=== PATIENT | male | born 1945 | race Two or more races ===

== ENCOUNTER 2023-02-27 08:29 | Inpatient (IN) | payer OTHER ==
[~2023-02-27] VITALS: Ht 167.6 cm; Wt 77.1 kg
[2023-02-27 10:08] LABS: COVID19 ANTIGEN SOFIA FIA NEGATIVE (NEGATIVE); Rapid Influenza A Negative (Negative); Rapid Influenza B Negative (Negative)
[2023-02-27 10:12] LABS: Basophils # (auto) 0.1 10 ^3/uL (0-0.2); Basophils % (auto) 0.5 % (0.0-2.0); Eosinophils # (auto) 0.1 10 ^3/uL (0-0.8); Eosinophils % (auto) 0.7 % (0.0-7.0); Hematocrit 46.4 % (41.0-53.0); Hemoglobin 15.1 g/dL (13.5-17.5); Lymphocytes # (auto) 0.7 10 ^3/uL (0.4-5.4); Lymphocytes % (auto) 4.8 % (10.0-50.0); Mean Corpuscular Hemoglobin 27.8 pg (28.0-32.0); Mean Corpuscular Hgb Conc. 32.4 g/dL (32.0-36.0); Mean Corpuscular Volume 85.9 fL (80.0-100.0); Monocytes # (auto) 1.1 10 ^3/uL (0-1.3); Monocytes % (auto) 7.7 % (0.0-12.0); Neutrophils # (auto) 12.1 10 ^3/uL (1.6-8.6); Neutrophils % (auto) 86.3 % (37.0-80.0); Nucleated Red Blood Cells % 0.2 %; Red Blood Cells 5.41 10^6/uL (4.5-5.90); Red Cell Distribution Width 15.3 % (11.8-14.3)
[2023-02-27 10:20] LABS: Alanine Aminotransferase 68 U/L (7-40); Albumin 3.9 g/dL (3.2-4.8); Alkaline Phosphatase 189 U/L (46-116); Anion Gap 5 (5-15); Aspartate Aminotransferase 52 U/L (13-40); BUN/Creatinine Ratio 17.6 (10.0-20.0); Bilirubin, Total 0.4 mg/dL (0.2-1.0); Blood Urea Nitrogen 21 mg/dL (9-23); Calcium 9.2 mg/dL (8.5-10.1); Carbon Dioxide 32 mmol/L (20-30); Chloride 103 mmol/L (98-107); Glucose 126 mg/dL (74-106); Potassium 5.3 mmol/L (3.5-5.1); Sodium 140 mmol/L (136-145)
[2023-02-27 10:21] LABS: Total Protein 6.3 g/dL (5.7-8.2)
[2023-02-27 10:32] VITALS: PULSE 104; RESP 15; O2SAT 92
[2023-02-27] MEDS ORDERED: IPRATROPIUM BROM 0.5 MG/2.5ML INH SOL NEB ONE (12:45)
[2023-02-27] MEDS ORDERED: methylPREDNISolone SOD SUCC 125 MG/2 ML VL IV ONE (12:45)
[2023-02-27] MEDS ORDERED: cefTRIAXone 1GM/50ML D5W 50 ML IV ONE (12:45)
[2023-02-27] MEDS ORDERED: FUROSEMIDE 40 MG/4 ML VIAL IV ONE (12:45)
[2023-02-27] MEDS ORDERED: AZITHROMYCIN 500MG/ 250ML 250 ML IV ONE (12:45)
[2023-02-27] MEDS ORDERED: ALBUTEROL MEDNEB 2.5 mg/3ml NEB NEB ONE (12:45)
[2023-02-27] MEDS ORDERED: ACETAMINOPHEN 325 MG TAB PO PRN (13:00)
[2023-02-27] MEDS ORDERED: ROSU1TAB14 PO (13:06)
[2023-02-27] MEDS: SODIUM CHLORIDE 0.9% 1,000 ML IV SCH (13:27)
[2023-02-27 14:40] LABS: Urine Bacteria NONE SEEN /hpf (None Seen); Urine Blood 3+ /uL (Negative); Urine Clarity HAZY (Clear); Urine Color Yellow (Yellow); Urine Mucus FEW (None Seen); Urine Protein, UAD 1+ (Negative); Urine Specific Gravity 1.027 (1.001-1.035); Urine WBC 78 /hpf (0 - 3); Urine pH 5.5 (5.0-8.0)
[2023-02-27] MEDS: methylPREDNISolone SOD SUCC 40 MG/ML VL IV SCH (23:30)
[2023-02-27 23:50] VITALS: BP 96/48; PULSE 76; RESP 16; TEMP 97.6; O2SAT 98
[2023-02-28 05:01] VITALS: BP 81/33; PULSE 72; RESP 16; TEMP 97.6; O2SAT 91
[2023-02-28 06:36] LABS: Basophils # (auto) 0 10 ^3/uL (0-0.2); Basophils % (auto) 0.3 % (0.0-2.0); Eosinophils # (auto) 0 10 ^3/uL (0-0.8); Hematocrit 42.2 % (41.0-53.0); Hemoglobin 13.7 g/dL (13.5-17.5); Lymphocytes # (auto) 0.6 10 ^3/uL (0.4-5.4); Lymphocytes % (auto) 4.3 % (10.0-50.0); Mean Corpuscular Hemoglobin 28.1 pg (28.0-32.0); Mean Corpuscular Hgb Conc. 32.5 g/dL (32.0-36.0); Mean Corpuscular Volume 86.2 fL (80.0-100.0); Monocytes # (auto) 0.4 10 ^3/uL (0-1.3); Monocytes % (auto) 2.7 % (0.0-12.0); Neutrophils # (auto) 12.2 10 ^3/uL (1.6-8.6); Neutrophils % (auto) 92.7 % (37.0-80.0); Nucleated Red Blood Cells % 0.1 %; Red Blood Cells 4.89 10^6/uL (4.5-5.90); Red Cell Distribution Width 15.1 % (11.8-14.3); White Blood Cell 13.2 10^3/uL (4.4-10.8)
[2023-02-28 06:44] LABS: Alanine Aminotransferase 40 U/L (7-40); Albumin 3.7 g/dL (3.2-4.8); Alkaline Phosphatase 96 U/L (46-116); Anion Gap 6 (5-15); Aspartate Aminotransferase 18 U/L (13-40); BUN/Creatinine Ratio 16.5 (10.0-20.0); Blood Urea Nitrogen 15 mg/dL (9-23); Calcium 8.9 mg/dL (8.7-10.4); Carbon Dioxide 29 mmol/L (20-30); Chloride 104 mmol/L (98-107); Glucose 156 mg/dL (74-106); Potassium 4.7 mmol/L (3.5-5.1); Sodium 139 mmol/L (136-145)
[2023-02-28 06:45] LABS: Bilirubin, Total 0.3 mg/dL (0.2-1.0); Total Protein 6.3 g/dL (5.7-8.2)
[2023-02-28 08:10] VITALS: BP 104/68; PULSE 80; RESP 15; TEMP 98.2; O2SAT 96
[2023-02-28] MEDS: cefTRIAXone 1GM/50ML D5W 50 ML IV SCH (08:43)
[2023-02-28] MEDS: SODIUM CHLORIDE 0.9% 1,000 ML IV SCH (08:43)
[2023-02-28 09:00] VITALS: BP 104/68; PULSE 80; RESP 15; TEMP 98.2; O2SAT 96
[2023-02-28] MEDS: ATORVASTATIN 20 MG TAB PO SCH (10:20)
[2023-02-28] MEDS: methylPREDNISolone SOD SUCC 40 MG/ML VL IV SCH ×2 (10:20→22:04)
[2023-02-28] MEDS: ENOXAPARIN SOD 40 MG/0.4 ML SYRINGE SC SCH (10:20)
[2023-02-28] MEDS: AZITHROMYCIN 500MG/ 250ML 250 ML IV SCH (10:21)
[2023-02-28 13:00] VITALS: BP 100/68; PULSE 74; RESP 16; TEMP 97.5; O2SAT 94
[2023-02-28 17:00] VITALS: BP 101/67; PULSE 67; RESP 16; TEMP 97.4; O2SAT 94
[2023-02-28 21:37] VITALS: BP 90/50; PULSE 72; RESP 16; TEMP 97.8; O2SAT 100
[2023-03-01 04:50] VITALS: BP 89/55; PULSE 62; RESP 18; TEMP 98.1; O2SAT 98
[2023-03-01 07:07] LABS: Basophils # (auto) 0.1 10 ^3/uL (0-0.2); Basophils % (auto) 0.5 % (0.0-2.0); Eosinophils # (auto) 0 10 ^3/uL (0-0.8); Hematocrit 42.5 % (41.0-53.0); Hemoglobin 13.4 g/dL (13.5-17.5); Lymphocytes # (auto) 0.6 10 ^3/uL (0.4-5.4); Lymphocytes % (auto) 3.7 % (10.0-50.0); Mean Corpuscular Hgb Conc. 31.6 g/dL (32.0-36.0); Mean Corpuscular Volume 85.6 fL (80.0-100.0); Monocytes # (auto) 0.5 10 ^3/uL (0-1.3); Neutrophils # (auto) 15.3 10 ^3/uL (1.6-8.6); Neutrophils % (auto) 92.8 % (37.0-80.0); Nucleated Red Blood Cells % 0.1 %; Red Blood Cells 4.97 10^6/uL (4.5-5.90); Red Cell Distribution Width 15.1 % (11.8-14.3); White Blood Cell 16.5 10^3/uL (4.4-10.8)
[2023-03-01 07:15] LABS: Anion Gap 1 (5-15); Carbon Dioxide 33 mmol/L (20-30); Chloride 106 mmol/L (98-107); Potassium 5.4 mmol/L (3.5-5.1); Sodium 140 mmol/L (136-145)
[2023-03-01 07:16] LABS: Calcium 9.2 mg/dL (8.5-10.1)
[2023-03-01 07:21] LABS: BUN/Creatinine Ratio 24.8 (10.0-20.0); Glucose 157 mg/dL (74-106); Triglycerides 118 mg/dL (< 150)
[2023-03-01 07:22] LABS: LDL Cholesterol 52 mg/dL (< 100)
[2023-03-01 07:23] LABS: Cholesterol 98 mg/dL (< 200); HDL Cholesterol 21 mg/dL (40-59)
[2023-03-01 07:27] LABS: Blood Urea Nitrogen 27 mg/dL (9-23)
[2023-03-01 07:29] LABS: Magnesium 2.4 mg/dL (1.6-2.6)
[2023-03-01 09:00] VITALS: BP 101/72; PULSE 54; RESP 14; TEMP 97.5; O2SAT 98
[2023-03-01 09:15] LABS: Platelet Estimate Adequate
[2023-03-01 09:16] LABS: Giant Platelets Few
[2023-03-01] MEDS: ATORVASTATIN 20 MG TAB PO SCH (09:29)
[2023-03-01] MEDS: cefTRIAXone 1GM/50ML D5W 50 ML IV SCH (09:29)
[2023-03-01] MEDS: AZITHROMYCIN 500MG/ 250ML 250 ML IV SCH (09:29)
[2023-03-01] MEDS: ENOXAPARIN SOD 40 MG/0.4 ML SYRINGE SC SCH (09:30)
[2023-03-01] MEDS: methylPREDNISolone SOD SUCC 40 MG/ML VL IV SCH ×2 (09:30→22:48)
[2023-03-01] MEDS ORDERED: IOHEXOL 350 MG/ML 100ML IJ ONE (12:08)
[2023-03-01 13:00] VITALS: BP 98/60; PULSE 55; RESP 15; TEMP 97.9; O2SAT 96
[2023-03-01] MEDS ORDERED: SODIUM CHLORIDE 0.9% 1,000 ML IV ONE (14:15)
[2023-03-01 17:00] VITALS: BP 108/68; PULSE 61; RESP 17; TEMP 98; O2SAT 98
[2023-03-01 22:00] VITALS: BP 91/55; PULSE 69; RESP 18; TEMP 98; O2SAT 98
[2023-03-02 05:00] VITALS: BP 89/54; PULSE 65; RESP 16; TEMP 98; O2SAT 91
[2023-03-02 07:49] LABS: Chloride 107 mmol/L (98-107); Potassium 5.1 mmol/L (3.5-5.1); Sodium 139 mmol/L (136-145)
[2023-03-02 07:50] LABS: Anion Gap 4 (5-15); Calcium 9.2 mg/dL (8.5-10.1); Carbon Dioxide 28 mmol/L (20-30)
[2023-03-02 07:55] LABS: BUN/Creatinine Ratio 26.9 (10.0-20.0); Blood Urea Nitrogen 25 mg/dL (9-23); Glucose 144 mg/dL (74-106)
[2023-03-02 08:08] LABS: Basophils # (auto) 0 10 ^3/uL (0-0.2); Basophils % (auto) 0.2 % (0.0-2.0); Eosinophils # (auto) 0 10 ^3/uL (0-0.8); Hematocrit 43.1 % (41.0-53.0); Hemoglobin 13.4 g/dL (13.5-17.5); Lymphocytes # (auto) 0.6 10 ^3/uL (0.4-5.4); Lymphocytes % (auto) 3.8 % (10.0-50.0); Mean Corpuscular Hemoglobin 27.1 pg (28.0-32.0); Mean Corpuscular Hgb Conc. 31.2 g/dL (32.0-36.0); Mean Corpuscular Volume 86.8 fL (80.0-100.0); Monocytes # (auto) 0.4 10 ^3/uL (0-1.3); Monocytes % (auto) 2.9 % (0.0-12.0); Neutrophils # (auto) 14.2 10 ^3/uL (1.6-8.6); Neutrophils % (auto) 93.1 % (37.0-80.0); Red Blood Cells 4.97 10^6/uL (4.5-5.90); Red Cell Distribution Width 15.8 % (11.8-14.3); White Blood Cell 15.2 10^3/uL (4.4-10.8)
[2023-03-02] MEDS: cefTRIAXone 1GM/50ML D5W 50 ML IV SCH (08:34)
[2023-03-02] MEDS: ATORVASTATIN 20 MG TAB PO SCH (08:35)
[2023-03-02] MEDS: AZITHROMYCIN 500MG/ 250ML 250 ML IV SCH (08:35)
[2023-03-02] MEDS: methylPREDNISolone SOD SUCC 40 MG/ML VL IV SCH ×2 (08:35→21:49)
[2023-03-02] MEDS: ENOXAPARIN SOD 40 MG/0.4 ML SYRINGE SC SCH (08:35)
[2023-03-02 08:55] VITALS: BP 91/55; PULSE 54; RESP 18; TEMP 97.6; O2SAT 94
[2023-03-02 13:00] VITALS: BP 106/37; PULSE 51; RESP 17; TEMP 97.5; O2SAT 98
[2023-03-02 17:00] VITALS: BP 106/56; PULSE 63; RESP 16; TEMP 97.7; O2SAT 96
[2023-03-02 22:00] VITALS: BP 114/64; PULSE 52; RESP 18; TEMP 97.8; O2SAT 99
[2023-03-03 05:00] VITALS: BP 107/59; PULSE 72; RESP 16; TEMP 97.9; O2SAT 93
[2023-03-03 09:00] VITALS: BP 119/68; PULSE 52; RESP 18; TEMP 98; O2SAT 99
[2023-03-03] MEDS: cefTRIAXone 1GM/50ML D5W 50 ML IV SCH (09:22)
[2023-03-03] MEDS: ENOXAPARIN SOD 40 MG/0.4 ML SYRINGE SC SCH (09:25)
[2023-03-03] MEDS: AZITHROMYCIN 500MG/ 250ML 250 ML IV SCH (09:25)
[2023-03-03] MEDS: ATORVASTATIN 20 MG TAB PO SCH (09:25)
[2023-03-03] MEDS: methylPREDNISolone SOD SUCC 40 MG/ML VL IV SCH ×2 (09:25→21:38)
[2023-03-03 13:00] VITALS: BP 107/65; PULSE 54; RESP 17; TEMP 98.1; O2SAT 99
[2023-03-03 17:00] VITALS: BP 123/71; PULSE 50; RESP 17; TEMP 98.2; O2SAT 98
[2023-03-03 21:46] VITALS: BP 159/97; PULSE 80; RESP 16; TEMP 98.4; O2SAT 95
[2023-03-04] VITALS (7 sets, daily range): BP systolic 100–118; BP diastolic 50–70; PULSE 53–71; RESP 16–20; TEMP 97.4–98.1; O2SAT 92–99
[2023-03-04] MEDS: cefTRIAXone 1GM/50ML D5W 50 ML IV SCH (09:15)
[2023-03-04] MEDS: ATORVASTATIN 20 MG TAB PO SCH (10:14)
[2023-03-04] MEDS: AZITHROMYCIN 500MG/ 250ML 250 ML IV SCH (10:14)
[2023-03-04] MEDS: methylPREDNISolone SOD SUCC 40 MG/ML VL IV SCH ×2 (10:14→21:47)
[2023-03-04] MEDS: ENOXAPARIN SOD 40 MG/0.4 ML SYRINGE SC SCH (10:14)
[2023-03-05] VITALS (7 sets, daily range): BP systolic 105–123; BP diastolic 54–71; PULSE 49–61; RESP 16–20; TEMP 97.9–98.4; O2SAT 92–99
[2023-03-05] MEDS: cefTRIAXone 1GM/50ML D5W 50 ML IV SCH (08:45)
[2023-03-05] MEDS: ATORVASTATIN 20 MG TAB PO SCH (10:12)
[2023-03-05] MEDS: methylPREDNISolone SOD SUCC 40 MG/ML VL IV SCH ×2 (10:13→21:04)
[2023-03-05] MEDS: AZITHROMYCIN 500MG/ 250ML 250 ML IV SCH (10:14)
[2023-03-05] MEDS: ENOXAPARIN SOD 40 MG/0.4 ML SYRINGE SC SCH (10:19)
[2023-03-06 05:00] VITALS: BP 111/57; PULSE 63; RESP 20; TEMP 98; O2SAT 91
[2023-03-06 08:47] VITALS: BP 114/65; PULSE 75; RESP 16; TEMP 98.2; O2SAT 94
[2023-03-06 09:00] VITALS: PULSE 44
[2023-03-06] MEDS: cefTRIAXone 1GM/50ML D5W 50 ML IV SCH (10:24)
[2023-03-06] MEDS: AZITHROMYCIN 500MG/ 250ML 250 ML IV SCH (10:24)
[2023-03-06] MEDS: ATORVASTATIN 20 MG TAB PO SCH (11:37)
[2023-03-06] MEDS: ENOXAPARIN SOD 40 MG/0.4 ML SYRINGE SC SCH (11:37)
[2023-03-06] MEDS: methylPREDNISolone SOD SUCC 40 MG/ML VL IV SCH (11:37)
[2023-03-06 12:38] VITALS: BP 158/82; PULSE 50; RESP 16; TEMP 97.6; O2SAT 94
[2023-03-06 13:28] LABS: Basophils # (auto) 0.1 10 ^3/uL (0-0.2); Basophils % (auto) 0.4 % (0.0-2.0); Eosinophils # (auto) 0 10 ^3/uL (0-0.8); Eosinophils % (auto) 0.1 % (0.0-7.0); Hematocrit 50.5 % (41.0-53.0); Hemoglobin 16.2 g/dL (13.5-17.5); Lymphocytes # (auto) 0.7 10 ^3/uL (0.4-5.4); Lymphocytes % (auto) 4.1 % (10.0-50.0); Mean Corpuscular Hemoglobin 27.3 pg (28.0-32.0); Mean Corpuscular Hgb Conc. 32.1 g/dL (32.0-36.0); Mean Corpuscular Volume 85.1 fL (80.0-100.0); Monocytes # (auto) 0.5 10 ^3/uL (0-1.3); Monocytes % (auto) 3.3 % (0.0-12.0); Neutrophils # (auto) 15.3 10 ^3/uL (1.6-8.6); Neutrophils % (auto) 92.1 % (37.0-80.0); Nucleated Red Blood Cells % 0.2 %; Red Blood Cells 5.93 10^6/uL (4.5-5.90); Red Cell Distribution Width 15.2 % (11.8-14.3); White Blood Cell 16.7 10^3/uL (4.4-10.8)
[2023-03-06 14:01] LABS: Anion Gap 4 (5-15); Calcium 9.4 mg/dL (8.5-10.1); Carbon Dioxide 33 mmol/L (20-30); Chloride 100 mmol/L (98-107); Potassium 4.6 mmol/L (3.5-5.1); Sodium 137 mmol/L (136-145)
[2023-03-06 14:07] LABS: BUN/Creatinine Ratio 18.5 (10.0-20.0); Blood Urea Nitrogen 20 mg/dL (9-23); Glucose 170 mg/dL (74-106)
[2023-03-06 16:25] VITALS: BP 112/82; PULSE 57; RESP 18; TEMP 98.9; O2SAT 92
[2023-03-06 16:55] VITALS: BP 112/82; PULSE 57; RESP 18; TEMP 98.9; O2SAT 92
== END 2023-03-06 17:52 | disposition home or self-care (01) | DRG 193 ==
LOC: ER 08:29 → OVERFLOW 13:05 → WEST WING 23:34
PROVIDERS: ADMIT Nurse Practitioner Family; ATTEND Internal Medicine
DX: J18.9 Pneumonia, unspecified organism (principal); I50.43 Acute on chronic combined systolic (congestive) and diastolic (congestive) heart failure; J96.01 Acute respiratory failure with hypoxia; N17.9 Acute kidney failure, unspecified; Q61.3 Polycystic kidney, unspecified; Z20.822 Contact with and (suspected) exposure to COVID-19; F17.210 Nicotine dependence, cigarettes, uncomplicated; R74.01 Elevation of levels of liver transaminase levels; E78.5 Hyperlipidemia, unspecified; J43.9 Emphysema, unspecified; I71.40 Abdominal aortic aneurysm, without rupture, unspecified; I73.9 Peripheral vascular disease, unspecified; Z86.79 Personal history of other diseases of the circulatory system
CPT/HCPCS: 36415; 71046; 71250; 75635; 80048; 80053; 80061; 81001; 82306; 83036; 83605; 83735; 83880; 84443; 84484; 85025; 87040; 87426; 87804; 93005; 93306; 94640; 96361; 96374; 96375; 97110; 97116; 97163; 97530; 99291; G0378; J0696

== ENCOUNTER → 2023-03-08 | Outpatient (CLI) | payer OTHER ==
[~2023-03-08] MED LIST: ROSU1TAB14 PO
[2023-03-08 11:54] LABS: Basophils # (auto) 0 10 ^3/uL (0-0.2); Monocytes # (auto) 1.4 10 ^3/uL (0-1.3)
[2023-03-08 11:55] LABS: Basophils % (auto) 0.3 % (0.0-2.0); Eosinophils # (auto) 0.2 10 ^3/uL (0-0.8); Eosinophils % (auto) 1.4 % (0.0-7.0); Hematocrit 54.5 % (41.0-53.0); Hemoglobin 17.7 g/dL (13.5-17.5); Lymphocytes # (auto) 1.5 10 ^3/uL (0.4-5.4); Lymphocytes % (auto) 10.7 % (10.0-50.0); Mean Corpuscular Hemoglobin 27.3 pg (28.0-32.0); Mean Corpuscular Hgb Conc. 32.5 g/dL (32.0-36.0); Mean Corpuscular Volume 84.2 fL (80.0-100.0); Monocytes % (auto) 9.8 % (0.0-12.0); Neutrophils # (auto) 11.2 10 ^3/uL (1.6-8.6); Neutrophils % (auto) 77.8 % (37.0-80.0); Nucleated Red Blood Cells % 0.8 %; Red Blood Cells 6.48 10^6/uL (4.5-5.90); Red Cell Distribution Width 15.6 % (11.8-14.3); White Blood Cell 14.4 10^3/uL (4.4-10.8)
[2023-03-08 12:14] LABS: Urine Bacteria NONE SEEN /hpf (None Seen); Urine Blood Negative /uL (Negative); Urine Clarity Clear (Clear); Urine Color Yellow (Yellow); Urine Protein, UAD Negative (Negative); Urine Urobilinogen Normal (Negative); Urine WBC 1 /hpf (0 - 3)
[2023-03-08 13:07] LABS: Alanine Aminotransferase 74 U/L (7-40); Albumin 3.8 g/dL (3.2-4.8); Alkaline Phosphatase 67 U/L (46-116); Aspartate Aminotransferase 19 U/L (13-40); Blood Urea Nitrogen 25 mg/dL (9-23); Calcium 9.3 mg/dL (8.5-10.1); Chloride 103 mmol/L (98-107); Cholesterol 142 mg/dL (< 200); Glucose 90 mg/dL (74-106); LDL Cholesterol 80 mg/dL (< 100); Potassium 4.7 mmol/L (3.5-5.1); Sodium 140 mmol/L (136-145); Triglycerides 172 mg/dL (< 150)
[2023-03-08 13:08] LABS: Bilirubin, Total 0.6 mg/dL (0.2-1.0); HDL Cholesterol 36 mg/dL (40-59); Total Protein 6.1 g/dL (5.7-8.2)
[2023-03-08 13:11] LABS: Anion Gap 5 (5-15); Carbon Dioxide 32 mmol/L (20-30)
[2023-03-08 13:13] LABS: Folate (Folic Acid) 9.95 ng/mL (>5.38)
[2023-03-08 13:35] LABS: Uric Acid 5.4 mg/dL (3.7-9.2)
[2023-03-08 13:36] LABS: Magnesium 2.3 mg/dL (1.6-2.6)
== END | disposition home or self-care (01) ==
LOC: LAB 11:26
PROVIDERS: ATTEND Internal Medicine
DX: E61.2 Magnesium deficiency (principal); R78.89 Finding of other specified substances, not normally found in blood; E78.9 Disorder of lipoprotein metabolism, unspecified; R68.89 Other general symptoms and signs; R94.6 Abnormal results of thyroid function studies; E79.0 Hyperuricemia without signs of inflammatory arthritis and tophaceous disease; R82.991 Hypocitraturia; E85.9 Amyloidosis, unspecified; R82.90 Unspecified abnormal findings in urine; R82.79 Other abnormal findings on microbiological examination of urine; D51.9 Vitamin B12 deficiency anemia, unspecified
CPT/HCPCS: 36415; 80053; 80061; 81001; 82306; 82607; 82746; 83036; 83735; 84443; 84550; 85025; 87086

== ENCOUNTER → 2023-04-14 | Outpatient (CLI) | payer OTHER ==
[2023-04-14 09:21] LABS: Basophils # (auto) 0 10 ^3/uL (0-0.2); Basophils % (auto) 0.3 % (0.0-2.0); Lymphocytes # (auto) 0.8 10 ^3/uL (0.4-5.4); Monocytes # (auto) 0.4 10 ^3/uL (0-1.3)
[2023-04-14 09:23] LABS: Eosinophils # (auto) 0.1 10 ^3/uL (0-0.8); Eosinophils % (auto) 0.7 % (0.0-7.0); Hemoglobin 17.2 g/dL (13.5-17.5); Lymphocytes % (auto) 8.9 % (10.0-50.0); Mean Corpuscular Hemoglobin 27.8 pg (28.0-32.0); Mean Corpuscular Volume 84.2 fL (80.0-100.0); Monocytes % (auto) 4.3 % (0.0-12.0); Neutrophils # (auto) 7.6 10 ^3/uL (1.6-8.6); Neutrophils % (auto) 85.8 % (37.0-80.0); Nucleated Red Blood Cells % 1.4 %; Red Blood Cells 6.17 10^6/uL (4.5-5.90); Red Cell Distribution Width 16.1 % (11.8-14.3); White Blood Cell 8.8 10^3/uL (4.4-10.8)
[2023-04-14 10:23] LABS: Bilirubin, Direct 0.2 mg/dL (<0.3)
[2023-04-14 10:38] LABS: Prostate Specific Antigen 2.15 ng/mL (0.0-4.0)
[2023-04-14 10:41] LABS: Free T4 (Free Thyroxine) 0.98 ng/dL (0.89-1.76)
[2023-04-14 10:50] LABS: Alanine Aminotransferase 15 U/L (7-40); Albumin 4.8 g/dL (3.2-4.8); Alkaline Phosphatase 79 U/L (46-116); Anion Gap 7 (5-15); Aspartate Aminotransferase 14 U/L (13-40); BUN/Creatinine Ratio 5.5 (10.0-20.0); Blood Urea Nitrogen 6 mg/dL (9-23); Calcium 9.6 mg/dL (8.7-10.4); Carbon Dioxide 29 mmol/L (20-30); Chloride 104 mmol/L (98-107); Glucose 101 mg/dL (74-106); Potassium 4.5 mmol/L (3.5-5.1); Sodium 140 mmol/L (136-145)
[2023-04-14 10:51] LABS: Bilirubin, Total 0.9 mg/dL (0.2-1.0); Total Protein 7.3 g/dL (5.7-8.2)
== END | disposition home or self-care (01) ==
LOC: LAB 09:00
PROVIDERS: ATTEND Nurse Practitioner Family
DX: R79.89 Other specified abnormal findings of blood chemistry (principal); R68.89 Other general symptoms and signs; R73.09 Other abnormal glucose; E03.9 Hypothyroidism, unspecified; R94.6 Abnormal results of thyroid function studies; E61.2 Magnesium deficiency; R82.90 Unspecified abnormal findings in urine; D51.9 Vitamin B12 deficiency anemia, unspecified; E85.9 Amyloidosis, unspecified
CPT/HCPCS: 36415; 80053; 80076; 84153; 84439; 84443; 85025; 86376

== ENCOUNTER → 2023-04-26 | Outpatient (CLI) | payer OTHER | END | disposition home or self-care (01) | LOC: LAB 15:44 | PROVIDERS: ATTEND Nurse Practitioner Family | DX: R79.89 Other specified abnormal findings of blood chemistry (principal); E78.9 Disorder of lipoprotein metabolism, unspecified; R68.89 Other general symptoms and signs; E03.9 Hypothyroidism, unspecified; R82.90 Unspecified abnormal findings in urine; R82.991 Hypocitraturia; D51.9 Vitamin B12 deficiency anemia, unspecified; E85.9 Amyloidosis, unspecified; E61.2 Magnesium deficiency | CPT/HCPCS: 82270 ==

== ENCOUNTER 2024-01-30 08:55 | Inpatient (IN) | payer OTHER ==
[~2024-01-30] VITALS: Ht 157.5 cm; Wt 73.2 kg
[~2024-01-30 08:55] MED LIST changes: -ROSU1TAB14 PO; +ROSU20TA56 PO
--- NOTE | 2024-01-30 09:52 | ED.PDOC ---
History of Present Illness(SKN HPI Comments 78 year old male with hx of COPD,presents for atraumatic back pain x 7 days. Previous smoker, stopped smoking 10 months ago. Pain rated as severe and is radiated to the right paralumbar region Pain is persistent and unable to get adequate relief with OTC medication LBM: today and normal Denies history of chronic steroid use or history of osteoporosis Denies any history of cancer Denies fevers chills night sweats nausea vomiting unintentional weight loss Denies IV drug use history of HIV/TB Denies abdominal "tearing" pain Denies syncope Denies urinary incontinence or urinary changes Denies numbness tingling of the groin or inner thigh Denies previous back procedure or surgery Chief Complaint: Back Pain Time Seen by MD: 09:16 Primary Care Provider: UNKNOWN History of Present Illness: Nurses Notes, Medications, Allergies Allergies: Coded Allergies: NO KNOWN ALLERGIES (Unverified , 02/27/23) Home Meds Reported Medications Rosuvastatin Calcium (Rosuvastatin Calcium) 20 Mg Tab, 1 TAB PO DAILY 02/27/23 Information Source: Patient Mode of Arrival: Ambulatory Past Medical History PAST MEDICAL HISTORY: High Lipids Surgical History: Denies all surgeries Family History Family History: Unknown Social History Smoker: Non-Smoker Alcohol: Denies ETOH Use Drugs: Denies Drug Use All Other Systems: Reviewed and Negative (per hpi) Physical Exam General Appearance: No Apparent Distress, Normal HEENT: Normal ENT Inspection, Pharynx Normal, TMs Normal Neck: Full Range of Motion, Non-Tender, Normal, Normal Inspection Respiratory: Chest Non-Tender, Lungs Clear, No Accessory Muscle Use, No Respiratory Distress, Normal Breath Sounds Cardiovascular: No Edema, No JVD, No Murmur, No Gallop, Normal Peripheral Pulses, Regular Rate/Rhythm Breast Exam: Deferred Gastrointestinal: No Organomegaly, Non Tender, No Pulsatile Mass, Normal Bowel Sounds, Soft Genitalia: Deferred Pelvic: Deferred Rectal: Deferred Extremities: No calf tenderness, Normal capillary refill, Normal inspection, Normal range of motion, Non-tender, No pedal edema Musculoskeletal : Extremity Location: Back (No gross abnormality on inspection. Localized TTP. ) Apperance: Normal Neurologic: Alert, No Motor Deficits, Normal Affect, Normal Mood, No Sensory Deficits Cerebellar Function: Normal Reflexes: Normal Skin: Dry, Normal Color, Warm Lymphatic: No Adenopathy Was a procedure done? Was a procedure done?: No Images 1 - Localized TTP Differential Diagnosis (INTG) Differential Diagnosis: Other X-Ray, Labs, Meds, VS Vital Signs Date Time Temp Pulse Resp B/P (MAP) Pulse Ox O2 Delivery O2 Flow Rate FiO2 01/30/24 10:27 88 17 95 Room Air 01/30/24 10:27 98.0 88 17 122/64 (83) 95 98.0 01/30/24 09:12 80 01/30/24 09:05 97.8 89 16 119/70 (86) 93 Lab Test 01/30/24 10:31 01/30/24 10:11 Range/Units White Blood Count 6.2 4.4-10.8 10^3/uL Red Blood Count 5.70 4.5-5.90 10^6/uL Hemoglobin 16.2 13.5-17.5 g/dL Hematocrit 49.4 41.0-53.0 % Mean Corpuscular Volume 86.6 80.0-100.0 fL Mean Corpuscular Hemoglobin 28.5 28.0-32.0 pg Mean Corpuscular Hemoglobin Concent 32.9 32.0-36.0 g/dL Red Cell Distribution Width 14.9 H 11.8-14.3 % Platelet Count 199 140-450 10^3/uL Mean Platelet Volume 9.2 6.9-10.8 fL Neutrophils (%) (Auto) 69.7 37.0-80.0 % Lymphocytes (%) (Auto) 17.7 10.0-50.0 % Monocytes (%) (Auto) 9.7 0.0-12.0 % Eosinophils (%) (Auto) 2.3 0.0-7.0 % Basophils (%) (Auto) 0.6 0.0-2.0 % Neutrophils # (Auto) 4.3 1.6-8.6 10 ^3/uL Lymphocytes # (Auto) 1.1 0.4-5.4 10 ^3/uL Monocytes # (Auto) 0.6 0-1.3 10 ^3/uL Eosinophils # (Auto) 0.1 0-0.8 10 ^3/uL Basophils # (Auto) 0 0-0.2 10 ^3/uL Nucleated Red Blood Cells 0.1 % Sodium Level 141 136-145 mmol/L Potassium Level 4.8 3.5-5.1 mmol/L Chloride Level 107 98-107 mmol/L Carbon Dioxide Level 29 20-31 mmol/L Anion Gap 5 5-15 Blood Urea Nitrogen 9 9-23 mg/dL Creatinine 1.21 0.700-1.30 mg/dL Glomerular Filtration Rate Calc 61 >90 mL/min BUN/Creatinine Ratio 7.4 L 10.0-20.0 Serum Glucose 95 74-106 mg/dL Calcium Level 10.4 8.7-10.4 mg/dL Total Bilirubin 0.4 0.2-1.0 mg/dL Aspartate Amino Transferase (AST) 8 L 13-40 U/L Alanine Aminotransferase (ALT) 10 7-40 U/L Alkaline Phosphatase 96 46-116 U/L B-Type Natriuretic Peptide 30.94 0-100 pg/mL Total Protein 7.0 5.7-8.2 g/dL Albumin 4.5 3.2-4.8 g/dL Urine Color Yellow Yellow Urine Clarity Clear Clear Urine pH 5.5 5.0-9.0 Urine Specific [place] 1.014 1.001-1.035 Urine Protein Negative Negative Urine Ketones Negative Negative Urine Blood Negative Negative /uL Urine Nitrite Negative Negative Urine Bilirubin Negative Negative Urine Urobilinogen Normal Negative mg/dL Urine Leukocyte Esterase Negative Negative /uL Urine RBC 1 0 - 3 /hpf Urine WBC <1 0 - 3 /hpf Urine Squamous Epithelial Cells Few <5 /hpf Urine Bacteria None seen None Seen /hpf Urine Mucus Few None Seen Urine Glucose Normal Normal mg/dL Current Medications Medications (Trade) Dose Ordered Sig/Juan David Route Start Time Stop Time Status Last Admin Acetaminophen/ Hydrocodone Bitart ([place] 5/325MG Tab) 1 tab ONCE ONCE PO 01/30/24 10:15 01/30/24 10:17 DC 01/30/24 10:22 PATIENT: NIGEL RANGELT: [id number]: [id number] : 1945 LOC: ER ROOM / BED: / AGE / SEX: 78 / M ADM STATUS: REG ER SERVICE [id number] ORDERING PHYSICIAN: ALEKSANDER WATTS NP PROCEDURE(s): ANGAC - ANGIO AORTIC ABDOMINAL REASON: 5.8CM INFRA RENAL ABD ANEURYSM W/ SUSPECTED INTRAMURAL HEMAT ORDER NUMBER(s): [id number], ACCESSION NUMBER(s): [id number] Procedure: CT ANGIO AORTIC ABDOMINAL HISTORY: 5.8CM INFRA RENAL ABD ANEURYSM W/ SUSPECTED INTRAMURAL HEMAT Comparison Study: None Exam Date:01/30/2024 11:53 AM TECHNIQUE: CTA scanner volumetric data acquisition of abdomen and pelvis was obtained following intravenous administration of intravenous contrast without any reported adverse effects. Axial images were reconstructed and additional sagittal and coronal images were reformatted. Arterial phase imaging were performed. Postprocessing was also performed on a separate workstation. 3D images were performed on a dedicated workstation and reviewed for reporting. Radiation dose : CT Dose: CTDI volume is 20.6 mGy. Dose-length product is 1281.08 mGy*cm FINDINGS: Vascular: Aortic measurements: aortic hiatus 26 mm, suprarenal abdominal aorta 25 mm and infrarenal aorta 67 X 64 mm. There is a moderate to large amount of mural thrombus in the infrarenal abdominal aortic aneurysm. Right common and external iliac artery are occluded. The mesenteric, bilateral renal, left iliac and femoral arteries are widely patent without any focal stenosis or aneurysm. Lung Bases: Atelectasis and scarring in the lung bases. Liver: The liver is normal in size. No focal lesions. Normal hepatic vascular enhancement. Gallbladder and biliary Tree: Unremarkable Spleen: Unremarkable Pancreas: The pancreas is normal in appearance without focal lesions or abnormal enhancement. Adrenal Glands: Unremarkable Kidneys: Bilateral renal cysts. Largest on the left measures up to 220mm. No hydroneprhosis. Bladder: Unremarkable Bowel: The stomach is grossly normal in appearance. Small bowel and colon are normal in caliber and distribution. Normal appendix is visualized in the right lower quadrant without findings of appendicitis. Ascites: Absent Lymphadenopathy: No mesenteric, retroperitoneal or periportal lymphadenopathy. Abdominal Wall and Mesentery: Fat and small bowel containing left inguinal hernia. Small bowel containing right femoral hernia. Vasculature: See above Pelvic Organs: Prostate is enlarged. Musculoskeletal: Compression of formality of L4. Multilevel degenerative disease. IMPRESSION: 1. Infrarenal abdominal aortic aneurysm measuring up to 67mm with a large amount of mural thrombus. 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 Vascular surgery evaluation is recommended. 2. Numerous bilateral renal cysts including a very large left renal cyst measuring up to 220mm. 3. Left inguinal hernia containing fat and small bowel. Right femoral hernia containing small bowel. No definite acute obstruction. Some level of chronic obstruction may be present. HS:Y ATED BY: VOLODYMYR BOWLES MD DICTATED DATE/TIME: 01/30/241226 SIGNED BY: VOLODYMYR BOWLES MD SIGNED DATE/TIME: 01/30/241226 CC: X-Ray, Labs, Meds, VS Comment The ROS physical examination imaging was ordered to rule out serious pathology. CT angiogram shows 1. Infrarenal abdominal aortic aneurysm measuring up to 67mm with a large amount of mural thrombus. 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 Vascular surgery evaluation is recommended. 2. Numerous bilateral renal cysts including a very large left renal cyst measuring up to 220mm. 3. Left inguinal hernia containing fat and small bowel. Right femoral hernia containing small bowel. No definite acute obstruction. Some level of chronic obstruction may be present. Findings relayed to Dr. Bella and MD endorsed patient for higher level of care. Time of 1ST Reevaluation: 10:09 Reevaluation 1ST: Improved Patient Education/Counseling: Diagnosis, Treatment Family Education/Counseling: Diagnosis, Treatment Departure 1 Departure Time of Disposition: 13:42 Impression: Primary Impression: AAA (abdominal aortic aneurysm) Qualified Codes: I71.43 - Infrarenal abdominal aortic aneurysm, without rupture Additional Impressions: Inguinal hernia Qualified Codes: K40.90 - Unilateral inguinal hernia, without obstruction or gangrene, not specified as recurrent Diverticulosis Renal cyst Disposition: 01 HOME / SELF CARE / HOMELESS Condition: Stable Discharged With: Self Critical Care Note Critical Care Time?: No Stability Stability form required: No Heart Score Heart Score: Heart Score Response (Comments) Value History N/A 0 EKG N/A 0 Age N/A 0 Risk Factors N/A 0 Troponin N/A 0 Total 0 ALEKSANDER WATTS NP Jan 30, 2024 09:52
[2024-01-30] MEDS: HYDROcodone-ACET 5/325MG TAB PO ONE ×2 (10:22→10:32)
[2024-01-30 10:30] LABS: Urine Bacteria None Seen /hpf (None Seen)
[2024-01-30 11:02] LABS: Urine Blood Negative /uL (Negative); Urine Clarity Clear (Clear); Urine Color Yellow (Yellow); Urine Mucus FEW (None Seen); Urine Protein, UAD Negative (Negative); Urine Specific Gravity 1.014 (1.001-1.035); Urine Urobilinogen Normal (Negative); Urine WBC <1 /hpf (0 - 3); Urine pH 5.5 (5.0-9.0)
[2024-01-30 11:12] LABS: Basophils # (auto) 0 10 ^3/uL (0-0.2); Basophils % (auto) 0.6 % (0.0-2.0); Eosinophils # (auto) 0.1 10 ^3/uL (0-0.8); Eosinophils % (auto) 2.3 % (0.0-7.0); Hematocrit 49.4 % (41.0-53.0); Hemoglobin 16.2 g/dL (13.5-17.5); Lymphocytes # (auto) 1.1 10 ^3/uL (0.4-5.4); Lymphocytes % (auto) 17.7 % (10.0-50.0); Mean Corpuscular Hemoglobin 28.5 pg (28.0-32.0); Mean Corpuscular Hgb Conc. 32.9 g/dL (32.0-36.0); Mean Corpuscular Volume 86.6 fL (80.0-100.0); Monocytes # (auto) 0.6 10 ^3/uL (0-1.3); Monocytes % (auto) 9.7 % (0.0-12.0); Neutrophils # (auto) 4.3 10 ^3/uL (1.6-8.6); Neutrophils % (auto) 69.7 % (37.0-80.0); Nucleated Red Blood Cells % 0.1 %; Platelet Count (auto) 199 10^3/uL (140-450); Red Cell Distribution Width 14.9 % (11.8-14.3); White Blood Cell 6.2 10^3/uL (4.4-10.8)
[2024-01-30 11:19] LABS: Alanine Aminotransferase 10 U/L (7-40); Albumin 4.5 g/dL (3.2-4.8); Alkaline Phosphatase 96 U/L (46-116); Anion Gap 5 (5-15); Aspartate Aminotransferase 8 U/L (13-40); BUN/Creatinine Ratio 7.4 (10.0-20.0); Bilirubin, Total 0.4 mg/dL (0.2-1.0); Blood Urea Nitrogen 9 mg/dL (9-23); Calcium 10.4 mg/dL (8.7-10.4); Carbon Dioxide 29 mmol/L (20-31); Chloride 107 mmol/L (98-107); Glucose 95 mg/dL (74-106); Potassium 4.8 mmol/L (3.5-5.1); Sodium 141 mmol/L (136-145)
--- NOTE | 2024-01-30 11:20 | ECG ---
[facility] Test Date: 2024-01-30 Test Time: 09:12:12 Pat Name: RHONDA DE LOS SANTOS [facility] Department: er Room: 0266D Gender: M [employer]ural Project [employer]: donald : 1945 Requested By: KATERIN CHAMBERLAIN Order Number: [id number] Reading MD: Nic Cuenca Measurements Intervals [place] Rate: 80 P: 57 WV: 102 QRS: 110 QRSD: 111 T: 44 QT: 403 QTc: 465 Interpretive Statements Sinus rhythm Short W[place] interval Right axis deviation Borderline T abnormalities, anterior leads Electronically Signed On 02-01-2024 13:09:47 PDT by Nic Cuenca Please click the below link to view image of tracing.
--- NOTE | 2024-01-30 12:30 | DVH ---
Procedure: CT ANGIO AORTIC ABDOMINAL HISTORY: 5.8CM INFRA RENAL ABD ANEURYSM W/ SUSPECTED INTRAMURAL HEMAT Comparison Study: None Exam Date:01/30/2024 11:53 AM TECHNIQUE: CTA scanner volumetric data acquisition of abdomen and pelvis was obtained following intravenous admi nistration of intravenous contrast without any reported adverse effects. Axial images were reconstruc natacha and additional sagittal and coronal images were reformatted. Arterial phase imaging were performe d. Postprocessing was also performed on a separate workstation. 3D images were performed on a dedicated workstation and reviewed for reporting. Radiation dose : CT Dose: CTDI volume is 20.6 mGy. Dose-length product is 1281.08 mGy*cm FINDINGS: Vascular: Aortic measurements: aortic hiatus 26 mm, suprarenal abdominal aorta 25 mm and infrarenal aorta 67 X 64 mm. There is a moderate to large amount of mural thrombus in the infrarenal abdominal aortic aneurysm. Ri ght common and external iliac artery are occluded. The mesenteric, bilateral renal, left iliac and femoral arteries are widely patent without any focal stenosis or aneurysm. Lung Bases: Atelectasis and scarring in the lung bases. Liver: The liver is normal in size. No focal lesions. Normal hepatic vascular enhancement. Gallbladder and biliary Tree: Unremarkable Spleen: Unremarkable Pancreas: The pancreas is normal in appearance without focal lesions or abnormal enhancement. Adrenal Glands: Unremarkable Kidneys: Bilateral renal cysts. Largest on the left measures up to 220mm. No hydroneprhosis. Bladder: Unremarkable Bowel: The stomach is grossly normal in appearance. Small bowel and colon are normal in caliber and d istribution. Normal appendix is visualized in the right lower quadrant without findings of appendici tis. Ascites: Absent Lymphadenopathy: No mesenteric, retroperitoneal or periportal lymphadenopathy. Abdominal Wall and Mesentery: Fat and small bowel containing left inguinal hernia. Small bowel contai payton right femoral hernia. Vasculature: See above Pelvic Organs: Prostate is enlarged. Musculoskeletal: Compression of formality of L4. Multilevel degenerative disease. IMPRESSION: 1. Infrarenal abdominal aortic aneurysm measuring up to 67mm with a large amount of mural thrombus. O ccluded right common and external iliac arteries. Vascular surgery evaluation is recommended. 2. Numerous bilateral renal cysts including a very large left renal cyst measuring up to 220mm. 3. Left inguinal hernia containing fat and small bowel. Right femoral hernia containing small bowel. No definite acute obstruction. Some level of chronic obstruction may be present. HS:Y
[2024-01-30] MEDS: HEPARIN SODIUM (PORCINE) 5000 UNITS/ML 1ML VIAL IV ONE (14:14)
[2024-01-30 14:15] LABS: Basophils # (auto) 0 10 ^3/uL (0-0.2); Basophils % (auto) 0.6 % (0.0-2.0); Eosinophils # (auto) 0.2 10 ^3/uL (0-0.8); Eosinophils % (auto) 2.2 % (0.0-7.0); Hematocrit 51.3 % (41.0-53.0); Lymphocytes # (auto) 1.6 10 ^3/uL (0.4-5.4); Mean Corpuscular Hemoglobin 28.8 pg (28.0-32.0); Mean Corpuscular Volume 87.1 fL (80.0-100.0); Monocytes # (auto) 0.6 10 ^3/uL (0-1.3); Monocytes % (auto) 7.8 % (0.0-12.0); Neutrophils % (auto) 67.4 % (37.0-80.0); Nucleated Red Blood Cells % 0.3 %; Platelet Count (auto) 214 10^3/uL (140-450); Red Blood Cells 5.89 10^6/uL (4.5-5.90); White Blood Cell 7.4 10^3/uL (4.4-10.8)
[2024-01-30 14:33] LABS: INR 1.04 (0.9-1.15); Partial Thromboplastin Time 30.8 SEC (24.5-34.5)
[2024-01-30] MEDS: HEPARIN DRIP/D5W 100UNITS/ML 250 ML IV SCH (14:35)
[2024-01-30] MEDS: MORPHINE SULFATE 4 MG/ML SYR/VIAL IV ONE (15:00)
[2024-01-30] MEDS: ONDANSETRON HCL 4 MG/2 ML VIAL IV ONE (15:00)
[2024-01-30] MEDS: SODIUM CHLORIDE 0.9% 1,000 ML IV ONE (15:26)
[2024-01-30] MEDS ORDERED: DOCUSATE SOD 100 MG CAP PO PRN (16:30)
[2024-01-30] MEDS ORDERED: NITROGLYCERIN 0.4 MG SL TAB SL PRN (16:30)
--- NOTE | 2024-01-30 17:23 | DVH ---
EXAM: US BILAT LOW EXT ART DUPLEX HISTORY: PVD COMPARISON: CT angiogram dated 01/30/2024 TECHNIQUE: Realtime grayscale and Doppler ultrasound images of the lower extremity arteries with spe ctral waveform analysis were obtained. FINDINGS: RIGHT: Mild atherosclerotic plaque identified. No hemodynamically significant stenosis noted. Monoph asic waveforms are seen throughout the lower extremity arteries . Peak systolic velocities measure u p to 33 centimeter/second in the common femoral artery, 28 cm 2nd in the superficial femoral artery, 17 centimeter/second in the popliteal artery, 17 centimeter/second in the posterior tibial artery, 15 centimeter/second in the anterior tibial artery and 14 cm/s in the dorsalis pedis artery. LEFT: Mild atherosclerotic plaque identified. Multiphasic waveforms are seen throughout the lower ex tremity arteries. Peak systolic velocities measure up to 82 centimeter/second in the common femoral a rtery, 65 centimeter/second in the superficial femoral artery, 45 centimeter/second in the popliteal artery, 60 centimeter/second posterior tibial artery and 31 centimeter/second in the anterior tibial artery 30 cm 2nd in dorsalis pedis artery. IMPRESSION: 1. Severe peripheral arterial disease in the right lower extremity. All of the arteries show monopha sic waveform and there is significant reduction in peak systolic velocities measuring up to 33 centim eter/second. This corresponds to occlusion of the right common and external iliac arteries reported i n CT angiogram performed earlier today. 2. No hemodynamically significant stenosis noted in the left lower extremity. REFERENCE VALUES, [facility] ([facility]) vascular Imaging Lab Criteria: Peak systolic velocity ranges (in cm/sec) are as follows: <150 cm/s - <20 % stenosis 150-200 cm/s - 20-49% stenosis 200-300 cm/s - 50-75% stenosis >300 cm/s -> 75% stenosis
[2024-01-30] MEDS: HYDROmorphone HCL 2 MG/ML VL/or syr IV PRN (17:29)
[2024-01-30] MEDS: ONDANSETRON HCL 4 MG/2 ML VIAL IV PRN (17:29)
[2024-01-30 17:44] VITALS: PULSE 86; RESP 24; O2SAT 92
--- NOTE | 2024-01-30 19:38 | DVHHPRES ---
History of Present Illness Resident Creating Document: MAYI BINGHAM RESIDENT History of Present Illness This is a 78-year-old male patient with PMHx of chronic nicotine dependence, abdominal aortic aneurysm diagnosed February 2023, history of pneumonia and pleural effusion who presented to the ER with the chief complaint of lower back pain starting 01/23/2024. Patient reports worsening lower back pain which is pressure-like in nature, constant and 10/10 in intensity located in the lumbar region, no radiation. The pain worsened yesterday therefore patient decided to come into the ER. He has a history of abdominal aortic aneurysm diagnosed in February [address] scan. A recent CT abdomen pelvis without contrast for abdominal hernia was completed by patient's primary care physician on 01/11/2024 which showed 5.8 cm infrarenal abdominal aortic aneurysm with suspected intramural hematoma or thrombus. Patient also has a history of left-sided inguinal hernia for the past 2 months which is not affecting his daily life activities. Past Medical History chronic nicotine dependence, abdominal aortic aneurysm diagnosed February 2023, history of pneumonia and pleural effusion, inguinal hernia Past Surgical History: None Family History: None Smoke: 1 pack per day (For the past 50 years, quit 9 months back) ALCOHOL: occassional Drugs: None Lives: with Family (Lives with and son) Review of Systems Gastrointestinal: Constipation, Other (Low appetite) Musculoskeletal: back pain Allergies: Coded Allergies: NO KNOWN ALLERGIES (Unverified , 02/27/23) Medications Current Medications Medications Dose Ordered Sig/Juan David Route Start Time Stop Time Status Last Admin Dose Admin Heparin Sodium/ Dextrose 250 ml @ 13 mls/hr [id number] IV 01/30/24 13:45 01/30/24 14:35 13 MLS/HR Sodium Chloride 10 ml Q8HR IV 01/30/24 22:00 Lorazepam 0.5 mg Q6HP PRN PO 01/30/24 16:30 Docusate Sodium 100 mg BIDPRN PRN PO 01/30/24 16:30 Acetaminophen 650 mg Q6HP PRN PO 01/30/24 16:30 Acetaminophen/ Hydrocodone Bitart 1 tab Q4HP PRN PO 01/30/24 16:30 Hydromorphone HCl 0.5 mg Q4HP PRN IV 01/30/24 16:30 01/30/24 17:29 0.5 MG Ondansetron HCl 4 mg Q4HP PRN IV 01/30/24 16:30 01/30/24 17:29 4 MG Nitroglycerin 0.4 mg Q5MINP PRN SL 01/30/24 16:30 Morphine Sulfate 2 mg Q30M PRN IV 01/30/24 16:30 Exam Vital Signs Vital Signs Date Time Temp Pulse Resp B/P (MAP) Pulse Ox O2 Delivery O2 Flow Rate FiO2 01/30/24 18:15 80 15 146/90 01/30/24 17:44 92 Nasal Cannula* 3 32 01/30/24 10:27 98.0 98.0 General Appearance: Alert, Oriented X3, Cooperative, No acute distress, Other (Canadian speaking elderly pleasant male patient lying comfortably in the bed in ER) Respiratory: Clear to auscultation, Normal air movement, Other (On simple mask currently saturating 99%) Cardiovascular: Regular rate, Normal S1, Normal S2, No murmurs Abdominal: Normal bowel sounds, Soft, No tenderness, Other (Left-sided inguinal hernia seen bulging with cough reflex, manually reducible but comes back, soft nontender, not extending into the scrotum) Extremities: No edema, Normal pulses, No tenderness/swelling Neuro: Normal speech, Strength at 5/5 X4 ext, Normal tone, Sensation intact Psych/Mental Status: Mental status NL Labs/Xrays Labs Test 01/30/24 13:55 01/30/24 10:31 01/30/24 10:11 Range/Units White Blood Count 7.4 4.4-10.8 10^3/uL Red Blood Count 5.89 4.5-5.90 10^6/uL Hemoglobin 17.0 13.5-17.5 g/dL Hematocrit 51.3 41.0-53.0 % Mean Corpuscular Volume 87.1 80.0-100.0 fL Mean Corpuscular Hemoglobin 28.8 28.0-32.0 pg Mean Corpuscular Hemoglobin Concent 33.0 32.0-36.0 g/dL Red Cell Distribution Width 15.0 H 11.8-14.3 % Platelet Count 214 140-450 10^3/uL Mean Platelet Volume 8.8 6.9-10.8 fL Neutrophils (%) (Auto) 67.4 37.0-80.0 % Lymphocytes (%) (Auto) 22.0 10.0-50.0 % Monocytes (%) (Auto) 7.8 0.0-12.0 % Eosinophils (%) (Auto) 2.2 0.0-7.0 % Basophils (%) (Auto) 0.6 0.0-2.0 % Neutrophils # (Auto) 5.0 1.6-8.6 10 ^3/uL Lymphocytes # (Auto) 1.6 0.4-5.4 10 ^3/uL Monocytes # (Auto) 0.6 0-1.3 10 ^3/uL Eosinophils # (Auto) 0.2 0-0.8 10 ^3/uL Basophils # (Auto) 0 0-0.2 10 ^3/uL Nucleated Red Blood Cells 0.3 % Prothrombin Time 11.0 9.3-11.8 sec Prothrombin Time INR 1.04 0.9-1.15 Activated Partial Thromboplast Time 30.8 24.5-34.5 SEC Sodium Level 141 136-145 mmol/L Potassium Level 4.8 3.5-5.1 mmol/L Chloride Level 107 98-107 mmol/L Carbon Dioxide Level 29 20-31 mmol/L Anion Gap 5 5-15 Blood Urea Nitrogen 9 9-23 mg/dL Creatinine 1.21 0.700-1.30 mg/dL Glomerular Filtration Rate Calc 61 >90 mL/min BUN/Creatinine Ratio 7.4 L 10.0-20.0 Serum Glucose 95 74-106 mg/dL Calcium Level 10.4 8.7-10.4 mg/dL Total Bilirubin 0.4 0.2-1.0 mg/dL Aspartate Amino Transferase (AST) 8 L 13-40 U/L Alanine Aminotransferase (ALT) 10 7-40 U/L Alkaline Phosphatase 96 46-116 U/L B-Type Natriuretic Peptide 30.94 0-100 pg/mL Total Protein 7.0 5.7-8.2 g/dL Albumin 4.5 3.2-4.8 g/dL Urine Color Yellow Yellow Urine Clarity Clear Clear Urine pH 5.5 5.0-9.0 Urine Specific [place] 1.014 1.001-1.035 Urine Protein Negative Negative Urine Ketones Negative Negative Urine Blood Negative Negative /uL Urine Nitrite Negative Negative Urine Bilirubin Negative Negative Urine Urobilinogen Normal Negative mg/dL Urine Leukocyte Esterase Negative Negative /uL Urine RBC 1 0 - 3 /hpf Urine WBC <1 0 - 3 /hpf Urine Squamous Epithelial Cells Few <5 /hpf Urine Bacteria None seen None Seen /hpf Urine Mucus Few None Seen Urine Glucose Normal Normal mg/dL Assessment/Plan Assessment/Plan Lumbar pressure-like back pain secondary to Infrarenal abdominal aortic aneurysm with intramural thrombus CT angio aortic abdominal completed 01/30/2024 shows 67 mm infrarenal abdominal aortic aneurysm with a large amount of mural thrombus. 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 5.8 cm on 01/11/[address] Dr[address] Malloy consulted NPO starting midnight Echocardiogram pending Continue heparin drip Blood pressure control, SBP <120s mmHg Severe peripheral artery disease in right lower extremity Duplex ultrasound completed, shows severe PID in the right lower extremity Left lower extremities unremarkable Starting atorvastatin 40 mg p.o. daily Consider aspirin 81 mg after definitive treatment for aneurysm Left inguinal hernia-manually reducible, soft, nontender CT abdomen shows left inguinal hernia containing fat and small bowel. Outpatient workup advised History of severe emphysema - controlled Continue nebulized treatment with levalbuterol and ipratropium q.6 p.r.n. Right femoral hernia CT abdomen shows right femoral hernia containing small bowel. No definite acute obstruction Sigmoid diverticulosis without acute diverticulitis Monitor Bilateral renal cysts including 22 cm left cortical renal cyst Monitor History of COVID-19 infection COVID testing pending Chronic nicotine dependence Counseled regarding cessation for more than 20 minutes Diet NPO starting midnight Plan discussed with patient and daughter at bedside in the ER, all questions have been answered Goals of care discussed with the patient for more than 22 minutes, full code status. Plan discussed with Dr. Dyson. Patient admitted to the [facility]. Pending surgical eval. NPO starting midnight. Chest x-ray pending. Plan discussed with: Patient, Daughter My Orders Orders - MAYI BINGHAM RESIDENT Procedure Category Date Status Time *Consult Dr. Brito CONS 01/30/24 Transmitted [place] 16:20 *Consult Dr. Malloy CONS 01/30/24 Transmitted 16:20 Echo 2d Mode Cardiac US 01/30/24 Logged DOP 16:20 Bilat Low Ext Art US 01/30/24 Resulted Duplex 16:20 Admit ADMIT 01/30/24 Transmitted 16:25 Code Status CODE 01/30/24 Transmitted 16:25 Vital Signs ANNA 01/30/24 In Process 16:25 Review Orders With [facility] 01/30/24 In Process Adm. 16:25 Bedrest With Bathroom [facility] 01/30/24 In Process Privileg 16:25 Sodium Chloride Lock PHA 01/30/24 In Process (Saline Lock Ns) 22:00 Lorazepam Tablet PHA 01/30/24 In Process (Ativan Tablet) 16:30 Docusate Sodium PHA 01/30/24 In Process Capsule (Colace 16:30 Acetaminophen Tablet PHA 01/30/24 In Process (Tylenol Tablet) 16:30 Notify Md Of Changes [facility] 01/30/24 In Process From Base 16:25 Advance Directive [facility] 01/30/24 In Process 16:25 Patient Condition ORDERS 01/30/24 Transmitted 16:25 Allergies [facility] 01/30/24 In Process 16:25 Hydrocodone-Acet PHA 01/30/24 In Process 5/325mg Tab ([place] 16:30 Hydromorphone PHA 01/30/24 In Process Injection (Dilaudid 16:30 Ondansetron Hcl PHA 01/30/24 In Process (Zofran) 16:30 Nitroglycerin PHA 01/30/24 In Process Sublingual (Ntrostat 16:30 Morphine Sulfate PHA 01/30/24 In Process Injection 16:30 Oxygen By Nasal RT 01/30/24 Transmitted Cannula 16:25 Stat Ekg For Chest [facility] 01/30/24 In Process Pain 16:25 Notify Md Of Changes [facility] 01/30/24 In Process From Base 16:25 Leacher For [facility] 01/30/24 In Process 24 Hours 16:25 Emergency Dysrhythmia [facility] 01/30/24 In Process Protocol 16:25 Rhythm Strips Once [facility] 01/30/24 In Process Every Shift 16:25 Date of Service: Jan 30, 2024 Billing Provider: GENNA DYSON MD Common Visit Codes: [id number] INP/OBS CARE (HIGH) Secondary Visit Codes: [id number] CARE PLAN 30 MINUTES MAYI BINGHAM RESIDENT Jan 30, 2024 19:38 GENNA DYSON MD Jan 31, 2024 09:11
[2024-01-30 20:05] VITALS: RESP 26; O2SAT 98
[2024-01-30 20:56] LABS: INR 1.08 (0.9-1.15); Prothrombin Time 11.4 sec (9.3-11.8)
[2024-01-30] MEDS: SODIUM CHLOR 0.9% PF (SALINE LOCK) 10ML VIAL/SYR IV SCH (21:36)
[2024-01-30 22:33] LABS: INR 1.11 (0.9-1.15); Prothrombin Time 11.7 sec (9.3-11.8)
[2024-01-30 22:57] LABS: Partial Thromboplastin Time 122.5 SEC (24.5-34.5)
[2024-01-30] MEDS: ATORVASTATIN 20 MG TAB PO ONE (22:59)
[2024-01-30 23:30] LABS: Amphetamine Screen, Urine Neg (NEGATIVE); Barbiturate Scree,Urine Neg (NEGATIVE); Benzodiazephine Screen, Urine Neg (NEGATIVE); Cocaine Screen, Urine Neg (NEGATIVE)
[2024-01-30 23:31] LABS: Cannabinoid Screen, Urine Neg (NEGATIVE); Opiate Scree,Urine Neg (NEGATIVE); Phencyclidine Screen, Urine Neg (NEGATIVE)
[2024-01-31] VITALS (21 sets, daily range): BP systolic 11–137; BP diastolic 57–86; PULSE 72–87; RESP 10–20; TEMP 97.6–98.4; O2SAT 86–97
[2024-01-31] MEDS: HEPARIN DRIP/D5W 100UNITS/ML 250 ML IV SCH
[2024-01-31 00:04] LABS: COVID19 ANTIGEN SOFIA FIA NEGATIVE (NEGATIVE); Rapid Influenza A Negative (Negative); Rapid Influenza B Negative (Negative)
[2024-01-31] MEDS: IPRATROPIUM BROM 0.5 MG/2.5ML INH SOL NEB PRN (00:11)
[2024-01-31] MEDS: LEVALBUTEROL HCL 1.25 MG/3 ML NEB NEB SCH (00:11)
--- NOTE | 2024-01-31 01:20 | DVH ---
EXAM: XY CHEST XRAY 1 VIEW CLINICAL HISTORY: pna TECHNIQUE: Single AP view of the chest WID: COMPARISON: 02/27/2023 FINDINGS: Lines and tubes: None Chest: The heart size and pulmonary vasculature is within normal limits. Calcified plaque projects over the aortic arch. Hyperexpansion of the lungs with relative lucency in the upper lungs and scattered areas of linear sc arring in the mid to lower lungs. No superimposed airspace consolidation. No pneumothorax or pleural effusion. The osseous structures are grossly intact. IMPRESSION: 1. COPD/emphysema. 2. No definite superimposed pneumonia.
[2024-01-31 04:28] LABS: Basophils # (auto) 0 10 ^3/uL (0-0.2); Basophils % (auto) 0.5 % (0.0-2.0); Eosinophils # (auto) 0 10 ^3/uL (0-0.8); Eosinophils % (auto) 0.2 % (0.0-7.0); Hematocrit 45.2 % (41.0-53.0); Hemoglobin 15.1 g/dL (13.5-17.5); Lymphocytes # (auto) 0.7 10 ^3/uL (0.4-5.4); Lymphocytes % (auto) 9.1 % (10.0-50.0); Mean Corpuscular Hemoglobin 28.8 pg (28.0-32.0); Mean Corpuscular Hgb Conc. 33.4 g/dL (32.0-36.0); Mean Corpuscular Volume 86.1 fL (80.0-100.0); Monocytes # (auto) 0.6 10 ^3/uL (0-1.3); Monocytes % (auto) 8.1 % (0.0-12.0); Neutrophils # (auto) 5.9 10 ^3/uL (1.6-8.6); Neutrophils % (auto) 82.1 % (37.0-80.0); Nucleated Red Blood Cells % 0.1 %; Platelet Count (auto) 181 10^3/uL (140-450); Red Blood Cells 5.25 10^6/uL (4.5-5.90); White Blood Cell 7.2 10^3/uL (4.4-10.8)
[2024-01-31 04:30] LABS: Alanine Aminotransferase 10 U/L (7-40); Alkaline Phosphatase 93 U/L (46-116); Anion Gap 5 (5-15); Aspartate Aminotransferase < 8 U/L (13-40); BUN/Creatinine Ratio 6.9 (10.0-20.0); Blood Urea Nitrogen 8 mg/dL (9-23); Calcium 9.9 mg/dL (8.7-10.4); Carbon Dioxide 28 mmol/L (20-31); Chloride 108 mmol/L (98-107); Glucose 122 mg/dL (74-106); INR 1.08 (0.9-1.15); Partial Thromboplastin Time 57.5 SEC (24.5-34.5); Potassium 4.7 mmol/L (3.5-5.1); Prothrombin Time 11.4 sec (9.3-11.8); Sodium 141 mmol/L (136-145)
[2024-01-31 04:31] LABS: Albumin 4.4 g/dL (3.2-4.8); Bilirubin, Total 0.5 mg/dL (0.2-1.0); Total Protein 6.6 g/dL (5.7-8.2)
[2024-01-31] MEDS: HYDROcodone-ACET 5/325MG TAB PO PRN (09:49)
[2024-01-31 10:34] LABS: INR 1.08 (0.9-1.15); Prothrombin Time 11.4 sec (9.3-11.8)
--- NOTE | 2024-01-31 13:20 | DVHPNRES ---
Progress Note Date Seen: Jan 31, 2024 Resident Creating Document: MAYI BINGHAM RESIDENT Medical Necessity Reason Pt with a Central, PICC or Fol: No Subjective Review of Systems This is a 78-year-old male patient with PMHx of chronic nicotine dependence, abdominal aortic aneurysm diagnosed February 2023, history of pneumonia and pleural effusion who presented to the ER with the chief complaint of lower back pain starting 01/23/2024. Patient reports worsening lower back pain which is pressure-like in nature, constant and 10/10 in intensity located in the lumbar region, no radiation. The pain worsened yesterday therefore patient decided to come into the ER. He has a history of abdominal aortic aneurysm diagnosed in February [address] scan. A recent CT abdomen pelvis without contrast for abdominal hernia was completed by patient's primary care physician on 01/11/2024 which showed 5.8 cm infrarenal abdominal aortic aneurysm with suspected intramural hematoma or thrombus. Patient also has a history of left-sided inguinal hernia for the past 2 months which is not affecting his daily life activities. Past Medical History: chronic nicotine dependence, abdominal aortic aneurysm diagnosed February 2023, history of pneumonia and pleural effusion, inguinal hernia Past Surgical History: None Family History: None Social history: Smokes 1 pack per day (For the past 50 years, quit 9 months back), drinks alcohol occasionally, denies illicit drug use. Patient lives with and son. Patient seen and examined in the ER bed 17. Reports mild back pain as compared to admission. Saturating 96% on 4 L NC. Family at bedside. Objective vital signs Vital Sign Date Time Temp Pulse Resp B/P (MAP) Pulse Ox O2 Delivery O2 Flow Rate FiO2 01/31/24 12:11 75 16 96 01/31/24 12:05 Nasal Cannula* 4 36 01/31/24 12:00 97.6 110/63 (79) 97.6 Total Intake and Output 01/30/24 01/30/24 01/31/24 14:59 22:59 06:59 Intake Total 1104 ml 70 ml Balance 1104 ml 70 ml medications Current Medications Medications Dose Ordered Sig/Juan David Route Start Time Stop Time Status Last Admin Dose Admin Sodium Chloride 10 ml Q8HR IV 01/30/24 22:00 01/31/24 09:50 10 ML Lorazepam 0.5 mg Q6HP PRN PO 01/30/24 16:30 Docusate Sodium 100 mg BIDPRN PRN PO 01/30/24 16:30 Acetaminophen 650 mg Q6HP PRN PO 01/30/24 16:30 Acetaminophen/ Hydrocodone Bitart 1 tab Q4HP PRN PO 01/30/24 16:30 01/31/24 09:49 1 TAB Hydromorphone HCl 0.5 mg Q4HP PRN IV 01/30/24 16:30 01/30/24 21:36 0.5 MG Ondansetron HCl 4 mg Q4HP PRN IV 01/30/24 16:30 01/30/24 17:29 4 MG Nitroglycerin 0.4 mg Q5MINP PRN SL 01/30/24 16:30 Morphine Sulfate 2 mg Q30M PRN IV 01/30/24 16:30 Atorvastatin Calcium 40 mg HS PO 01/31/24 22:00 Ipratropium [place] 0.5 mg Q6HPRN PRN NEB 01/30/24 22:45 01/31/24 12:05 0.5 MG Levalbuterol HCl 0.625 mg Q6HR NEB 01/31/24 00:00 01/31/24 12:05 0.625 MG Heparin Sodium/ Dextrose 250 ml @ 10 mls/hr Q24H IV 01/31/24 00:00 01/31/24 00:00 10 MLS/HR Examination General Appearance: Alert, Oriented X3, Cooperative, No acute distress, Other (Latvian speaking elderly pleasant male patient lying comfortably in the bed in ER) Respiratory: Clear to auscultation, Normal air movement, Other (On simple mask currently saturating 99%) Cardiovascular: Regular rate, Normal S1, Normal S2, No murmurs Abdominal: Normal bowel sounds, Soft, No tenderness, Other (Left-sided inguinal hernia seen bulging with cough reflex, manually reducible but comes back, soft nontender, not extending into the scrotum) Extremities: No edema, Normal pulses, No tenderness/swelling. Midline tenderness in the lumbar spine. Neuro: Normal speech, Strength at 5/5 X4 ext, Normal tone, Sensation intact Psych/Mental Status: Mental status NL I think I think she would ask it was I believe that any a secondary disease AFib subcostal yes cough no hospital right a on this hospital laboratory and microbiology Laboratory Tests 01/31/24 03:51 Test 01/31/24 03:51 Range/Units Serum Glucose 122 H 74-106 mg/dL Labs and/or images reviewed: Labs reviewed by me, Image(s) reviewed by me Problem List/Assessment/Plan Problem List/Assessment/Plan Infrarenal abdominal aortic aneurysm with intramural thrombus CT angio aortic abdominal completed 01/30/2024 shows 67 mm infrarenal abdominal aortic aneurysm with a large amount of mural thrombus. 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 5.8 cm on 01/11/2024 Echocardiogram completed, shows LVEF 55%, elevated tricuspid regurgitation velocity 3.30 M per S, RSV 50. Mildly dilated RA. Normal valves. Dr. Brito - patient will be scheduled for angiogram with a stent graft if patient anatomy is appropriate for stent graft. Neck size between renal arteries and aneurysm is undetermined. Dr. Malloy consulted Started regular diet, NPO starting midnight Continue heparin drip Blood pressure control, SBP <120s mmHg Severe peripheral artery disease in right lower extremity Duplex ultrasound completed, shows severe PID in the right lower extremity Left lower extremities unremarkable Starting atorvastatin 40 mg p.o. daily Consider aspirin 81 mg after definitive treatment for aneurysm ? COPD - no exacerbation Continue nebulized treatment with levalbuterol and ipratropium q.6 hour Outpatient marketing development specialist follow up for the diagnosis of COPD Left inguinal hernia-manually reducible, soft, nontender CT abdomen shows left inguinal hernia containing fat and small bowel. Outpatient workup advised History of severe emphysema - controlled Continue nebulized treatment with levalbuterol and ipratropium q.6 p.r.n. Right femoral hernia CT abdomen shows right femoral hernia containing small bowel. No definite acute obstruction Sigmoid diverticulosis without acute diverticulitis Monitor Bilateral renal cysts including 22 cm left cortical renal cyst Monitor History of COVID-19 infection COVID testing pending Chronic nicotine dependence Counseled regarding cessation for more than 20 minutes Diet NPO starting midnight Plan discussed with patient and daughter at bedside in the ER, all questions have been answered Goals of care discussed with the patient for more than 22 minutes, full code status. Plan discussed with Dr. Dysno. Patient admitted to the [facility]. NPO starting midnight. Plan discussed with: Patient, Daughter My Orders My Orders Orders - MAYI BINGHAM RESIDENT Procedure Category Date Status Time *Consult Dr. Brito CONS 10/22/24 Transmitted [place] 16:20 *Consult Dr. Malloy CONS 01/30/24 Transmitted 16:20 Bilat Low Ext Art US 01/30/24 Resulted Duplex 16:20 Admit ADMIT 01/30/24 Transmitted 16:25 Code Status CODE 01/30/24 Transmitted 16:25 Vital Signs ANNA 01/30/24 In Process 16:25 Review Orders With ANNA 01/30/24 In Process Adm.Md 16:25 Bedrest With Bathroom ANNA 01/30/24 In Process Privileg 16:25 Sodium Chloride Lock PHA 01/30/24 In Process (Saline Lock Ns) 22:00 Lorazepam Tablet PHA 01/30/24 In Process (Ativan Tablet) 16:30 Docusate Sodium PHA 01/30/24 In Process Capsule (Colace 16:30 Acetaminophen Tablet PHA 01/30/24 In Process (Tylenol Tablet) 16:30 Notify Of Changes ANNA 01/30/24 In Process From Base 16:25 Advance Directive ANNA 01/30/24 In Process 16:25 Patient Condition ORDERS 01/30/24 Transmitted 16:25 Allergies ANNA 01/30/24 In Process 16:25 Hydrocodone-Acet PHA 01/30/24 In Process 5/325mg Tab ([place] 16:30 Hydromorphone PHA 01/30/24 In Process Injection (Dilaudid 16:30 Ondansetron Hcl PHA 01/30/24 In Process (Zofran) 16:30 Nitroglycerin PHA 01/30/24 In Process Sublingual (Ntrostat 16:30 Morphine Sulfate PHA 01/30/24 In Process Injection 16:30 Oxygen By Nasal RT 01/30/24 Transmitted Cannula 16:25 Stat Ekg For Chest ANNA 01/30/24 In Process Pain 16:25 Notify Md Of Changes ANNA 01/30/24 In Process From Base 16:25 [place]/Woman For ANNA 01/30/24 In Process 24 Hours 16:25 Emergency Dysrhythmia ANNA 01/30/24 In Process Protocol 16:25 Rhythm Strips Once ANNA 01/30/24 In Process Every Shift 16:25 Chest Xray 1 View XY 01/30/24 Resulted 22:30 Npo (Nothing By DIET 01/31/24 Transmitted Mouth) Diet Breakfast Atorvastatin (Lipitor) PHA 01/31/24 In Process 22:00 Ipratropium [place] PHA 01/30/24 In Process (Atrovent Medneb) 22:45 Levalbuterol Hcl PHA 01/31/24 In Process (Xopenex Medneb) 00:00 Date of Service: Jan 31, 2024 Billing Provider: GENNA DYSON MD Common Visit Codes: [id number] INP/OBS CARE(HIGH) MAYI BINGHAM RESIDENT Jan 31, 2024 13:20 GENNA DYSON MD Jan 31, 2024 18:55
--- NOTE | 2024-01-31 13:25 | DVHSR ---
APPROVED REPORT EXAM: LIMITED Two-dimensional and M-mode echocardiogram with Doppler and color Doppler. Blood Pressure: 127/78 mmHg INDICATION Aorta RISK FACTORS Height: 5' 3", Weight: 159 DIMENSIONS LVDd4.5 (3.8-5.7cm)LA (2D)3.7 (1.9-4.0cm)Aortic Root (2.0-3.7cm) LVDs3.2 (2.5-4.0cm)LA (MM) (1.9-4.0cm)Aortic Cusp Exc (1.5-2.0cm) EF (%) 55.0 (55-70%)Rt. Atrium4.1 (1.9-4.0cm)Asc. Aorta cm IVSd1.0 (0.7-1.1cm)RV (D) (1.8-2.4cm) PWd0.9 (0.7-1.1cm) Mitral Valve MitralMitral Stenosis E wave0.80m/sMV Mean GR.mmHg A wave0.90m/sMV Peak GR.mmHg E/A ratio0.92D MVAcm2 Aortic Valve Aortic ValveAortic Stenosis V10.70m/Anika Mean GR.4mmHg V21.40m/Anika Peak GR.9mmHg Tricuspid Valve TR Velocity3.30m/s [id number] Other Information Quality : Technically LimitedRhythm : Technically limited study due to body habitus, patient with apical views only. Conclusion Normal left ventricular size and dimension. Normal left ventricular systolic function estimated ejec tion fraction 55%. There is a grade 1 diastolic dysfunction. Normal right ventricular size and dimension. Normal right ventricular systolic function. Moderately elevated right ventricular systolic pressure at 50 mm of mercury. Mildly dilated right atrium. Normal-sized left atrium Normal aortic valve structure and function. Normal mitral valve structure and function. Normal tricuspid valve structure and function. The pulmonary valve is grossly normal. No pericardial effusion. New
--- NOTE | 2024-01-31 13:37 | DVHPN2 ---
Progress Note - Dictate Date Seen: Jan 31, 2024 Medical Necessity Reason Pt with a Central, PICC or Fol: No Subjective PT WITH COPD CONTINUED TOBACCO USE NOW WITH LOWER BACK PAIM CTA OF ABD 1. Infrarenal abdominal aortic aneurysm measuring up to 67mm with a large amount of mural thrombus. 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 Vascular surgery evaluation is recommended. 2. Numerous bilateral renal cysts including a very large left renal cyst measuring up to 220mm. 3. Left inguinal hernia containing fat and small bowel. Right femoral hernia containing small bowel. No definite acute obstruction. Some level of chronic obstruction may be present. vital signs Vital Sign Date Time Temp Pulse Resp B/P (MAP) Pulse Ox O2 Delivery O2 Flow Rate FiO2 01/31/24 12:11 75 16 96 01/31/24 12:05 Nasal Cannula* 4 36 01/31/24 12:00 97.6 110/63 (79) 97.6 Total Intake and Output 01/30/24 01/30/24 01/31/24 15:00 23:00 07:00 Intake Total 1104 ml 70 ml Balance 1104 ml 70 ml medications Current Medications Medications Dose Ordered Sig/Juan David Route Start Time Stop Time Status Last Admin Dose Admin Sodium Chloride 10 ml Q8HR IV 01/30/24 22:00 01/31/24 09:50 10 ML Lorazepam 0.5 mg Q6HP PRN PO 01/30/24 16:30 Docusate Sodium 100 mg BIDPRN PRN PO 01/30/24 16:30 Acetaminophen 650 mg Q6HP PRN PO 01/30/24 16:30 Acetaminophen/ Hydrocodone Bitart 1 tab Q4HP PRN PO 01/30/24 16:30 01/31/24 09:49 1 TAB Hydromorphone HCl 0.5 mg Q4HP PRN IV 01/30/24 16:30 01/30/24 21:36 0.5 MG Ondansetron HCl 4 mg Q4HP PRN IV 01/30/24 16:30 01/30/24 17:29 4 MG Nitroglycerin 0.4 mg Q5MINP PRN SL 01/30/24 16:30 Morphine Sulfate 2 mg Q30M PRN IV 01/30/24 16:30 Atorvastatin Calcium 40 mg HS PO 01/31/24 22:00 Ipratropium [place] 0.5 mg Q6HPRN PRN NEB 01/30/24 22:45 01/31/24 12:05 0.5 MG Levalbuterol HCl 0.625 mg Q6HR NEB 01/31/24 00:00 01/31/24 12:05 0.625 MG Heparin Sodium/ Dextrose 250 ml @ 10 mls/hr Q24H IV 01/31/24 00:00 01/31/24 00:00 10 MLS/HR laboratory and microbiology Laboratory Tests 01/31/24 03:51 Test 01/31/24 03:51 Range/Units Serum Glucose 122 H 74-106 mg/dL Problem List AAA COPD Assessment/Plan LE ARTERIAL DOPPLER SCHEDULE FOR ANGIOGRAM WITH STENT GRAFT IF PATIENT ANATOMY IS APPROPRIATE FOR STENT GRAFT Plan discussed with: Patient Critical Care Time(min): 35 JUAN DANIEL GARCIA MD Jan 31, 2024 13:37
[2024-01-31 16:00] LABS: INR 1.08 (0.9-1.15); Partial Thromboplastin Time 63.4 SEC (24.5-34.5); Prothrombin Time 11.4 sec (9.3-11.8)
[2024-01-31 21:33] LABS: INR 1.09 (0.9-1.15); Partial Thromboplastin Time 62.9 SEC (24.5-34.5); Prothrombin Time 11.5 sec (9.3-11.8)
[2024-01-31] MEDS: ATORVASTATIN 20 MG TAB PO SCH (21:46)
[2024-02-01] VITALS (60 sets, daily range): BP systolic 86–168; BP diastolic 40–89; PULSE 68–95; RESP 12–32; TEMP 97.6–99.1; O2SAT 84–97
[2024-02-01 03:46] LABS: Basophils # (auto) 0 10 ^3/uL (0-0.2); Basophils % (auto) 0.7 % (0.0-2.0); Eosinophils # (auto) 0.2 10 ^3/uL (0-0.8); Hematocrit 40.7 % (41.0-53.0); Lymphocytes # (auto) 1.1 10 ^3/uL (0.4-5.4); Lymphocytes % (auto) 22.2 % (10.0-50.0); Mean Corpuscular Hemoglobin 29.3 pg (28.0-32.0); Mean Corpuscular Hgb Conc. 34.3 g/dL (32.0-36.0); Mean Corpuscular Volume 85.3 fL (80.0-100.0); Monocytes # (auto) 0.5 10 ^3/uL (0-1.3); Monocytes % (auto) 9.8 % (0.0-12.0); Neutrophils # (auto) 3.2 10 ^3/uL (1.6-8.6); Neutrophils % (auto) 63.3 % (37.0-80.0); Nucleated Red Blood Cells % 0.2 %; Platelet Count (auto) 156 10^3/uL (140-450); Red Blood Cells 4.77 10^6/uL (4.5-5.90); Red Cell Distribution Width 14.6 % (11.8-14.3)
[2024-02-01 04:02] LABS: Chloride 109 mmol/L (98-107); Potassium 3.8 mmol/L (3.5-5.1); Sodium 142 mmol/L (136-145)
[2024-02-01 04:03] LABS: Anion Gap 5 (5-15); Carbon Dioxide 28 mmol/L (20-31)
[2024-02-01 04:04] LABS: Calcium 9.4 mg/dL (8.7-10.4)
[2024-02-01 04:08] LABS: BUN/Creatinine Ratio 7.4 (10.0-20.0); Blood Urea Nitrogen 7 mg/dL (9-23); Glucose 99 mg/dL (74-106)
[2024-02-01 04:29] LABS: INR 1.09 (0.9-1.15); Prothrombin Time 11.5 sec (9.3-11.8)
[2024-02-01 04:33] LABS: Partial Thromboplastin Time 71.1 SEC (24.5-34.5)
--- NOTE | 2024-02-01 06:12 | DVHPNRES ---
Progress Note Date Seen: Feb 01, 2024 Resident Creating Document: MAYI BINGHAM RESIDENT Medical Necessity Reason Pt with a Central, PICC or Fol: No Subjective Review of Systems This is a 78-year-old male patient with PMHx of chronic nicotine dependence, abdominal aortic aneurysm diagnosed February 2023, history of pneumonia and pleural effusion who presented to the ER with the chief complaint of lower back pain starting 01/23/2024. Patient reports worsening lower back pain which is pressure-like in nature, constant and 10/10 in intensity located in the lumbar region, no radiation. The pain worsened yesterday therefore patient decided to come into the ER. He has a history of abdominal aortic aneurysm diagnosed in February [address] scan. A recent CT abdomen pelvis without contrast for abdominal hernia was completed by patient's primary care physician on 01/11/2024 which showed 5.8 cm infrarenal abdominal aortic aneurysm with suspected intramural hematoma or thrombus. Patient also has a history of left-sided inguinal hernia for the past 2 months which is not affecting his daily life activities. Past Medical History: chronic nicotine dependence, abdominal aortic aneurysm diagnosed February 2023, history of pneumonia and pleural effusion, inguinal hernia Past Surgical History: None Family History: None Social history: Smokes 1 pack per day (For the past 50 years, quit 9 months back), drinks alcohol occasionally, denies illicit drug use. Patient lives with and son. 01/30 - Patient seen and examined in the ER bed 17. Reports mild back pain as compared to admission. Saturating 96% on 4 L NC. Family at bedside. 01/31 - patient seen and examined in the ICU bed 266. Reports no back pain. No acute distress. Saturating 94 on 4L Oxymizer. Scheduled for angiogram with a stent 02/01/24 78 year old male with 6.7cm infrarenal abdominal aortic aneurysms and occluded right iliac vessels, has history of severe COPD. Dr Brito - pt deminsion conducive to STENT GRAFT BUT RIGHT LEG NEEDS REVACULARIZATION. SCHEDULE FOR RIGHT LEG INTERVENTION 02/02/24. Pt NPO starting midnight Objective vital signs Vital Sign Date Time Temp Pulse Resp B/P (MAP) Pulse Ox O2 Delivery O2 Flow Rate FiO2 02/01/24 05:00 72 19 155/88 (110) 97 02/01/24 04:31 97.6 97.6 01/31/24 23:18 Nasal Cannula* 4 36 Total Intake and Output 01/31/24 01/31/24 02/01/24 15:00 23:00 07:00 Intake Total 80 ml 560 ml 65 ml Output Total 400 ml 100 ml Balance 80 ml 160 ml -35 ml medications Current Medications Medications Dose Ordered Sig/Juan David Route Start Time Stop Time Status Last Admin Dose Admin Sodium Chloride 10 ml Q8HR IV 01/30/24 22:00 02/01/24 06:11 10 ML Lorazepam 0.5 mg Q6HP PRN PO 01/30/24 16:30 Docusate Sodium 100 mg BIDPRN PRN PO 01/30/24 16:30 Acetaminophen 650 mg Q6HP PRN PO 01/30/24 16:30 Acetaminophen/ Hydrocodone Bitart 1 tab Q4HP PRN PO 01/30/24 16:30 01/31/24 17:05 1 TAB Hydromorphone HCl 0.5 mg Q4HP PRN IV 01/30/24 16:30 01/30/24 21:36 0.5 MG Ondansetron HCl 4 mg Q4HP PRN IV 01/30/24 16:30 01/30/24 17:29 4 MG Nitroglycerin 0.4 mg Q5MINP PRN SL 01/30/24 16:30 Morphine Sulfate 2 mg Q30M PRN IV 01/30/24 16:30 Atorvastatin Calcium 40 mg HS PO 01/31/24 22:00 01/31/24 21:46 40 MG Ipratropium [place] 0.5 mg Q6HPRN PRN NEB 01/30/24 22:45 01/31/24 23:18 0.5 MG Levalbuterol HCl 0.625 mg Q6HR NEB 01/31/24 00:00 01/31/24 23:17 0.625 MG Heparin Sodium/ Dextrose 250 ml @ 10 mls/hr Q24H IV 01/31/24 00:00 01/31/24 13:37 10 MLS/HR Examination General Appearance: Alert, Oriented X4, Cooperative, No acute distress, Other ([place] Citizen speaking elderly pleasant male patient lying comfortably in the bed in ER) Respiratory: Clear to auscultation, Normal air movement, Other (Saturating 93 on oxymizer 4L) Cardiovascular: Regular rate, Normal S1, Normal S2, No murmurs Abdominal: Normal bowel sounds, Soft, No tenderness, Other (Left-sided inguinal hernia seen bulging with cough reflex, manually reducible but comes back, soft nontender, not extending into the scrotum) Extremities: No edema, Normal pulses, No tenderness/swelling. Midline tenderness in the lumbar spine. Neuro: Normal speech, Strength at 5/5 X4 ext, Normal tone, Sensation intact Psych/Mental Status: A/Ox4 laboratory and microbiology Laboratory Tests 02/01/24 03:30 Test 02/01/24 03:30 Range/Units Serum Glucose 99 74-106 mg/dL Labs and/or images reviewed: Labs reviewed by me, Image(s) reviewed by me Problem List/Assessment/Plan Problem List/Assessment/Plan Lumbar pressure-like back pain secondary to Infrarenal abdominal aortic aneurysm with intramural thrombus CT angio aortic abdominal completed 01/30/2024 shows 67 mm infrarenal abdominal aortic aneurysm with a large amount of mural thrombus. 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 5.8 cm on 01/11/2024 Echocardiogram completed, shows LVEF 55%, elevated tricuspid regurgitation velocity 3.30 M per S, RSV 50. Mildly dilated RA. Normal valves. Dr. Brito - pt deminsion conducive to stent graft but R Lower extremity beeds revascularization. Scheduled for R lower extremity intervention 02/02/24. Dr. aMlloy consulted - The patient is not a good candidate for open repair and Dr. Brito is planning to do an endovascular repair of this aneurysm, if technically feasible. Started cardiac diet, NPO starting midnight Continue heparin drip Blood pressure control, SBP <120s mmHg. IV labetalol Q2hr PRN for SBP >150mmhg. Severe peripheral artery disease in right lower extremity Duplex ultrasound completed, shows severe PID in the right lower extremity Dr. Brito - pt deminsion conducive to stent graft but R Lower extremity beeds revascularization. Scheduled for R lower extremity intervention 02/02/24. Left lower extremities unremarkable Starting atorvastatin 40 mg p.o. 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 Outpatient workup advised History of severe emphysema - controlled Continue nebulized treatment with levalbuterol and ipratropium q.6 p.r.n. Right femoral hernia CT abdomen shows right femoral hernia containing small bowel. No definite acute obstruction Sigmoid diverticulosis without acute diverticulitis Monitor Bilateral renal cysts including 22 cm left cortical renal cyst Monitor History of COVID-19 infection COVID testing pending Chronic nicotine dependence Counseled regarding cessation for more than 20 minutes Diet NPO starting midnight Plan discussed with patient and daughter at bedside in the ER, all questions have been answered Goals of care discussed with the patient for more than 22 minutes, full code status. Plan discussed with Dr. Dyson. NPO starting midnight. Scheduled for R lower extremity intervention 02/02/24. Plan discussed with: Patient My Orders My Orders Orders - MAYI BINGHAM Procedure Category Date Status Time Npo (Nothing By DIET 02/01/24 Transmitted Mouth) Diet Breakfast Date of Service: Feb 01, 2024 Billing Provider: GENNA DYSON MD Common Visit Codes: [id number] INP/OBS CARE(HIGH) MAYI BINGHAM Feb 01, 2024 06:12 GENNA DYSON MD Feb 02, 2024 09:36
[2024-02-01] MEDS ORDERED: LABETALOL HCL 20 MG/4 ML VL IV PRN (07:15)
[2024-02-01 07:25] LABS: Free T3 2.69 pg/mL (2.3-4.2); Free T4 (Free Thyroxine) 1.04 ng/dL (0.89-1.76)
--- NOTE | 2024-02-01 12:27 | DVHPN2 ---
Progress Note Date Seen: Feb 01, 2024 Medical Necessity Reason Pt with a Central, PICC or Fol: No Objective vital signs Vital Sign Date Time Temp Pulse Resp B/P (MAP) Pulse Ox O2 Delivery O2 Flow Rate FiO2 02/01/24 11:30 87 12 95 02/01/24 10:00 Oxymizer 4.0 02/01/24 10:00 N/A 02/01/24 08:00 98.3 98.3 Total Intake and Output 01/31/24 01/31/24 02/01/24 15:00 23:00 07:00 Intake Total 80 ml 560 ml 75 ml Output Total 400 ml 100 ml Balance 80 ml 160 ml -25 ml medications Current Medications Medications Dose Ordered Sig/Juan David Route Start Time Stop Time Status Last Admin Dose Admin Sodium Chloride 10 ml Q8HR IV 01/30/24 22:00 02/01/24 06:11 10 ML Lorazepam 0.5 mg Q6HP PRN PO 01/30/24 16:30 Docusate Sodium 100 mg BIDPRN PRN PO 01/30/24 16:30 Acetaminophen 650 mg Q6HP PRN PO 01/30/24 16:30 Acetaminophen/ Hydrocodone Bitart 1 tab Q4HP PRN PO 01/30/24 16:30 02/01/24 11:11 1 TAB Hydromorphone HCl 0.5 mg Q4HP PRN IV 01/30/24 16:30 01/30/24 21:36 0.5 MG Ondansetron HCl 4 mg Q4HP PRN IV 01/30/24 16:30 01/30/24 17:29 4 MG Nitroglycerin 0.4 mg Q5MINP PRN SL 01/30/24 16:30 Morphine Sulfate 2 mg Q30M PRN IV 01/30/24 16:30 Atorvastatin Calcium 40 mg HS PO 01/31/24 22:00 01/31/24 21:46 40 MG Ipratropium [place] 0.5 mg Q6HPRN PRN NEB 01/30/24 22:45 01/31/24 23:18 0.5 MG Levalbuterol HCl 0.625 mg Q6HR NEB 01/31/24 00:00 02/01/24 06:33 0.625 MG Heparin Sodium/ Dextrose 250 ml @ 10 mls/hr Q24H IV 01/31/24 00:00 01/31/24 13:37 10 MLS/HR Labetalol HCl 5 mg Q2HPRN PRN IV 02/01/24 07:15 laboratory and microbiology Laboratory Tests 02/01/24 03:30 Test 02/01/24 03:30 Range/Units Serum Glucose 99 74-106 mg/dL Problem List/Assessment/Plan Problem List/Assessment/Plan 02/01/24 78 year old male with 6.7cm infrarenal abdominal aortic aneurysms and occluded right iliac vessels, has history of severe COPD. Not a good candidate for open aneurysm resection, I will stand by for treatment of possible complications while proceeds with endovascular repair. ,Full consult dictated Plan discussed with: Patient, Spouse, Daughter DEBBIE PORTER MD Feb 01, 2024 12:27
--- NOTE | 2024-02-01 14:05 | DVHPN2 ---
Progress Note - Dictate Date Seen: Feb 01, 2024 Medical Necessity Reason Pt with a Central, PICC or Fol: No Subjective PT WITH COPD CONTINUED TOBACCO USE NOW WITH LOWER BACK PAIM CTA OF ABD 1. Infrarenal abdominal aortic aneurysm measuring up to 67mm with a large amount of mural thrombus. 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 Vascular surgery evaluation is recommended. 2. Numerous bilateral renal cysts including a very large left renal cyst measuring up to 220mm. 3. Left inguinal hernia containing fat and small bowel. Right femoral hernia containing small bowel. No definite acute obstruction. Some level of chronic obstruction may be present. vital signs Vital Sign Date Time Temp Pulse Resp B/P (MAP) Pulse Ox O2 Delivery O2 Flow Rate FiO2 02/01/24 13:15 91 28 88 02/01/24 12:50 Oxymizer 4.0 02/01/24 12:50 N/A 02/01/24 08:00 98.3 98.3 Total Intake and Output 01/31/24 01/31/24 02/01/24 15:00 23:00 07:00 Intake Total 80 ml 560 ml 75 ml Output Total 400 ml 100 ml Balance 80 ml 160 ml -25 ml medications Current Medications Medications Dose Ordered Sig/Juan David Route Start Time Stop Time Status Last Admin Dose Admin Sodium Chloride 10 ml Q8HR IV 01/30/24 22:00 02/01/24 06:11 10 ML Lorazepam 0.5 mg Q6HP PRN PO 01/30/24 16:30 Docusate Sodium 100 mg BIDPRN PRN PO 01/30/24 16:30 Acetaminophen 650 mg Q6HP PRN PO 01/30/24 16:30 Acetaminophen/ Hydrocodone Bitart 1 tab Q4HP PRN PO 01/30/24 16:30 02/01/24 11:11 1 TAB Hydromorphone HCl 0.5 mg Q4HP PRN IV 01/30/24 16:30 01/30/24 21:36 0.5 MG Ondansetron HCl 4 mg Q4HP PRN IV 01/30/24 16:30 01/30/24 17:29 4 MG Nitroglycerin 0.4 mg Q5MINP PRN SL 01/30/24 16:30 Morphine Sulfate 2 mg Q30M PRN IV 01/30/24 16:30 Atorvastatin Calcium 40 mg HS PO 01/31/24 22:00 01/31/24 21:46 40 MG Ipratropium [place] 0.5 mg Q6HPRN PRN NEB 01/30/24 22:45 02/01/24 12:50 0.5 MG Levalbuterol HCl 0.625 mg Q6HR NEB 01/31/24 00:00 02/01/24 12:50 0.625 MG Heparin Sodium/ Dextrose 250 ml @ 10 mls/hr Q24H IV 01/31/24 00:00 02/01/24 13:06 10 MLS/HR Labetalol HCl 5 mg Q2HPRN PRN IV 02/01/24 07:15 laboratory and microbiology Laboratory Tests 02/01/24 03:30 Test 02/01/24 03:30 Range/Units Serum Glucose 99 74-106 mg/dL Problem List AAA COPD Assessment/Plan LE ARTERIAL DOPPLER SCHEDULE FOR ANGIOGRAM WITH STENT GRAFT IF PATIENT ANATOMY IS APPROPRIATE FOR STENT GRAFT pt deminsion conducive to STENT GRAFT BUT RIGHT LEG NEEDS REVACULARIZATION SCHEDULE FOR RIGHT LEG INTERVENTION 02/02/24 DISCUSSED WITH DAUGHTERS Plan discussed with: Patient Critical Care Time(min): 35 JUAN DANIEL GARCIA MD Feb 01, 2024 14:05
--- NOTE | 2024-02-01 14:10 | DVHINCON2 ---
DATE OF CONSULTATION: 02/01/2024 SURGICAL CONSULTATION HISTORY OF PRESENT ILLNESS: The patient is evaluated in his hospital bed. He is in no acute distress. He is diagnosed with a large infrarenal abdominal aortic aneurysm. SOCIAL HISTORY: He is an 78-year-old male with a BSA of 1.80 meters squared, BMI of 29.0 kilograms per meters squared. The patient presented at [facility] with abdominal and back pain and was found to have an infrarenal abdominal aortic aneurysm without evidence of leak or rupture. The patient's CT angiogram showed a 6.7 cm infrarenal abdominal aortic aneurysm with a large amount of mural thrombus and occluded right common and external iliac arteries. The patient's echocardiogram showed a left ventricular ejection fraction of 55%, elevated tricuspid regurgitation, velocity of 3.30 meters per second, mildly dilated right atrium, normal valves. Otherwise, the patient was put on heparin drip. He has a history of chronic obstructive pulmonary disease, uses a nebulizer with Levalbuterol and ipratropium every 6 hours. The patient has a left inguinal hernia, which is reducible and on CT scan, contains fat and small bowel. PHYSICAL EXAMINATION: GENERAL: Reveals a well-developed, well-nourished elderly male in no acute distress. HEENT: Pupils are equal, round, react to light equally. Sclerae nonicteric. Extraocular motion is intact. Uvula midline. Trachea midline. Carotids are full without bruits. Jugular veins are collapsed. HEART: Regular rate and rhythm without murmur or gallop. ABDOMEN: Soft, nondistended, and nontender, palpable aortic aneurysm in the mid abdomen, which is nontender to palpation. There is no CVA tenderness. EXTREMITIES: No peripheral vascular tenderness. The patient has no venous stasis. LABORATORY EVALUATION: Shows a white count of 7.4, H and H 17 and 51.3, and platelet count 214. The patient's PT is 11, PTT 30.8. His kidney function appears to be normal. DIAGNOSIS: Moderately large infrarenal abdominal aortic aneurysm. ASSESSMENT AND PLAN: The patient is not a good candidate for open repair and Dr. Brito is planning to do an endovascular repair of this aneurysm, if technically feasible. I will standby for any problems that could ensue during the intraluminal intervention. MD MARCIAL Kirkpatrick TID: [id number] RECEIPT: [id number]
[2024-02-02] VITALS (63 sets, daily range): BP systolic 89–134; BP diastolic 50–87; PULSE 63–95; RESP 11–21; TEMP 97.5–98.9; O2SAT 88–99
[2024-02-02 05:02] LABS: Basophils # (auto) 0 10 ^3/uL (0-0.2); Basophils % (auto) 0.8 % (0.0-2.0); Eosinophils # (auto) 0.3 10 ^3/uL (0-0.8); Eosinophils % (auto) 5.8 % (0.0-7.0); Hematocrit 42.2 % (41.0-53.0); Hemoglobin 14.3 g/dL (13.5-17.5); Lymphocytes # (auto) 1.3 10 ^3/uL (0.4-5.4); Lymphocytes % (auto) 24.4 % (10.0-50.0); Mean Corpuscular Volume 85.1 fL (80.0-100.0); Monocytes # (auto) 0.6 10 ^3/uL (0-1.3); Monocytes % (auto) 10.6 % (0.0-12.0); Neutrophils # (auto) 3.1 10 ^3/uL (1.6-8.6); Neutrophils % (auto) 58.4 % (37.0-80.0); Nucleated Red Blood Cells % 0.1 %; Platelet Count (auto) 175 10^3/uL (140-450); Red Blood Cells 4.95 10^6/uL (4.5-5.90); Red Cell Distribution Width 14.5 % (11.8-14.3); White Blood Cell 5.3 10^3/uL (4.4-10.8)
[2024-02-02 05:13] LABS: Chloride 106 mmol/L (98-107); Potassium 4.2 mmol/L (3.5-5.1); Sodium 142 mmol/L (136-145)
[2024-02-02 05:14] LABS: Anion Gap 5 (5-15); Calcium 9.7 mg/dL (8.7-10.4); Carbon Dioxide 31 mmol/L (20-31); INR 1.08 (0.9-1.15); Partial Thromboplastin Time 63.8 SEC (24.5-34.5); Prothrombin Time 11.4 sec (9.3-11.8)
[2024-02-02 05:19] LABS: BUN/Creatinine Ratio 11.6 (10.0-20.0); Blood Urea Nitrogen 14 mg/dL (9-23); Glucose 104 mg/dL (74-106)
[2024-02-02] MEDS: IOHEXOL 350 MG/ML 100ML IJ ONE (13:09)
[2024-02-02] MEDS: HEPARIN IN NS 1000Units/500mL 1,500 ML ONE (13:09)
--- NOTE | 2024-02-02 13:54 | DVHPN2 ---
Progress Note - Dictate Date Seen: Feb 02, 2024 Medical Necessity Reason Pt with a Central, PICC or Fol: No Subjective PT WITH COPD CONTINUED TOBACCO USE NOW WITH LOWER BACK PAIM CTA OF ABD 1. Infrarenal abdominal aortic aneurysm measuring up to 67mm with a large amount of mural thrombus. 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 Vascular surgery evaluation is recommended. 2. Numerous bilateral renal cysts including a very large left renal cyst measuring up to 220mm. 3. Left inguinal hernia containing fat and small bowel. Right femoral hernia containing small bowel. No definite acute obstruction. Some level of chronic obstruction may be present. vital signs Vital Sign Date Time Temp Pulse Resp B/P (MAP) Pulse Ox O2 Delivery O2 Flow Rate FiO2 02/02/24 12:45 83 16 97 02/02/24 12:00 98.1 98.1 02/02/24 11:47 Oxymizer 4.0 02/02/24 11:47 N/A Total Intake and Output 02/01/24 02/01/24 02/02/24 15:00 23:00 07:00 Intake Total 80 ml 530 ml 80 ml Output Total 500 ml 500 ml Balance 80 ml 30 ml -420 ml medications Current Medications Medications Dose Ordered Sig/Juan David Route Start Time Stop Time Status Last Admin Dose Admin Sodium Chloride 10 ml Q8HR IV 01/30/24 22:00 02/02/24 05:06 10 ML Lorazepam 0.5 mg Q6HP PRN PO 01/30/24 16:30 Docusate Sodium 100 mg BIDPRN PRN PO 01/30/24 16:30 Acetaminophen 650 mg Q6HP PRN PO 01/30/24 16:30 Acetaminophen/ Hydrocodone Bitart 1 tab Q4HP PRN PO 01/30/24 16:30 02/01/24 22:43 1 TAB Hydromorphone HCl 0.5 mg Q4HP PRN IV 01/30/24 16:30 02/02/24 05:07 0.5 MG Ondansetron HCl 4 mg Q4HP PRN IV 01/30/24 16:30 02/02/24 05:06 4 MG Nitroglycerin 0.4 mg Q5MINP PRN SL 01/30/24 16:30 Morphine Sulfate 2 mg Q30M PRN IV 01/30/24 16:30 Atorvastatin Calcium 40 mg HS PO 01/31/24 22:00 02/01/24 22:07 40 MG Ipratropium [place] 0.5 mg Q6HPRN PRN NEB 01/30/24 22:45 02/02/24 11:47 0.5 MG Levalbuterol HCl 0.625 mg Q6HR NEB 01/31/24 00:00 02/02/24 11:47 0.625 MG Heparin Sodium/ Dextrose 250 ml @ 10 mls/hr Q24H IV 01/31/24 00:00 02/01/24 13:06 10 MLS/HR Labetalol HCl 5 mg Q2HPRN PRN IV 02/01/24 07:15 laboratory and microbiology Laboratory Tests 02/02/24 04:40 Test 02/02/24 04:40 Range/Units Serum Glucose 104 74-106 mg/dL Problem List AAA COPD Assessment/Plan LE ARTERIAL DOPPLER SCHEDULE FOR ANGIOGRAM WITH STENT GRAFT IF PATIENT ANATOMY IS APPROPRIATE FOR STENT GRAFT pt deminsion conducive to STENT GRAFT BUT RIGHT LEG NEEDS REVACULARIZATION SCHEDULE FOR RIGHT LEG INTERVENTION 02/02/24 DISCUSSED WITH DAUGHTERS UNABLE TO REVASCULARIZE RIGHT ILIAC / COMMON FEMORAL CALCIFIED OCCLUSION SURGICAL OPTION Dietary Evaluation Review Comments: follow the cardiac 2gNa Lofat LoCholel diet. Monitor PO intake to meet 75% of his needs Expected Outcomes/Goals: Improved health and well being. avoid unwanted weight loss. Plan discussed with: Patient, Daughter Critical Care Time(min): 35 JUAN DANIEL GARCIA MD Feb 02, 2024 13:54
[2024-02-02] MEDS: LIDOCAINE 2%HCL (LOCAL ANESTH.) INJ 20ML MDV ONE (13:56)
[2024-02-02] MEDS: ANGIOMAX 250 MG VIAL IV ONE (13:57)
[2024-02-02] MEDS: MIDAZOLAM HCL 2MG/2ML 2ml VIAL (1mg/ml) ONE (13:57)
[2024-02-02] MEDS: fentaNYL CITRATE 100 MCG/2 ML VL ONE (13:58)
[2024-02-02] MEDS: SODIUM CHL 0.9% 0 ML ONE (13:58)
[2024-02-02] MEDS: ACETAMINOPHEN 325 MG TAB PO PRN (17:26)
--- NOTE | 2024-02-02 18:44 | DVHPNRES ---
Progress Note Date Seen: Feb 02, 2024 Resident Creating Document: MAYI BINGHAM RESIDENT Medical Necessity Reason Pt with a Central, PICC or Fol: No Subjective Review of Systems This is a 78-year-old male patient with PMHx of chronic nicotine dependence, abdominal aortic aneurysm diagnosed February 2023, history of pneumonia and pleural effusion who presented to the ER with the chief complaint of lower back pain starting 01/23/2024. Patient reports worsening lower back pain which is pressure-like in nature, constant and 10/10 in intensity located in the lumbar region, no radiation. The pain worsened yesterday therefore patient decided to come into the ER. He has a history of abdominal aortic aneurysm diagnosed in February [address] scan. A recent CT abdomen pelvis without contrast for abdominal hernia was completed by patient's primary care physician on 01/11/2024 which showed 5.8 cm infrarenal abdominal aortic aneurysm with suspected intramural hematoma or thrombus. Patient also has a history of left-sided inguinal hernia for the past 2 months which is not affecting his daily life activities. Past Medical History: chronic nicotine dependence, abdominal aortic aneurysm diagnosed February 2023, history of pneumonia and pleural effusion, inguinal hernia Past Surgical History: None Family History: None Social history: Smokes 1 pack per day (For the past 50 years, quit 9 months back), drinks alcohol occasionally, denies illicit drug use. Patient lives with and son. 01/30 - Patient seen and examined in the ER bed 17. Reports mild back pain as compared to admission. Saturating 96% on 4 L NC. Family at bedside. 01/31 - patient seen and examined in the ICU bed 266. Reports no back pain. No acute distress. Saturating 94 on 4L Oxymizer. Scheduled for angiogram with a stent. Dr Brito - pt deminsion conducive to STENT GRAFT BUT RIGHT LEG NEEDS REVACULARIZATION. SCHEDULE FOR RIGHT LEG INTERVENTION 02/02/24. Pt NPO starting midnight 02/02/24 - patient underwent right leg revascularization by Dr. Hoff - unable to revascularize right iliac/common femoral due to a calcified occlusion. Heparin discontinued by php software engineer. Objective vital signs Vital Sign Date Time Temp Pulse Resp B/P (MAP) Pulse Ox O2 Delivery O2 Flow Rate FiO2 02/02/24 18:03 92 Oxymizer 4 N/A 02/02/24 18:02 80 16 02/02/24 17:15 02/02/24 12:00 98.1 98.1 Total Intake and Output 02/01/24 02/01/24 02/02/24 15:00 23:00 07:00 Intake Total 80 ml 530 ml 80 ml Output Total 500 ml 500 ml Balance 80 ml 30 ml -420 ml medications Current Medications Medications Dose Ordered Sig/Juan David Route Start Time Stop Time Status Last Admin Dose Admin Sodium Chloride 10 ml Q8HR IV 01/30/24 22:00 02/02/24 16:12 10 ML Lorazepam 0.5 mg Q6HP PRN PO 01/30/24 16:30 Docusate Sodium 100 mg BIDPRN PRN PO 01/30/24 16:30 Acetaminophen 650 mg Q6HP PRN PO 01/30/24 16:30 02/02/24 17:26 650 MG Acetaminophen/ Hydrocodone Bitart 1 tab Q4HP PRN PO 01/30/24 16:30 02/02/24 16:10 1 TAB Hydromorphone HCl 0.5 mg Q4HP PRN IV 01/30/24 16:30 02/02/24 05:07 0.5 MG Ondansetron HCl 4 mg Q4HP PRN IV 01/30/24 16:30 02/02/24 05:06 4 MG Nitroglycerin 0.4 mg Q5MINP PRN SL 01/30/24 16:30 Morphine Sulfate 2 mg Q30M PRN IV 01/30/24 16:30 Atorvastatin Calcium 40 mg HS PO 01/31/24 22:00 02/01/24 22:07 40 MG Ipratropium [place] 0.5 mg Q6HPRN PRN NEB 01/30/24 22:45 02/02/24 11:47 0.5 MG Levalbuterol HCl 0.625 mg Q6HR NEB 01/31/24 00:00 02/02/24 18:02 0.625 MG Labetalol HCl 5 mg Q2HPRN PRN IV 02/01/24 07:15 Examination General Appearance: Alert, Oriented X4, Cooperative, No acute distress, Other (Yakut speaking elderly pleasant male patient lying comfortably in the bed in ER) Respiratory: Clear to auscultation, Normal air movement, Other (Saturating 93 on oxymizer 4L) Cardiovascular: Regular rate, Normal S1, Normal S2, No murmurs Abdominal: Normal bowel sounds, Soft, No tenderness, Other (Left-sided inguinal hernia seen bulging with cough reflex, manually reducible but comes back, soft nontender, not extending into the scrotum) Extremities: No edema, Normal pulses, No tenderness/swelling. Midline tenderness in the lumbar spine. Neuro: Normal speech, Strength at 5/5 X4 ext, Normal tone, Sensation intact Psych/Mental Status: A/Ox4 laboratory and microbiology Laboratory Tests 02/02/24 04:40 Test 02/02/24 04:40 Range/Units Serum Glucose 104 74-106 mg/dL Microbiology Date/Time Source Procedure Growth Status 02/01/24 05:45 Nose MRSA Screen - Final Complete Labs and/or images reviewed: Labs reviewed by me, Image(s) reviewed by me Problem List/Assessment/Plan Problem List/Assessment/Plan Lumbar pressure-like back pain secondary to Infrarenal abdominal aortic aneurysm with intramural thrombus CT angio aortic abdominal completed 01/30/2024 shows 67 mm infrarenal abdominal aortic aneurysm with a large amount of mural thrombus. 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 5.8 cm on 01/11/2024 Echocardiogram completed, shows LVEF 55%, elevated tricuspid regurgitation velocity 3.30 M per S, RSV 50. Mildly dilated RA. Normal valves. Dr. Brito - pt deminsion conducive to stent graft but R Lower extremity needs revascularization. Scheduled for R lower extremity intervention 02/02/24. Dr. Malloy consulted - The patient is not a good candidate for open repair and Dr. Brito is planning to do an endovascular repair of this aneurysm, if technically feasible. Blood pressure control, SBP <120s mmHg. IV labetalol Q2hr PRN for SBP >150mmhg. Severe peripheral artery disease in right lower extremity Duplex ultrasound completed, shows severe PID in the right lower extremity Patient underwent right leg revascularization by Dr. Hoff - unable to revascularize right iliac/common femoral due to a calcified occlusion. Heparin discontinued by php software engineer. Left lower extremities unremarkable Starting atorvastatin 40 mg p.o. daily Consider aspirin 81 mg after definitive treatment for aneurysm ?COPD - no exacerbation Continue nebulized treatment with levalbuterol and ipratropium q.6 hour Outpatient piece hand follow up for the diagnosis of COPD Left inguinal hernia-manually reducible, soft, nontender CT abdomen shows left inguinal hernia containing fat and small bowel. Outpatient workup advised History of severe emphysema - controlled Continue nebulized treatment with levalbuterol and ipratropium q.6 p.r.n. Right femoral hernia CT abdomen shows right femoral hernia containing small bowel. No definite acute obstruction Sigmoid diverticulosis without acute diverticulitis Monitor Bilateral renal cysts including 22 cm left cortical renal cyst Monitor History of COVID-19 infection COVID testing pending Chronic nicotine dependence Counseled regarding cessation for more than 20 minutes Plan discussed with patient and daughter at bedside in the ER, all questions have been answered Goals of care discussed with the patient for more than 22 minutes, full code status. Plan discussed with Dr. Stinson. Plan discussed with: Patient My Orders My Orders Orders - MAYI BINGHAM Procedure Category Date Status Time Npo (Nothing By DIET 02/02/24 Transmitted Mouth) Diet Breakfast Dietary Evaluation Review Comments: follow the cardiac 2gNa Lofat LoCholel diet. Monitor PO intake to meet 75% of his needs Expected Outcomes/Goals: Improved health and well being. avoid unwanted weight loss. Date of Service: Feb 02, 2024 Billing Provider: SHERIF STINSON MD Common Visit Codes: 85610-[id number] INP/OBS CARE(HIGH) MAYI BINGHAM RESIDENT Feb 02, 2024 18:43 SHERIF STINSON MD Feb 04, 2024 20:15
[2024-02-03] VITALS (72 sets, daily range): BP systolic 88–139; BP diastolic 33–86; PULSE 58–95; RESP 10–26; TEMP 98–98.8; O2SAT 85–98
[2024-02-03 06:11] LABS: Basophils # (auto) 0 10 ^3/uL (0-0.2); Basophils % (auto) 0.4 % (0.0-2.0); Eosinophils # (auto) 0.4 10 ^3/uL (0-0.8); Eosinophils % (auto) 5.6 % (0.0-7.0); Hematocrit 41.7 % (41.0-53.0); Lymphocytes # (auto) 0.9 10 ^3/uL (0.4-5.4); Lymphocytes % (auto) 13.5 % (10.0-50.0); Mean Corpuscular Hgb Conc. 33.6 g/dL (32.0-36.0); Mean Corpuscular Volume 86.2 fL (80.0-100.0); Monocytes # (auto) 0.6 10 ^3/uL (0-1.3); Monocytes % (auto) 9.7 % (0.0-12.0); Neutrophils # (auto) 4.5 10 ^3/uL (1.6-8.6); Neutrophils % (auto) 70.8 % (37.0-80.0); Platelet Count (auto) 169 10^3/uL (140-450); Red Blood Cells 4.84 10^6/uL (4.5-5.90); Red Cell Distribution Width 14.7 % (11.8-14.3); White Blood Cell 6.4 10^3/uL (4.4-10.8)
[2024-02-03 06:22] LABS: Anion Gap 4 (5-15); Carbon Dioxide 31 mmol/L (20-31); Chloride 108 mmol/L (98-107); Potassium 4.6 mmol/L (3.5-5.1); Sodium 143 mmol/L (136-145)
[2024-02-03 06:23] LABS: Calcium 9.8 mg/dL (8.7-10.4)
[2024-02-03 06:28] LABS: BUN/Creatinine Ratio 14.2 (10.0-20.0); Blood Urea Nitrogen 17 mg/dL (9-23); Glucose 110 mg/dL (74-106)
--- NOTE | 2024-02-03 18:53 | DVHPNRES ---
Progress Note Date Seen: Feb 03, 2024 Resident Creating Document: MAYI BINGHAM RESIDENT Medical Necessity Reason Pt with a Central, PICC or Fol: No Subjective Review of Systems This is a 78-year-old male patient with PMHx of chronic nicotine dependence, abdominal aortic aneurysm diagnosed February 2023, history of pneumonia and pleural effusion who presented to the ER with the chief complaint of lower back pain starting 01/23/2024. Patient reports worsening lower back pain which is pressure-like in nature, constant and 10/10 in intensity located in the lumbar region, no radiation. The pain worsened yesterday therefore patient decided to come into the ER. He has a history of abdominal aortic aneurysm diagnosed in February [address] scan. A recent CT abdomen pelvis without contrast for abdominal hernia was completed by patient's primary care physician on 01/11/2024 which showed 5.8 cm infrarenal abdominal aortic aneurysm with suspected intramural hematoma or thrombus. Patient also has a history of left-sided inguinal hernia for the past 2 months which is not affecting his daily life activities. Past Medical History: chronic nicotine dependence, abdominal aortic aneurysm diagnosed February 2023, history of pneumonia and pleural effusion, inguinal hernia Past Surgical History: None Family History: None Social history: Smokes 1 pack per day (For the past 50 years, quit 9 months back), drinks alcohol occasionally, denies illicit drug use. Patient lives with and son. 01/30 - Patient seen and examined in the ER bed 17. Reports mild back pain as compared to admission. Saturating 96% on 4 L NC. Family at bedside. 01/31 - patient seen and examined in the ICU bed 266. Reports no back pain. No acute distress. Saturating 94 on 4L Oxymizer. Scheduled for angiogram with a stent. Dr Brito - pt deminsion conducive to STENT GRAFT BUT RIGHT LEG NEEDS REVACULARIZATION. SCHEDULE FOR RIGHT LEG INTERVENTION 02/02/24. Pt NPO starting midnight 02/02/24 - patient underwent right leg revascularization by Dr. Hoff - unable to revascularize right iliac/common femoral due to a calcified occlusion. Heparin discontinued by last ironer. 02/03/2024-patient reported back pain in the morning. [facility] and Tylenol administered. Patient feels fine. Right lower extremity examined for tenderness/swelling/bruising-unremarkable. Auscultation at catheter site unremarkable. Continuing cardiac diet. Objective vital signs Vital Sign Date Time Temp Pulse Resp B/P (MAP) Pulse Ox O2 Delivery O2 Flow Rate FiO2 02/03/24 18:45 95 15 86 02/03/24 16:00 98.8 98.8 02/03/24 10:00 Oxymizer 5 N/A Total Intake and Output 02/02/24 02/02/24 02/03/24 15:00 23:00 07:00 Intake Total 60 ml 240 ml 360 ml Output Total 600 ml 300 ml Balance 60 ml -360 ml 60 ml medications Current Medications Medications Dose Ordered Sig/Juan David Route Start Time Stop Time Status Last Admin Dose Admin Sodium Chloride 10 ml Q8HR IV 01/30/24 22:00 02/03/24 14:00 10 ML Lorazepam 0.5 mg Q6HP PRN PO 01/30/24 16:30 Docusate Sodium 100 mg BIDPRN PRN PO 01/30/24 16:30 Acetaminophen 650 mg Q6HP PRN PO 01/30/24 16:30 02/03/24 17:54 650 MG Acetaminophen/ Hydrocodone Bitart 1 tab Q4HP PRN PO 01/30/24 16:30 02/03/24 16:36 1 TAB Hydromorphone HCl 0.5 mg Q4HP PRN IV 01/30/24 16:30 02/02/24 05:07 0.5 MG Ondansetron HCl 4 mg Q4HP PRN IV 01/30/24 16:30 02/02/24 05:06 4 MG Nitroglycerin 0.4 mg Q5MINP PRN SL 01/30/24 16:30 Morphine Sulfate 2 mg Q30M PRN IV 01/30/24 16:30 Atorvastatin Calcium 40 mg HS PO 01/31/24 22:00 02/02/24 21:11 40 MG Ipratropium [place] 0.5 mg Q6HPRN PRN NEB 01/30/24 22:45 02/03/24 18:24 0.5 MG Levalbuterol HCl 0.625 mg Q6HR NEB 01/31/24 00:00 02/03/24 18:24 0.625 MG Labetalol HCl 5 mg Q2HPRN PRN IV 02/01/24 07:15 Examination: GENERAL:Normal, HEENT:Normal, LUNGS:Abnormal (Decreased air entry bilateral), CVS:Abnormal (Decreased LE pulses), ABDOMEN:Abnormal (Abdominal mass), MSK:Abnormal (R inguinal with dressing surgical wound with clean dressing with no swelling/discharge/bleeding), SKIN:Abnormal (Stasis changes with bruises), NEURO:Normal laboratory and microbiology Laboratory Tests 02/03/24 05:15 Test 02/03/24 05:15 Range/Units Serum Glucose 110 H 74-106 mg/dL Microbiology Date/Time Source Procedure Growth Status 02/01/24 05:45 Nose MRSA Screen - Final Complete Labs and/or images reviewed: Labs reviewed by me, Image(s) reviewed by me Problem List/Assessment/Plan Problem List/Assessment/Plan Lumbar pressure-like back pain secondary to Infrarenal abdominal aortic aneurysm with intramural thrombus CT angio aortic abdominal completed 01/30/2024 shows 67 mm infrarenal abdominal aortic aneurysm with a large amount of mural thrombus. 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 5.8 cm on 01/11/2024 Echocardiogram completed, shows LVEF 55%, elevated tricuspid regurgitation velocity 3.30 M per S, RSV 50. Mildly dilated RA. Normal valves. Dr. Brito - pt deminsion conducive to stent graft but R Lower extremity needs revascularization. Scheduled for R lower extremity intervention 02/02/24. Dr. Malloy consulted - The patient is not a good candidate for open repair and Dr. Brito is planning to do an endovascular repair of this aneurysm, if technically feasible. Blood pressure control, SBP <120s mmHg. IV labetalol Q2hr PRN for SBP >150mmhg. Severe peripheral artery disease in right lower extremity Duplex ultrasound completed, shows severe PID in the right lower extremity Patient underwent right leg revascularization by Dr. Brito - unable to revascularize right iliac/common femoral due to a calcified occlusion. Heparin discontinued by last ironer. Left lower extremities unremarkable Starting atorvastatin 40 mg p.o. daily Consider aspirin 81 mg after definitive treatment for aneurysm ?COPD - no exacerbation Continue nebulized treatment with levalbuterol and ipratropium q.6 hour Outpatient interior design director follow up for the diagnosis of COPD Left inguinal hernia-manually reducible, soft, nontender CT abdomen shows left inguinal hernia containing fat and small bowel. Outpatient workup advised History of severe emphysema - controlled Continue nebulized treatment with levalbuterol and ipratropium q.6 p.r.n. Right femoral hernia CT abdomen shows right femoral hernia containing small bowel. No definite acute obstruction Sigmoid diverticulosis without acute diverticulitis Monitor Bilateral renal cysts including 22 cm left cortical renal cyst Monitor History of COVID-19 infection COVID testing negative Chronic nicotine dependence Counseled regarding cessation for 18 minutes Diet Cardiac Plan discussed with patient and daughter at bedside in [facility] 266, all questions have been answered. Discussed patient's condition in detail with the daughter and his grandson at bedside. Risks of procedure explained including , and acute renal failure requiring hemodialysis by Dr. Lee. Goals of care discussed with the patient for 20 minutes, full code status. 120 minutes of critical care time. Plan discussed with Dr. Lee. Plan discussed with: Patient, Daughter (Daughter and grandson at bedside), Other (RN) Dietary Evaluation Review Comments: follow the cardiac 2gNa Lofat LoCholel diet. Monitor PO intake to meet 75% of his needs Expected Outcomes/Goals: Improved health and well being. avoid unwanted weight loss. Critical Care Time (mins): 120 Addendum Addendum Addendum I was physically present for the whitehead portions of the service provided to patient by THE RESIDENT. I have reviewed the documentation, discussed the case with resident and agree with the resident's documentation except as noted. Also the patient's clinical case was discussed with the patient's nurse. This medical document was created using an electronic medical record system with computerized dictation system. Although this document has been carefully reviewed, there might still be some phonetic and typographical errors. These areas are purely typographical due to imperfections of the software programs, and do not reflect any compromise in the patient's medical care. Late signature. Date of Service: Feb 03, 2024 Billing Provider: VITALIY LEE MD Common Visit Codes: 04122-HVMNWPEV CARE 30-74 MIN (120 minutes), 89843-[id number] CARE-EACH +30MIN Secondary Visit Codes: [id number]-[id number] CHNG SMOKING >10MIN (18 minutes), 27244- ADVANCED CARE PLAN 30 MINUTES (20 minutes) MAYI BINGHAM RESIDENT Feb 03, 2024 18:53 VITALIY LEE MD Feb 04, 2024 05:42
[2024-02-03] MEDS: MORPHINE SULFATE INJ 2 MG/ml SYRG IV PRN (21:43)
[2024-02-04] VITALS (25 sets, daily range): BP systolic 109–149; BP diastolic 48–96; PULSE 72–112; RESP 10–24; TEMP 97.7–98.7; O2SAT 67–97
[2024-02-04 04:59] LABS: Basophils # (auto) 0 10 ^3/uL (0-0.2); Basophils % (auto) 0.5 % (0.0-2.0); Eosinophils # (auto) 0.3 10 ^3/uL (0-0.8); Eosinophils % (auto) 3.9 % (0.0-7.0); Hematocrit 43.4 % (41.0-53.0); Hemoglobin 14.4 g/dL (13.5-17.5); Lymphocytes # (auto) 0.9 10 ^3/uL (0.4-5.4); Lymphocytes % (auto) 12.1 % (10.0-50.0); Mean Corpuscular Hemoglobin 28.6 pg (28.0-32.0); Mean Corpuscular Hgb Conc. 33.3 g/dL (32.0-36.0); Mean Corpuscular Volume 85.9 fL (80.0-100.0); Monocytes # (auto) 0.7 10 ^3/uL (0-1.3); Monocytes % (auto) 8.9 % (0.0-12.0); Neutrophils # (auto) 5.7 10 ^3/uL (1.6-8.6); Neutrophils % (auto) 74.6 % (37.0-80.0); Nucleated Red Blood Cells % 0.2 %; Platelet Count (auto) 164 10^3/uL (140-450); Red Blood Cells 5.05 10^6/uL (4.5-5.90); Red Cell Distribution Width 14.7 % (11.8-14.3); White Blood Cell 7.6 10^3/uL (4.4-10.8)
[2024-02-04 05:07] LABS: Chloride 106 mmol/L (98-107); Potassium 4.3 mmol/L (3.5-5.1); Sodium 141 mmol/L (136-145)
[2024-02-04 05:08] LABS: Anion Gap 5 (5-15); Carbon Dioxide 30 mmol/L (20-31)
[2024-02-04 05:13] LABS: BUN/Creatinine Ratio 16.5 (10.0-20.0); Blood Urea Nitrogen 16 mg/dL (9-23); Glucose 110 mg/dL (74-106)
--- NOTE | 2024-02-04 08:00 | DVHPN2 ---
Progress Note Date Seen: Feb 04, 2024 Medical Necessity Reason Pt with a Central, PICC or Fol: No Objective vital signs Vital Sign Date Time Temp Pulse Resp B/P (MAP) Pulse Ox O2 Delivery O2 Flow Rate FiO2 02/04/24 06:20 84 18 95 02/04/24 06:14 Oxymizer 4.0 02/04/24 06:14 N/A 02/04/24 06:01 146/81 (102) 02/04/24 00:00 98.7 98.7 Total Intake and Output 02/03/24 02/03/24 02/04/24 15:00 23:00 07:00 Intake Total 400 ml 200 ml Output Total 550 ml 550 ml Balance -150 ml -350 ml medications Current Medications Medications Dose Ordered Sig/Juan David Route Start Time Stop Time Status Last Admin Dose Admin Sodium Chloride 10 ml Q8HR IV 01/30/24 22:00 02/04/24 06:12 10 ML Lorazepam 0.5 mg Q6HP PRN PO 01/30/24 16:30 Docusate Sodium 100 mg BIDPRN PRN PO 01/30/24 16:30 Acetaminophen 650 mg Q6HP PRN PO 01/30/24 16:30 02/03/24 17:54 650 MG Acetaminophen/ Hydrocodone Bitart 1 tab Q4HP PRN PO 01/30/24 16:30 02/03/24 16:36 1 TAB Hydromorphone HCl 0.5 mg Q4HP PRN IV 01/30/24 16:30 02/04/24 00:55 0.5 MG Ondansetron HCl 4 mg Q4HP PRN IV 01/30/24 16:30 02/02/24 05:06 4 MG Nitroglycerin 0.4 mg Q5MINP PRN SL 01/30/24 16:30 Morphine Sulfate 2 mg Q30M PRN IV 01/30/24 16:30 Atorvastatin Calcium 40 mg HS PO 01/31/24 22:00 02/03/24 21:43 40 MG Ipratropium [place] 0.5 mg Q6HPRN PRN NEB 01/30/24 22:45 02/04/24 06:14 0.5 MG Levalbuterol HCl 0.625 mg Q6HR NEB 01/31/24 00:00 02/04/24 06:14 0.625 MG Labetalol HCl 5 mg Q2HPRN PRN IV 02/01/24 07:15 laboratory and microbiology Laboratory Tests 02/04/24 04:46 Test 02/04/24 04:46 Range/Units Serum Glucose 110 H 74-106 mg/dL Problem List/Assessment/Plan Problem List/Assessment/Plan 02/01/24 78 year old male with 6.7cm infrarenal abdominal aortic aneurysms and occluded right iliac vessels, has history of severe COPD. Not a good candidate for open aneurysm resection, I will stand by for treatment of possible complications while proceeds with endovascular repair. ,Full consult dictated 02/04/24 percutaneous revascularization of right lower extremity not technically feasible, will consider femoro femoral bypass after AAA stenting accomplished Plan discussed with: Other Dietary Evaluation Review Comments: follow the cardiac 2gNa Lofat LoCholel diet. Monitor PO intake to meet 75% of his needs Expected Outcomes/Goals: Improved health and well being. avoid unwanted weight loss. DEBBIE PORTER MD Feb 04, 2024 08:00
--- NOTE | 2024-02-04 19:37 | DVHPNRES ---
Progress Note Date Seen: Feb 04, 2024 Resident Creating Document: [facility] RESIDENT Medical Necessity Reason Pt with a Central, PICC or Fol: No Subjective Review of Systems pt seen and examined at bedside, complaints of back pain, which is similar to the day of presentation, denies any other complaints. currently on 6lt through Oxymizer. ROS Constitutional: No: Fever, Chills, Sweats, Weakness, Malaise, Other Eyes: No: Pain, Vision change, Conjunctivae inflammation, Eyelid inflammation, Other, Redness ENT: No: Ear pain, Ear discharge, Nose pain, Nose discharge, Nose congestion, Mouth pain, Mouth swelling, Throat pain, Throat swelling, Other Respiratory: No: Cough, Dry, Shortness of breath, SOB with excertion, Wheezing, Hemoptysis, Pleuritic Pain, Sputum, Wheezing, Other Cardiovascular: No: Chest Pain, Palpitations, Orthopnea, Paroxysmal Noc. Dyspnea, Edema, Lt Headedness, Other Gastrointestinal: No: Nausea, Vomiting, Abdominal Pain, Diarrhea, Constipation, Melena, Hematochezia, Other Musculoskeletal: Back pain No: other, neck pain, shoulder pain, arm pain, back pain, hand pain, leg pain, foot pain Neurological:; No: Weakness, Numbness, Incoordination, Change in speech, Confusion, Seizures Objective vital signs Vital Sign Date Time Temp Pulse Resp B/P (MAP) Pulse Ox O2 Delivery O2 Flow Rate FiO2 02/04/24 17:00 77 20 129/63 (85) 02/04/24 16:00 98.3 87 98.3 02/04/24 12:16 Oxymizer 5 N/A Total Intake and Output 02/03/24 02/03/24 02/04/24 15:00 23:00 07:00 Intake Total 400 ml 200 ml Output Total 550 ml 550 ml Balance -150 ml -350 ml medications Current Medications Medications Dose Ordered Sig/Juan David Route Start Time Stop Time Status Last Admin Dose Admin Sodium Chloride 10 ml Q8HR IV 01/30/24 22:00 02/04/24 11:34 10 ML Lorazepam 0.5 mg Q6HP PRN PO 01/30/24 16:30 Docusate Sodium 100 mg BIDPRN PRN PO 01/30/24 16:30 Acetaminophen 650 mg Q6HP PRN PO 01/30/24 16:30 02/03/24 17:54 650 MG Acetaminophen/ Hydrocodone Bitart 1 tab Q4HP PRN PO 01/30/24 16:30 02/03/24 16:36 1 TAB Hydromorphone HCl 0.5 mg Q4HP PRN IV 01/30/24 16:30 02/04/24 14:46 0.5 MG Ondansetron HCl 4 mg Q4HP PRN IV 01/30/24 16:30 02/02/24 05:06 4 MG Nitroglycerin 0.4 mg Q5MINP PRN SL 01/30/24 16:30 Morphine Sulfate 2 mg Q30M PRN IV 01/30/24 16:30 Atorvastatin Calcium 40 mg HS PO 01/31/24 22:00 02/03/24 21:43 40 MG Ipratropium [place] 0.5 mg Q6HPRN PRN NEB 01/30/24 22:45 02/04/24 19:09 0.5 MG Levalbuterol HCl 0.625 mg Q6HR NEB 01/31/24 00:00 02/04/24 19:09 0.625 MG Labetalol HCl 5 mg Q2HPRN PRN IV 02/01/24 07:15 Melatonin 5 mg HS PO 02/04/24 22:00 Examination Examination General Appearance: Alert, Oriented X3, Cooperative, No acute distress HEENT: EOMI Respiratory: decreased air entry bilateral Cardiovascular: Regular rate, Normal S1, Normal S2, decreased LE pulsed bilaterally Abdominal: Normal bowel sounds, abdominal mass on palpation Extremities: R inguinal entry site with dressing surgical wound with clean dressing with no swelling/discharge/bleeding No cyanosis, No edema, Normal pulses, No tenderness/swelling Skin: No rashes, No breakdown, stasis changes consistent with bruises Neuro: Normal speech and tone laboratory and microbiology Laboratory Tests 02/04/24 04:46 Test 02/04/24 04:46 Range/Units Serum Glucose 110 H 74-106 mg/dL Microbiology Date/Time Source Procedure Growth Status 02/01/24 05:45 Nose MRSA Screen - Final Complete Labs and/or images reviewed: Labs reviewed by me, Image(s) reviewed by me Problem List/Assessment/Plan Problem List/Assessment/Plan Assessment/plan Neurology No active issues Cardiology # infrarenal abdominal aortic aneurysm with intramural thrombus -seen on abdominal aortography Echocardiogram Cardiology and surgery on board Patient planned for AAA repair, endovascular repair as per surgeon Heparin drip discontinued by the police matron # severe peripheral arterial disease Duplex ultrasound completed, shows severe PID in the right lower extremity Patient underwent peripheral angiogram - unable to revascularize right iliac/common femoral due to a calcified occlusion. Heparin drip discontinued by police matron. As per surgeon, will consider femorofemoral bypass after AAA stenting Pulmonology # ?COPD, questionable exacerbation Nebulization with ipratropium and levalbuterol GI # left inguinal hernia -no evidence of strangulation , outpatient follow up # sigmoid diverticulosis Stable Nephrology # bilateral renal cyst Seen on imaging Outpatient follow up Psychiatry # tobacco use disorder , ex-smoker Counseling for cessation DVT prophylaxis -patient was on heparin drip, discontinued by the police matron, starting heparin prophylactic dose Lines Drips Nutrition Cardiac diet Case discussion with Dr. Lee Family at bedside explained about the condition of the patient Critical care time excluding procedures: 66 minutes Plan discussed with: Patient, Other (RN) My Orders My Orders Orders - [facility] RESIDENT Procedure Category Date Status Time Melatonin (Melatonin) PHA 02/04/24 In Process 22:00 Dietary Evaluation Review Comments: follow the cardiac 2gNa Lofat LoCholel diet. Monitor PO intake to meet 75% of his needs Expected Outcomes/Goals: Improved health and well being. avoid unwanted weight loss. Critical Care Time (mins): 66 Addendum Addendum Addendum I was physically present for the whitehead portions of the service provided to patient by THE RESIDENT. I have reviewed the documentation, discussed the case with resident and agree with the resident's documentation except as noted. Also the patient's clinical case was discussed with the patient's nurse. This medical document was created using an electronic medical record system with computerized dictation system. Although this document has been carefully reviewed, there might still be some phonetic and typographical errors. These areas are purely typographical due to imperfections of the software programs, and do not reflect any compromise in the patient's medical care. Late signature. Date of Service: Feb 04, 2024 Billing Provider: VITALIY LEE MD Common Visit Codes: 00329-[id number] CARE 30-74 MIN (66 minutes) [facility] RESIDENT Feb 04, 2024 19:37 VITALIY LEE MD Feb 05, 2024 09:25
[2024-02-04] MEDS: MELATONIN 5 MG TAB PO SCH (21:30)
[2024-02-05] VITALS (34 sets, daily range): BP systolic 90–147; BP diastolic 33–90; PULSE 72–92; RESP 11–25; TEMP 98.2–98.6; O2SAT 88–98
--- NOTE | 2024-02-05 05:07 | DVH ---
CHEST RADIOGRAPH Indication:Preoperative Technique: Single frontal view of the chest was obtained Comparison: XY CHEST XRAY 1 VIEW on DOS: 01/30/24 FINDINGS: Lines and Tubes: None Lungs: The patient is rotated which limits evaluation hyperaerated lungs compatible with emphysema. P atchy left basilar opacity. Pleura: No effusion. No pneumothorax. Cardiomediastinal contours: Unremarkable Bones: No acute osseous abnormality. IMPRESSION: 1. Left basilar opacity which may reflect atelectasis or infiltrate. 2. Emphysema.
[2024-02-05 05:17] LABS: Basophils # (auto) 0 10 ^3/uL (0-0.2); Basophils % (auto) 0.4 % (0.0-2.0); Eosinophils # (auto) 0.3 10 ^3/uL (0-0.8); Eosinophils % (auto) 3.3 % (0.0-7.0); Hematocrit 42.8 % (41.0-53.0); Hemoglobin 14.2 g/dL (13.5-17.5); Lymphocytes # (auto) 1.2 10 ^3/uL (0.4-5.4); Lymphocytes % (auto) 16.3 % (10.0-50.0); Mean Corpuscular Hemoglobin 28.6 pg (28.0-32.0); Mean Corpuscular Hgb Conc. 33.2 g/dL (32.0-36.0); Mean Corpuscular Volume 86.3 fL (80.0-100.0); Monocytes # (auto) 0.8 10 ^3/uL (0-1.3); Monocytes % (auto) 10.3 % (0.0-12.0); Neutrophils # (auto) 5.3 10 ^3/uL (1.6-8.6); Neutrophils % (auto) 69.7 % (37.0-80.0); Nucleated Red Blood Cells % 0.1 %; Platelet Count (auto) 177 10^3/uL (140-450); Red Blood Cells 4.96 10^6/uL (4.5-5.90); Red Cell Distribution Width 14.9 % (11.8-14.3); White Blood Cell 7.6 10^3/uL (4.4-10.8)
[2024-02-05 05:27] LABS: Alanine Aminotransferase 34 U/L (7-40); Alkaline Phosphatase 112 U/L (46-116); Anion Gap 3 (5-15); Blood Urea Nitrogen 19 mg/dL (9-23); Carbon Dioxide 33 mmol/L (20-31); Chloride 106 mmol/L (98-107); Glucose 109 mg/dL (74-106); Potassium 4.6 mmol/L (3.5-5.1); Sodium 142 mmol/L (136-145)
[2024-02-05 05:28] LABS: Albumin 4.1 g/dL (3.2-4.8); Aspartate Aminotransferase 25 U/L (13-40); Bilirubin, Total 0.7 mg/dL (0.2-1.0); Total Protein 6.3 g/dL (5.7-8.2)
[2024-02-05 05:29] LABS: INR 1.04 (0.9-1.15)
[2024-02-05] MEDS: HEPARIN SODIUM (PORCINE) 5000 UNITS/ML 1ML VIAL SC SCH (06:00)
--- NOTE | 2024-02-05 13:09 | DVHPN2 ---
Progress Note - Dictate Date Seen: Feb 04, 2024 Medical Necessity Reason Pt with a Central, PICC or Fol: No Subjective PT WITH COPD CONTINUED TOBACCO USE NOW WITH LOWER BACK PAIM CTA OF ABD 1. Infrarenal abdominal aortic aneurysm measuring up to 67mm with a large amount of mural thrombus. 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 Vascular surgery evaluation is recommended. 2. Numerous bilateral renal cysts including a very large left renal cyst measuring up to 220mm. 3. Left inguinal hernia containing fat and small bowel. Right femoral hernia containing small bowel. No definite acute obstruction. Some level of chronic obstruction may be present. vital signs Vital Sign Date Time Temp Pulse Resp B/P (MAP) Pulse Ox O2 Delivery O2 Flow Rate FiO2 02/05/24 11:57 82 16 97 02/05/24 11:51 Oxymizer 6.0 02/05/24 11:51 N/A 02/05/24 10:00 124/82 (96) 02/05/24 08:00 98.2 98.2 Total Intake and Output 02/04/24 02/04/24 02/05/24 15:00 23:00 07:00 Intake Total 390 ml 0 ml Output Total 400 ml 250 ml Balance -10 ml -250 ml medications Current Medications Medications Dose Ordered Sig/Juan David Route Start Time Stop Time Status Last Admin Dose Admin Sodium Chloride 10 ml Q8HR IV 01/30/24 22:00 02/05/24 06:34 10 ML Lorazepam 0.5 mg Q6HP PRN PO 01/30/24 16:30 Docusate Sodium 100 mg BIDPRN PRN PO 01/30/24 16:30 Acetaminophen 650 mg Q6HP PRN PO 01/30/24 16:30 02/03/24 17:54 650 MG Acetaminophen/ Hydrocodone Bitart 1 tab Q4HP PRN PO 01/30/24 16:30 02/04/24 21:32 1 TAB Hydromorphone HCl 0.5 mg Q4HP PRN IV 01/30/24 16:30 02/05/24 09:04 0.5 MG Ondansetron HCl 4 mg Q4HP PRN IV 01/30/24 16:30 02/02/24 05:06 4 MG Nitroglycerin 0.4 mg Q5MINP PRN SL 01/30/24 16:30 Morphine Sulfate 2 mg Q30M PRN IV 01/30/24 16:30 Atorvastatin Calcium 40 mg HS PO 01/31/24 22:00 02/04/24 21:36 40 MG Ipratropium [place] 0.5 mg Q6HPRN PRN NEB 01/30/24 22:45 02/05/24 11:51 0.5 MG Levalbuterol HCl 0.625 mg Q6HR NEB 01/31/24 00:00 02/05/24 11:51 0.625 MG Labetalol HCl 5 mg Q2HPRN PRN IV 02/01/24 07:15 Melatonin 5 mg HS PO 02/04/24 22:00 02/04/24 21:30 5 MG Heparin Sodium (Porcine) 5,000 units Q8HR SC 02/05/24 06:00 02/05/24 07:20 5,000 UNITS laboratory and microbiology Laboratory Tests 02/05/24 04:44 Test 02/05/24 04:44 Range/Units Serum Glucose 109 H 74-106 mg/dL Problem List AAA COPD Assessment/Plan LE ARTERIAL DOPPLER SCHEDULE FOR ANGIOGRAM WITH STENT GRAFT IF PATIENT ANATOMY IS APPROPRIATE FOR STENT GRAFT HYBRID pt RENAL MEASUREMENT conducive to STENT GRAFT BUT RIGHT LEG NEEDS REVASCULARIZATION SCHEDULE FOR RIGHT LEG INTERVENTION 02/02/24 DISCUSSED WITH DAUGHTERS UNABLE TO REVASCULARIZE RIGHT ILIAC / COMMON FEMORAL CALCIFIED OCCLUSION SURGICAL OPTION HYBRID PROCEDURE IS A VIABLE OPTION Dietary Evaluation Review Comments: follow the cardiac 2gNa Lofat LoCholel diet. Monitor PO intake to meet 75% of his needs Expected Outcomes/Goals: Improved health and well being. avoid unwanted weight loss. Plan discussed with: Patient Critical Care Time(min): 35 JUAN DANIEL GARCIA MD Feb 05, 2024 13:09
--- NOTE | 2024-02-05 17:30 | DVHPNRES ---
Progress Note Date Seen: Feb 05, 2024 Resident Creating Document: [facility] RESIDENT Medical Necessity Reason Pt with a Central, PICC or Fol: No Subjective Review of Systems This is a 78-year-old male patient with PMHx of chronic nicotine dependence, abdominal aortic aneurysm diagnosed February 2023, history of pneumonia and pleural effusion who presented to the ER with the chief complaint of lower back pain starting 01/23/2024. Patient reports worsening lower back pain which is pressure-like in nature, constant and 10/10 in intensity located in the lumbar region, no radiation. The pain worsened yesterday therefore patient decided to come into the ER. He has a history of abdominal aortic aneurysm diagnosed in February [address] scan. A recent CT abdomen pelvis without contrast for abdominal hernia was completed by patient's primary care physician on 01/11/2024 which showed 5.8 cm infrarenal abdominal aortic aneurysm with suspected intramural hematoma or thrombus. Patient also has a history of left-sided inguinal hernia for the past 2 months which is not affecting his daily life activities. Past Medical History: chronic nicotine dependence, abdominal aortic aneurysm diagnosed February 2023, history of pneumonia and pleural effusion, inguinal hernia Past Surgical History: None Family History: None Social history: Smokes 1 pack per day (For the past 50 years, quit 9 months back), drinks alcohol occasionally, denies illicit drug use. Patient lives with and son. 01/30 - Patient seen and examined in the ER bed 17. Reports mild back pain as compared to admission. Saturating 96% on 4 L NC. Family at bedside. 01/31 - patient seen and examined in the ICU bed 266. Reports no back pain. No acute distress. Saturating 94 on 4L Oxymizer. Scheduled for angiogram with a stent. Dr Brito - pt deminsion conducive to STENT GRAFT BUT RIGHT LEG NEEDS REVACULARIZATION. SCHEDULE FOR RIGHT LEG INTERVENTION 02/02/24. Pt NPO starting midnight 02/02/24 - patient underwent right leg revascularization by Dr. Hoff - unable to revascularize right iliac/common femoral due to a calcified occlusion. Heparin discontinued by crime scene examiner. 02/03/2024-patient reported back pain in the morning. [place] and Tylenol administered. Patient feels fine. Right lower extremity examined for tenderness/swelling/bruising-unremarkable. Auscultation at catheter site unremarkable. Continuing cardiac diet. 02/05/2024 - patient reports back pain, lumbar spinous tender on exam. Left inguinal hernia is tender but not erythematous and soft and reducible. Consulted Dr. Chakraborty. Discussed in details regarding prognosis and the risk of open surgery for the repair of AAA. Advanced directives to be given by patient's daughter Soco Iyer and Tamia Sexton, as per the patient's wishes. Objective vital signs Vital Sign Date Time Temp Pulse Resp B/P (MAP) Pulse Ox O2 Delivery O2 Flow Rate FiO2 02/05/24 15:04 82 15 130/71 02/05/24 11:57 97 02/05/24 11:51 Oxymizer 6.0 02/05/24 11:51 N/A 02/05/24 08:00 98.2 98.2 Total Intake and Output 02/04/24 02/04/24 02/05/24 15:00 23:00 07:00 Intake Total 390 ml 0 ml Output Total 400 ml 250 ml Balance -10 ml -250 ml medications Current Medications Medications Dose Ordered Sig/Juan David Route Start Time Stop Time Status Last Admin Dose Admin Sodium Chloride 10 ml Q8HR IV 01/30/24 22:00 02/05/24 14:11 10 ML Lorazepam 0.5 mg Q6HP PRN PO 01/30/24 16:30 Docusate Sodium 100 mg BIDPRN PRN PO 01/30/24 16:30 Acetaminophen 650 mg Q6HP PRN PO 01/30/24 16:30 02/03/24 17:54 650 MG Acetaminophen/ Hydrocodone Bitart 1 tab Q4HP PRN PO 01/30/24 16:30 02/04/24 21:32 1 TAB Hydromorphone HCl 0.5 mg Q4HP PRN IV 01/30/24 16:30 02/05/24 15:04 0.5 MG Ondansetron HCl 4 mg Q4HP PRN IV 01/30/24 16:30 02/02/24 05:06 4 MG Nitroglycerin 0.4 mg Q5MINP PRN SL 01/30/24 16:30 Morphine Sulfate 2 mg Q30M PRN IV 01/30/24 16:30 Atorvastatin Calcium 40 mg HS PO 01/31/24 22:00 02/04/24 21:36 40 MG Ipratropium [place] 0.5 mg Q6HPRN PRN NEB 01/30/24 22:45 02/05/24 11:51 0.5 MG Levalbuterol HCl 0.625 mg Q6HR NEB 01/31/24 00:00 02/05/24 11:51 0.625 MG Labetalol HCl 5 mg Q2HPRN PRN IV 02/01/24 07:15 Melatonin 5 mg HS PO 02/04/24 22:00 02/04/24 21:30 5 MG Heparin Sodium (Porcine) 5,000 units Q8HR SC 02/05/24 06:00 02/05/24 14:44 5,000 UNITS Examination General Appearance: Alert, Oriented X4, Cooperative, No acute distress, Other (Algerian speaking elderly pleasant male patient lying comfortably in the bed in ER) Respiratory: Clear to auscultation, decreased bilateral air movement, Other (Saturating 93 on oxymizer 5L) Cardiovascular: Regular rate, Normal S1, Normal S2, No murmurs Abdominal: Normal bowel sounds, Soft, No tenderness, Other (R inguinal with dressing surgical wound with clean dressing with no swelling/discharge/bleeding, Left-sided inguinal hernia seen bulging with cough reflex, manually reducible but comes back, soft but tender, not extending into the scrotum) Extremities: No edema, Normal pulses, No tenderness/swelling. Midline tenderness in the lumbar spine. Neuro: Normal speech, Strength at 5/5 X4 ext, Normal tone, Sensation intact Psych/Mental Status: A/Ox4 laboratory and microbiology Laboratory Tests 02/05/24 04:44 Test 02/05/24 04:44 Range/Units Serum Glucose 109 H 74-106 mg/dL Microbiology Date/Time Source Procedure Growth Status 02/01/24 05:45 Nose MRSA Screen - Final Complete Labs and/or images reviewed: Labs reviewed by me, Image(s) reviewed by me Problem List/Assessment/Plan Problem List/Assessment/Plan Lumbar pressure-like back pain secondary to Infrarenal abdominal aortic aneurysm with intramural thrombus CT angio aortic abdominal completed 01/30/2024 shows 67 mm infrarenal abdominal aortic aneurysm with a large amount of mural thrombus. 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 5.8 cm on 01/11/2024 Echocardiogram completed, shows LVEF 55%, elevated tricuspid regurgitation velocity 3.30 M per S, RSV 50. Mildly dilated RA. Normal valves. Dr. Brito - hybrid procedure is a viable option. Unable to revascularize right iliac/common femoral calcified occlusion. Dr. Malloy consulted - percutaneous revascularization of right lower extremity not technically feasible, will consider femorofemoral bypass after AAA stenting accomplished Blood pressure control, SBP <120s mmHg. IV labetalol Q2hr PRN for SBP >150mmhg. Consulted Dr. Chakraborty. Severe peripheral artery disease in right lower extremity Duplex ultrasound completed, shows severe PID in the right lower extremity Patient underwent right leg revascularization by Dr. Hoff - unable to revascularize right iliac/common femoral due to a calcified occlusion. On prophylactic heparin dose Left lower extremities unremarkable for PAD Starting atorvastatin 40 mg p.o. daily Consider aspirin 81 mg after definitive treatment for aneurysm ?COPD - no exacerbation Continue nebulized treatment with levalbuterol and ipratropium q.6 hour Outpatient field servicer follow up for the diagnosis of COPD Left inguinal hernia-manually reducible, soft, tender CT abdomen shows left inguinal hernia containing fat and small bowel. Outpatient workup advised History of severe emphysema - controlled Continue nebulized treatment with levalbuterol and ipratropium q.6 p.r.n. Right femoral hernia CT abdomen shows right femoral hernia containing small bowel. No definite acute obstruction Sigmoid diverticulosis without acute diverticulitis Monitor Bilateral renal cysts including 22 cm left cortical renal cyst Monitor History of COVID-19 infection COVID testing pending Chronic nicotine dependence Counseled regarding cessation for more than 20 minutes Diet Cardiac 120 minutes of critical care time Plan discussed with patient and daughter at bedside in [place] 266, all questions have been answered. Goals of care discussed with the patient for more than 22 minutes, full code status. Plan discussed with Dr. Dyson. Consulted Dr. Chakraborty. Discussed in details regarding prognosis and the risk of open surgery for the repair of AAA. Advanced directives to be given by patient's daughter Raiza Iyer and Tamia Sexton, as per the patient's wishes. CRITICAL CARE TIME 39 MINS Plan discussed with: Patient, Daughter, Other (Soco Iyer and Tamia Sexton) Dietary Evaluation Review Comments: follow the cardiac 2gNa Lofat LoCholel diet. Monitor PO intake to meet 75% of his needs Expected Outcomes/Goals: Improved health and well being. avoid unwanted weight loss. Date of Service: Feb 05, 2024 Billing Provider: GENNA DYSON MD Common Visit Codes: [id number] CARE 30-74 MIN [facility] RESIDENT Feb 05, 2024 17:30 GENNA DYSON MD Feb 05, 2024 19:05
[2024-02-06] VITALS (39 sets, daily range): BP systolic 93–140; BP diastolic 48–84; PULSE 67–96; RESP 11–27; TEMP 97.9–99.2; O2SAT 87–97
[2024-02-06 05:12] LABS: Basophils # (auto) 0 10 ^3/uL (0-0.2); Basophils % (auto) 0.2 % (0.0-2.0); Eosinophils # (auto) 0.1 10 ^3/uL (0-0.8); Eosinophils % (auto) 1.4 % (0.0-7.0); Hematocrit 41.6 % (41.0-53.0); Hemoglobin 14.1 g/dL (13.5-17.5); Lymphocytes # (auto) 0.6 10 ^3/uL (0.4-5.4); Lymphocytes % (auto) 6.9 % (10.0-50.0); Mean Corpuscular Hemoglobin 29.1 pg (28.0-32.0); Mean Corpuscular Hgb Conc. 33.8 g/dL (32.0-36.0); Mean Corpuscular Volume 85.9 fL (80.0-100.0); Monocytes # (auto) 0.7 10 ^3/uL (0-1.3); Monocytes % (auto) 8.1 % (0.0-12.0); Neutrophils % (auto) 83.4 % (37.0-80.0); Nucleated Red Blood Cells % 0.1 %; Platelet Count (auto) 173 10^3/uL (140-450); Red Blood Cells 4.85 10^6/uL (4.5-5.90); Red Cell Distribution Width 14.6 % (11.8-14.3); White Blood Cell 8.3 10^3/uL (4.4-10.8)
[2024-02-06 05:15] LABS: Chloride 104 mmol/L (98-107); Potassium 4.2 mmol/L (3.5-5.1); Sodium 140 mmol/L (136-145)
[2024-02-06 05:16] LABS: Anion Gap 5 (5-15); Carbon Dioxide 31 mmol/L (20-31)
[2024-02-06 05:17] LABS: Calcium 10.1 mg/dL (8.7-10.4)
[2024-02-06 05:21] LABS: BUN/Creatinine Ratio 19.4 (10.0-20.0); Blood Urea Nitrogen 19 mg/dL (9-23); Glucose 130 mg/dL (74-106); INR 1.04 (0.9-1.15); Partial Thromboplastin Time 30.2 SEC (24.5-34.5)
--- NOTE | 2024-02-06 07:59 | DVHCONRES ---
Date Seen: Feb 06, 2024 Resident Creating Document: RUTH RODARTE Jr., MD Referring Physician aurelia Reason for Consultation Abdominal aortic aneurysm History of Present Illness This is a 78-year-old male patient with PMHx of chronic nicotine de pendence, abdominal aortic aneurysm diagnosed February 2023, history of pneumonia and pleural effusion who presented to the ER with the chief complaint of lower back pain starting 01/23/2024. Patient reports worsening lower back pain which is pressure-like in nature, constant and 10/10 in intensity located in the lumbar region, no radiation. The pain worsened yesterday therefore patient decided to come into the ER. He has a history of abdominal aortic aneurysm diagnosed in February [address] scan. A recent CT abdomen pelvis without contrast for abdominal hernia was completed by patient's primary care physician on 01/11/2024 which showed 5.8 cm infrarenal abdominal aortic aneurysm with suspected intramural hematoma or thrombus. Patient also has a history of left-sided inguinal hernia for the past 2 months which is not affecting his daily life activities. Recent admission as patient has aneurysm measures 6.7 cm. He also has a very large renal cyst on the left side. Patient denies any abdominal pain but has chronic back pain. Patient has short distance claudication and shortness of breaths. Since upon admission the patient's pulmonary status has worsened with increasing shortness of breath and requiring more oxygen supplemental. Currently is on 6 to 8 L of oxygen. Past Medical History chronic nicotine dependence, abdominal aortic aneurysm diagnosed February 2023, history of pneumonia and pleural effusion, inguinal hernia Past Surgical History . Family History: Patient reports no known family medical history. Family History No history of aneurysm Social History Chronic smoker 50+ pack-year history, occasional alcohol Allergies: Coded Allergies: NO KNOWN ALLERGIES (Unverified , 02/27/23) Home Meds Reported Medications Rosuvastatin Calcium (Rosuvastatin Calcium) 20 Mg Tab, 1 TAB PO DAILY 02/27/23 Review of Systems All systems reviewed otherwise negative other than HPI. Vital Signs Vital Signs Date Time Temp Pulse Resp B/P (MAP) Pulse Ox O2 Delivery O2 Flow Rate FiO2 02/06/24 07:00 87 23 117/75 (89) 90 02/06/24 06:11 Oxymizer 10.0 02/06/24 06:11 N/A 02/06/24 04:00 97.9 97.9 Physical Exam Head eyes ears nose and throat exam as nonicteric conjunctiva is pink neck is supple no JVD no lymphadenopathy no carotid bruits lungs clear to auscultation heart was regular rate and rhythm abdomen is soft nontender. Patient has a pulsatile abdominal mass. Lower extremities he has palpable femoral pulse on the left side nonpalpable right-sided femoral pulse. Nonpalpable pedal pulses bilaterally. No edema. Labs/Diagnostic Data Labs Test 02/06/24 04:50 02/05/24 04:44 02/01/24 03:30 01/30/24 22:55 Range/Units White Blood Count 8.3 4.4-10.8 10^3/uL Red Blood Count 4.85 4.5-5.90 10^6/uL Hemoglobin 14.1 13.5-17.5 g/dL Hematocrit 41.6 41.0-53.0 % Mean Corpuscular Volume 85.9 80.0-100.0 fL Mean Corpuscular Hemoglobin 29.1 28.0-32.0 pg Mean Corpuscular Hemoglobin Concent 33.8 32.0-36.0 g/dL Red Cell Distribution Width 14.6 H 11.8-14.3 % Platelet Count 173 140-450 10^3/uL Mean Platelet Volume 8.7 6.9-10.8 fL Neutrophils (%) (Auto) 83.4 H 37.0-80.0 % Lymphocytes (%) (Auto) 6.9 L 10.0-50.0 % Monocytes (%) (Auto) 8.1 0.0-12.0 % Eosinophils (%) (Auto) 1.4 0.0-7.0 % Basophils (%) (Auto) 0.2 0.0-2.0 % Neutrophils # (Auto) 7.0 1.6-8.6 10 ^3/uL Lymphocytes # (Auto) 0.6 0.4-5.4 10 ^3/uL Monocytes # (Auto) 0.7 0-1.3 10 ^3/uL Eosinophils # (Auto) 0.1 0-0.8 10 ^3/uL Basophils # (Auto) 0 0-0.2 10 ^3/uL Nucleated Red Blood Cells 0.1 % Prothrombin Time 11.0 9.3-11.8 sec Prothrombin Time INR 1.04 0.9-1.15 Activated Partial Thromboplast Time 30.2 24.5-34.5 SEC Sodium Level 140 136-145 mmol/L Potassium Level 4.2 3.5-5.1 mmol/L Chloride Level 104 98-107 mmol/L Carbon Dioxide Level 31 20-31 mmol/L Anion Gap 5 5-15 Blood Urea Nitrogen 19 9-23 mg/dL Creatinine 0.98 0.700-1.30 mg/dL Glomerular Filtration Rate Calc 78 >90 mL/min BUN/Creatinine Ratio 19.4 10.0-20.0 Serum Glucose 130 H 74-106 mg/dL Calcium Level 10.1 8.7-10.4 mg/dL Total Bilirubin 0.7 0.2-1.0 mg/dL Aspartate Amino Transferase (AST) 25 13-40 U/L Alanine Aminotransferase (ALT) 34 7-40 U/L Alkaline Phosphatase 112 46-116 U/L Total Protein 6.3 5.7-8.2 g/dL Albumin 4.1 3.2-4.8 g/dL Free Thyroxine (T4) Calculated 1.04 0.89-1.76 ng/dL Free Triiodothyronine (T3) pg/mL 2.69 2.3-4.2 pg/mL Hemoglobin A1c 5.2 <5.7 % A1C Vitamin B12 Level 612 211-911 pg/mL Vitamin D 25-Hydroxy 75.7 30.0-100 ng/mL Thyroid Stimulating Hormone (TSH) 17.59 H 0.55-4.78 uIU/mL Test 01/30/24 22:50 01/30/24 22:40 01/30/24 10:31 01/30/24 10:11 Range/Units Urine Opiates Screen Neg NEGATIVE Urine Fentanyl Screen Neg NEGATIVE Urine Barbiturates Screen Neg NEGATIVE Urine Phencyclidine Screen Neg NEGATIVE Urine Amphetamines Screen Neg NEGATIVE Urine Benzodiazepines Screen Neg NEGATIVE Urine Cocaine Screen Neg NEGATIVE Urine Cannabinoids Screen Neg NEGATIVE Influenza Type A Antigen Negative Negative Influenza Type B Antigen Negative Negative SARS-CoV-2 Antigen (Rapid) Negative NEGATIVE B-Type Natriuretic Peptide 30.94 0-100 pg/mL Urine Color Yellow Yellow Urine Clarity Clear Clear Urine pH 5.5 5.0-9.0 Urine Specific Sun 1.014 1.001-1.035 Urine Protein Negative Negative Urine Ketones Negative Negative Urine Blood Negative Negative /uL Urine Nitrite Negative Negative Urine Bilirubin Negative Negative Urine Urobilinogen Normal Negative mg/dL Urine Leukocyte Esterase Negative Negative /uL Urine RBC 1 0 - 3 /hpf Urine WBC <1 0 - 3 /hpf Urine Squamous Epithelial Cells Few <5 /hpf Urine Bacteria None seen None Seen /hpf Urine Mucus Few None Seen Urine Glucose Normal Normal mg/dL Microbiology Date/Time Source Procedure Growth Status 02/01/24 05:45 Nose MRSA Screen - Final Complete Procedure: CT ANGIO AORTIC ABDOMINAL HISTORY: 5.8CM INFRA RENAL ABD ANEURYSM W/ SUSPECTED INTRAMURAL HEMAT Comparison Study: None Exam Date:01/30/2024 11:53 AM TECHNIQUE: CTA scanner volumetric data acquisition of abdomen and pelvis was obtained following intravenous administration of intravenous contrast without any reported adverse effects. Axial images were reconstructed and additional sagittal and coronal images were reformatted. Arterial phase imaging were performed. Postprocessing was also performed on a separate workstation. 3D images were performed on a dedicated workstation and reviewed for reporting. Radiation dose : CT Dose: CTDI volume is 20.6 mGy. Dose-length product is 1281.08 mGy*cm FINDINGS: Vascular: Aortic measurements: aortic hiatus 26 mm, suprarenal abdominal aorta 25 mm and infrarenal aorta 67 X 64 mm. There is a moderate to large amount of mural thrombus in the infrarenal abdominal aortic aneurysm. Right common and external iliac artery are occluded. The mesenteric, bilateral renal, left iliac and femoral arteries are widely patent without any focal stenosis or aneurysm. Lung Bases: Atelectasis and scarring in the lung bases. Liver: The liver is normal in size. No focal lesions. Normal hepatic vascular enhancement. Gallbladder and biliary Tree: Unremarkable Spleen: Unremarkable Pancreas: The pancreas is normal in appearance without focal lesions or abnormal enhancement. Adrenal Glands: Unremarkable Kidneys: Bilateral renal cysts. Largest on the left measures up to 220mm. No hydroneprhosis. Bladder: Unremarkable Bowel: The stomach is grossly normal in appearance. Small bowel and colon are normal in caliber and distribution. Normal appendix is visualized in the right lower quadrant without findings of appendicitis. Ascites: Absent Lymphadenopathy: No mesenteric, retroperitoneal or periportal lymphadenopathy. Abdominal Wall and Mesentery: Fat and small bowel containing left inguinal hernia. Small bowel containing right femoral hernia. Vasculature: See above Pelvic Organs: Prostate is enlarged. Musculoskeletal: Compression of formality of L4. Multilevel degenerative disease. IMPRESSION: 1. Infrarenal abdominal aortic aneurysm measuring up to 67mm with a large amount of mural thrombus. 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 Vascular surgery evaluation is recommended. 2. Numerous bilateral renal cysts including a very large left renal cyst measuring up to 220mm. 3. Left inguinal hernia containing fat and small bowel. Right femoral hernia containing small bowel. No definite acute obstruction. Some level of chronic obstruction may be present. HS:Y Assessment 78-year-old male was poor chronic pulmonary lungs status due to chronic smoking. With a 6.7 cm abdominal aortic aneurysm and a large renal cyst with chronic back pain. Needs to have further pulmonary evaluation and pulmonary therapy to improve lung status. We will review films further regarding possible EVAR and fem-fem bypass. This would be an elective setting once his pulmonary status has improved if he is a candidate for hybrid surgery. If he is not a candidate for habits surgery would recommend higher level of care for open repair. Plan discussed with: Patient RUTH RODARTE Jr., MD Feb 06, 2024 07:59
--- NOTE | 2024-02-06 09:32 | DVH ---
Bilateral lower extremity venous duplex Clinical History: edema Comparison: US BILAT LOW EXT ART DUPLEX on DOS: 01/30/24 Technique: Duplex Doppler evaluation of the deep venous systems of both lower extremities from the common femora l veins to the popliteal veins including color Doppler and spectral/pulsed waveform analysis was perf ormed. Findings: RIGHT SIDE: The common femoral vein demonstrates appropriate compressibility and waveform variability. There is compressibility/patency of the great saphenous vein at the proximal thigh. The femoral vein demonstrates appropriate compressibility and waveform variability. The deep femoral vein demonstrates appropriate compressibility and waveform variability. The popliteal vein demonstrates appropriate compressibility and waveform variability. There is normal compressibility at the tibioperoneal trunk. LEFT SIDE: The common femoral vein demonstrates appropriate compressibility and waveform variability. There is compressibility/patency of the great saphenous vein at the proximal thigh. The femoral vein demonstrates appropriate compressibility and waveform variability. The deep femoral vein demonstrates appropriate compressibility and waveform variability. The popliteal vein demonstrates appropriate compressibility and waveform variability. There is normal compressibility at the tibioperoneal trunk. Impression: No right or left femoropopliteal venous thrombosis.
--- NOTE | 2024-02-06 10:43 | DVHPNRES ---
Progress Note Date Seen: Feb 06, 2024 Resident Creating Document: MAYI BINGHAM RESIDENT Medical Necessity Reason Pt with a Central, PICC or Fol: No Subjective Review of Systems This is a 78-year-old male patient with PMHx of chronic nicotine dependence, abdominal aortic aneurysm diagnosed February 2023, history of pneumonia and pleural effusion who presented to the ER with the chief complaint of lower back pain starting 01/23/2024. Patient reports worsening lower back pain which is pressure-like in nature, constant and 10/10 in intensity located in the lumbar region, no radiation. The pain worsened yesterday therefore patient decided to come into the ER. He has a history of abdominal aortic aneurysm diagnosed in February [address] scan. A recent CT abdomen pelvis without contrast for abdominal hernia was completed by patient's primary care physician on 01/11/2024 which showed 5.8 cm infrarenal abdominal aortic aneurysm with suspected intramural hematoma or thrombus. Patient also has a history of left-sided inguinal hernia for the past 2 months which is not affecting his daily life activities. Past Medical History: chronic nicotine dependence, abdominal aortic aneurysm diagnosed February 2023, history of pneumonia and pleural effusion, inguinal hernia Past Surgical History: None Family History: None Social history: Smokes 1 pack per day (For the past 50 years, quit 9 months back), drinks alcohol occasionally, denies illicit drug use. Patient lives with and son. 01/30 - Patient seen and examined in the ER bed 17. Reports mild back pain as compared to admission. Saturating 96% on 4 L NC. Family at bedside. 01/31 - patient seen and examined in the ICU bed 266. Reports no back pain. No acute distress. Saturating 94 on 4L Oxymizer. Scheduled for angiogram with a stent. Dr Brito - pt deminsion conducive to STENT GRAFT BUT RIGHT LEG NEEDS REVACULARIZATION. SCHEDULE FOR RIGHT LEG INTERVENTION 02/02/24. Pt NPO starting midnight 02/02/24 - patient underwent right leg revascularization by Dr. Hoff - unable to revascularize right iliac/common femoral due to a calcified occlusion. Heparin discontinued by shake packer. 02/03/2024-patient reported back pain in the morning. [place] and Tylenol administered. Patient feels fine. Right lower extremity examined for tenderness/swelling/bruising-unremarkable. Auscultation at catheter site unremarkable. Continuing cardiac diet. 02/05/2024 - patient reports back pain, lumbar spinous tender on exam. Left inguinal hernia is tender but not erythematous and soft and reducible. Consulted Dr. Anderson. Discussed in details regarding prognosis and the risk of open surgery for the repair of AAA. Advanced directives to be given by patient's daughter Soco Iyer and Tamia Sexton, as per the patient's wishes. 02/06/2024 - Patient feels fine, no active complaint. Dr. Anderson recommended pulmonary evaluation and pulmonary therapy to improve lung status. We will review films further regarding possible EVAR and fem-fem bypass. This would be an elective setting once his pulmonary status has improved if he is a candidate for hybrid surgery. If he is not a candidate for habits surgery would recommend higher level of care for open repair. CT chest without contrast pending. D Dimer elevated. LE dopper negative Objective vital signs Vital Sign Date Time Temp Pulse Resp B/P (MAP) Pulse Ox O2 Delivery O2 Flow Rate FiO2 02/06/24 10:00 90 26 91 02/06/24 08:15 Oxymizer 8 N/A 02/06/24 08:00 99.2 99.2 Total Intake and Output 02/05/24 02/05/24 02/06/24 15:00 23:00 07:00 Intake Total 300 ml 360 ml Output Total 645 ml 300 ml Balance -345 ml 60 ml medications Current Medications Medications Dose Ordered Sig/Juan David Route Start Time Stop Time Status Last Admin Dose Admin Sodium Chloride 10 ml Q8HR IV 01/30/24 22:00 02/06/24 05:48 10 ML Lorazepam 0.5 mg Q6HP PRN PO 01/30/24 16:30 Docusate Sodium 100 mg BIDPRN PRN PO 01/30/24 16:30 Acetaminophen 650 mg Q6HP PRN PO 01/30/24 16:30 02/03/24 17:54 650 MG Acetaminophen/ Hydrocodone Bitart 1 tab Q4HP PRN PO 01/30/24 16:30 02/05/24 17:52 1 TAB Hydromorphone HCl 0.5 mg Q4HP PRN IV 01/30/24 16:30 02/05/24 15:04 0.5 MG Ondansetron HCl 4 mg Q4HP PRN IV 01/30/24 16:30 02/02/24 05:06 4 MG Nitroglycerin 0.4 mg Q5MINP PRN SL 01/30/24 16:30 Morphine Sulfate 2 mg Q30M PRN IV 01/30/24 16:30 Atorvastatin Calcium 40 mg HS PO 01/31/24 22:00 02/05/24 21:45 40 MG Ipratropium Carroll 0.5 mg Q6HPRN PRN NEB 01/30/24 22:45 02/06/24 06:11 0.5 MG Levalbuterol HCl 0.625 mg Q6HR NEB 01/31/24 00:00 02/06/24 06:11 0.625 MG Labetalol HCl 5 mg Q2HPRN PRN IV 02/01/24 07:15 Melatonin 5 mg HS PO 02/04/24 22:00 02/05/24 21:44 5 MG Heparin Sodium (Porcine) 5,000 units Q8HR SC 02/05/24 06:00 02/06/24 05:48 5,000 UNITS Examination General Appearance: Alert, Oriented X4, Cooperative, No acute distress, Other (Guyanese speaking elderly pleasant male patient lying comfortably in the bed in ER) Respiratory: Clear to auscultation, decreased bilateral air movement, Other (Saturating 93 on oxymizer 8L) Cardiovascular: Regular rate, Normal S1, Normal S2, No murmurs Abdominal: Normal bowel sounds, Soft, No tenderness, Other (R inguinal with dressing surgical wound with clean dressing with no swelling/discharge/bleeding, Left-sided inguinal hernia seen bulging with cough reflex, manually reducible but comes back, soft, nontender, not extending into the scrotum) Extremities: No edema, pulses are feeble B/L in LE, No tenderness/swelling. Midline tenderness in the lumbar spine. Neuro: Normal speech, Strength at 5/5 X4 ext, Normal tone, Sensation intact Psych/Mental Status: A/Ox4 laboratory and microbiology Laboratory Tests 02/06/24 04:50 Test 02/06/24 04:50 Range/Units Serum Glucose 130 H 74-106 mg/dL Microbiology Date/Time Source Procedure Growth Status 02/01/24 05:45 Nose MRSA Screen - Final Complete Labs and/or images reviewed: Labs reviewed by me, Image(s) reviewed by me Problem List/Assessment/Plan Problem List/Assessment/Plan Lumbar pressure-like back pain secondary to Infrarenal abdominal aortic aneurysm with intramural thrombus CT angio aortic abdominal completed 01/30/2024 shows 67 mm infrarenal abdominal aortic aneurysm with a large amount of mural thrombus. 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 5.8 cm on 01/11/2024 Echocardiogram completed, shows LVEF 55%, elevated tricuspid regurgitation velocity 3.30 M per S, RSV 50. Mildly dilated RA. Normal valves. Dr. Brito - hybrid procedure is a viable option. Unable to revascularize right iliac/common femoral calcified occlusion. Dr. Malloy consulted - percutaneous revascularization of right lower extremity not technically feasible, will consider femorofemoral bypass after AAA stenting accomplished Blood pressure control, SBP <120s mmHg. IV labetalol Q2hr PRN for SBP >150mmhg. Dr. Anderson Severe peripheral artery disease in right lower extremity Duplex ultrasound completed, shows severe PID in the right lower extremity Patient underwent right leg revascularization by Dr. Hoff - unable to revascularize right iliac/common femoral due to a calcified occlusion. On prophylactic heparin dose Left lower extremities unremarkable for PAD Starting atorvastatin 40 mg p.o. daily Consider aspirin 81 mg after definitive treatment for aneurysm Ruled out PE/DVT CT without contrast pending LE doppler unremarkable D Dimer elevated at 1.30 ?COPD - no exacerbation on 6-8 L oximizer Continue nebulized treatment with levalbuterol and ipratropium q.6 hour Outpatient car wrecker follow up for the diagnosis of COPD Left inguinal hernia-manually reducible, soft, nontender CT abdomen shows left inguinal hernia containing fat and small bowel. Outpatient workup advised History of severe emphysema - controlled Continue nebulized treatment with levalbuterol and ipratropium q.6 p.r.n. Right femoral hernia CT abdomen shows right femoral hernia containing small bowel. No definite acute obstruction Sigmoid diverticulosis without acute diverticulitis Monitor Bilateral renal cysts including 22 cm left cortical renal cyst Monitor History of COVID-19 infection COVID testing pending Chronic nicotine dependence Counseled regarding cessation for more than 20 minutes Diet Cardiac DVT ppx Heparin 5000 SC Q8hr business services vice president consulted for higher level of care. 120 minutes of critical care time Plan discussed with patient and daughter at bedside in [place] 266, all questions have been answered. Goals of care discussed with the patient for more than 22 minutes, full code status. Plan discussed with Dr. Dyson. Dr. Anderson on the case. CT without contrast pending. Discussed in details regarding prognosis and the risk of open surgery for the repair of AAA. Advanced directives to be given by patient's daughter Raiza Iyer and Tamia Sexton, as per the patient's wishes. Plan discussed with: Patient, Daughter (Raiza Iyer at bedside) My Orders My Orders Orders - MAYI BINGHAM Procedure Category Date Status Time * Radiologist Consult CONS 02/05/24 Transmitted 17:19 Dietary Evaluation Review Comments: follow the cardiac 2gNa Lofat LoCholel diet. Monitor PO intake to meet 75% of his needs Expected Outcomes/Goals: Improved health and well being. avoid unwanted weight loss. Date of Service: Feb 06, 2024 Billing Provider: GENNA DYSON MD Common Visit Codes: [id number] INP/OBS CARE(HIGH) MAYI BINGHAM Feb 06, 2024 10:43 GENNA DYSON MD Feb 07, 2024 08:48
--- NOTE | 2024-02-06 14:10 | DVHPN2 ---
Progress Note - Dictate Date Seen: Feb 06, 2024 Medical Necessity Reason Pt with a Central, PICC or Fol: No Subjective PT WITH COPD CONTINUED TOBACCO USE NOW WITH LOWER BACK PAIM CTA OF ABD 1. Infrarenal abdominal aortic aneurysm measuring up to 67mm with a large amount of mural thrombus. 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 Vascular surgery evaluation is recommended. 2. Numerous bilateral renal cysts including a very large left renal cyst measuring up to 220mm. 3. Left inguinal hernia containing fat and small bowel. Right femoral hernia containing small bowel. No definite acute obstruction. Some level of chronic obstruction may be present. vital signs Vital Sign Date Time Temp Pulse Resp B/P (MAP) Pulse Ox O2 Delivery O2 Flow Rate FiO2 02/06/24 14:04 85 90 140/82 02/06/24 11:23 94 02/06/24 11:17 Oxymizer 10 N/A 02/06/24 08:00 99.2 99.2 Total Intake and Output 02/05/24 02/05/24 02/06/24 15:00 23:00 07:00 Intake Total 300 ml 360 ml Output Total 645 ml 300 ml Balance -345 ml 60 ml medications Current Medications Medications Dose Ordered Sig/Juan David Route Start Time Stop Time Status Last Admin Dose Admin Sodium Chloride 10 ml Q8HR IV 01/30/24 22:00 02/06/24 13:54 10 ML Lorazepam 0.5 mg Q6HP PRN PO 01/30/24 16:30 Docusate Sodium 100 mg BIDPRN PRN PO 01/30/24 16:30 Acetaminophen 650 mg Q6HP PRN PO 01/30/24 16:30 02/03/24 17:54 650 MG Acetaminophen/ Hydrocodone Bitart 1 tab Q4HP PRN PO 01/30/24 16:30 02/05/24 17:52 1 TAB Hydromorphone HCl 0.5 mg Q4HP PRN IV 01/30/24 16:30 02/06/24 14:04 0.5 MG Ondansetron HCl 4 mg Q4HP PRN IV 01/30/24 16:30 02/02/24 05:06 4 MG Nitroglycerin 0.4 mg Q5MINP PRN SL 01/30/24 16:30 Morphine Sulfate 2 mg Q30M PRN IV 01/30/24 16:30 Atorvastatin Calcium 40 mg HS PO 01/31/24 22:00 02/05/24 21:45 40 MG Ipratropium Becker 0.5 mg Q6HPRN PRN NEB 01/30/24 22:45 02/06/24 11:17 0.5 MG Levalbuterol HCl 0.625 mg Q6HR NEB 01/31/24 00:00 02/06/24 11:17 0.625 MG Labetalol HCl 5 mg Q2HPRN PRN IV 02/01/24 07:15 Melatonin 5 mg HS PO 02/04/24 22:00 02/05/24 21:44 5 MG Heparin Sodium (Porcine) 5,000 units Q8HR SC 02/05/24 06:00 02/06/24 13:57 5,000 UNITS laboratory and microbiology Laboratory Tests 02/06/24 04:50 Test 02/06/24 04:50 Range/Units Serum Glucose 130 H 74-106 mg/dL Problem List AAA COPD Assessment/Plan LE ARTERIAL DOPPLER SCHEDULE FOR ANGIOGRAM WITH STENT GRAFT IF PATIENT ANATOMY IS APPROPRIATE FOR STENT GRAFT HYBRID pt RENAL MEASUREMENT conducive to STENT GRAFT BUT RIGHT LEG NEEDS REVASCULARIZATION SCHEDULE FOR RIGHT LEG INTERVENTION 02/02/24 DISCUSSED WITH DAUGHTERS UNABLE TO REVASCULARIZE RIGHT ILIAC / COMMON FEMORAL CALCIFIED OCCLUSION SURGICAL OPTION HYBRID PROCEDURE IS A VIABLE OPTION Dietary Evaluation Review Comments: follow the cardiac 2gNa Lofat LoCholel diet. Monitor PO intake to meet 75% of his needs Expected Outcomes/Goals: Improved health and well being. avoid unwanted weight loss. Plan discussed with: Patient Critical Care Time(min): 35 JUAN DANIEL GARCIA MD Feb 06, 2024 14:10
[2024-02-06] MEDS: FUROSEMIDE 20 MG/2 ML VIAL IV SCH (18:35)
[2024-02-07] VITALS (63 sets, daily range): BP systolic 93–130; BP diastolic 38–81; PULSE 71–97; RESP 12–30; TEMP 97.3–99.4; O2SAT 74–99
[2024-02-07 04:58] LABS: Basophils # (auto) 0 10 ^3/uL (0-0.2); Basophils % (auto) 0.4 % (0.0-2.0); Eosinophils # (auto) 0.2 10 ^3/uL (0-0.8); Eosinophils % (auto) 1.8 % (0.0-7.0); Hematocrit 42.5 % (41.0-53.0); Hemoglobin 14.1 g/dL (13.5-17.5); Lymphocytes # (auto) 0.6 10 ^3/uL (0.4-5.4); Lymphocytes % (auto) 7.1 % (10.0-50.0); Mean Corpuscular Hemoglobin 28.6 pg (28.0-32.0); Mean Corpuscular Hgb Conc. 33.2 g/dL (32.0-36.0); Mean Corpuscular Volume 86.2 fL (80.0-100.0); Monocytes # (auto) 0.8 10 ^3/uL (0-1.3); Neutrophils # (auto) 6.9 10 ^3/uL (1.6-8.6); Neutrophils % (auto) 81.7 % (37.0-80.0); Nucleated Red Blood Cells % 0.1 %; Platelet Count (auto) 182 10^3/uL (140-450); Red Blood Cells 4.92 10^6/uL (4.5-5.90); Red Cell Distribution Width 14.7 % (11.8-14.3); White Blood Cell 8.4 10^3/uL (4.4-10.8)
[2024-02-07 05:28] LABS: Anion Gap 6 (5-15); Carbon Dioxide 29 mmol/L (20-31); Chloride 104 mmol/L (98-107); Potassium 4.1 mmol/L (3.5-5.1); Sodium 139 mmol/L (136-145)
[2024-02-07 05:29] LABS: Calcium 9.9 mg/dL (8.7-10.4)
[2024-02-07 05:34] LABS: BUN/Creatinine Ratio 19.6 (10.0-20.0); Blood Urea Nitrogen 18 mg/dL (9-23); Glucose 120 mg/dL (74-106)
--- NOTE | 2024-02-07 09:41 | DVH ---
Procedure: CT CHEST WITHOUT CONTRAST Reason for study/Clinical History: Hypoxic, COPD, elevated D Dimer Comparison Study: Compared to prior study dated:02/28/23 Exam Date: 02/07/2024 09:09 AM TECHNIQUE: Multidetector CT of the chest was performed from the lung apices to the upper abdomen with out the use of intravenous contract. Axial, coronal and sagittal multiplanar reformats were performed . Radiation Dose Information: CT Dose: CTDI volume is 13.27 mGy. Dose-length product is 495.42 mGy*cm The dose indicators for CT are the volume Computed Tomography (CT) Dose Index (CTDIvol) and the Dose Length Product (DLP), and are measured in units of mGy and mGy-cm, respectively. These indicators are not patient dose, but values generated from the CT scanner acquisition factors. The report includes radiation exposure data for exposures received during this examination. FINDINGS: Lower neck: Normal thyroid. Lungs: There are emphysematous changes in both lungs. There is subpleural reticulaton and septal thic kening in the lung bases. There is atelectasis scarring in the lung bases. No suspicious pulmonary no dule. Heart/Vascular Structures: Normal heart size. No pericardial effusion. Lymph Nodes: Subcentimeter mediastinal lymph nodes are noted Pleura: No pleural effusion or significant pneumothorax. There is a calcified pleural plaque in the l eft lung base. Musculoskeletal: No acute osseous abnormality. Soft tissues: Normal. Upper abdomen: There is a cyst in the left upper abdomen measuring up to at least 195 mm likely renal cyst. IMPRESSION: 1. Advanced smoking related lung disease similar to prior exam. No definite suspicious pulmonary nodu le identified. Recommend clinical correlation and continued follow-up. Please note pulmonary embolism cannot be excluded on this noncontrast examination Radiation optimization: All CT scans at this facility use at least one of these dose optimization walter hniques: automated exposure control mA and/or kV adjustment per patient size (includes targeted exam s where dose is matched to clinical indication) or iterative reconstruction. HS:Y
[2024-02-07] MEDS: FUROSEMIDE 20 MG/2 ML VIAL IV ONE (11:52)
[2024-02-07] MEDS: FAMOTIDINE 20 MG TAB PO ONE (11:52)
[2024-02-07] MEDS: methylPREDNISolone SOD SUCC 125 MG/2 ML VL IV ONE (11:53)
--- NOTE | 2024-02-07 12:54 | DVHPN2 ---
Progress Note - Dictate Date Seen: Feb 07, 2024 Medical Necessity Reason Pt with a Central, PICC or Fol: No Subjective PT WITH COPD CONTINUED TOBACCO USE NOW WITH LOWER BACK PAIM CTA OF ABD 1. Infrarenal abdominal aortic aneurysm measuring up to 67mm with a large amount of mural thrombus. 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 Vascular surgery evaluation is recommended. 2. Numerous bilateral renal cysts including a very large left renal cyst measuring up to 220mm. 3. Left inguinal hernia containing fat and small bowel. Right femoral hernia containing small bowel. No definite acute obstruction. Some level of chronic obstruction may be present. vital signs Vital Sign Date Time Temp Pulse Resp B/P (MAP) Pulse Ox O2 Delivery O2 Flow Rate FiO2 02/07/24 12:00 87 02/07/24 11:52 113/68 02/07/24 11:46 20 02/07/24 11:37 99 02/07/24 11:31 Oxymizer 11.0 02/07/24 11:31 N/A 02/07/24 05:00 99.4 99.4 Total Intake and Output 02/06/24 02/06/24 02/07/24 15:00 23:00 07:00 Intake Total 300 ml 200 ml Output Total 275 ml 700 ml Balance 25 ml -500 ml medications Current Medications Medications Dose Ordered Sig/Juan David Route Start Time Stop Time Status Last Admin Dose Admin Sodium Chloride 10 ml Q8HR IV 01/30/24 22:00 02/07/24 05:58 10 ML Lorazepam 0.5 mg Q6HP PRN PO 01/30/24 16:30 Docusate Sodium 100 mg BIDPRN PRN PO 01/30/24 16:30 Acetaminophen 650 mg Q6HP PRN PO 01/30/24 16:30 02/03/24 17:54 650 MG Acetaminophen/ Hydrocodone Bitart 1 tab Q4HP PRN PO 01/30/24 16:30 02/06/24 18:35 1 TAB Hydromorphone HCl 0.5 mg Q4HP PRN IV 01/30/24 16:30 02/07/24 11:46 0.5 MG Ondansetron HCl 4 mg Q4HP PRN IV 01/30/24 16:30 02/02/24 05:06 4 MG Nitroglycerin 0.4 mg Q5MINP PRN SL 01/30/24 16:30 Morphine Sulfate 2 mg Q30M PRN IV 01/30/24 16:30 Atorvastatin Calcium 40 mg HS PO 01/31/24 22:00 02/06/24 21:06 40 MG Ipratropium [facility] 0.5 mg Q6HPRN PRN NEB 01/30/24 22:45 02/07/24 11:31 0.5 MG Levalbuterol HCl 0.625 mg Q6HR NEB 01/31/24 00:00 02/07/24 11:31 0.625 MG Labetalol HCl 5 mg Q2HPRN PRN IV 02/01/24 07:15 Melatonin 5 mg HS PO 02/04/24 22:00 02/06/24 21:06 5 MG Heparin Sodium (Porcine) 5,000 units Q8HR SC 02/05/24 06:00 02/07/24 06:01 5,000 UNITS Furosemide 20 mg BIDD IV 02/06/24 18:00 02/07/24 05:58 20 MG Methylprednisolone Sodium Succinate 80 mg BID IV 02/07/24 22:00 Famotidine 40 mg DAILY PO 02/08/24 10:00 laboratory and microbiology Laboratory Tests 02/07/24 04:39 Test 02/07/24 04:39 Range/Units Serum Glucose 120 H 74-106 mg/dL Problem List AAA COPD Assessment/Plan LE ARTERIAL DOPPLER SCHEDULE FOR ANGIOGRAM WITH STENT GRAFT IF PATIENT ANATOMY IS APPROPRIATE FOR STENT GRAFT HYBRID pt RENAL MEASUREMENT conducive to STENT GRAFT BUT RIGHT LEG NEEDS REVASCULARIZATION SCHEDULE FOR RIGHT LEG INTERVENTION 02/02/24 DISCUSSED WITH DAUGHTERS UNABLE TO REVASCULARIZE RIGHT ILIAC / COMMON FEMORAL CALCIFIED OCCLUSION SURGICAL OPTION HYBRID PROCEDURE IS A VIABLE OPTION TRANSFER TO [facility] SINCE WE ARE NOT ABLE TO DO A HYBRID PROCEDURE Dietary Evaluation Review Comments: follow the cardiac 2gNa Lofat LoCholel diet. Monitor PO intake to meet 75% of his needs Expected Outcomes/Goals: Improved health and well being. avoid unwanted weight loss. Plan discussed with: Patient Critical Care Time(min): 35 JUAN DANIEL GARCIA MD Feb 07, 2024 12:54
--- NOTE | 2024-02-07 13:53 | DVHPNRES ---
Progress Note Date Seen: Feb 07, 2024 Resident Creating Document: MAYI BINGHAM RESIDENT Medical Necessity Reason Pt with a Central, PICC or Fol: No Subjective Review of Systems This is a 78-year-old male patient with PMHx of chronic nicotine dependence, abdominal aortic aneurysm diagnosed February 2023, history of pneumonia and pleural effusion who presented to the ER with the chief complaint of lower back pain starting 01/23/2024. Patient reports worsening lower back pain which is pressure-like in nature, constant and 10/10 in intensity located in the lumbar region, no radiation. The pain worsened yesterday therefore patient decided to come into the ER. He has a history of abdominal aortic aneurysm diagnosed in February [address] scan. A recent CT abdomen pelvis without contrast for abdominal hernia was completed by patient's primary care physician on 01/11/2024 which showed 5.8 cm infrarenal abdominal aortic aneurysm with suspected intramural hematoma or thrombus. Patient also has a history of left-sided inguinal hernia for the past 2 months which is not affecting his daily life activities. Past Medical History: chronic nicotine dependence, abdominal aortic aneurysm diagnosed February 2023, history of pneumonia and pleural effusion, inguinal hernia Past Surgical History: None Family History: None Social history: Smokes 1 pack per day (For the past 50 years, quit 9 months back), drinks alcohol occasionally, denies illicit drug use. Patient lives with and son. 01/30 - Patient seen and examined in the ER bed 17. Reports mild back pain as compared to admission. Saturating 96% on 4 L NC. Family at bedside. 01/31 - patient seen and examined in the ICU bed 266. Reports no back pain. No acute distress. Saturating 94 on 4L Oxymizer. Scheduled for angiogram with a stent. Dr Brito - pt deminsion conducive to STENT GRAFT BUT RIGHT LEG NEEDS REVACULARIZATION. SCHEDULE FOR RIGHT LEG INTERVENTION 02/02/24. Pt NPO starting midnight 02/02/24 - patient underwent right leg revascularization by Dr. Hoff - unable to revascularize right iliac/common femoral due to a calcified occlusion. 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 02/03/2024-patient reported back pain in the morning. [place] and Tylenol administered. Patient feels fine. Right lower extremity examined for tenderness/swelling/bruising-unremarkable. Auscultation at catheter site unremarkable. Continuing cardiac diet. 02/05/2024 - patient reports back pain, lumbar spinous tender on exam. Left inguinal hernia is tender but not erythematous and soft and reducible. Consulted Dr. Anderson. Discussed in details regarding prognosis and the risk of open surgery for the repair of AAA. Advanced directives to be given by patient's daughter Soco Iyer and Tamia Sexton, as per the patient's wishes. 02/06/2024 - Patient feels fine, no active complaint. Dr. Anderson recommended pulmonary evaluation and pulmonary therapy to improve lung status. We will review films further regarding possible EVAR and fem-fem bypass. This would be an elective setting once his pulmonary status has improved if he is a candidate for hybrid surgery. If he is not a candidate for habits surgery would recommend higher level of care for open repair. CT chest without contrast pending. D Dimer elevated. LE dopper negative 02/07/2024 - CT without contrast shows Advanced smoking related lung disease, emphysematous changes in both lungs. There is subpleural reticulaton and septal thickening in the lung bases. There is atelectasis scarring in the lung bases. Started methyprednisolone 80mg IV BID, Incentive spirometry Q1hr. CTA chest pending to rule out PE. 250cc IV NS afterwards. Objective vital signs Vital Sign Date Time Temp Pulse Resp B/P (MAP) Pulse Ox O2 Delivery O2 Flow Rate FiO2 02/07/24 13:30 82 21 92 02/07/24 12:00 98.4 98.4 02/07/24 11:31 Oxymizer 11.0 02/07/24 11:31 N/A Total Intake and Output 02/06/24 02/06/24 02/07/24 15:00 23:00 07:00 Intake Total 300 ml 200 ml Output Total 275 ml 700 ml Balance 25 ml -500 ml medications Current Medications Medications Dose Ordered Sig/Juan David Route Start Time Stop Time Status Last Admin Dose Admin Sodium Chloride 10 ml Q8HR IV 01/30/24 22:00 02/07/24 05:58 10 ML Lorazepam 0.5 mg Q6HP PRN PO 01/30/24 16:30 Docusate Sodium 100 mg BIDPRN PRN PO 01/30/24 16:30 Acetaminophen 650 mg Q6HP PRN PO 01/30/24 16:30 02/03/24 17:54 650 MG Acetaminophen/ Hydrocodone Bitart 1 tab Q4HP PRN PO 01/30/24 16:30 02/06/24 18:35 1 TAB Hydromorphone HCl 0.5 mg Q4HP PRN IV 01/30/24 16:30 02/07/24 11:46 0.5 MG Ondansetron HCl 4 mg Q4HP PRN IV 01/30/24 16:30 02/02/24 05:06 4 MG Nitroglycerin 0.4 mg Q5MINP PRN SL 01/30/24 16:30 Morphine Sulfate 2 mg Q30M PRN IV 01/30/24 16:30 Atorvastatin Calcium 40 mg HS PO 01/31/24 22:00 02/06/24 21:06 40 MG Ipratropium [place] 0.5 mg Q6HPRN PRN NEB 01/30/24 22:45 02/07/24 11:31 0.5 MG Levalbuterol HCl 0.625 mg Q6HR NEB 01/31/24 00:00 02/07/24 11:31 0.625 MG Labetalol HCl 5 mg Q2HPRN PRN IV 02/01/24 07:15 Melatonin 5 mg HS PO 02/04/24 22:00 02/06/24 21:06 5 MG Heparin Sodium (Porcine) 5,000 units Q8HR SC 02/05/24 06:00 02/07/24 06:01 5,000 UNITS Furosemide 20 mg BIDD IV 02/06/24 18:00 02/07/24 05:58 20 MG Methylprednisolone Sodium Succinate 80 mg BID IV 02/07/24 22:00 Famotidine 40 mg DAILY PO 02/08/24 10:00 Examination General Appearance: Alert, Oriented X4, Cooperative, No acute distress, Other ([place]inean speaking elderly pleasant male patient lying comfortably in the bed in ER) Respiratory: Clear to auscultation, decreased bilateral air movement, Other (Saturating 93 on oxymizer 8L) Cardiovascular: Regular rate, Normal S1, Normal S2, No murmurs Abdominal: Normal bowel sounds, Soft, No tenderness, Other (R inguinal with dressing surgical wound with clean dressing with no swelling/discharge/bleeding, Left-sided inguinal hernia seen bulging with cough reflex, manually reducible but comes back, soft, nontender, not extending into the scrotum) Extremities: No edema, pulses are feeble B/L in LE, No tenderness/swelling. Midline tenderness in the lumbar spine. Neuro: Normal speech, Strength at 5/5 X4 ext, Normal tone, Sensation intact Psych/Mental Status: A/Ox4 laboratory and microbiology Laboratory Tests 02/07/24 04:39 Test 02/07/24 04:39 Range/Units Serum Glucose 120 H 74-106 mg/dL Microbiology Date/Time Source Procedure Growth Status 02/01/24 05:45 Nose MRSA Screen - Final Complete Labs and/or images reviewed: Labs reviewed by me, Image(s) reviewed by me Problem List/Assessment/Plan Problem List/Assessment/Plan Lumbar pressure-like back pain secondary to Infrarenal abdominal aortic aneurysm with intramural thrombus CT angio aortic abdominal completed 01/30/2024 shows 67 mm infrarenal abdominal aortic aneurysm with a large amount of mural thrombus. 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 5.8 cm on 01/11/2024 Echocardiogram completed, shows LVEF 55%, elevated tricuspid regurgitation velocity 3.30 M per S, RSV 50. Mildly dilated RA. Normal valves. Dr. Brito - hybrid procedure is a viable option. Unable to revascularize right iliac/common femoral calcified occlusion. Dr. Malloy consulted - percutaneous revascularization of right lower extremity not technically feasible, will consider femorofemoral bypass after AAA stenting accomplished Blood pressure control, SBP <120s mmHg. IV labetalol Q2hr PRN for SBP >150mmhg., IV lasix 20mg bid Dr. Anderson Severe peripheral artery disease in right lower extremity Duplex ultrasound completed, shows severe PAD in the right lower extremity Patient underwent right leg revascularization by Dr. Hoff - unable to revascularize right iliac/common femoral due to a calcified occlusion. On prophylactic heparin dose Left lower extremities unremarkable for PAD Starting atorvastatin 40 mg p.o. daily Consider aspirin 81 mg after definitive treatment for aneurysm Rule out PE / DVT LE doppler unremarkable D Dimer elevated at 1.30 CTA chest pending to rule out PE. 250cc IV NS afterwards. COPD - no exacerbation on 6-[address] without contrast 02/06 shows Advanced smoking related lung disease, emphysematous changes in both lungs. There is subpleural reticulaton and septal thickening in the lung bases. There is atelectasis scarring in the lung bases. Continue nebulized treatment with levalbuterol and ipratropium q.6 hour Started methyprednisolone 80mg IV BID starting 02/07/2024 B/L atlectasis in lung bases Incentive spirometry Q1hr Left inguinal hernia-manually reducible, soft, nontender CT abdomen shows left inguinal hernia containing fat and small bowel. Outpatient workup advised History of severe emphysema - controlled Continue nebulized treatment with levalbuterol and ipratropium q.6 p.r.n. Right femoral hernia CT abdomen shows right femoral hernia containing small bowel. No definite acute obstruction Sigmoid diverticulosis without acute diverticulitis Monitor Bilateral renal cysts including 22 cm left cortical renal cyst Monitor History of COVID-19 infection COVID testing pending Chronic nicotine dependence Counseled regarding cessation for more than 20 minutes Diet Cardiac DVT ppx Heparin 5000 SC Q8hr GERD ppx Famotidine 40mg daily shared services and outsourcing manager consulted for higher level of care. 120 minutes of critical care time Plan discussed with patient and daughter at bedside in [place], all questions have been answered. Goals of care discussed with the patient for more than 22 minutes, full code status. Plan discussed with Dr. Dyson. Dr. Anderson on the case. Started IV methylprednisolone 80mg bid. Incentive spirometry. CTA chest pending to rule out PE. 250cc IV NS afterwards. Discussed in details regarding prognosis and the risk of open surgery for the repair of AAA. Advanced directives to be given by patient's daughter Raiza Iyer and Tamia Sexton, as per the patient's wishes. Plan discussed with: Patient, Spouse, Daughter My Orders My Orders Orders - MAYI BINGHAM Procedure Category Date Status Time Furosemide Injection PHA 02/06/24 In Process (Lasix Injection) 18:[address] 02/07/24 Resulted 07:00 Dietary Evaluation Review Comments: follow the cardiac 2gNa Lofat LoCholel diet. Monitor PO intake to meet 75% of his needs Expected Outcomes/Goals: Improved health and well being. avoid unwanted weight loss. Date of Service: Feb 07, 2024 Billing Provider: GENNA DYSON MD Common Visit Codes: [id number] INP/OBS CARE(HIGH) MAYI BINGHAM Feb 07, 2024 13:53 GENNA DYSON MD Feb 07, 2024 17:52
[2024-02-07] MEDS: methylPREDNISolone SOD SUCC 125 MG/2 ML VL IV SCH (21:43)
[2024-02-08] VITALS (65 sets, daily range): BP systolic 92–120; BP diastolic 47–77; PULSE 61–83; RESP 9–34; TEMP 97.3–97.9; O2SAT 89–100
[2024-02-08 05:17] LABS: Anion Gap 13 (5-15); Carbon Dioxide 29 mmol/L (20-31); Chloride 97 mmol/L (98-107); Potassium 4.1 mmol/L (3.5-5.1); Sodium 139 mmol/L (136-145)
[2024-02-08 05:23] LABS: BUN/Creatinine Ratio 21.7 (10.0-20.0); Glucose 180 mg/dL (74-106)
[2024-02-08 05:30] LABS: Blood Urea Nitrogen 28 mg/dL (9-23)
[2024-02-08 05:32] LABS: Basophils # (auto) 0 10 ^3/uL (0-0.2); Basophils % (auto) 0.1 % (0.0-2.0); Eosinophils # (auto) 0 10 ^3/uL (0-0.8); Hematocrit 48.3 % (41.0-53.0); Hemoglobin 15.6 g/dL (13.5-17.5); Lymphocytes # (auto) 0.5 10 ^3/uL (0.4-5.4); Lymphocytes % (auto) 6.1 % (10.0-50.0); Mean Corpuscular Hemoglobin 28.1 pg (28.0-32.0); Mean Corpuscular Hgb Conc. 32.4 g/dL (32.0-36.0); Mean Corpuscular Volume 86.9 fL (80.0-100.0); Monocytes # (auto) 0.2 10 ^3/uL (0-1.3); Monocytes % (auto) 2.8 % (0.0-12.0); Neutrophils # (auto) 8.1 10 ^3/uL (1.6-8.6); Platelet Count (auto) 284 10^3/uL (140-450); Red Blood Cells 5.56 10^6/uL (4.5-5.90); Red Cell Distribution Width 15.1 % (11.8-14.3); White Blood Cell 8.9 10^3/uL (4.4-10.8)
[2024-02-08] MEDS: IOHEXOL 350 MG/ML 100ML IJ ONE (07:34)
--- NOTE | 2024-02-08 07:37 | DVHPN2 ---
Progress Note Date Seen: Feb 08, 2024 Has the PT tested + for MRSA If YES, has PT been informed?: No Medical Necessity Reason Pt with a Central, PICC or Fol: No Subjective Patient reports: No new complaints Review of Systems: HEENT:Normal, CVS:Normal, RESPIRATORY:Normal, GI:Normal, :Normal, MSK:Normal, NEURO:Normal Objective vital signs Vital Sign Date Time Temp Pulse Resp B/P (MAP) Pulse Ox O2 Delivery O2 Flow Rate FiO2 02/08/24 06:39 64 17 98 02/08/24 06:33 Oxymizer 10.0 02/08/24 06:33 N/A 02/08/24 06:00 113/60 (77) 02/08/24 04:00 97.3 97.3 Total Intake and Output 02/07/24 02/07/24 02/08/24 15:00 23:00 07:00 Intake Total 600 ml 200 ml Output Total 1401 ml 500 ml Balance -801 ml -300 ml medications Current Medications Medications Dose Ordered Sig/Juan David Route Start Time Stop Time Status Last Admin Dose Admin Sodium Chloride 10 ml Q8HR IV 01/30/24 22:00 02/08/24 05:33 10 ML Lorazepam 0.5 mg Q6HP PRN PO 01/30/24 16:30 Docusate Sodium 100 mg BIDPRN PRN PO 01/30/24 16:30 Acetaminophen 650 mg Q6HP PRN PO 01/30/24 16:30 02/03/24 17:54 650 MG Acetaminophen/ Hydrocodone Bitart 1 tab Q4HP PRN PO 01/30/24 16:30 02/07/24 15:18 1 TAB Hydromorphone HCl 0.5 mg Q4HP PRN IV 01/30/24 16:30 02/07/24 11:46 0.5 MG Ondansetron HCl 4 mg Q4HP PRN IV 01/30/24 16:30 02/02/24 05:06 4 MG Nitroglycerin 0.4 mg Q5MINP PRN SL 01/30/24 16:30 Morphine Sulfate 2 mg Q30M PRN IV 01/30/24 16:30 Atorvastatin Calcium 40 mg HS PO 01/31/24 22:00 02/07/24 21:44 40 MG Ipratropium [place] 0.5 mg Q6HPRN PRN NEB 01/30/24 22:45 02/08/24 06:33 0.5 MG Levalbuterol HCl 0.625 mg Q6HR NEB 01/31/24 00:00 02/08/24 06:32 0.625 MG Labetalol HCl 5 mg Q2HPRN PRN IV 02/01/24 07:15 Melatonin 5 mg HS PO 02/04/24 22:00 02/07/24 21:44 5 MG Heparin Sodium (Porcine) 5,000 units Q8HR SC 02/05/24 06:00 02/08/24 05:33 5,000 UNITS Furosemide 20 mg BIDD IV 02/06/24 18:00 02/08/24 05:33 20 MG Methylprednisolone Sodium Succinate 80 mg BID IV 02/07/24 22:00 02/07/24 21:43 80 MG Famotidine 40 mg DAILY PO 02/08/24 10:00 Examination: GENERAL:Normal, HEENT:Normal, NECK:Normal, LUNGS:Normal, CVS:Normal, ABDOMEN:Normal, MSK:Normal, SKIN:Normal, NEURO:Normal, :Normal laboratory and microbiology Laboratory Tests 02/08/24 04:55 Test 02/08/24 04:55 Range/Units Serum Glucose 180 H 74-106 mg/dL Microbiology Date/Time Source Procedure Growth Status 02/01/24 05:45 Nose MRSA Screen - Final Complete Problem List/Assessment/Plan Problem List/Assessment/Plan AAA with occluded right SAM. Will require EVAR and FEm-fem bypass. Planned 02/13/24 Needs pulmonary and Cardiac clearance. Plan discussed with: Other (RN) Dietary Evaluation Review Comments: follow the cardiac 2gNa Lofat LoCholel diet. Monitor PO intake to meet 75% of his needs Expected Outcomes/Goals: Improved health and well being. avoid unwanted weight loss. RUTH RODARTE Jr., MD Feb 08, 2024 07:37
--- NOTE | 2024-02-08 08:13 | DVH ---
CTA CHEST INDICATION: rule out PE TECHNIQUE: Multidetector CTA of the chest was performed of the chest with 100 cc of intravenous contr ast. PULMONARY ANGIOGRAPHY PROTOCOL was utilized using a bolus-tracking technique centered on the donnie n pulmonary artery. Axial, coronal and sagittal multiplanar and MIP reformats were performed. Radiation Dose Information: CT Dose: CTDI volume is 29.6 mGy. Dose-length product is 523.03 mGy*cm The dose indicators for CT are the volume Computed Tomography (CT) Dose Index (CTDIvol) and the Dose Length Product (DLP), and are measured in units of mGy and mGy-cm, respectively. These indicators are not patient dose, but values generated from the CT scanner acquisition factors. The report includes radiation exposure data for exposures received during this examination. Comparison: 02/07/2024. Findings: There is no evidence of a pulmonary arterial filling defect to suggest pulmonary embolism. The main p ulmonary artery and thoracic aorta demonstrate normal caliber. The heart size is within normal limit s. There is no significant pericardial effusion. There is no evidence of a mediastinal mass or lymphadenopathy. There is no hilar or axillary lymphad enopathy. There are extensive centrilobular emphysematous changes in the lungs with areas of pleural-parenchyma l scarring and chronic interstitial changes in the lower lungs similar to the prior study. There is n o focal lung consolidation. There is no suspicious appearing pulmonary nodule or mass. The central airways are clear. There is no evidence of pleural effusion or pneumothorax. There is a small to moderate size hiatal hernia. There is partial visualization of a large cyst in t he left upper quadrant abdomen. The remaining visualized solid intra-abdominal viscera appears within normal limits. There are multilevel degenerative changes in the thoracic spine. IMPRESSION: 1. There is no evidence of a pulmonary arterial filling defect to suggest pulmonary embolism. 2. Redemonstrated are extensive centrilobular emphysematous changes in the lungs. There is no lung c onsolidation, suspicious appearing pulmonary nodule or mass. HS:Y
[2024-02-08] MEDS: FAMOTIDINE 20 MG TAB PO SCH (09:57)
--- NOTE | 2024-02-08 12:28 | DVHPN2 ---
Progress Note - Dictate Date Seen: Feb 08, 2024 Has the PT tested + for MRSA If YES, has PT been informed?: No Medical Necessity Reason Pt with a Central, PICC or Fol: No Subjective PT WITH COPD CONTINUED TOBACCO USE NOW WITH LOWER BACK PAIM CTA OF ABD 1. Infrarenal abdominal aortic aneurysm measuring up to 67mm with a large amount of mural thrombus. 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 Vascular surgery evaluation is recommended. 2. Numerous bilateral renal cysts including a very large left renal cyst measuring up to 220mm. 3. Left inguinal hernia containing fat and small bowel. Right femoral hernia containing small bowel. No definite acute obstruction. Some level of chronic obstruction may be present. vital signs Vital Sign Date Time Temp Pulse Resp B/P (MAP) Pulse Ox O2 Delivery O2 Flow Rate FiO2 02/08/24 12:15 69 17 89 02/08/24 11:48 Oxymizer 6 N/A 02/08/24 08:00 97.6 97.6 Total Intake and Output 02/07/24 02/07/24 02/08/24 15:00 23:00 07:00 Intake Total 600 ml 200 ml Output Total 1401 ml 500 ml Balance -801 ml -300 ml medications Current Medications Medications Dose Ordered Sig/Juan David Route Start Time Stop Time Status Last Admin Dose Admin Sodium Chloride 10 ml Q8HR IV 01/30/24 22:00 02/08/24 05:33 10 ML Lorazepam 0.5 mg Q6HP PRN PO 01/30/24 16:30 Docusate Sodium 100 mg BIDPRN PRN PO 01/30/24 16:30 Acetaminophen 650 mg Q6HP PRN PO 01/30/24 16:30 02/03/24 17:54 650 MG Acetaminophen/ Hydrocodone Bitart 1 tab Q4HP PRN PO 01/30/24 16:30 02/08/24 09:57 1 TAB Hydromorphone HCl 0.5 mg Q4HP PRN IV 01/30/24 16:30 02/07/24 11:46 0.5 MG Ondansetron HCl 4 mg Q4HP PRN IV 01/30/24 16:30 02/02/24 05:06 4 MG Nitroglycerin 0.4 mg Q5MINP PRN SL 01/30/24 16:30 Morphine Sulfate 2 mg Q30M PRN IV 01/30/24 16:30 Atorvastatin Calcium 40 mg HS PO 01/31/24 22:00 02/07/24 21:44 40 MG Ipratropium Sophia 0.5 mg Q6HPRN PRN NEB 01/30/24 22:45 02/08/24 11:48 0.5 MG Levalbuterol HCl 0.625 mg Q6HR NEB 01/31/24 00:00 02/08/24 11:48 0.625 MG Labetalol HCl 5 mg Q2HPRN PRN IV 02/01/24 07:15 Melatonin 5 mg HS PO 02/04/24 22:00 02/07/24 21:44 5 MG Heparin Sodium (Porcine) 5,000 units Q8HR SC 02/05/24 06:00 02/08/24 05:33 5,000 UNITS Furosemide 20 mg BIDD IV 02/06/24 18:00 02/08/24 05:33 20 MG Methylprednisolone Sodium Succinate 80 mg BID IV 02/07/24 22:00 02/08/24 09:56 80 MG Famotidine 40 mg DAILY PO 02/08/24 10:00 02/08/24 09:57 40 MG laboratory and microbiology Laboratory Tests 02/08/24 04:55 Test 02/08/24 04:55 Range/Units Serum Glucose 180 H 74-106 mg/dL Problem List AAA COPD Assessment/Plan LE ARTERIAL DOPPLER SCHEDULE FOR ANGIOGRAM WITH STENT GRAFT IF PATIENT ANATOMY IS APPROPRIATE FOR STENT GRAFT HYBRID pt RENAL MEASUREMENT conducive to STENT GRAFT BUT RIGHT LEG NEEDS REVASCULARIZATION SCHEDULE FOR RIGHT LEG INTERVENTION 02/02/24 DISCUSSED WITH DAUGHTERS UNABLE TO REVASCULARIZE RIGHT ILIAC / COMMON FEMORAL CALCIFIED OCCLUSION SURGICAL OPTION HYBRID PROCEDURE IS A VIABLE OPTION TRANSFER TO [facility] SINCE WE ARE NOT ABLE TO DO A HYBRID PROCEDURE echo stress cardiolite risk stratification Dietary Evaluation Review Comments: follow the cardiac 2gNa Lofat LoCholel diet. Monitor PO intake to meet 75% of his needs Expected Outcomes/Goals: Improved health and well being. avoid unwanted weight loss. Plan discussed with: Patient Critical Care Time(min): 35 JUAN DANIEL GARCIA MD Feb 08, 2024 12:28
--- NOTE | 2024-02-08 17:17 | DVHPNRES ---
Progress Note Date Seen: Feb 08, 2024 Resident Creating Document: MAYI BINGHAM RESIDENT Has the PT tested + for MRSA If YES, has PT been informed?: No Medical Necessity Reason Pt with a Central, PICC or Fol: No Subjective Review of Systems This is a 78-year-old male patient with PMHx of chronic nicotine dependence, abdominal aortic aneurysm diagnosed February 2023, history of pneumonia and pleural effusion who presented to the ER with the chief complaint of lower back pain starting 01/23/2024. Patient reports worsening lower back pain which is pressure-like in nature, constant and 10/10 in intensity located in the lumbar region, no radiation. The pain worsened yesterday therefore patient decided to come into the ER. He has a history of abdominal aortic aneurysm diagnosed in February [address] scan. A recent CT abdomen pelvis without contrast for abdominal hernia was completed by patient's primary care physician on 01/11/2024 which showed 5.8 cm infrarenal abdominal aortic aneurysm with suspected intramural hematoma or thrombus. Patient also has a history of left-sided inguinal hernia for the past 2 months which is not affecting his daily life activities. Past Medical History: chronic nicotine dependence, abdominal aortic aneurysm diagnosed February 2023, history of pneumonia and pleural effusion, inguinal hernia Past Surgical History: None Family History: None Social history: Smokes 1 pack per day (For the past 50 years, quit 9 months back), drinks alcohol occasionally, denies illicit drug use. Patient lives with and son. 01/30 - Patient seen and examined in the ER bed 17. Reports mild back pain as compared to admission. Saturating 96% on 4 L NC. Family at bedside. 01/31 - patient seen and examined in the ICU bed 266. Reports no back pain. No acute distress. Saturating 94 on 4L Oxymizer. Scheduled for angiogram with a stent. Dr Brito - pt deminsion conducive to STENT GRAFT BUT RIGHT LEG NEEDS REVACULARIZATION. SCHEDULE FOR RIGHT LEG INTERVENTION 02/02/24. Pt NPO starting midnight 02/02/24 - patient underwent right leg revascularization by Dr. Hoff - unable to revascularize right iliac/common femoral due to a calcified occlusion. Heparin discontinued by chronic specialist. 02/03/2024-patient reported back pain in the morning. [place] and Tylenol administered. Patient feels fine. Right lower extremity examined for tenderness/swelling/bruising-unremarkable. Auscultation at catheter site unremarkable. Continuing cardiac diet. 02/05/2024 - patient reports back pain, lumbar spinous tender on exam. Left inguinal hernia is tender but not erythematous and soft and reducible. Consulted Dr. Anderson. Discussed in details regarding prognosis and the risk of open surgery for the repair of AAA. Advanced directives to be given by patient's daughter Soco Iyer and Tamia Sexton, as per the patient's wishes. 02/06/2024 - Patient feels fine, no active complaint. Dr. Anderson recommended pulmonary evaluation and pulmonary therapy to improve lung status. We will review films further regarding possible EVAR and fem-fem bypass. This would be an elective setting once his pulmonary status has improved if he is a candidate for hybrid surgery. If he is not a candidate for habits surgery would recommend higher level of care for open repair. CT chest without contrast pending. D Dimer elevated. LE dopper negative 02/07/2024 - CT without contrast shows Advanced smoking related lung disease, emphysematous changes in both lungs. There is subpleural reticulaton and septal thickening in the lung bases. There is atelectasis scarring in the lung bases. Started methyprednisolone 80mg IV BID, Incentive spirometry Q1hr. CTA chest pending to rule out PE. 250cc IV NS afterwards. 02/08/2024 - CT Angio chest completed, shows no evidence of a pulmonary arterial filling defect to suggest pulmonary embolism. IV Lasix reduced to 20mg daily, methyprednisolone 40mg IV BID. Patient will require EVAR and FEm-fem bypass per Dr Anderson. Planned 02/13/24 Needs pulmonary and Cardiac clearance. DR. Brito ordered stress echo. Azithromycin IV started for 5 days, starting 02/07 Objective vital signs Vital Sign Date Time Temp Pulse Resp B/P (MAP) Pulse Ox O2 Delivery O2 Flow Rate FiO2 02/08/24 15:15 83 15 95 02/08/24 12:15 97.5 97.5 02/08/24 11:48 Oxymizer 6 N/A Total Intake and Output 02/07/24 02/07/24 02/08/24 15:00 23:00 07:00 Intake Total 600 ml 200 ml Output Total 1401 ml 500 ml Balance -801 ml -300 ml medications Current Medications Medications Dose Ordered Sig/Juan David Route Start Time Stop Time Status Last Admin Dose Admin Sodium Chloride 10 ml Q8HR IV 01/30/24 22:00 02/08/24 13:42 10 ML Lorazepam 0.5 mg Q6HP PRN PO 01/30/24 16:30 Docusate Sodium 100 mg BIDPRN PRN PO 01/30/24 16:30 Acetaminophen 650 mg Q6HP PRN PO 01/30/24 16:30 02/03/24 17:54 650 MG Acetaminophen/ Hydrocodone Bitart 1 tab Q4HP PRN PO 01/30/24 16:30 02/08/24 09:57 1 TAB Hydromorphone HCl 0.5 mg Q4HP PRN IV 01/30/24 16:30 02/07/24 11:46 0.5 MG Ondansetron HCl 4 mg Q4HP PRN IV 01/30/24 16:30 02/02/24 05:06 4 MG Nitroglycerin 0.4 mg Q5MINP PRN SL 01/30/24 16:30 Morphine Sulfate 2 mg Q30M PRN IV 01/30/24 16:30 Atorvastatin Calcium 40 mg HS PO 01/31/24 22:00 02/07/24 21:44 40 MG Ipratropium [place] 0.5 mg Q6HPRN PRN NEB 01/30/24 22:45 02/08/24 11:48 0.5 MG Levalbuterol HCl 0.625 mg Q6HR NEB 01/31/24 00:00 02/08/24 11:48 0.625 MG Labetalol HCl 5 mg Q2HPRN PRN IV 02/01/24 07:15 Melatonin 5 mg HS PO 02/04/24 22:00 02/07/24 21:44 5 MG Heparin Sodium (Porcine) 5,000 units Q8HR SC 02/05/24 06:00 02/08/24 13:45 5,000 UNITS Methylprednisolone Sodium Succinate 80 mg BID IV 02/07/24 22:00 02/08/24 09:56 80 MG Famotidine 40 mg DAILY PO 02/08/24 10:00 02/08/24 09:57 40 MG Furosemide 20 mg DAILY IV 02/09/24 10:00 Examination General Appearance: Alert, Oriented X4, Cooperative, No acute distress, Other (Lithuanian speaking elderly pleasant male patient lying comfortably in the bed in ER) Respiratory: Clear to auscultation, decreased bilateral air movement, Other (Saturating 93 on oxymizer 8L) Cardiovascular: Regular rate, Normal S1, Normal S2, No murmurs Abdominal: Normal bowel sounds, Soft, No tenderness, Other (R inguinal with dressing surgical wound with clean dressing with no swelling/discharge/bleeding, Left-sided inguinal hernia seen bulging with cough reflex, manually reducible but comes back, soft, nontender, not extending into the scrotum) Extremities: No edema, pulses are feeble B/L in LE, No tenderness/swelling. Midline tenderness in the lumbar spine. Neuro: Normal speech, Strength at 5/5 X4 ext, Normal tone, Sensation intact Psych/Mental Status: A/Ox4 laboratory and microbiology Laboratory Tests 02/08/24 04:55 Test 02/08/24 04:55 Range/Units Serum Glucose 180 H 74-106 mg/dL Microbiology Date/Time Source Procedure Growth Status 02/01/24 05:45 Nose MRSA Screen - Final Complete Labs and/or images reviewed: Labs reviewed by me, Image(s) reviewed by me Problem List/Assessment/Plan Problem List/Assessment/Plan Lumbar pressure-like back pain secondary to Infrarenal AAA with occluded right SAM with intramural thrombus CT angio aortic abdominal completed 01/30/2024 shows 67 mm infrarenal abdominal aortic aneurysm with a large amount of mural thrombus. 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 5.8 cm on 01/11/2024 Echocardiogram completed, shows LVEF 55%, elevated tricuspid regurgitation velocity 3.30 M per S, RSV 50. Mildly dilated RA. Normal valves. Dr. Brito - hybrid procedure is a viable option. Unable to revascularize right iliac/common femoral calcified occlusion. Dr. Malloy consulted - percutaneous revascularization of right lower extremity not technically feasible, will consider femorofemoral bypass after AAA stenting accomplished Blood pressure control, SBP <120s mmHg. IV labetalol Q2hr PRN for SBP >150mmhg., IV lasix 20mg bid Dr. Anderson - Patient will require EVAR and FEm-fem bypass per Dr Anderson. Planned 02/13/24. Needs pulmonary and Cardiac clearance. DR. Brito ordered stress echo. Severe peripheral artery disease in right lower extremity Duplex ultrasound completed, shows severe PAD in the right lower extremity Patient underwent right leg revascularization by Dr. Hoff - unable to revascularize right iliac/common femoral due to a calcified occlusion. On prophylactic heparin dose Left lower extremities unremarkable for PAD Starting atorvastatin 40 mg p.o. daily Consider aspirin 81 mg after definitive treatment for aneurysm Ruled out PE / DVT CT Angio chest completed, shows no evidence of a pulmonary arterial filling defect to suggest pulmonary embolism. LE doppler unremarkable D Dimer elevated at 1.30 CTA chest pending to rule out PE. 250cc IV NS afterwards. COPD - exacerbation on 6-[address] without contrast 02/06 shows Advanced smoking related lung disease, emphysematous changes in both lungs. There is subpleural reticulaton and septal thickening in the lung bases. There is atelectasis scarring in the lung bases. Continue nebulized treatment with levalbuterol and ipratropium q.6 hour Started methyprednisolone 40mg IV BID starting 02/07/2024 Azithromycin started 02/07 for 5 days B/L atlectasis in lung bases Incentive spirometry Q1hr Left inguinal hernia-manually reducible, soft, nontender CT abdomen shows left inguinal hernia containing fat and small bowel. Outpatient workup advised History of severe emphysema - controlled Continue nebulized treatment with levalbuterol and ipratropium q.6 p.r.n. Right femoral hernia CT abdomen shows right femoral hernia containing small bowel. No definite acute obstruction Sigmoid diverticulosis without acute diverticulitis Monitor Bilateral renal cysts including 22 cm left cortical renal cyst Monitor History of COVID-19 infection COVID testing pending Chronic nicotine dependence Counseled regarding cessation for more than 20 minutes Diet NPO starting midnight DVT ppx Heparin 5000 SC Q8hr GERD ppx Famotidine 40mg daily Plan discussed with patient and daughter at bedside in [place], all questions have been answered. Goals of care discussed with the patient for more than 22 minutes, full code status. Plan discussed with Dr. Dyson. Dr. Anderson on the case. Patient will require EVAR and FEm-fem bypass per Dr Anderson. Planned 02/13/24. Needs pulmonary and Cardiac clearance. DR. Brito ordered stress echo Discussed in details regarding prognosis and the risk of open surgery for the repair of AAA. Advanced directives to be given by patient's daughter Raiza Iyer and Tamia Sexton, as per the patient's wishes. Plan discussed with: Patient My Orders My Orders Orders - MAYI BINGHAM Procedure Category Date Status Time Communication Order ORDERS 02/07/24 Transmitted 17:[address] 02/08/24 Resulted Contrast 07:00 Pt Request For Service PT 02/08/24 Logged 13:44 Furosemide Injection PHA 02/09/24 In Process (Lasix Injection) 10:00 Dietary Evaluation Review Comments: follow the cardiac 2gNa Lofat LoCholel diet. Monitor PO intake to meet 75% of his needs Expected Outcomes/Goals: Improved health and well being. avoid unwanted weight loss. Date of Service: Feb 08, 2024 Billing Provider: GENNA DYSON MD Common Visit Codes: 56425-[id number] INP/OBS CARE(HIGH) MAYI BINGHAM RESIDENT Feb 08, 2024 17:17 GENNA DYSON MD Feb 08, 2024 17:56
[2024-02-08] MEDS: AZITHROMYCIN 500MG/ 250ML 250 ML IV SCH (19:09)
[2024-02-08] MEDS: methylPREDNISolone SOD SUCC 40 MG/ML VL IV SCH (21:31)
[2024-02-09] VITALS (70 sets, daily range): BP systolic 75–136; BP diastolic 33–76; PULSE 57–81; RESP 9–27; TEMP 97–98.2; O2SAT 81–99
[2024-02-09 04:52] LABS: Basophils # (auto) 0 10 ^3/uL (0-0.2); Basophils % (auto) 0.3 % (0.0-2.0); Eosinophils # (auto) 0 10 ^3/uL (0-0.8); Hematocrit 45.4 % (41.0-53.0); Hemoglobin 14.8 g/dL (13.5-17.5); Lymphocytes # (auto) 0.5 10 ^3/uL (0.4-5.4); Lymphocytes % (auto) 3.6 % (10.0-50.0); Mean Corpuscular Hemoglobin 28.2 pg (28.0-32.0); Mean Corpuscular Hgb Conc. 32.7 g/dL (32.0-36.0); Mean Corpuscular Volume 86.2 fL (80.0-100.0); Monocytes # (auto) 0.7 10 ^3/uL (0-1.3); Monocytes % (auto) 4.7 % (0.0-12.0); Neutrophils # (auto) 13.6 10 ^3/uL (1.6-8.6); Neutrophils % (auto) 91.4 % (37.0-80.0); Nucleated Red Blood Cells % 0.1 %; Platelet Count (auto) 299 10^3/uL (140-450); Red Blood Cells 5.26 10^6/uL (4.5-5.90); Red Cell Distribution Width 14.8 % (11.8-14.3); White Blood Cell 14.9 10^3/uL (4.4-10.8)
--- NOTE | 2024-02-09 06:20 | DVHPNRES ---
Progress Note Date Seen: Feb 09, 2024 Resident Creating Document: MAYI BINGHAM RESIDENT Has the PT tested + for MRSA If YES, has PT been informed?: No Medical Necessity Reason Pt with a Central, PICC or Fol: No Subjective Review of Systems This is a 78-year-old male patient with PMHx of chronic nicotine dependence, abdominal aortic aneurysm diagnosed February 2023, history of pneumonia and pleural effusion who presented to the ER with the chief complaint of lower back pain starting 01/23/2024. Patient reports worsening lower back pain which is pressure-like in nature, constant and 10/10 in intensity located in the lumbar region, no radiation. The pain worsened yesterday therefore patient decided to come into the ER. He has a history of abdominal aortic aneurysm diagnosed in February [address] scan. A recent CT abdomen pelvis without contrast for abdominal hernia was completed by patient's primary care physician on 01/11/2024 which showed 5.8 cm infrarenal abdominal aortic aneurysm with suspected intramural hematoma or thrombus. Patient also has a history of left-sided inguinal hernia for the past 2 months which is not affecting his daily life activities. Past Medical History: chronic nicotine dependence, abdominal aortic aneurysm diagnosed February 2023, history of pneumonia and pleural effusion, inguinal hernia Past Surgical History: None Family History: None Social history: Smokes 1 pack per day (For the past 50 years, quit 9 months back), drinks alcohol occasionally, denies illicit drug use. Patient lives with and son. 01/30 - Patient seen and examined in the ER bed 17. Reports mild back pain as compared to admission. Saturating 96% on 4 L NC. Family at bedside. 01/31 - patient seen and examined in the ICU bed 266. Reports no back pain. No acute distress. Saturating 94 on 4L Oxymizer. Scheduled for angiogram with a stent. Dr Brito - pt deminsion conducive to STENT GRAFT BUT RIGHT LEG NEEDS REVACULARIZATION. SCHEDULE FOR RIGHT LEG INTERVENTION 02/02/24. Pt NPO starting midnight 02/02/24 - patient underwent right leg revascularization by Dr. Hoff - unable to revascularize right iliac/common femoral due to a calcified occlusion. Heparin discontinued by public safety officer. 02/03/2024-patient reported back pain in the morning. Booker and Tylenol administered. Patient feels fine. Right lower extremity examined for tenderness/swelling/bruising-unremarkable. Auscultation at catheter site unremarkable. Continuing cardiac diet. 02/05/2024 - patient reports back pain, lumbar spinous tender on exam. Left inguinal hernia is tender but not erythematous and soft and reducible. Consulted Dr. Anderson. Discussed in details regarding prognosis and the risk of open surgery for the repair of AAA. Advanced directives to be given by patient's daughter Soco Iyer and Tamia Sexton, as per the patient's wishes. 02/06/2024 - Patient feels fine, no active complaint. Dr. Anderson recommended pulmonary evaluation and pulmonary therapy to improve lung status. We will review films further regarding possible EVAR and fem-fem bypass. This would be an elective setting once his pulmonary status has improved if he is a candidate for hybrid surgery. If he is not a candidate for habits surgery would recommend higher level of care for open repair. CT chest without contrast pending. D Dimer elevated. LE dopper negative 02/07/2024 - CT without contrast shows Advanced smoking related lung disease, emphysematous changes in both lungs. There is subpleural reticulaton and septal thickening in the lung bases. There is atelectasis scarring in the lung bases. Started methyprednisolone 80mg IV BID, Incentive spirometry Q1hr. CTA chest pending to rule out PE. 250cc IV NS afterwards. 02/08/2024 - CT Angio chest completed, shows no evidence of a pulmonary arterial filling defect to suggest pulmonary embolism. IV Lasix reduced to 20mg daily, methyprednisolone 40mg IV BID. Patient will require EVAR and FEm-fem bypass per Dr Anderson. Planned 02/13/24 Needs pulmonary and Cardiac clearance. DR. Brito ordered stress echo. Azithromycin IV started for 5 days, starting 02/0702/09/2024 - reports no active complaint. Practiced incentive spirometry with the patient and the nurse. Agricultural Equipment Operator unable to perform Cardiolite stress test because of severe shortness of breath. Moderate PAH, started sildenafil 20 mg PO TID We will reschedule Cardiolite for Monday Objective vital signs Vital Sign Date Time Temp Pulse Resp B/P (MAP) Pulse Ox O2 Delivery O2 Flow Rate FiO2 02/09/24 06:00 68 15 103/40 (61) 97 02/09/24 04:00 97.8 97.8 02/09/24 00:33 Oxymizer 6 N/A Total Intake and Output 02/08/24 02/08/24 02/09/24 15:00 23:00 07:00 Intake Total 250 ml 750 ml Output Total 500 ml 2000 ml Balance 250 ml 250 ml -2000 ml medications Current Medications Medications Dose Ordered Sig/Juan David Route Start Time Stop Time Status Last Admin Dose Admin Sodium Chloride 10 ml Q8HR IV 01/30/24 22:00 02/09/24 05:56 10 ML Lorazepam 0.5 mg Q6HP PRN PO 01/30/24 16:30 Docusate Sodium 100 mg BIDPRN PRN PO 01/30/24 16:30 Acetaminophen 650 mg Q6HP PRN PO 01/30/24 16:30 02/03/24 17:54 650 MG Ondansetron HCl 4 mg Q4HP PRN IV 01/30/24 16:30 02/08/24 19:53 4 MG Nitroglycerin 0.4 mg Q5MINP PRN SL 01/30/24 16:30 Atorvastatin Calcium 40 mg HS PO 01/31/24 22:00 02/08/24 21:30 40 MG Ipratropium [place] 0.5 mg Q6HPRN PRN NEB 01/30/24 22:45 02/09/24 00:33 0.5 MG Levalbuterol HCl 0.625 mg Q6HR NEB 01/31/24 00:00 02/09/24 00:33 0.625 MG Labetalol HCl 5 mg Q2HPRN PRN IV 02/01/24 07:15 Melatonin 5 mg HS PO 02/04/24 22:00 02/08/24 21:30 5 MG Heparin Sodium (Porcine) 5,000 units Q8HR SC 02/05/24 06:00 02/09/24 05:55 5,000 UNITS Famotidine 40 mg DAILY PO 02/08/24 10:00 02/08/24 09:57 40 MG Furosemide 20 mg DAILY IV 02/09/24 10:00 Methylprednisolone Sodium Succinate 40 mg BID IV 02/08/24 22:00 02/08/24 21:31 40 MG Azithromycin 250 ml @ 125 mls/hr DAILY IV 02/08/24 17:45 02/08/24 19:09 125 MLS/HR Examination General Appearance: Alert, Oriented X4, Cooperative, No acute distress, Other (Liberian speaking elderly pleasant male patient lying comfortably in the bed in ER) Respiratory: Clear to auscultation, decreased bilateral air movement, Other (Saturating 96 on oxymizer 5L) Cardiovascular: Regular rate, Normal S1, Normal S2, No murmurs Abdominal: Normal bowel sounds, Soft, No tenderness, Other (R inguinal with dressing surgical wound with clean dressing with no swelling/discharge/bleeding, Left-sided inguinal hernia seen bulging with cough reflex, manually reducible but comes back, soft, nontender, not extending into the scrotum) Extremities: No edema, pulses are feeble B/L in LE, No tenderness/swelling. Midline tenderness in the lumbar spine. Neuro: Normal speech, Strength at 5/5 X4 ext, Normal tone, Sensation intact Psych/Mental Status: A/Ox4 laboratory and microbiology Laboratory Tests 02/09/24 04:36 Test 02/09/24 04:36 Range/Units Serum Glucose Pending Microbiology Date/Time Source Procedure Growth Status 02/01/24 05:45 Nose MRSA Screen - Final Complete Labs and/or images reviewed: Labs reviewed by me, Image(s) reviewed by me Problem List/Assessment/Plan Problem List/Assessment/Plan Lumbar pressure-like back pain secondary to Infrarenal AAA with occluded right SAM with intramural thrombus CT angio aortic abdominal completed 01/30/2024 shows 67 mm infrarenal abdominal aortic aneurysm with a large amount of mural thrombus. 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 5.8 cm on 01/11/2024 Echocardiogram completed, shows LVEF 55%, elevated tricuspid regurgitation velocity 3.30 M per S, RSV 50. Mildly dilated RA. Normal valves. Dr. Brito - hybrid procedure is a viable option. Unable to revascularize right iliac/common femoral calcified occlusion. Dr. Malloy consulted - percutaneous revascularization of right lower extremity not technically feasible, will consider femorofemoral bypass after AAA stenting accomplished Blood pressure control, SBP <120s mmHg. IV labetalol Q2hr PRN for SBP >150mmhg., IV lasix 20mg bid Dr. Anderson - Patient will require EVAR and FEm-fem bypass per Dr Anderson. Planned 02/13/24. Needs pulmonary and Cardiac clearance. DR. Brito ordered stress echo. Severe peripheral artery disease in right lower extremity Duplex ultrasound completed, shows severe PAD in the right lower extremity Patient underwent right leg revascularization by Dr. Hoff - unable to revascularize right iliac/common femoral due to a calcified occlusion. On prophylactic heparin dose Left lower extremities unremarkable for PAD Starting atorvastatin 40 mg p.o. daily Consider aspirin 81 mg after definitive treatment for aneurysm Moderate pulmonary arterial hypertension Agricultural Equipment Operator started sildenafil 20 mg PO TID 02/08 We will reschedule Cardiolite for Monday Ruled out PE / DVT CT Angio chest completed, shows no evidence of a pulmonary arterial filling defect to suggest pulmonary embolism. LE doppler unremarkable D Dimer elevated at 1.30 CTA chest pending to rule out PE. 250cc IV NS afterwards. COPD - exacerbation on 6-[address] without contrast 02/06 shows Advanced smoking related lung disease, emphysematous changes in both lungs. There is subpleural reticulaton and septal thickening in the lung bases. There is atelectasis scarring in the lung bases. Continue nebulized treatment with levalbuterol and ipratropium q.6 hour Started methyprednisolone 40mg IV BID starting 02/07/2024 Azithromycin started 02/07 for 5 days B/L atlectasis in lung bases Incentive spirometry Q1hr Left inguinal hernia-manually reducible, soft, nontender CT abdomen shows left inguinal hernia containing fat and small bowel. Outpatient workup advised History of severe emphysema - controlled Continue nebulized treatment with levalbuterol and ipratropium q.6 [address]r.n. Right femoral hernia CT abdomen shows right femoral hernia containing small bowel. No definite acute obstruction Sigmoid diverticulosis without acute diverticulitis Monitor Bilateral renal cysts including 22 cm left cortical renal cyst Monitor History of COVID-19 infection COVID testing pending Chronic nicotine dependence Counseled regarding cessation for more than 20 minutes Diet NPO starting midnight DVT ppx Heparin 5000 SC Q8hr GERD ppx Famotidine 40mg daily Plan discussed with patient and daughter at bedside in [place] 266, all questions have been answered. Goals of care discussed with the patient for more than 22 minutes, full code status. Plan discussed with Dr. Dyson. Unable to perform Cardiolite stress test due to SOB. We will reschedule Cardiolite for Sunday 02/11 Dr. Anderson on the case. Patient will require EVAR and FEm-fem bypass per Dr Anderson. Planned 02/13/24. Needs pulmonary and Cardiac clearance. Discussed in details regarding prognosis and the risk of open surgery for the repair of AAA. Advanced directives to be given by patient's daughter Raiza Iyer and Tamia Sexton, as per the patient's wishes. Plan discussed with: Patient, Spouse My Orders My Orders Orders - MAYI BINGHAM Procedure Category Date Status Time Pt Request For Service PT 02/08/24 Logged 13:44 Furosemide Injection PHA 02/09/24 In Process (Lasix Injection) 10:00 Azithromycin 500mg/ PHA 02/08/24 In Process 250ml (Zithromax 50 17:45 Methylprednisolone PHA 02/08/24 In Process Sod Succ (Solu Medrol 22:00 Basic Metabolic Panel LAB 02/09/24 Logged 04:00 Dietary Evaluation Review Comments: follow the cardiac 2gNa Lofat LoCholel diet. Monitor PO intake to meet 75% of his needs Expected Outcomes/Goals: Improved health and well being. avoid unwanted weight loss. Date of Service: Feb 09, 2024 Billing Provider: GENNA DYSON MD Common Visit Codes: [id number] INP/OBS CARE(HIGH) MAYI BINGHAM RESIDENT Feb 09, 2024 06:20 GENNA DYSON MD Feb 09, 2024 18:12
[2024-02-09 07:19] LABS: Chloride 103 mmol/L (98-107); Potassium 4.2 mmol/L (3.5-5.1); Sodium 140 mmol/L (136-145)
[2024-02-09 07:20] LABS: Anion Gap 6 (5-15); Carbon Dioxide 31 mmol/L (20-31)
[2024-02-09 07:21] LABS: Calcium 9.8 mg/dL (8.7-10.4)
[2024-02-09 07:25] LABS: Glucose 165 mg/dL (74-106)
[2024-02-09 07:33] LABS: Blood Urea Nitrogen 50 mg/dL (9-23)
[2024-02-09] MEDS: FUROSEMIDE 20 MG/2 ML VIAL IV SCH (09:14)
--- NOTE | 2024-02-09 09:16 | DVHPN2 ---
Progress Note - Dictate Date Seen: Feb 09, 2024 Has the PT tested + for MRSA If YES, has PT been informed?: No Medical Necessity Reason Pt with a Central, PICC or Fol: No Subjective PT WITH COPD CONTINUED TOBACCO USE NOW WITH LOWER BACK PAIM CTA OF ABD 1. Infrarenal abdominal aortic aneurysm measuring up to 67mm with a large amount of mural thrombus. 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 Vascular surgery evaluation is recommended. 2. Numerous bilateral renal cysts including a very large left renal cyst measuring up to 220mm. 3. Left inguinal hernia containing fat and small bowel. Right femoral hernia containing small bowel. No definite acute obstruction. Some level of chronic obstruction may be present. vital signs Vital Sign Date Time Temp Pulse Resp B/P (MAP) Pulse Ox O2 Delivery O2 Flow Rate FiO2 02/09/24 08:30 61 16 96 02/09/24 08:00 97.0 97.0 02/09/24 08:00 Oxymizer 6 N/A Total Intake and Output 02/08/24 02/08/24 02/09/24 15:00 23:00 07:00 Intake Total 250 ml 750 ml Output Total 500 ml 2000 ml Balance 250 ml 250 ml -2000 ml medications Current Medications Medications Dose Ordered Sig/Juan David Route Start Time Stop Time Status Last Admin Dose Admin Sodium Chloride 10 ml Q8HR IV 01/30/24 22:00 02/09/24 05:56 10 ML Lorazepam 0.5 mg Q6HP PRN PO 01/30/24 16:30 Docusate Sodium 100 mg BIDPRN PRN PO 01/30/24 16:30 Acetaminophen 650 mg Q6HP PRN PO 01/30/24 16:30 02/03/24 17:54 650 MG Ondansetron HCl 4 mg Q4HP PRN IV 01/30/24 16:30 02/08/24 19:53 4 MG Nitroglycerin 0.4 mg Q5MINP PRN SL 01/30/24 16:30 Atorvastatin Calcium 40 mg HS PO 01/31/24 22:00 02/08/24 21:30 40 MG Ipratropium [place] 0.5 mg Q6HPRN PRN NEB 01/30/24 22:45 02/09/24 06:38 0.5 MG Levalbuterol HCl 0.625 mg Q6HR NEB 01/31/24 00:00 02/09/24 06:38 0.625 MG Labetalol HCl 5 mg Q2HPRN PRN IV 02/01/24 07:15 Melatonin 5 mg HS PO 02/04/24 22:00 02/08/24 21:30 5 MG Heparin Sodium (Porcine) 5,000 units Q8HR SC 02/05/24 06:00 02/09/24 05:55 5,000 UNITS Famotidine 40 mg DAILY PO 02/08/24 10:00 02/08/24 09:57 40 MG Furosemide 20 mg DAILY IV 02/09/24 10:00 Methylprednisolone Sodium Succinate 40 mg BID IV 02/08/24 22:00 02/08/24 21:31 40 MG Azithromycin 250 ml @ 125 mls/hr DAILY IV 02/08/24 17:45 02/08/24 19:09 125 MLS/HR laboratory and microbiology Laboratory Tests 02/09/24 06:47 02/09/24 04:36 Test 02/09/24 06:47 Range/Units Serum Glucose 165 H 74-106 mg/dL Problem List AAA COPD Assessment/Plan LE ARTERIAL DOPPLER SCHEDULE FOR ANGIOGRAM WITH STENT GRAFT IF PATIENT ANATOMY IS APPROPRIATE FOR STENT GRAFT HYBRID pt RENAL MEASUREMENT conducive to STENT GRAFT BUT RIGHT LEG NEEDS REVASCULARIZATION SCHEDULE FOR RIGHT LEG INTERVENTION 02/02/24 DISCUSSED WITH DAUGHTERS UNABLE TO REVASCULARIZE RIGHT ILIAC / COMMON FEMORAL CALCIFIED OCCLUSION SURGICAL OPTION HYBRID PROCEDURE IS A VIABLE OPTION TRANSFER TO [facility] SINCE WE ARE NOT ABLE TO DO A HYBRID PROCEDURE echo stress cardiolite risk stratification unable to perform cardiolite because severe sob echo ef 55% mod pah START REVATIO DIURESIS WILL RESCHEDULE CARDIOLITE ON MONDAY Dietary Evaluation Review Comments: follow the cardiac 2gNa Lofat LoCholel diet. Monitor PO intake to meet 75% of his needs Expected Outcomes/Goals: Improved health and well being. avoid unwanted weight loss. Plan discussed with: Patient Critical Care Time(min): 35 JUAN DANIEL GARCIA MD Feb 09, 2024 09:16
[2024-02-09] MEDS: SILDENAFIL CITRATE 20 MG TAB PO SCH (13:30)
[2024-02-09] MEDS: SODIUM CHLORIDE 0.9% 500 ML IV ONE (16:00)
[2024-02-10] VITALS (50 sets, daily range): BP systolic 81–127; BP diastolic 43–77; PULSE 53–75; RESP 12–27; TEMP 97.5–98; O2SAT 88–99
[2024-02-10 04:53] LABS: Basophils # (auto) 0 10 ^3/uL (0-0.2); Basophils % (auto) 0.1 % (0.0-2.0); Eosinophils # (auto) 0 10 ^3/uL (0-0.8); Hematocrit 39.5 % (41.0-53.0); Hemoglobin 13.2 g/dL (13.5-17.5); Lymphocytes # (auto) 0.5 10 ^3/uL (0.4-5.4); Lymphocytes % (auto) 5.2 % (10.0-50.0); Mean Corpuscular Hemoglobin 28.5 pg (28.0-32.0); Mean Corpuscular Hgb Conc. 33.5 g/dL (32.0-36.0); Mean Corpuscular Volume 85.3 fL (80.0-100.0); Monocytes # (auto) 0.5 10 ^3/uL (0-1.3); Neutrophils # (auto) 9.1 10 ^3/uL (1.6-8.6); Neutrophils % (auto) 89.7 % (37.0-80.0); Nucleated Red Blood Cells % 0.1 %; Platelet Count (auto) 244 10^3/uL (140-450); Red Blood Cells 4.63 10^6/uL (4.5-5.90); Red Cell Distribution Width 14.6 % (11.8-14.3); White Blood Cell 10.1 10^3/uL (4.4-10.8)
[2024-02-10 05:04] LABS: Chloride 105 mmol/L (98-107); Potassium 4.8 mmol/L (3.5-5.1); Sodium 141 mmol/L (136-145)
[2024-02-10 05:05] LABS: Anion Gap 3 (5-15); Calcium 9.4 mg/dL (8.7-10.4); Carbon Dioxide 33 mmol/L (20-31)
[2024-02-10 05:10] LABS: Blood Urea Nitrogen 49 mg/dL (9-23); Glucose 171 mg/dL (74-106)
[2024-02-10] MEDS: DOCUSATE SOD 100 MG CAP PO PRN (11:31)
--- NOTE | 2024-02-10 12:04 | DVH ---
CHEST RADIOGRAPH Indication:RESP DISTRESS Technique: Single frontal view of the chest was obtained COMPARISON: XY CHEST PORTABLE on DOS: 02/05/24, XY CHEST XRAY 1 VIEW on DOS: 01/30/24 FINDINGS: Lines and Tubes: None Lungs: Multifocal airspace disease most prominent in the left mid and lower lung. Pleura: No effusion. No pneumothorax. Cardiomediastinal contours: Unremarkable Bones: Unremarkable IMPRESSION: Multifocal airspace disease most prominent in the left mid and lower lung.
[2024-02-10] MEDS: cefTRIAXone 1GM/50ML D5W 50 ML IV ONE (13:30)
--- NOTE | 2024-02-10 14:46 | DVHPNRES ---
Progress Note Date Seen: Feb 10, 2024 Resident Creating Document: [facility] RESIDENT Has the PT tested + for MRSA If YES, has PT been informed?: No Medical Necessity Reason Pt with a Central, PICC or Fol: No Subjective Review of Systems Patient seen and examined at bedside. Patient is not having any symptoms but his on 7 L of oxygen through Oxymizer. ROS Constitutional: No: Fever, Chills, Sweats, Weakness, Malaise, Other Eyes: No: Pain, Vision change, Conjunctivae inflammation, Eyelid inflammation, Other, Redness ENT: No: Ear pain, Ear discharge, Nose pain, Nose discharge, Nose congestion, Mouth pain, Mouth swelling, Throat pain, Throat swelling, Other Respiratory: No: Cough, Dry, Shortness of breath, SOB with excertion, Wheezing, Hemoptysis, Pleuritic Pain, Sputum, Wheezing, Other Cardiovascular: No: Chest Pain, Palpitations, Orthopnea, Paroxysmal Noc. Dyspnea, Edema, Lt Headedness, Other Gastrointestinal: No: Nausea, Vomiting, Abdominal Pain, Diarrhea, Constipation, Melena, Hematochezia, Other Musculoskeletal: Lumbar pain, No: other, neck pain, shoulder pain, arm pain, back pain, hand pain, leg pain, foot pain, Neurological:; No: Weakness, Numbness, Incoordination, Change in speech, Confusion, Seizures Objective vital signs Vital Sign Date Time Temp Pulse Resp B/P (MAP) Pulse Ox O2 Delivery O2 Flow Rate FiO2 02/10/24 12:00 97.5 63 23 102/55 (71) 94 97.5 02/10/24 11:26 Oxymizer 6.0 02/10/24 11:26 52 52 Total Intake and Output 02/09/24 02/09/24 02/10/24 15:00 23:00 07:00 Intake Total 250 ml 980 ml 200 ml Output Total 600 ml 500 ml Balance 250 ml 380 ml -300 ml medications Current Medications Medications Dose Ordered Sig/Juan David Route Start Time Stop Time Status Last Admin Dose Admin Sodium Chloride 10 ml Q8HR IV 01/30/24 22:00 02/10/24 13:05 10 ML Lorazepam 0.5 mg Q6HP PRN PO 01/30/24 16:30 Acetaminophen 650 mg Q6HP PRN PO 01/30/24 16:30 02/09/24 17:38 650 MG Ondansetron HCl 4 mg Q4HP PRN IV 01/30/24 16:30 02/08/24 19:53 4 MG Nitroglycerin 0.4 mg Q5MINP PRN SL 01/30/24 16:30 Hold Atorvastatin Calcium 40 mg HS PO 01/31/24 22:00 02/09/24 21:32 40 MG Ipratropium [place] 0.5 mg Q6HPRN PRN NEB 01/30/24 22:45 02/10/24 11:26 0.5 MG Levalbuterol HCl 0.625 mg Q6HR NEB 01/31/24 00:00 02/10/24 05:47 0.625 MG Labetalol HCl 5 mg Q2HPRN PRN IV 02/01/24 07:15 Melatonin 5 mg HS PO 02/04/24 22:00 02/09/24 21:32 5 MG Heparin Sodium (Porcine) 5,000 units Q8HR SC 02/05/24 06:00 02/10/24 13:25 5,000 UNITS Famotidine 40 mg DAILY PO 02/08/24 10:00 02/10/24 09:58 40 MG Furosemide 20 mg DAILY IV 02/09/24 10:00 02/10/24 09:58 20 MG Methylprednisolone Sodium Succinate 40 mg BID IV 02/08/24 22:00 02/10/24 09:58 40 MG Azithromycin 250 ml @ 125 mls/hr DAILY IV 02/08/24 17:45 02/10/24 09:59 125 MLS/HR Sildenafil Citrate 20 mg TID@08,14,20 PO 02/09/24 14:00 02/09/24 13:30 20 MG Docusate Sodium 100 mg BIDPRN PRN PO 02/10/24 10:30 02/10/24 11:31 100 MG Ceftriaxone Sodium 50 ml @ 100 mls/hr DAILY@09 IV 02/11/24 09:00 Examination Examination General Appearance: Alert, Oriented X3, Cooperative, No acute distress, currently on 7 L of oxygen through Oxymizer HEENT: EOMI Respiratory: Reduced air entry bilaterally, increased AP diameter Cardiovascular: Regular rate, Normal S1, Normal S2 Abdominal: Normal bowel sounds Extremities: No cyanosis, No edema, Normal pulses, No tenderness/swelling Skin: No rashes, No breakdown Neuro: Normal speech and tone laboratory and microbiology Laboratory Tests 02/10/24 04:47 Test 02/10/24 04:47 Range/Units Serum Glucose 171 H 74-106 mg/dL Microbiology Date/Time Source Procedure Growth Status 02/01/24 05:45 Nose MRSA Screen - Final Complete Labs and/or images reviewed: Labs reviewed by me, Image(s) reviewed by me Problem List/Assessment/Plan Problem List/Assessment/Plan Assessment/plan Neurology Cardiology # infrarenal abdominal aortic aneurysm with intramural thrombus -seen on abdominal aortography shows, 67 mm infrarenal abdominal aortic aneurysm with a large amount of mural thrombus. 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 Echocardiogram Cardiology and surgery on board Patient planned for AAA repair, endovascular repair as per surgeon Heparin drip discontinued by the web communications specialist per Dr. Chakraborty - Patient will require EVAR and Fem-fem bypass. Planned 02/13/24. Needs pulmonary and Cardiac clearance safety investigator consult ordered cardiology on board, planned for Cardiolite stress test on Monday # severe peripheral arterial disease Duplex ultrasound completed, shows severe PID in the right lower extremity Patient underwent peripheral angiogram - unable to revascularize right iliac/common femoral due to a calcified occlusion. Heparin drip discontinued by web communications specialist. As per surgeon, will consider femorofemoral bypass after AAA stenting continue atorvastatin 40 mg p.o. daily #Moderate pulmonary arterial hypertension Business Process Expert started sildenafil 20 mg PO TID #B/L atlectasis in lung bases Incentive spirometry Q1hr Pulmonology #Acute on ?chronic hypoxic Resp failure ?COPD exacerbation , ?pneumonia -currently on 7l O2 through Oxymizer -Nebulization with ipratropium and levalbuterol # severe emphysema ?COPD, questionable exacerbation -severe emphysema seen on imaging Nebulization with ipratropium and levalbuterol -continue azithromycin X5days -pulmonology consulted #? pneumonia -started on ceftriaxone, continue azithromycin #Elevated d-dimer Ruled out PE / DVT CT Angio chest completed, shows no evidence of a pulmonary arterial filling defect to suggest pulmonary embolism. LE doppler unremarkable GI # left inguinal hernia -no evidence of strangulation , outpatient follow up # sigmoid diverticulosis Stable #Right femoral hernia CT abdomen shows right femoral hernia containing small bowel. No definite acute obstruction #Constipation -colace prn Nephrology # bilateral renal cyst Seen on imaging Outpatient follow up Psychiatry # tobacco use disorder , ex-smoker Counseling for cessation greater than 11 minutes DVT prophylaxis -patient was on heparin drip, discontinued by the web communications specialist, continue heparin prophylactic dose PUD prophylaxis Lines Drips Nutrition Cardiac diet Goals of care discussed with the patient for greater than 21 minutes, full code Case discussion with Dr Coronel Family at bedside explained about the condition of the patient and all the questions were answered in details Critical care time excluding procedures: 53 minutes Plan discussed with: Patient, Daughter, Other (nurse) My Orders My Orders Orders - [facility] Procedure Category Date Status Time Docusate Sodium PHA 02/10/24 In Process Capsule (Colace 10:30 Chest Portable XY 02/10/24 Resulted 10:59 Ceftriaxone 1gm/50ml PHA 02/11/24 In Process D5w (Rocephin) 09:00 Covid19 Antigen Susan LAB 02/10/24 Logged Rapid Influenza A&B LAB 02/10/24 Logged 13:29 Respiratory Culture TARIQ 02/10/24 Uncollected W/ Gs 14:20 Complete Blood Count LAB 02/11/24 Verified 04:00 Basic Metabolic Panel LAB 02/11/24 Verified 04:00 Magnesium LAB 02/11/24 Verified 04:00 Dietary Evaluation Review Comments: follow the cardiac 2gNa Lofat LoCholel diet. Monitor PO intake to meet 75% of his needs Expected Outcomes/Goals: Improved health and well being. avoid unwanted weight loss. Date of Service: Feb 10, 2024 Billing Provider: JUANITO CORONEL DO Common Visit Codes: [id number] INP/OBS CARE(HIGH) [facility] RESIDENT Feb 10, 2024 14:46 JUANITO CORONEL DO Feb 11, 2024 12:22
[2024-02-10 16:41] LABS: Rapid Influenza A Negative (Negative); Rapid Influenza B Negative (Negative)
[2024-02-11] VITALS (44 sets, daily range): BP systolic 83–125; BP diastolic 43–70; PULSE 49–88; RESP 13–28; TEMP 97.3–98.6; O2SAT 88–99
[2024-02-11 05:48] LABS: Basophils # (auto) 0 10 ^3/uL (0-0.2); Basophils % (auto) 0.1 % (0.0-2.0); Eosinophils # (auto) 0 10 ^3/uL (0-0.8); Hematocrit 41.4 % (41.0-53.0); Hemoglobin 13.8 g/dL (13.5-17.5); Lymphocytes # (auto) 0.7 10 ^3/uL (0.4-5.4); Lymphocytes % (auto) 6.4 % (10.0-50.0); Mean Corpuscular Hemoglobin 28.8 pg (28.0-32.0); Mean Corpuscular Hgb Conc. 33.2 g/dL (32.0-36.0); Mean Corpuscular Volume 86.7 fL (80.0-100.0); Monocytes # (auto) 0.8 10 ^3/uL (0-1.3); Monocytes % (auto) 7.5 % (0.0-12.0); Neutrophils # (auto) 9.5 10 ^3/uL (1.6-8.6); Nucleated Red Blood Cells % 0.1 %; Platelet Count (auto) 233 10^3/uL (140-450); Red Blood Cells 4.77 10^6/uL (4.5-5.90); Red Cell Distribution Width 14.9 % (11.8-14.3)
[2024-02-11 06:04] LABS: Anion Gap 4 (5-15); Calcium 9.4 mg/dL (8.7-10.4); Carbon Dioxide 34 mmol/L (20-31); Chloride 104 mmol/L (98-107); Potassium 4.5 mmol/L (3.5-5.1); Sodium 142 mmol/L (136-145)
[2024-02-11 06:10] LABS: Blood Urea Nitrogen 42 mg/dL (9-23); Glucose 164 mg/dL (74-106); Magnesium 2.3 mg/dL (1.6-2.6)
--- NOTE | 2024-02-11 06:31 | DVHPNRES ---
Progress Note Date Seen: Feb 11, 2024 Resident Creating Document: MAYI BINGHAM RESIDENT Has the PT tested + for MRSA If YES, has PT been informed?: No Medical Necessity Reason Pt with a Central, PICC or Fol: No Subjective Review of Systems This is a 78-year-old male patient with PMHx of chronic nicotine dependence, abdominal aortic aneurysm diagnosed February 2023, history of pneumonia and pleural effusion who presented to the ER with the chief complaint of lower back pain starting 01/23/2024. Patient reports worsening lower back pain which is pressure-like in nature, constant and 10/10 in intensity located in the lumbar region, no radiation. The pain worsened yesterday therefore patient decided to come into the ER. He has a history of abdominal aortic aneurysm diagnosed in February [address] scan. A recent CT abdomen pelvis without contrast for abdominal hernia was completed by patient's primary care physician on 01/11/2024 which showed 5.8 cm infrarenal abdominal aortic aneurysm with suspected intramural hematoma or thrombus. Patient also has a history of left-sided inguinal hernia for the past 2 months which is not affecting his daily life activities. Past Medical History: chronic nicotine dependence, abdominal aortic aneurysm diagnosed February 2023, history of pneumonia and pleural effusion, inguinal hernia Past Surgical History: None Family History: None Social history: Smokes 1 pack per day (For the past 50 years, quit 9 months back), drinks alcohol occasionally, denies illicit drug use. Patient lives with and son. 01/30 - Patient seen and examined in the ER bed 17. Reports mild back pain as compared to admission. Saturating 96% on 4 L NC. Family at bedside. 01/31 - patient seen and examined in the ICU bed 266. Reports no back pain. No acute distress. Saturating 94 on 4L Oxymizer. Scheduled for angiogram with a stent. Dr Brito - pt deminsion conducive to STENT GRAFT BUT RIGHT LEG NEEDS REVACULARIZATION. SCHEDULE FOR RIGHT LEG INTERVENTION 02/02/24. Pt NPO starting midnight 02/02/24 - patient underwent right leg revascularization by Dr. Hoff - unable to revascularize right iliac/common femoral due to a calcified occlusion. Heparin discontinued by field traffic investigator. 02/03/2024-patient reported back pain in the morning. [place] and Tylenol administered. Patient feels fine. Right lower extremity examined for tenderness/swelling/bruising-unremarkable. Auscultation at catheter site unremarkable. Continuing cardiac diet. 02/05/2024 - patient reports back pain, lumbar spinous tender on exam. Left inguinal hernia is tender but not erythematous and soft and reducible. Consulted Dr. Anderson. Discussed in details regarding prognosis and the risk of open surgery for the repair of AAA. Advanced directives to be given by patient's daughter Soco Iyer and Tamia Sexton, as per the patient's wishes. 02/06/2024 - Patient feels fine, no active complaint. Dr. Anderson recommended pulmonary evaluation and pulmonary therapy to improve lung status. We will review films further regarding possible EVAR and fem-fem bypass. This would be an elective setting once his pulmonary status has improved if he is a candidate for hybrid surgery. If he is not a candidate for habits surgery would recommend higher level of care for open repair. CT chest without contrast pending. D Dimer elevated. LE dopper negative 02/07/2024 - CT without contrast shows Advanced smoking related lung disease, emphysematous changes in both lungs. There is subpleural reticulaton and septal thickening in the lung bases. There is atelectasis scarring in the lung bases. Started methyprednisolone 80mg IV BID, Incentive spirometry Q1hr. CTA chest pending to rule out PE. 250cc IV NS afterwards. 02/08/2024 - CT Angio chest completed, shows no evidence of a pulmonary arterial filling defect to suggest pulmonary embolism. IV Lasix reduced to 20mg daily, methyprednisolone 40mg IV BID. Patient will require EVAR and FEm-fem bypass per Dr Anderson. Planned 02/13/24 Needs pulmonary and Cardiac clearance. DR. Brito ordered stress echo. Azithromycin IV started for 5 days, starting 02/0702/09/2024 - reports no active complaint. Practiced incentive spirometry with the patient and the nurse. Purchasing Director unable to perform Cardiolite stress test because of severe shortness of breath. Moderate PAH, started sildenafil 20 mg PO TID We will reschedule Cardiolite for Monday02/11/2024 - patient reports no acute distress. Holding sildenafil given the low blood pressure. Changes from previous H/P or p: No Changes Objective vital signs Vital Sign Date Time Temp Pulse Resp B/P (MAP) Pulse Ox O2 Delivery O2 Flow Rate FiO2 02/11/24 06:00 51 20 117/47 (70) 94 02/11/24 04:00 97.9 97.9 02/10/24 20:00 Oxymizer 7 N/A Total Intake and Output 02/10/24 02/10/24 02/11/24 15:00 23:00 07:00 Intake Total 400 ml 150 ml Output Total 700 ml 500 ml Balance -300 ml -350 ml medications Current Medications Medications Dose Ordered Sig/Juan David Route Start Time Stop Time Status Last Admin Dose Admin Sodium Chloride 10 ml Q8HR IV 01/30/24 22:00 02/11/24 05:33 10 ML Lorazepam 0.5 mg Q6HP PRN PO 01/30/24 16:30 Acetaminophen 650 mg Q6HP PRN PO 01/30/24 16:30 02/10/24 20:15 650 MG Ondansetron HCl 4 mg Q4HP PRN IV 01/30/24 16:30 02/08/24 19:53 4 MG Nitroglycerin 0.4 mg Q5MINP PRN SL 01/30/24 16:30 Hold Atorvastatin Calcium 40 mg HS PO 01/31/24 22:00 02/10/24 21:46 40 MG Ipratropium [place] 0.5 mg Q6HPRN PRN NEB 01/30/24 22:45 02/10/24 11:26 0.5 MG Levalbuterol HCl 0.625 mg Q6HR NEB 01/31/24 00:00 02/10/24 05:47 0.625 MG Labetalol HCl 5 mg Q2HPRN PRN IV 02/01/24 07:15 Melatonin 5 mg HS PO 02/04/24 22:00 02/10/24 21:46 5 MG Heparin Sodium (Porcine) 5,000 units Q8HR SC 02/05/24 06:00 02/11/24 05:33 5,000 UNITS Famotidine 40 mg DAILY PO 02/08/24 10:00 02/10/24 09:58 40 MG Furosemide 20 mg DAILY IV 02/09/24 10:00 02/10/24 09:58 20 MG Methylprednisolone Sodium Succinate 40 mg BID IV 02/08/24 22:00 02/10/24 21:46 40 MG Azithromycin 250 ml @ 125 mls/hr DAILY IV 02/08/24 17:45 02/10/24 09:59 125 MLS/HR Sildenafil Citrate 20 mg TID@08,14,20 PO 02/09/24 14:00 02/09/24 13:30 20 MG Docusate Sodium 100 mg BIDPRN PRN PO 02/10/24 10:30 02/10/24 15:02 100 MG Ceftriaxone Sodium 50 ml @ 100 mls/hr DAILY@09 IV 02/11/24 09:00 Examination General Appearance: Alert, Oriented X4, Cooperative, No acute distress, Other (Portuguese speaking elderly pleasant male patient lying comfortably in the bed in ER) Respiratory: Clear to auscultation, decreased bilateral air movement, Other (Saturating 95 on oxymizer 5L) Cardiovascular: Regular rate, Normal S1, Normal S2, No murmurs Abdominal: Normal bowel sounds, Soft, No tenderness, Other (R inguinal with dressing surgical wound with clean dressing with no swelling/discharge/bleeding, Left-sided inguinal hernia seen bulging with cough reflex, manually reducible but comes back, soft, nontender, not extending into the scrotum) Extremities: No edema, pulses are feeble B/L in LE, No tenderness/swelling. Midline tenderness in the lumbar spine. Neuro: Normal speech, Strength at 5/5 X4 ext, Normal tone, Sensation intact Psych/Mental Status: A/Ox4 Examination: GENERAL:Normal, HEENT:Normal, NECK:Normal laboratory and microbiology Laboratory Tests 02/11/24 04:56 Test 02/11/24 04:56 Range/Units Serum Glucose 164 H 74-106 mg/dL Microbiology Date/Time Source Procedure Growth Status 02/01/24 05:45 Nose MRSA Screen - Final Complete Labs and/or images reviewed: Labs reviewed by me, Image(s) reviewed by me Problem List/Assessment/Plan Problem List/Assessment/Plan Infrarenal AAA with occluded right SAM with intramural thrombus CT angio aortic abdominal completed 01/30/2024 shows 67 mm infrarenal abdominal aortic aneurysm with a large amount of mural thrombus. 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 5.8 cm on 01/11/2024 Echocardiogram completed, shows LVEF 55%, elevated tricuspid regurgitation velocity 3.30 M per S, RSV 50. Mildly dilated RA. Normal valves. Dr. Brito - hybrid procedure is a viable option. Unable to revascularize right iliac/common femoral calcified occlusion. Dr. Malloy consulted - percutaneous revascularization of right lower extremity not technically feasible, will consider femorofemoral bypass after AAA stenting accomplished Blood pressure control, SBP <120s mmHg. IV labetalol Q2hr PRN for SBP >150mmhg., IV lasix 20mg bid Dr. Anderson - Patient will require EVAR and FEm-fem bypass per Dr Anderson. Planned 02/13/24. Needs pulmonary and Cardiac clearance. DR. Brito ordered stress echo. Severe peripheral artery disease in right lower extremity Duplex ultrasound completed, shows severe PAD in the right lower extremity Patient underwent right leg revascularization by Dr. Hoff - unable to revascularize right iliac/common femoral due to a calcified occlusion. On prophylactic heparin dose Left lower extremities unremarkable for PAD Starting atorvastatin 40 mg p.o. daily Consider aspirin 81 mg after definitive treatment for aneurysm Moderate pulmonary arterial hypertension Holding sildenafil 20 mg PO TID given the low blood pressure We will reschedule Cardiolite for Monday Community-acquired pneumonia, Gram-positive and negative Started on ceftriaxone starting 02/09, continue azithromycin starting 02/07 Sputum culture with induction pending Influenza and COVID negative MRSA screen is pending Ruled out PE / DVT CT Angio chest completed, shows no evidence of a pulmonary arterial filling defect to suggest pulmonary embolism. LE doppler unremarkable D Dimer elevated at 1.30 CTA chest pending to rule out PE. 250cc IV NS afterwards. COPD - exacerbation on 6-[address] without contrast 02/06 shows Advanced smoking related lung disease, emphysematous changes in both lungs. There is subpleural reticulaton and septal thickening in the lung bases. There is atelectasis scarring in the lung bases. Continue nebulized treatment with levalbuterol and ipratropium q.6 hour Started methyprednisolone 40mg IV BID starting 02/07/2024 Azithromycin started 02/07 for 5 days B/L atlectasis in lung bases Incentive spirometry Q1hr Left inguinal hernia-manually reducible, soft, nontender CT abdomen shows left inguinal hernia containing fat and small bowel. Outpatient workup advised History of severe emphysema - controlled Continue nebulized treatment with levalbuterol and ipratropium q.6 [address]r.n. Right femoral hernia CT abdomen shows right femoral hernia containing small bowel. No definite acute obstruction Sigmoid diverticulosis without acute diverticulitis Monitor Bilateral renal cysts including 22 cm left cortical renal cyst Monitor History of COVID-19 infection COVID testing pending Chronic nicotine dependence Counseled regarding cessation for more than 20 minutes Diet NPO starting midnight DVT ppx Heparin 5000 SC Q8hr GERD ppx Famotidine 40mg daily Plan discussed with patient and daughter at bedside in [place] [facility], all questions have been answered. Goals of care discussed with the patient for more than 22 minutes, full code status. Plan discussed with Dr. Coronel. Cardiolite stress test for Sunday 02/11 Dr. Anderson on the case. Patient will require EVAR and FEm-fem bypass per Dr Anderson. Planned 02/13/24. Needs pulmonary and Cardiac clearance. Discussed in details regarding prognosis and the risk of open surgery for the repair of AAA. Advanced directives to be given by patient's daughter Raiza Iyer and Tamia Sexton, as per the patient's wishes. Plan discussed with: Patient Dietary Evaluation Review Comments: follow the cardiac 2gNa Lofat LoCholel diet. Monitor PO intake to meet 75% of his needs Expected Outcomes/Goals: Improved health and well being. avoid unwanted weight loss. Date of Service: Feb 11, 2024 Billing Provider: JUANITO CORONEL DO Common Visit Codes: [id number] INP/OBS CARE(HIGH) MAYI BINGHAM RESIDENT Feb 11, 2024 06:31 JUANITO CORONEL DO Feb 15, 2024 06:53
[2024-02-11] MEDS: cefTRIAXone 1GM/50ML D5W 50 ML IV SCH (08:53)
[2024-02-11] MEDS ORDERED: SODIUM CHL 3% HYPERTONIC 500 ML BAG IN ONE (09:00)
[2024-02-11] MEDS: ALBUTEROL SULF 2.5 MG/0.5ML(0.5%) NEB SOLN ONE (15:58)
[2024-02-11] MEDS: ALBUTEROL SULF 2.5 MG/0.5ML(0.5%) NEB SOLN NEB ONE (15:59)
--- NOTE | 2024-02-11 17:53 | DVHINCON2 ---
DATE OF CONSULTATION: 02/11/2024 PULMONARY CONSULTATION The patient was seen in the afternoon. History was obtained through patient's daughter, Verenice, in the presence of bedside RN, Nohemy. REASON FOR CONSULTATION: The patient is admitted for aortic aneurysm. Plan is to do aneurysm repair with endovascular graft and FEM-POP bypass. It is unclear how long and what kind of anesthesia will be given. HISTORY OF PRESENT ILLNESS: The patient's CT has shown significant emphysema. The patient's daughter also tells that he gets short of breath and uses inhalers at home but could not remember the name. The patient does not have any home oxygen but is currently using 6 liters oxygen. The patient has very poor exercise tolerance but it was also related to his peripheral vascular disease. She believes he can walk half a block. No chronic orthopnea or PND. Does have some cough with no significant expectoration. Denies any orthopnea or PND. PAST MEDICAL HISTORY: Largely unremarkable per patient's daughter. No history of congestive heart failure, coronary artery disease. Denies any strokes or cancers. She says he has been diagnosed with hypertension. Denies being a diabetic. Denies any strokes. PAST SURGICAL HISTORY: Unrevealing. MEDICATIONS: Noted. SOCIAL HISTORY: Quit smoking about a year ago, was a lifetime smoker prior to that. No alcohol or drug use. ALLERGIES: None. FAMILY HISTORY: Noncontributory. PHYSICAL EXAMINATION: VITAL SIGNS: Reveals afebrile, heart rate 60, respiratory rate 18, blood pressure is 100/60, saturations are 92% on 6 liters oxymizer. NECK: Supple. No JVD. CHEST: Emphysematous chest, increased AP diameter, prolonged exhalation, diminishment of liver and cardiac dullness. No wheezing or rales were appreciated. ABDOMEN: Soft, nontender. No organomegaly. No guarding, rigidity, rebound, or tenderness. COR: S1, S2. No murmurs. EXTREMITIES: No edema or clubbing. LABORATORY DATA: WBC 11, rest of CBC unremarkable. Serum chemistries BUN 42, creatinine 1, CO2 was 34, rest was noted. The last BNP was 49 on 02/06/2024. Other lab work were all noted. Influenza A and B and COVID antigen tests were negative. MRSA screen negative. CT of the chest results were reviewed. There is no evidence of pulmonary embolism but emphysematous changes noted with centrilobular emphysema. IMPRESSION: History of possible chronic obstructive pulmonary disease, tobacco abuse, emphysema noted on CT. Also, has hypoxia requiring 6 liters of oxygen. It is unclear what kind of anesthesia and the length of anesthesia. The patient does appear to have [id number] chronic obstructive pulmonary disease. I have ordered a bedside spirometry. Also, his exercise tolerance is very poor. Would also recommend cardiac evaluation and clearance before surgery based on his oxygen requirements and exercise tolerance and CT finding. He appears at least [id number] risk of pulmonary complications in the perioperative period. No absolute contraindications to surgery, but he may be at risk of respiratory failure including possibility of requiring mechanical ventilation or difficulty in weaning from mechanical ventilator. Other insults for example postoperative atelectasis, pneumonia, bronchospasm, pulmonary embolism may adversely affect his pulmonary functions as well. I have discussed all this with the patient's daughter. We will check bedside spirometry to optimize treatment. We would recommend med nebs in the perioperative period. Early ambulation, deep venous thrombosis prophylaxis, incentive spirometry. I have also asked her to discuss with surgeon and Anesthesia regarding the risk of pulmonary complications as well as type and length of anesthesia. Rest of the medical management will depend on response. Dr. Gallagher will resume primary pulmonary care in the morning. MD ROHAN Weiss/GARRET TID: [id number] RECEIPT: [id number]
[2024-02-11] MEDS: ALBUMIN 5% 250 ML IV ONE (21:00)
[2024-02-12] VITALS (74 sets, daily range): BP systolic 83–123; BP diastolic 40–85; PULSE 53–96; RESP 12–28; TEMP 97.3–98.3; O2SAT 87–99
--- NOTE | 2024-02-12 08:56 | DVHPN2 ---
Progress Note - Dictate Date Seen: Feb 12, 2024 Has the PT tested + for MRSA If YES, has PT been informed?: No Medical Necessity Reason Pt with a Central, PICC or Fol: No Subjective PT WITH COPD CONTINUED TOBACCO USE NOW WITH LOWER BACK PAIM CTA OF ABD 1. Infrarenal abdominal aortic aneurysm measuring up to 67mm with a large amount of mural thrombus. 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 Vascular surgery evaluation is recommended. 2. Numerous bilateral renal cysts including a very large left renal cyst measuring up to 220mm. 3. Left inguinal hernia containing fat and small bowel. Right femoral hernia containing small bowel. No definite acute obstruction. Some level of chronic obstruction may be present. vital signs Vital Sign Date Time Temp Pulse Resp B/P (MAP) Pulse Ox O2 Delivery O2 Flow Rate FiO2 02/12/24 08:00 68 16 95 Nasal Cannula* 5 40 02/12/24 08:00 98.3 108/47 (67) 98.3 Total Intake and Output 02/11/24 02/11/24 02/12/24 15:00 23:00 07:00 Intake Total 300 ml 440 ml 480 ml Output Total 250 ml 700 ml 600 ml Balance 50 ml -260 ml -120 ml medications Current Medications Medications Dose Ordered Sig/Juan David Route Start Time Stop Time Status Last Admin Dose Admin Sodium Chloride 10 ml Q8HR IV 01/30/24 22:00 02/12/24 05:21 10 ML Lorazepam 0.5 mg Q6HP PRN PO 01/30/24 16:30 Acetaminophen 650 mg Q6HP PRN PO 01/30/24 16:30 02/11/24 16:59 650 MG Ondansetron HCl 4 mg Q4HP PRN IV 01/30/24 16:30 02/08/24 19:53 4 MG Nitroglycerin 0.4 mg Q5MINP PRN SL 01/30/24 16:30 Hold Atorvastatin Calcium 40 mg HS PO 01/31/24 22:00 02/11/24 21:07 40 MG Ipratropium [place] 0.5 mg Q6HPRN PRN NEB 01/30/24 22:45 02/12/24 00:29 0.5 MG Levalbuterol HCl 0.625 mg Q6HR NEB 01/31/24 00:00 02/12/24 06:03 0.625 MG Labetalol HCl 5 mg Q2HPRN PRN IV 02/01/24 07:15 Melatonin 5 mg HS PO 02/04/24 22:00 02/12/24 03:07 5 MG Heparin Sodium (Porcine) 5,000 units Q8HR SC 02/05/24 06:00 02/12/24 05:22 5,000 UNITS Famotidine 40 mg DAILY PO 02/08/24 10:00 02/11/24 08:54 40 MG Furosemide 20 mg DAILY IV 02/09/24 10:00 02/11/24 10:24 20 MG Methylprednisolone Sodium Succinate 40 mg BID IV 02/08/24 22:00 02/11/24 21:07 40 MG Sildenafil Citrate 20 mg TID@08,14,20 PO 02/09/24 14:00 02/11/24 14:02 20 MG Docusate Sodium 100 mg BIDPRN PRN PO 02/10/24 10:30 02/10/24 15:02 100 MG Azithromycin 250 ml @ 125 mls/hr DAILY IV 02/12/24 10:00 02/12/24 23:59 Ceftriaxone Sodium 50 ml @ 100 mls/hr DAILY@09 IV 02/12/24 09:00 02/14/24 23:59 laboratory and microbiology Laboratory Tests 02/11/24 04:56 Test 02/11/24 04:56 Range/Units Serum Glucose 164 H 74-106 mg/dL Problem List AAA COPD Assessment/Plan LE ARTERIAL DOPPLER SCHEDULE FOR ANGIOGRAM WITH STENT GRAFT IF PATIENT ANATOMY IS APPROPRIATE FOR STENT GRAFT HYBRID pt RENAL MEASUREMENT conducive to STENT GRAFT BUT RIGHT LEG NEEDS REVASCULARIZATION SCHEDULE FOR RIGHT LEG INTERVENTION 02/02/24 DISCUSSED WITH DAUGHTERS UNABLE TO REVASCULARIZE RIGHT ILIAC / COMMON FEMORAL CALCIFIED OCCLUSION SURGICAL OPTION HYBRID PROCEDURE IS A VIABLE OPTION TRANSFER TO [facility] SINCE WE ARE NOT ABLE TO DO A HYBRID PROCEDURE echo stress cardiolite risk stratification unable to perform cardiolite because severe sob echo ef 55% mod pah START REVATIO DIURESIS WILL RESCHEDULE CARDIOLITE ON MONDAY Dietary Evaluation Review Comments: follow the cardiac 2gNa Lofat LoCholel diet. Monitor PO intake to meet 75% of his needs Expected Outcomes/Goals: Improved health and well being. avoid unwanted weight loss. Plan discussed with: Patient Critical Care Time(min): 35 JUAN DANIEL GARCIA MD Feb 12, 2024 08:56
[2024-02-12] MEDS: cefTRIAXone 1GM/50ML D5W 50 ML IV SCH (09:22)
[2024-02-12] MEDS: AZITHROMYCIN 500MG/ 250ML 250 ML IV SCH (09:24)
[2024-02-12] MEDS: predniSONE 20 MG TAB PO SCH (10:00)
[2024-02-12 10:31] LABS: Basophils # (auto) 0 10 ^3/uL (0-0.2); Eosinophils # (auto) 0 10 ^3/uL (0-0.8); Eosinophils % (auto) 0.1 % (0.0-7.0); Hematocrit 44.5 % (41.0-53.0); Hemoglobin 14.5 g/dL (13.5-17.5); Lymphocytes # (auto) 1.2 10 ^3/uL (0.4-5.4); Lymphocytes % (auto) 7.9 % (10.0-50.0); Mean Corpuscular Hemoglobin 28.2 pg (28.0-32.0); Mean Corpuscular Hgb Conc. 32.7 g/dL (32.0-36.0); Mean Corpuscular Volume 86.5 fL (80.0-100.0); Monocytes # (auto) 1.3 10 ^3/uL (0-1.3); Monocytes % (auto) 8.3 % (0.0-12.0); Neutrophils % (auto) 83.7 % (37.0-80.0); Platelet Count (auto) 252 10^3/uL (140-450); Red Blood Cells 5.15 10^6/uL (4.5-5.90); Red Cell Distribution Width 14.8 % (11.8-14.3); White Blood Cell 15.5 10^3/uL (4.4-10.8)
[2024-02-12 10:35] LABS: Chloride 102 mmol/L (98-107); Potassium 5.1 mmol/L (3.5-5.1); Sodium 139 mmol/L (136-145)
[2024-02-12 10:36] LABS: Anion Gap 4 (5-15); Carbon Dioxide 33 mmol/L (20-31)
[2024-02-12 10:37] LABS: Calcium 9.7 mg/dL (8.7-10.4)
[2024-02-12 10:41] LABS: Glucose 185 mg/dL (74-106)
[2024-02-12 10:42] LABS: BUN/Creatinine Ratio 24.8 (10.0-20.0); Magnesium 2.5 mg/dL (1.6-2.6)
[2024-02-12 10:43] LABS: Blood Urea Nitrogen 28 mg/dL (9-23)
--- NOTE | 2024-02-12 11:13 | DVHPNRES ---
Progress Note Date Seen: Feb 12, 2024 Resident Creating Document: MAYI BINGHAM RESIDENT Has the PT tested + for MRSA If YES, has PT been informed?: No Medical Necessity Reason Pt with a Central, PICC or Fol: No Subjective Review of Systems This is a 78-year-old male patient with PMHx of chronic nicotine dependence, abdominal aortic aneurysm diagnosed February 2023, history of pneumonia and pleural effusion who presented to the ER with the chief complaint of lower back pain starting 01/23/2024. Patient reports worsening lower back pain which is pressure-like in nature, constant and 10/10 in intensity located in the lumbar region, no radiation. The pain worsened yesterday therefore patient decided to come into the ER. He has a history of abdominal aortic aneurysm diagnosed in February [address] scan. A recent CT abdomen pelvis without contrast for abdominal hernia was completed by patient's primary care physician on 01/11/2024 which showed 5.8 cm infrarenal abdominal aortic aneurysm with suspected intramural hematoma or thrombus. Patient also has a history of left-sided inguinal hernia for the past 2 months which is not affecting his daily life activities. Past Medical History: chronic nicotine dependence, abdominal aortic aneurysm diagnosed February 2023, history of pneumonia and pleural effusion, inguinal hernia Past Surgical History: None Family History: None Social history: Smokes 1 pack per day (For the past 50 years, quit 9 months back), drinks alcohol occasionally, denies illicit drug use. Patient lives with and son. 01/30 - Patient seen and examined in the ER bed 17. Reports mild back pain as compared to admission. Saturating 96% on 4 L NC. Family at bedside. 01/31 - patient seen and examined in the ICU bed 266. Reports no back pain. No acute distress. Saturating 94 on 4L Oxymizer. Scheduled for angiogram with a stent. Dr Brito - pt deminsion conducive to STENT GRAFT BUT RIGHT LEG NEEDS REVACULARIZATION. SCHEDULE FOR RIGHT LEG INTERVENTION 02/02/24. Pt NPO starting midnight 02/02/24 - patient underwent right leg revascularization by Dr. Hoff - unable to revascularize right iliac/common femoral due to a calcified occlusion. Heparin discontinued by undercollar maker. 02/03/2024-patient reported back pain in the morning. [place] and Tylenol administered. Patient feels fine. Right lower extremity examined for tenderness/swelling/bruising-unremarkable. Auscultation at catheter site unremarkable. Continuing cardiac diet. 02/05/2024 - patient reports back pain, lumbar spinous tender on exam. Left inguinal hernia is tender but not erythematous and soft and reducible. Consulted Dr. Anderson. Discussed in details regarding prognosis and the risk of open surgery for the repair of AAA. Advanced directives to be given by patient's daughter Soco Iyer and Tamia Sexton, as per the patient's wishes. 02/06/2024 - Patient feels fine, no active complaint. Dr. Anderson recommended pulmonary evaluation and pulmonary therapy to improve lung status. We will review films further regarding possible EVAR and fem-fem bypass. This would be an elective setting once his pulmonary status has improved if he is a candidate for hybrid surgery. If he is not a candidate for habits surgery would recommend higher level of care for open repair. CT chest without contrast pending. D Dimer elevated. LE dopper negative 02/07/2024 - CT without contrast shows Advanced smoking related lung disease, emphysematous changes in both lungs. There is subpleural reticulaton and septal thickening in the lung bases. There is atelectasis scarring in the lung bases. Started methyprednisolone 80mg IV BID, Incentive spirometry Q1hr. CTA chest pending to rule out PE. 250cc IV NS afterwards. 02/08/2024 - CT Angio chest completed, shows no evidence of a pulmonary arterial filling defect to suggest pulmonary embolism. IV Lasix reduced to 20mg daily, methyprednisolone 40mg IV BID. Patient will require EVAR and FEm-fem bypass per Dr Anderson. Planned 02/13/24 Needs pulmonary and Cardiac clearance. DR. Brito ordered stress echo. Azithromycin IV started for 5 days, starting 02/0702/09/2024 - reports no active complaint. Practiced incentive spirometry with the patient and the nurse. 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 Moderate PAH, started sildenafil 20 mg PO TID We will reschedule Cardiolite for Monday02/11/2024 - patient reports no acute distress. Holding sildenafil given the low blood pressure. 02/12/2024 - patient is having no acute complaint. Saturating 96 on 5 L Oxymizer, sitting on a chair comfortably. undergoing stress test today. Switched prednisolone IV to 40MG daily p.o. Surgery cancelled given elevated wbc count, and pending stress test, Check BC x 2, urine culture. CXR showing Bibasilar atelectasis vs infiltrates. Transfer to [facility] pending Objective vital signs Vital Sign Date Time Temp Pulse Resp B/P (MAP) Pulse Ox O2 Delivery O2 Flow Rate FiO2 02/12/24 10:00 94 Nasal Cannula* 4 36 02/12/24 09:24 107/66 02/12/24 08:00 68 16 02/12/24 08:00 98.3 98.3 Total Intake and Output 02/11/24 02/11/24 02/12/24 15:00 23:00 07:00 Intake Total 300 ml 440 ml 480 ml Output Total 250 ml 700 ml 600 ml Balance 50 ml -260 ml -120 ml medications Current Medications Medications Dose Ordered Sig/Juan David Route Start Time Stop Time Status Last Admin Dose Admin Sodium Chloride 10 ml Q8HR IV 01/30/24 22:00 02/12/24 05:21 10 ML Lorazepam 0.5 mg Q6HP PRN PO 01/30/24 16:30 Acetaminophen 650 mg Q6HP PRN PO 01/30/24 16:30 02/11/24 16:59 650 MG Ondansetron HCl 4 mg Q4HP PRN IV 01/30/24 16:30 02/08/24 19:53 4 MG Nitroglycerin 0.4 mg Q5MINP PRN SL 01/30/24 16:30 Hold Atorvastatin Calcium 40 mg HS PO 01/31/24 22:00 02/11/24 21:07 40 MG Ipratropium [place] 0.5 mg Q6HPRN PRN NEB 01/30/24 22:45 02/12/24 00:29 0.5 MG Levalbuterol HCl 0.625 mg Q6HR NEB 01/31/24 00:00 02/12/24 06:03 0.625 MG Labetalol HCl 5 mg Q2HPRN PRN IV 02/01/24 07:15 Melatonin 5 mg HS PO 02/04/24 22:00 02/12/24 03:07 5 MG Heparin Sodium (Porcine) 5,000 units Q8HR SC 02/05/24 06:00 02/12/24 05:22 5,000 UNITS Famotidine 40 mg DAILY PO 02/08/24 10:00 02/12/24 09:25 40 MG Furosemide 20 mg DAILY IV 02/09/24 10:00 02/12/24 09:24 20 MG Sildenafil Citrate 20 mg TID@08,14,20 PO 02/09/24 14:00 02/11/24 14:02 20 MG Docusate Sodium 100 mg BIDPRN PRN PO 02/10/24 10:30 02/10/24 15:02 100 MG Azithromycin 250 ml @ 125 mls/hr DAILY IV 02/12/24 10:00 02/12/24 23:59 02/12/24 09:24 125 MLS/HR Ceftriaxone Sodium 50 ml @ 100 mls/hr DAILY@ IV 02/12/24 09:00 02/14/24 23:59 02/12/24 09:22 100 MLS/HR Prednisone 40 mg DAILY PO 02/12/24 10:00 Examination General Appearance: Alert, Oriented X4, Cooperative, No acute distress, Other (Occitan speaking elderly pleasant male patient sitting comfortably in the chair) Respiratory: Clear to auscultation, decreased bilateral air movement, Other (Saturating 96 on oxymizer 5L) Cardiovascular: Regular rate, Normal S1, Normal S2, No murmurs Abdominal: Normal bowel sounds, Soft, No tenderness, Other (R inguinal dressing removed. Surgical site is clean and intact. Left-sided inguinal hernia seen bulging with cough reflex, manually reducible but comes back, soft, nontender, not extending into the scrotum) Extremities: No edema, pulses are feeble B/L in LE, No tenderness/swelling. Midline tenderness in the lumbar spine. Neuro: Normal speech, Strength at 5/5 X4 ext, Normal tone, Sensation intact Psych/Mental Status: A/Ox4 laboratory and microbiology Laboratory Tests 02/12/24 10:14 Test 02/12/24 10:14 Range/Units Serum Glucose 185 H 74-106 mg/dL Microbiology Date/Time Source Procedure Growth Status 02/01/24 05:45 Nose MRSA Screen - Final Complete Labs and/or images reviewed: Labs reviewed by me, Image(s) reviewed by me Problem List/Assessment/Plan Problem List/Assessment/Plan Infrarenal AAA with occluded right SAM with intramural thrombus CT angio aortic abdominal completed 01/30/2024 shows 67 mm infrarenal abdominal aortic aneurysm with a large amount of mural thrombus. 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 5.8 cm on 01/11/2024 Echocardiogram completed, shows LVEF 55%, elevated tricuspid regurgitation velocity 3.30 M per S, RSV 50. Mildly dilated RA. Normal valves. Dr. Brito - hybrid procedure is a viable option. Unable to revascularize right iliac/common femoral calcified occlusion. Dr. Malloy consulted - percutaneous revascularization of right lower extremity not technically feasible, will consider femorofemoral bypass after AAA stenting accomplished Blood pressure control, SBP <120s mmHg. IV labetalol Q2hr PRN for SBP >150mmhg., IV lasix 20mg bid Dr. Anderson - Patient will require EVAR and fem-fem bypass per Dr Anderson. Planned 02/13/24. Procedure cancelled given elevated WBC count, and pending stress test Severe peripheral artery disease in right lower extremity Duplex ultrasound completed, shows severe PAD in the right lower extremity Patient underwent right leg revascularization by Dr. Brito - unable to revascularize right iliac/common femoral due to a calcified occlusion. On prophylactic heparin dose Left lower extremities unremarkable for PAD Starting atorvastatin 40 mg p.o. daily Consider aspirin 81 mg after definitive treatment for aneurysm Moderate pulmonary arterial hypertension Holding sildenafil 20 mg PO TID given the low blood pressure We will reschedule Cardiolite for Monday Community-acquired pneumonia, Gram-positive and negative Started on ceftriaxone starting 02/09, continue azithromycin starting 02/07 Sputum culture with induction pending Influenza and COVID negative MRSA screen is pending Ruled out PE / DVT CT Angio chest completed, shows no evidence of a pulmonary arterial filling defect to suggest pulmonary embolism. LE doppler unremarkable D Dimer elevated at 1.30 CTA chest pending to rule out PE. 250cc IV NS afterwards. COPD - exacerbation on 6-[address] without contrast 02/06 shows Advanced smoking related lung disease, emphysematous changes in both lungs. There is subpleural reticulaton and septal thickening in the lung bases. There is atelectasis scarring in the lung bases. Continue nebulized treatment with levalbuterol and ipratropium q.6 hour Started methylprednisolone 40mg IV BID starting 02/07/2024 Azithromycin started 02/07 for 5 days B/L atelectasis in lung bases Incentive spirometry Q1hr Left inguinal hernia-manually reducible, soft, nontender CT abdomen shows left inguinal hernia containing fat and small bowel. Outpatient workup advised History of severe emphysema - controlled Continue nebulized treatment with levalbuterol and ipratropium q.6 [address]. Right femoral hernia CT abdomen shows right femoral hernia containing small bowel. No definite acute obstruction Sigmoid diverticulosis without acute diverticulitis Monitor Bilateral renal cysts including 22 cm left cortical renal cyst Monitor History of COVID-19 infection COVID-19 testing negative Chronic nicotine dependence Re-Counseled regarding cessation for 18 minutes Diet Cardiac diet DVT ppx Heparin 5000 SC Q8hr GERD ppx Famotidine 40mg daily 120 minutes of critical care time Goals of care discussed with the patient for more 20 minutes, full code status. Plan discussed with Dr. Lee. Cardiolite stress test results pending Dr. Anderson on the case. Surgery cancelled given elevated WBC count, and pending stress test. Transfer to [facility] pending. Discussed in details regarding prognosis and the risk of open surgery for the repair of AAA. Advanced directives to be given by patient's daughter Raiza Iyer and Tamia Sexton, as per the patient's wishes. Risks of procedure explained including , and acute renal failure requiring hemodialysis re- discussed with the patient and his family by Dr. Lee. Plan discussed with: Patient, Daughter, Other (RN) My Orders My Orders Orders - MAYI BINGHAM RESIDENT Procedure Category Date Status Time Azithromycin 500mg/ PHA 02/12/24 In Process 250ml (Zithromax 50 10:00 Ceftriaxone 1gm/50ml PHA 02/12/24 In Process D5w (Rocephin) 09:00 Npo After Midnight DIET 02/11/24 Transmitted Dinner Dietary Evaluation Review Comments: follow the cardiac 2gNa Lofat LoCholel diet. Monitor PO intake to meet 75% of his needs Expected Outcomes/Goals: Improved health and well being. avoid unwanted weight loss. Critical Care Time (mins): 120 Addendum Addendum Addendum I was physically present for the [place] portions of the service provided to patient by THE RESIDENT. I have reviewed the documentation, discussed the case with resident and agree with the resident's documentation except as noted. Also the patient's clinical case was discussed with the patient's nurse. This medical document was created using an electronic medical record system with computerized dictation system. Although this document has been carefully reviewed, there might still be some phonetic and typographical errors. These areas are purely typographical due to imperfections of the software programs, and do not reflect any compromise in the patient's medical care. Late signature. Date of Service: Feb 12, 2024 Billing Provider: VITALIY LEE MD Common Visit Codes: 36252-XBMHUOTN CARE 30-74 MIN (120 minutes), 10367-WVCNYELH CARE-EACH +30MIN Secondary Visit Codes: 74975-VKPZP CHNG SMOKING >10MIN (18 minutes), 02268- ADVANCED CARE PLAN 30 MINUTES (20 minutes) MAYI BINGHAM RESIDENT Feb 12, 2024 11:13 VITALIY LEE MD Feb 13, 2024 05:37
--- NOTE | 2024-02-12 13:14 | DVHPN2 ---
Progress Note Date Seen: Feb 12, 2024 Has the PT tested + for MRSA If YES, has PT been informed?: No Medical Necessity Reason Pt with a Central, PICC or Fol: No Subjective Patient reports: No new complaints Review of Systems: HEENT:Normal, CVS:Normal, RESPIRATORY:Normal, GI:Normal, :Normal, MSK:Normal, NEURO:Normal Objective vital signs Vital Sign Date Time Temp Pulse Resp B/P (MAP) Pulse Ox O2 Delivery O2 Flow Rate FiO2 02/12/24 13:00 94 Nasal Cannula* 4 36 02/12/24 13:00 54 16 02/12/24 11:00 101/67 (78) 02/12/24 09:00 97.6 97.6 Total Intake and Output 02/11/24 02/11/24 02/12/24 15:00 23:00 07:00 Intake Total 300 ml 440 ml 480 ml Output Total 250 ml 700 ml 600 ml Balance 50 ml -260 ml -120 ml medications Current Medications Medications Dose Ordered Sig/Juan David Route Start Time Stop Time Status Last Admin Dose Admin Sodium Chloride 10 ml Q8HR IV 01/30/24 22:00 02/12/24 05:21 10 ML Lorazepam 0.5 mg Q6HP PRN PO 01/30/24 16:30 Acetaminophen 650 mg Q6HP PRN PO 01/30/24 16:30 02/11/24 16:59 650 MG Ondansetron HCl 4 mg Q4HP PRN IV 01/30/24 16:30 02/08/24 19:53 4 MG Nitroglycerin 0.4 mg Q5MINP PRN SL 01/30/24 16:30 Hold Atorvastatin Calcium 40 mg HS PO 01/31/24 22:00 02/11/24 21:07 40 MG Ipratropium [place] 0.5 mg Q6HPRN PRN NEB 01/30/24 22:45 02/12/24 00:29 0.5 MG Levalbuterol HCl 0.625 mg Q6HR NEB 01/31/24 00:00 02/12/24 13:00 0.625 MG Labetalol HCl 5 mg Q2HPRN PRN IV 02/01/24 07:15 Melatonin 5 mg HS PO 02/04/24 22:00 02/12/24 03:07 5 MG Heparin Sodium (Porcine) 5,000 units Q8HR SC 02/05/24 06:00 02/12/24 05:22 5,000 UNITS Famotidine 40 mg DAILY PO 02/08/24 10:00 02/12/24 09:25 40 MG Furosemide 20 mg DAILY IV 02/09/24 10:00 02/12/24 09:24 20 MG Sildenafil Citrate 20 mg TID@08,14,20 PO 02/09/24 14:00 02/11/24 14:02 20 MG Docusate Sodium 100 mg BIDPRN PRN PO 02/10/24 10:30 02/10/24 15:02 100 MG Azithromycin 250 ml @ 125 mls/hr DAILY IV 02/12/24 10:00 02/12/24 23:59 02/12/24 09:24 125 MLS/HR Ceftriaxone Sodium 50 ml @ 100 mls/hr DAILY@09 IV 02/12/24 09:00 02/14/24 23:59 02/12/24 09:22 100 MLS/HR Prednisone 40 mg DAILY PO 02/12/24 10:00 Examination: GENERAL:Normal, HEENT:Normal, NECK:Normal, LUNGS:Normal, CVS:Normal, ABDOMEN:Normal, ABDOMEN:Abnormal (pulsatile abd. mass), MSK:Normal, SKIN:Normal, NEURO:Normal, :Normal laboratory and microbiology Laboratory Tests 02/12/24 10:14 Test 02/12/24 10:14 Range/Units Serum Glucose 185 H 74-106 mg/dL Microbiology Date/Time Source Procedure Growth Status 02/01/24 05:45 Nose MRSA Screen - Final Complete Problem List/Assessment/Plan Problem List/Assessment/Plan AAA with occluded right SAM. Will require EVAR and FEm-fem bypass. Planned 02/13/24 canceled due to elevated white count and pending stress test Needs pulmonary and Cardiac clearance. Check BC x 2, urine culture, cxr Discussed with resident and nurse Plan discussed with: Patient, Daughter My Orders My Orders Orders - RUTH RODARTE Jr., MD Procedure Category Date Status Time Chest Portable XY 02/12/24 Logged 12:54 Blood Culture TARIQ 02/12/24 Logged 12:54 Urine Bacterial TARIQ 02/12/24 Uncollected Culture 12:54 Dietary Evaluation Review Comments: follow the cardiac 2gNa Lofat LoCholel diet. Monitor PO intake to meet 75% of his needs Expected Outcomes/Goals: Improved health and well being. avoid unwanted weight loss. RUTH RODARTE Jr., MD Feb 12, 2024 13:14
[2024-02-12] MEDS: REGADENOSON 0.4 MG/5 ML SYRG IV ONE ×2 (14:08→14:25)
--- NOTE | 2024-02-12 16:25 | DVHDSRES ---
Discharge Summary Date of Admission Resident Creating Document: MAYI BINGHAM RESIDENT Jan 30, 2024 at 16:25 Date of Discharge: Feb 12, 2024 (Discharge was planned for February 12, 2024; did not happen as explained below) Admitting Diagnosis Back pain and hx of AAA Labs/Diagnostic Data: Laboratory Results Test 02/12/24 10:14 02/10/24 16:17 02/06/24 11:54 02/06/24 04:50 White Blood Count 15.5 10^3/uL (4.4-10.8) Red Blood Count 5.15 10^6/uL (4.5-5.90) Hemoglobin 14.5 g/dL (13.5-17.5) Hematocrit 44.5 % (41.0-53.0) Mean Corpuscular Volume 86.5 fL (80.0-100.0) Mean Corpuscular Hemoglobin 28.2 pg (28.0-32.0) Mean Corpuscular Hemoglobin Concent 32.7 g/dL (32.0-36.0) Red Cell Distribution Width 14.8 % (11.8-14.3) Platelet Count 252 10^3/uL (140-450) Mean Platelet Volume 8.6 fL (6.9-10.8) Neutrophils (%) (Auto) 83.7 % (37.0-80.0) Lymphocytes (%) (Auto) 7.9 % (10.0-50.0) Monocytes (%) (Auto) 8.3 % (0.0-12.0) Eosinophils (%) (Auto) 0.1 % (0.0-7.0) Basophils (%) (Auto) 0.0 % (0.0-2.0) Neutrophils # (Auto) 13.0 10 ^3/uL (1.6-8.6) Lymphocytes # (Auto) 1.2 10 ^3/uL (0.4-5.4) Monocytes # (Auto) 1.3 10 ^3/uL (0-1.3) Eosinophils # (Auto) 0 10 ^3/uL (0-0.8) Basophils # (Auto) 0 10 ^3/uL (0-0.2) Nucleated Red Blood Cells 0.0 % Sodium Level 139 mmol/L (136-145) Potassium Level 5.1 mmol/L (3.5-5.1) Chloride Level 102 mmol/L (98-107) Carbon Dioxide Level 33 mmol/L (20-31) Anion Gap 4 (5-15) Blood Urea Nitrogen 28 mg/dL (9-23) Creatinine 1.13 mg/dL (0.700-1.30) Glomerular Filtration Rate Calc 66 mL/min (>90) BUN/Creatinine Ratio 24.8 (10.0-20.0) Serum Glucose 185 mg/dL (74-106) Calcium Level 9.7 mg/dL (8.7-10.4) Magnesium Level 2.5 mg/dL (1.6-2.6) Influenza Type A Antigen Negative (Negative) Influenza Type B Antigen Negative (Negative) D-Dimer, Quantitative 2.30 mg/L FEU (0.0-0.49) Troponin I High Sensitivity 6 ng/L (</=54) Prothrombin Time 11.0 sec (9.3-11.8) Prothrombin Time INR 1.04 (0.9-1.15) Activated Partial Thromboplast Time 30.2 SEC (24.5-34.5) B-Type Natriuretic Peptide 49.28 pg/mL (0-100) Test 02/05/24 04:44 02/01/24 03:30 01/30/24 22:55 01/30/24 22:50 Total Bilirubin 0.7 mg/dL (0.2-1.0) Aspartate Amino Transferase (AST) 25 U/L (13-40) Alanine Aminotransferase (ALT) 34 U/L (7-40) Alkaline Phosphatase 112 U/L (46-116) Total Protein 6.3 g/dL (5.7-8.2) Albumin 4.1 g/dL (3.2-4.8) Free Thyroxine (T4) Calculated 1.04 ng/dL (0.89-1.76) Free Triiodothyronine (T3) pg/mL 2.69 pg/mL (2.3-4.2) Hemoglobin A1c 5.2 % A1C (<5.7) Vitamin B12 Level 612 pg/mL (211-911) Vitamin D 25-Hydroxy 75.7 ng/mL (30.0-100) Thyroid Stimulating Hormone (TSH) 17.59 uIU/mL (0.55-4.78) Urine Opiates Screen Neg (NEGATIVE) Urine Fentanyl Screen Neg (NEGATIVE) Urine Barbiturates Screen Neg (NEGATIVE) Urine Phencyclidine Screen Neg (NEGATIVE) Urine Amphetamines Screen Neg (NEGATIVE) Urine Benzodiazepines Screen Neg (NEGATIVE) Urine Cocaine Screen Neg (NEGATIVE) Urine Cannabinoids Screen Neg (NEGATIVE) Test 01/30/24 22:40 01/30/24 10:11 SARS-CoV-2 Antigen (Rapid) Negative (NEGATIVE) Urine Color Yellow (Yellow) Urine Clarity Clear (Clear) Urine pH 5.5 (5.0-9.0) Urine Specific Mouthcard 1.014 (1.001-1.035) Urine Protein Negative (Negative) Urine Ketones Negative (Negative) Urine Blood Negative /uL (Negative) Urine Nitrite Negative (Negative) Urine Bilirubin Negative (Negative) Urine Urobilinogen Normal mg/dL (Negative) Urine Leukocyte Esterase Negative /uL (Negative) Urine RBC 1 /hpf (0 - 3) Urine WBC <1 /hpf (0 - 3) Urine Squamous Epithelial Cells Few /hpf (<5) Urine Bacteria None seen /hpf (None Seen) Urine Mucus Few (None Seen) Urine Glucose Normal mg/dL (Normal) Other Laboratory Tests 02/12/24 10:14 Brief Hx & Hospital Course: This is a 78-year-old male patient with PMHx of chronic nicotine dependence, abdominal aortic aneurysm diagnosed February 2023, history of pneumonia and pleural effusion who presented to the ER with the chief complaint of lower back pain starting 01/23/2024. Patient reports worsening lower back pain which is pressure-like in nature, constant and 10/10 in intensity located in the lumbar region, no radiation. The pain worsened yesterday therefore patient decided to come into the ER. He has a history of abdominal aortic aneurysm diagnosed in February [address] scan. A recent CT abdomen pelvis without contrast for abdominal hernia was completed by patient's primary care physician on 01/11/2024 which showed 5.8 cm infrarenal abdominal aortic aneurysm with suspected intramural hematoma or thrombus. Patient also has a history of left-sided inguinal hernia for the past 2 months which is not affecting his daily life activities. Past Medical History: chronic nicotine dependence, abdominal aortic aneurysm diagnosed February 2023, history of pneumonia and pleural effusion, inguinal hernia Past Surgical History: None Family History: None Social history: Smokes 1 pack per day (For the past 50 years, quit 9 months back), drinks alcohol occasionally, denies illicit drug use. Patient lives with and son. During the hospital stay, CT angio of the aortic abdominal was completed 01/17 which showed Infrarenal abdominal aortic aneurysm measuring up to 67mm with a large amount of mural thrombus. 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 Numerous bilateral renal cysts including a very large left renal cyst measuring up to 220mm. Left inguinal hernia containing fat and small bowel. Right femoral hernia containing small bowel. No definite acute obstruction. Some level of chronic obstruction may be present. Consequently venous Doppler and duplex arterial bilateral lower extremities was completed which showed Severe peripheral arterial disease in the right lower extremity. No hemodynamically significant stenosis noted in the left lower extremity. Venous Doppler was unremarkable for right or left femoropopliteal venous thrombosis. Focuser Dr Brito and surgeon Dr Perez was consulted and patient was scheduled for right lower extremity angiogram which the patient underwent 02/01. Dr. Hoff - unable to revascularize right iliac/common femoral due to a calcified occlusion. Heparin discontinued by crossing tender. 02/02 - Right lower extremity examined for tenderness/swelling/bruising-unremarkable. Auscultation at catheter site unremarkable. Continuing cardiac diet. Case was discussed with the family in detail including the prognosis and the risk of open surgery for the repair of AAA. Per patient, Advanced directives to be given by patient's daughter Soco Iyer and Tamia Sexton. For a 2nd opinion, endovascular surgeon Dr. Chakraborty was consulted who recommended the need of possible EVAR and fem-fem bypass. Risks of procedure explained including , and acute renal failure requiring hemodialysis were discussed with the patient's family. To optimize his pulmonary function and given his advanced oxygen requirement, a CT angio chest was completed which showed no evidence of a pulmonary arterial filling defect to suggest pulmonary embolism. Patient's EVAR and fem-fem bypass was planned for 02/12 and Pulmonary and cardiac clearance was needed therefore Dr. Brito ordered stress echocardiogram which the patient is unable to perform given a severe shortness of breath. Focuser started sildenafil 20 mg TID given the probability of moderate pulmonary arterial hypertension and is Cardiolite stress test was rescheduled for 02/11. Sildenafil could not be administered given the low blood pressure. A CT chest without contrast was completed 02/06 which showed Advanced smoking related lung disease similar to prior exam. No definite suspicious pulmonary nodule identified. Patient required up to 10 L oxygen supplementation via Oxymizer and therefore he was diagnosed at CPAP the exacerbation and report IV azithromycin starting 02/07 to 02/11. Patient received continue nebulized treatment with levalbuterol and ipratropium q.6 hour. Also received methylprednisolone 40 mg IV b.i.d. starting 02/06 which was later switched to prednisolone 40 mg p.o. daily. Patient was diagnosed with left inguinal hernia which was manually reducible, soft and nontender. A right femoral hernia with also noticed on CT abdomen. Patient was advised outpatient workup. Furthermore, he was diagnosed with a renal cyst of 22 cm in the left cortical kidney for which outpatient workup was advised. Throughout the hospital stay, patient received continuous physical therapy, incentive spirometry and prophylactic heparin 5000 units q.8 hours. 02/12/2024 - endovascular surgeon Dr. hCakraborty canceled the procedure given the elevated white cell count and pending stress test. Given that the patient is accepted for transfer at [facility], we will transfer the patient for higher level of care. He is clinically/hemodynamically stable to be transferred. Examination on the day of discharge General Appearance: Alert, Oriented X4, Cooperative, No acute distress, Other (Bulgarian speaking elderly pleasant male patient lying comfortably in the bed in ER) Respiratory: Clear to auscultation, decreased bilateral air movement, Other (Saturating 96 on Oxymizer 5L) Cardiovascular: Regular rate, Normal S1, Normal S2, No murmurs Abdominal: Normal bowel sounds, Soft, No tenderness, Other (R inguinal dressing removed. Surgical site is clean and intact. Left-sided inguinal hernia seen bulging with cough reflex, manually reducible but comes back, soft, nontender, not extending into the scrotum) Extremities: No edema, pulses are feeble B/L in LE, No tenderness/swelling. Midline tenderness in the lumbar spine. Neuro: Normal speech, Strength at 5/5 X4 ext, Normal tone, Sensation intact Psych/Mental Status: A/Ox4 Case discussed with Dr. Lee Consults/Reason for consult Cardiology Dr. Brito, surgeon Dr. Hough and Dr Chakraborty, anesthesiologist Dr. Morse Operations or Procedures ORDERING PHYSICIAN: ALEKSANDER WATTS NP PROCEDURE(s): ANGAC - ANGIO AORTIC ABDOMINAL REASON: 5.8CM INFRA RENAL ABD ANEURYSM W/ SUSPECTED INTRAMURAL HEMAT ORDER NUMBER(s): [id number], ACCESSION NUMBER(s): [id number] Procedure: CT ANGIO AORTIC ABDOMINAL HISTORY: 5.8CM INFRA RENAL ABD ANEURYSM W/ SUSPECTED INTRAMURAL HEMAT Comparison Study: None Exam Date:01/30/2024 11:53 AM TECHNIQUE: CTA scanner volumetric data acquisition of abdomen and pelvis was obtained following intravenous administration of intravenous contrast without any reported adverse effects. Axial images were reconstructed and additional sagittal and coronal images were reformatted. Arterial phase imaging were performed. Postprocessing was also performed on a separate workstation. 3D images were performed on a dedicated workstation and reviewed for reporting. Radiation dose : CT Dose: CTDI volume is 20.6 mGy. Dose-length product is 1281.08 mGy*cm FINDINGS: Vascular: Aortic measurements: aortic hiatus 26 mm, suprarenal abdominal aorta 25 mm and infrarenal aorta 67 X 64 mm. There is a moderate to large amount of mural thrombus in the infrarenal abdominal aortic aneurysm. Right common and external iliac artery are occluded. The mesenteric, bilateral renal, left iliac and femoral arteries are widely patent without any focal stenosis or aneurysm. Lung Bases: Atelectasis and scarring in the lung bases. Liver: The liver is normal in size. No focal lesions. Normal hepatic vascular enhancement. Gallbladder and biliary Tree: Unremarkable Spleen: Unremarkable Pancreas: The pancreas is normal in appearance without focal lesions or abnormal enhancement. Adrenal Glands: Unremarkable Kidneys: Bilateral renal cysts. Largest on the left measures up to 220mm. No hydroneprhosis. Bladder: Unremarkable Bowel: The stomach is grossly normal in appearance. Small bowel and colon are normal in caliber and distribution. Normal appendix is visualized in the right lower quadrant without findings of appendicitis. Ascites: Absent Lymphadenopathy: No mesenteric, retroperitoneal or periportal lymphadenopathy. Abdominal Wall and Mesentery: Fat and small bowel containing left inguinal hernia. Small bowel containing right femoral hernia. Vasculature: See above Pelvic Organs: Prostate is enlarged. Musculoskeletal: Compression of formality of L4. Multilevel degenerative disease. IMPRESSION: 1. Infrarenal abdominal aortic aneurysm measuring up to 67mm with a large amount of mural thrombus. 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 Vascular surgery evaluation is recommended. 2. Numerous bilateral renal cysts including a very large left renal cyst measuring up to 220mm. 3. Left inguinal hernia containing fat and small bowel. Right femoral hernia containing small bowel. No definite acute obstruction. Some level of chronic obstruction may be present. HS:Y ATED BY: VOLODYMYR BOWLES MD DICTATED DATE/TIME: 01/30/241226 SIGNED BY: VOLODYMYR BOWLES MD SIGNED DATE/TIME: 01/30/241226 CC: ORDERING PHYSICIAN: MAYI BINGHAM RESIDENT PROCEDURE(s): BLEAD - BiLat Low Ext Art Duplex REASON: PVD ORDER NUMBER(s): [id number], ACCESSION NUMBER(s): [id number] EXAM: US BILAT LOW EXT ART DUPLEX HISTORY: PVD COMPARISON: CT angiogram dated 01/30/2024 TECHNIQUE: Realtime grayscale and Doppler ultrasound images of the lower extremity arteries with spectral waveform analysis were obtained. FINDINGS: RIGHT: Mild atherosclerotic plaque identified. No hemodynamically significant stenosis noted. Monophasic waveforms are seen throughout the lower extremity arteries . Peak systolic velocities measure up to 33 centimeter/second in the common femoral artery, 28 cm 2nd in the superficial femoral artery, 17 centimeter/second in the popliteal artery, 17 centimeter/second in the posterior tibial artery, 15 centimeter/second in the anterior tibial artery and 14 cm/s in the dorsalis pedis artery. LEFT: Mild atherosclerotic plaque identified. Multiphasic waveforms are seen throughout the lower extremity arteries. Peak systolic velocities measure up to 82 centimeter/second in the common femoral artery, 65 centimeter/second in the superficial femoral artery, 45 centimeter/second in the popliteal artery, 60 centimeter/second posterior tibial artery and 31 centimeter/second in the anterior tibial artery 30 cm 2nd in dorsalis pedis artery. IMPRESSION: 1. Severe peripheral arterial disease in the right lower extremity. All of the arteries show monophasic waveform and there is significant reduction in peak systolic velocities measuring up to 33 centimeter/second. This corresponds to occlusion of the right common and external iliac arteries reported in CT angiogram performed earlier today. 2. No hemodynamically significant stenosis noted in the left lower extremity. REFERENCE VALUES, [facility] ([facility]) vascular Imaging Lab Criteria: Peak systolic velocity ranges (in cm/sec) are as follows: <150 cm/s - <20 % stenosis 150-200 cm/s - 20-49% stenosis 200-300 cm/s - 50-75% stenosis >300 cm/s -> 75% stenosis ATED BY: PERI SERRANO MD DICTATED DATE/TIME: 01/30/241719 SIGNED BY: PERI SERRANO MD SIGNED DATE/TIME: 01/30/241719 CC: ORDERING PHYSICIAN: MAYI BINGHAM PROCEDURE(s): CXR1 - CHEST XRAY 1 VIEW REASON: pna? ORDER NUMBER(s): [id number], ACCESSION NUMBER(s): [id number] EXAM: XY CHEST XRAY 1 VIEW CLINICAL HISTORY: pna TECHNIQUE: Single AP view of the chest WID: COMPARISON: 02/27/2023 FINDINGS: Lines and tubes: None Chest: The heart size and pulmonary vasculature is within normal limits. Calcified plaque projects over the aortic arch. Hyperexpansion of the lungs with relative lucency in the upper lungs and scattered areas of linear scarring in the mid to lower lungs. No superimposed airspace consolidation. No pneumothorax or pleural effusion. The osseous structures are grossly intact. IMPRESSION: 1. COPD/emphysema. 2. No definite superimposed pneumonia. ATED BY: NADIA ALLEN MD DICTATED DATE/TIME: 01/31/24116 SIGNED BY: NADIA ALLEN MD SIGNED DATE/TIME: 01/31/24116 ORDERING PHYSICIAN: ROOSEVELT WEST PROCEDURE(s): BLDVT - BiLat Lower DVT REASON: rule out DVT ORDER NUMBER(s): [id number], ACCESSION NUMBER(s): [id number] Bilateral lower extremity venous duplex Clinical History: edema Comparison: US BILAT LOW EXT ART DUPLEX on DOS: 10/22/24 Technique: Duplex Doppler evaluation of the deep venous systems of both lower extremities from the common femoral veins to the popliteal veins including color Doppler and spectral/pulsed waveform analysis was performed. Findings: RIGHT SIDE: The common femoral vein demonstrates appropriate compressibility and waveform variability. There is compressibility/patency of the great saphenous vein at the proximal thigh. The femoral vein demonstrates appropriate compressibility and waveform variability. The deep femoral vein demonstrates appropriate compressibility and waveform variability. The popliteal vein demonstrates appropriate compressibility and waveform variability. There is normal compressibility at the tibioperoneal trunk. LEFT SIDE: The common femoral vein demonstrates appropriate compressibility and waveform variability. There is compressibility/patency of the great saphenous vein at the proximal thigh. The femoral vein demonstrates appropriate compressibility and waveform variability. The deep femoral vein demonstrates appropriate compressibility and waveform variability. The popliteal vein demonstrates appropriate compressibility and waveform variability. There is normal compressibility at the tibioperoneal trunk. Impression: No right or left femoropopliteal venous thrombosis. ATED BY: FRAN PELAEZ MD DICTATED DATE/TIME: 02/06/24928 SIGNED BY: FRAN PELAEZ MD SIGNED DATE/TIME: 02/06/24928 CC: ORDERING PHYSICIAN: MAYI BINGHAM RESIDENT PROCEDURE(s): CTACH - CT ANGIO CHEST CONTRAST REASON: rule out PE ORDER NUMBER(s): [id number], ACCESSION NUMBER(s): [id number] CTA CHEST INDICATION: rule out PE TECHNIQUE: Multidetector CTA of the chest was performed of the chest with 100 cc of intravenous contrast. PULMONARY ANGIOGRAPHY PROTOCOL was utilized using a bolus-tracking technique centered on the main pulmonary artery. Axial, coronal and sagittal multiplanar and MIP reformats were performed. Radiation Dose Information: CT Dose: CTDI volume is 29.6 mGy. Dose-length product is 523.03 mGy*cm The dose indicators for CT are the volume Computed Tomography (CT) Dose Index (CTDIvol) and the Dose Length Product (DLP), and are measured in units of mGy and mGy-cm, respectively. These indicators are not patient dose, but values generated from the CT scanner acquisition factors. The report includes radiation exposure data for exposures received during this examination. Comparison: 02/07/2024. Findings: There is no evidence of a pulmonary arterial filling defect to suggest pulmonary embolism. The main pulmonary artery and thoracic aorta demonstrate normal caliber. The heart size is within normal limits. There is no significant pericardial effusion. There is no evidence of a mediastinal mass or lymphadenopathy. There is no hilar or axillary lymphadenopathy. There are extensive centrilobular emphysematous changes in the lungs with areas of pleural-parenchymal scarring and chronic interstitial changes in the lower lungs similar to the prior study. There is no focal lung consolidation. There is no suspicious appearing pulmonary nodule or mass. The central airways are clear. There is no evidence of pleural effusion or pneumothorax. There is a small to moderate size hiatal hernia. There is partial visualization of a large cyst in the left upper quadrant abdomen. The remaining visualized solid intra-abdominal viscera appears within normal limits. There are multilevel degenerative changes in the thoracic spine. IMPRESSION: 1. There is no evidence of a pulmonary arterial filling defect to suggest pulmonary embolism. 2. Redemonstrated are extensive centrilobular emphysematous changes in the lungs. There is no lung consolidation, suspicious appearing pulmonary nodule or mass. HS:Y ATED BY: DELPHINE SINGH MD DICTATED DATE/TIME: 02/08/24811 SIGNED BY: DELPHINE SINGH MD SIGNED DATE/TIME: 02/08/24811 CC: Condition at Discharge: Stable Final Diagnosis/Problems List Infrarenal AAA with occluded right SAM with intramural thrombus Severe peripheral artery disease in right lower extremity Moderate pulmonary arterial hypertension Community-acquired pneumonia, Gram-positive and negative Ruled out PE / DVT COPD - exacerbation on 6-8 L oximizer B/L atlectasis in lung bases Left inguinal hernia-manually reducible, soft, nontender History of severe emphysema - controlled Right femoral hernia Sigmoid diverticulosis without acute diverticulitis Bilateral renal cysts including 22 cm left cortical renal cyst History of COVID-19 infection Chronic nicotine dependence Discharge Disposition: Acute Care Facility Discharge Instruct/Medications Activity: Light activity Follow Up/Referral: Follow up with primary care physician, crossing tender within 1-2 weeks of discharge. Medications: Per EMR Discharge Statement: "Patient was advised to return to the ER or call 911 if any headaches, dizziness, shortness of breath, chest pain, abdominal pain, bleeding, fevers, or worsening of medical condition. Patient was counseled about treatment plan, medications, possible side effects, patientverbalized understanding. All questions were answered to the best of my ability. This discharge took greater then 30 minutes in planning, reviewing documentation, counseling the patient, and discussing with other team members." ASSESSMENT ASSESSMENT Assessment Addendum Addendum Addendum I was physically present for the whitehead portions of the service provided to patient by THE RESIDENT. I have reviewed the documentation, discussed the case with resident and agree with the resident's documentation except as noted. Also the patient's clinical case was discussed with the patient's nurse. This medical document was created using an electronic medical record system with computerized dictation system. Although this document has been carefully reviewed, there might still be some phonetic and typographical errors. These areas are purely typographical due to imperfections of the software programs, and do not reflect any compromise in the patient's medical care. Late signature. The patient was not discharged as [facility] declined transfer as documented by Clinical Pharmacy Manager: "User: Radha Dash RN CM Date: 02/12/24 18:14 Type: Clinical Pharmacy Manager Notes - I faxed higher level of care to [facility], [facility] and [facility]. User: Radha Dash RN CM Date: 02/12/24 17:23 Type: Clinical Pharmacy Manager Notes - I received order to transfer to higher level of care. I called the [facility] [phone] and spoke with Nu. Per Nu since the transfer has been "'on hold" for so long that her MD is now declining to accept patient and doesn't think patient needs vascular surgery. Patient would need to be admitted under their "medical doctor" and they are at capacity and can not accept patient at this time." Date of Service: Feb 12, 2024 Billing Provider: VITALIY LEE MD Common Visit Codes: 69395-BTZ/OBS DISCH DAY >30min MAYI BINGHAM RESIDENT Feb 12, 2024 16:25 VITALIY LEE MD Feb 13, 2024 05:42
--- NOTE | 2024-02-12 16:54 | DVH ---
EXAM: XR Chest, 1 View CLINICAL INDICATION: Increasing WBC TECHNIQUE: Frontal view of the chest. COMPARISON: XY CHEST PORTABLE on DOS: 02/10/24, XY CHEST PORTABLE on DOS: 02/05/24, XY CHEST XRAY 1 VIEW on DOS: 01/30/24 FINDINGS: LUNGS AND PLEURAL SPACES: Bibasilar atelectasis or pneumonia. No pneumothorax. HEART: Unremarkable. No cardiomegaly. MEDIASTINUM: Unremarkable. Normal mediastinal contour. BONES/JOINTS: Unremarkable. No acute fracture. OTHER FINDINGS: . . IMPRESSION: Bibasilar atelectasis or pneumonia. HS:Y
[2024-02-13] VITALS (62 sets, daily range): BP systolic 79–135; BP diastolic 37–77; PULSE 53–87; RESP 15–26; TEMP 97.3–97.7; O2SAT 87–100
--- NOTE | 2024-02-13 13:38 | DVHPN2 ---
Progress Note - Dictate Date Seen: Feb 13, 2024 Has the PT tested + for MRSA If YES, has PT been informed?: No Medical Necessity Reason Pt with a Central, PICC or Fol: No Subjective PT WITH COPD CONTINUED TOBACCO USE NOW WITH LOWER BACK PAIM CTA OF ABD 1. Infrarenal abdominal aortic aneurysm measuring up to 67mm with a large amount of mural thrombus. 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 Vascular surgery evaluation is recommended. 2. Numerous bilateral renal cysts including a very large left renal cyst measuring up to 220mm. 3. Left inguinal hernia containing fat and small bowel. Right femoral hernia containing small bowel. No definite acute obstruction. Some level of chronic obstruction may be present. vital signs Vital Sign Date Time Temp Pulse Resp B/P (MAP) Pulse Ox O2 Delivery O2 Flow Rate FiO2 02/13/24 12:16 55 20 97 02/13/24 12:00 97.5 98/65 (76) 97.5 02/13/24 10:00 Nasal Cannula* 4 36 Total Intake and Output 02/12/24 02/12/24 02/13/24 14:59 22:59 06:59 Intake Total 450 ml 240 ml Output Total 225 ml 125 ml 200 ml Balance 225 ml -125 ml 40 ml medications Current Medications Medications Dose Ordered Sig/Juan David Route Start Time Stop Time Status Last Admin Dose Admin Sodium Chloride 10 ml Q8HR IV 01/30/24 22:00 02/13/24 05:12 10 ML Lorazepam 0.5 mg Q6HP PRN PO 01/30/24 16:30 Acetaminophen 650 mg Q6HP PRN PO 01/30/24 16:30 02/11/24 16:59 650 MG Ondansetron HCl 4 mg Q4HP PRN IV 01/30/24 16:30 02/08/24 19:53 4 MG Nitroglycerin 0.4 mg Q5MINP PRN SL 01/30/24 16:30 Hold Atorvastatin Calcium 40 mg HS PO 01/31/24 22:00 02/12/24 21:25 40 MG Ipratropium [place] 0.5 mg Q6HPRN PRN NEB 01/30/24 22:45 02/13/24 00:24 0.5 MG Levalbuterol HCl 0.625 mg Q6HR NEB 01/31/24 00:00 02/13/24 12:16 0.625 MG Labetalol HCl 5 mg Q2HPRN PRN IV 02/01/24 07:15 Melatonin 5 mg HS PO 02/04/24 22:00 02/12/24 21:25 5 MG Heparin Sodium (Porcine) 5,000 units Q8HR SC 02/05/24 06:00 02/13/24 05:13 5,000 UNITS Famotidine 40 mg DAILY PO 02/08/24 10:00 02/13/24 08:16 40 MG Sildenafil Citrate 20 mg TID@08,14,20 PO 02/09/24 14:00 02/13/24 08:15 20 MG Docusate Sodium 100 mg BIDPRN PRN PO 02/10/24 10:30 02/10/24 15:02 100 MG Ceftriaxone Sodium 50 ml @ 100 mls/hr DAILY@09 IV 02/12/24 09:00 02/14/24 23:59 02/13/24 08:17 100 MLS/HR Prednisone 40 mg DAILY PO 02/12/24 10:00 02/13/24 08:16 40 MG Furosemide 20 mg DAILY PO 02/14/24 10:00 laboratory and microbiology Laboratory Tests 02/13/24 05:06 02/12/24 10:14 Test 02/12/24 10:14 Range/Units Serum Glucose 185 H 74-106 mg/dL Problem List AAA COPD Assessment/Plan LE ARTERIAL DOPPLER SCHEDULE FOR ANGIOGRAM WITH STENT GRAFT IF PATIENT ANATOMY IS APPROPRIATE FOR STENT GRAFT HYBRID pt RENAL MEASUREMENT conducive to STENT GRAFT BUT RIGHT LEG NEEDS REVASCULARIZATION SCHEDULE FOR RIGHT LEG INTERVENTION 02/02/24 DISCUSSED WITH DAUGHTERS UNABLE TO REVASCULARIZE RIGHT ILIAC / COMMON FEMORAL CALCIFIED OCCLUSION SURGICAL OPTION HYBRID PROCEDURE IS A VIABLE OPTION TRANSFER TO [facility] SINCE WE ARE NOT ABLE TO DO A HYBRID PROCEDURE echo stress cardiolite risk stratification unable to perform cardiolite because severe sob echo ef 55% mod pah START REVATIO DIURESIS WILL RESCHEDULE CARDIOLITE ON MONDAY Dietary Evaluation Review Comments: follow the cardiac 2gNa Lofat LoCholel diet. Monitor PO intake to meet 75% of his needs Expected Outcomes/Goals: Improved health and well being. avoid unwanted weight loss. Plan discussed with: Patient UJAN DANIEL GARCIA MD Feb 13, 2024 13:38
--- NOTE | 2024-02-13 15:18 | DVHPNRES ---
Progress Note Date Seen: Feb 13, 2024 Resident Creating Document: MAYI BINGHAM RESIDENT Has the PT tested + for MRSA If YES, has PT been informed?: No Medical Necessity Reason Pt with a Central, PICC or Fol: No Subjective Review of Systems This is a 78-year-old male patient with PMHx of chronic nicotine dependence, abdominal aortic aneurysm diagnosed February 2023, history of pneumonia and pleural effusion who presented to the ER with the chief complaint of lower back pain starting 01/23/2024. Patient reports worsening lower back pain which is pressure-like in nature, constant and 10/10 in intensity located in the lumbar region, no radiation. The pain worsened yesterday therefore patient decided to come into the ER. He has a history of abdominal aortic aneurysm diagnosed in February [address] scan. A recent CT abdomen pelvis without contrast for abdominal hernia was completed by patient's primary care physician on 01/11/2024 which showed 5.8 cm infrarenal abdominal aortic aneurysm with suspected intramural hematoma or thrombus. Patient also has a history of left-sided inguinal hernia for the past 2 months which is not affecting his daily life activities. Past Medical History: chronic nicotine dependence, abdominal aortic aneurysm diagnosed February 2023, history of pneumonia and pleural effusion, inguinal hernia Past Surgical History: None Family History: None Social history: Smokes 1 pack per day (For the past 50 years, quit 9 months back), drinks alcohol occasionally, denies illicit drug use. Patient lives with and son. 01/30 - Patient seen and examined in the ER bed 17. Reports mild back pain as compared to admission. Saturating 96% on 4 L NC. Family at bedside. 01/31 - patient seen and examined in the ICU bed 266. Reports no back pain. No acute distress. Saturating 94 on 4L Oxymizer. Scheduled for angiogram with a stent. Dr Brito - pt deminsion conducive to STENT GRAFT BUT RIGHT LEG NEEDS REVACULARIZATION. SCHEDULE FOR RIGHT LEG INTERVENTION 02/02/24. Pt NPO starting midnight 02/02/24 - patient underwent right leg revascularization by Dr. Hoff - unable to revascularize right iliac/common femoral due to a calcified occlusion. Heparin discontinued by marinator. 02/03/2024-patient reported back pain in the morning. Lester and Tylenol administered. Patient feels fine. Right lower extremity examined for tenderness/swelling/bruising-unremarkable. Auscultation at catheter site unremarkable. Continuing cardiac diet. 02/05/2024 - patient reports back pain, lumbar spinous tender on exam. Left inguinal hernia is tender but not erythematous and soft and reducible. Consulted Dr. Anderson. Discussed in details regarding prognosis and the risk of open surgery for the repair of AAA. Advanced directives to be given by patient's daughter Soco Iyer and Tamia Sexton, as per the patient's wishes. 02/06/2024 - Patient feels fine, no active complaint. Dr. Anderson recommended pulmonary evaluation and pulmonary therapy to improve lung status. We will review films further regarding possible EVAR and fem-fem bypass. This would be an elective setting once his pulmonary status has improved if he is a candidate for hybrid surgery. If he is not a candidate for habits surgery would recommend higher level of care for open repair. CT chest without contrast pending. D Dimer elevated. LE dopper negative 02/07/2024 - CT without contrast shows Advanced smoking related lung disease, emphysematous changes in both lungs. There is subpleural reticulaton and septal thickening in the lung bases. There is atelectasis scarring in the lung bases. Started methyprednisolone 80mg IV BID, Incentive spirometry Q1hr. CTA chest pending to rule out PE. 250cc IV NS afterwards. 02/08/2024 - CT Angio chest completed, shows no evidence of a pulmonary arterial filling defect to suggest pulmonary embolism. IV Lasix reduced to 20mg daily, methyprednisolone 40mg IV BID. Patient will require EVAR and FEm-fem bypass per Dr Anderson. Planned 02/13/24 Needs pulmonary and Cardiac clearance. DR. Brito ordered stress echo. Azithromycin IV started for 5 days, starting 02/0702/09/2024 - reports no active complaint. Practiced incentive spirometry with the patient and the nurse. Security Incident Response Specialist unable to perform Cardiolite stress test because of severe shortness of breath. Moderate PAH, started sildenafil 20 mg PO TID We will reschedule Cardiolite for Monday02/11/2024 - patient reports no acute distress. Holding sildenafil given the low blood pressure. 02/12/2024 - patient is having no acute complaint. Saturating 96 on 5 L Oxymizer, sitting on a chair comfortably. undergoing stress test today. Switched prednisolone IV to 40MG daily p.o. Surgery cancelled given elevated WBC count, and pending stress test, Check BC x 2, urine culture. CXR showing Bibasilar atelectasis vs infiltrates. Transfer to [facility] pending 02/13/2024 - patient feels fine, reports no active complaint. Family at bedside. Switched Lasix 20 mg b.i.d. IV to 20 mg once daily orally. Prelim urinary culture negative. Saturating 95 on 4 L oxygen via Oxymizer. Transfer counseled as Dr. Anderson is tentatively planning to do the surgery next Monday. Stress test was not done due to shortness of breaths Objective vital signs Vital Sign Date Time Temp Pulse Resp B/P (MAP) Pulse Ox O2 Delivery O2 Flow Rate FiO2 02/13/24 12:16 55 20 97 02/13/24 12:00 97.5 98/65 (76) 97.5 02/13/24 10:00 Nasal Cannula* 4 36 Total Intake and Output 02/12/24 02/12/24 02/13/24 15:00 23:00 07:00 Intake Total 450 ml 240 ml Output Total 225 ml 125 ml 200 ml Balance 225 ml -125 ml 40 ml medications Current Medications Medications Dose Ordered Sig/Juan David Route Start Time Stop Time Status Last Admin Dose Admin Sodium Chloride 10 ml Q8HR IV 01/30/24 22:00 02/13/24 05:12 10 ML Lorazepam 0.5 mg Q6HP PRN PO 01/30/24 16:30 Acetaminophen 650 mg Q6HP PRN PO 01/30/24 16:30 02/11/24 16:59 650 MG Ondansetron HCl 4 mg Q4HP PRN IV 01/30/24 16:30 02/08/24 19:53 4 MG Nitroglycerin 0.4 mg Q5MINP PRN SL 01/30/24 16:30 Hold Atorvastatin Calcium 40 mg HS PO 01/31/24 22:00 02/12/24 21:25 40 MG Ipratropium [place] 0.5 mg Q6HPRN PRN NEB 01/30/24 22:45 02/13/24 00:24 0.5 MG Levalbuterol HCl 0.625 mg Q6HR NEB 01/31/24 00:00 02/13/24 12:16 0.625 MG Labetalol HCl 5 mg Q2HPRN PRN IV 02/01/24 07:15 Melatonin 5 mg HS PO 02/04/24 22:00 02/12/24 21:25 5 MG Heparin Sodium (Porcine) 5,000 units Q8HR SC 02/05/24 06:00 02/13/24 05:13 5,000 UNITS Famotidine 40 mg DAILY PO 02/08/24 10:00 02/13/24 08:16 40 MG Sildenafil Citrate 20 mg TID@08,14,20 PO 02/09/24 14:00 02/13/24 08:15 20 MG Docusate Sodium 100 mg BIDPRN PRN PO 02/10/24 10:30 02/10/24 15:02 100 MG Ceftriaxone Sodium 50 ml @ 100 mls/hr DAILY@09 IV 02/12/24 09:00 02/14/24 23:59 02/13/24 08:17 100 MLS/HR Prednisone 40 mg DAILY PO 02/12/24 10:00 02/13/24 08:16 40 MG Furosemide 20 mg DAILY PO 02/14/24 10:00 Examination General Appearance: Alert, Oriented X4, Cooperative, No acute distress, Other (Macedonian speaking elderly pleasant male patient sitting comfortably in the chair) Respiratory: Clear to auscultation, decreased bilateral air movement, Other (Saturating 95 on oxymizer 4L) Cardiovascular: Regular rate, Normal S1, Normal S2, No murmurs Abdominal: Normal bowel sounds, Soft, No tenderness, Other (R inguinal dressing removed. Surgical site is clean and intact. Left-sided inguinal hernia seen bulging with cough reflex, manually reducible but comes back, soft, nontender, not extending into the scrotum) Extremities: No edema, pulses are feeble B/L in LE, No tenderness/swelling. Midline tenderness in the lumbar spine. Neuro: Normal speech, Strength at 5/5 X4 ext, Normal tone, Sensation intact Psych/Mental Status: A/Ox4 laboratory and microbiology Laboratory Tests 02/13/24 05:06 02/12/24 10:14 Test 02/12/24 10:14 Range/Units Serum Glucose 185 H 74-106 mg/dL Microbiology Date/Time Source Procedure Growth Status 02/12/24 16:06 Voided Urine Urine Culture - Preliminary Resulted 02/01/24 05:45 Nose MRSA Screen - Final Complete Labs and/or images reviewed: Labs reviewed by me, Image(s) reviewed by me Problem List/Assessment/Plan Problem List/Assessment/Plan Infrarenal AAA with occluded right SAM with intramural thrombus CT angio aortic abdominal completed 01/30/2024 shows 67 mm infrarenal abdominal aortic aneurysm with a large amount of mural thrombus. 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 5.8 cm on 01/11/2024 Echocardiogram completed, shows LVEF 55%, elevated TRV 3.30 M per S, RSV 50. Mildly dilated RA. Normal valves. Dr. Brito - hybrid procedure is a viable option. Unable to revascularize right iliac/common femoral calcified occlusion. Stress test could not be completed given the severe shortness of breath. Dr. Malloy consulted - percutaneous revascularization of right lower extremity not technically feasible, will consider femorofemoral bypass after AAA stenting accomplished Blood pressure control, SBP <120s mmHg. IV labetalol Q2hr PRN for SBP >150mmhg., IV Lasix 20mg bid Dr. Anderson - Patient will require EVAR and fem-fem bypass by Dr. Anderson. Procedure planned for next Monday Severe peripheral artery disease in right lower extremity Duplex ultrasound completed, shows severe PAD in the right lower extremity Patient underwent right leg revascularization by Dr. Brito - unable to revascularize right iliac/common femoral due to a calcified occlusion On prophylactic heparin dose Left lower extremities unremarkable for PAD Starting atorvastatin 40 mg p.o. daily Consider aspirin 81 mg after definitive treatment for aneurysm Moderate pulmonary arterial hypertension Sildenafil 20 mg PO TID given the low blood pressure Sepsis due to Community-acquired pneumonia, Gram-positive and negative Started on ceftriaxone starting 02/09, completed azithromycin starting 02/07 to 02/11 Sputum culture with induction pending Influenza and COVID 19 negative MRSA screen is pending Ruled out PE / DVT CT Angio chest completed, showed no PE LE Doppler unremarkable D Dimer elevated at 1.30 COPD - exacerbation on 4-[address] without contrast 02/06 shows Advanced smoking related lung disease, emphysematous changes in both lungs. There is subpleural reticulaton and septal thickening in the lung bases. There is atelectasis scarring in the lung bases. Continue nebulized treatment with levalbuterol and ipratropium q.6 hour Started methylprednisolone 40mg IV BID starting 02/07/2024 Azithromycin started 02/07 for 5 days B/L atelectasis in lung bases Incentive spirometry Q1hr Left inguinal hernia-manually reducible, soft, nontender CT abdomen shows left inguinal hernia containing fat and small bowel. Outpatient workup advised History of severe emphysema - controlled Continue nebulized treatment with levalbuterol and ipratropium q.6 p.r.n. Right femoral hernia CT abdomen shows right femoral hernia containing small bowel. No definite acute obstruction Sigmoid diverticulosis without acute diverticulitis Monitor Bilateral renal cysts including 22 cm left cortical renal cyst Monitor History of COVID-19 infection COVID-19 testing negative Chronic nicotine dependence Counseled regarding cessation Diet Cardiac diet DVT ppx Heparin 5000 SC Q8hr GERD ppx Famotidine 40mg daily 66 minutes of critical care time Plan discussed with patient and daughter at bedside in [place] [address], all questions have been answered. Plan discussed with Dr. Lee. Cardiolite stress test could not be completed given SOB. Dr. Anderson on the case. Surgery tentatively planned for next Monday; case discussed with Dr. Dyson. Discussed in details regarding prognosis and the risk of surgery for the repair of AAA. Advanced directives to be decided by patient's daughter Raiza Iyer and Tamia Sexton, as per the patient's wishes. Risks of procedure re- explained including , and acute renal failure requiring hemodialysis by Dr. Lee. Plan discussed with: Patient, Daughter, Other (RN) My Orders My Orders Orders - MAYI BINGHAM RESIDENT Procedure Category Date Status Time * Baby Attendant CONS 02/12/24 Transmitted Consult Pls Schedule Appt MEMBERSERV 02/12/24 Transmitted With Dvmgpcp 16:25 Discharge DISCHARGE 02/12/24 Transmitted 17:10 Furosemide Tablet PHA 02/14/24 In Process (Lasix Tablet) 10:00 * Baby Attendant CONS 02/13/24 Transmitted Consult Dietary Evaluation Review Comments: follow the cardiac 2gNa Lofat LoCholel diet. Monitor PO intake to meet 75% of his needs Expected Outcomes/Goals: Improved health and well being. avoid unwanted weight loss. Critical Care Time (mins): 66 Addendum Addendum Addendum I was physically present for the whitehead portions of the service provided to patient by THE RESIDENT. I have reviewed the documentation, discussed the case with resident and agree with the resident's documentation except as noted. Also the patient's clinical case was discussed with the patient's nurse. This medical document was created using an electronic medical record system with computerized dictation system. Although this document has been carefully reviewed, there might still be some phonetic and typographical errors. These areas are purely typographical due to imperfections of the software programs, and do not reflect any compromise in the patient's medical care. Late signature. Date of Service: Feb 13, 2024 Billing Provider: VITALIY LEE MD Common Visit Codes: [id number] CARE 30-74 MIN (66 minutes) MAYI BINGHAM Feb 13, 2024 15:18 VITALIY LEE MD Feb 14, 2024 05:07
[2024-02-14] VITALS (32 sets, daily range): BP systolic 89–126; BP diastolic 37–80; PULSE 49–85; RESP 12–28; TEMP 97.4–98.4; O2SAT 89–98
[2024-02-14 05:20] LABS: Basophils # (auto) 0 10 ^3/uL (0-0.2); Basophils % (auto) 0.1 % (0.0-2.0); Eosinophils # (auto) 0.1 10 ^3/uL (0-0.8); Eosinophils % (auto) 0.8 % (0.0-7.0); Hematocrit 40.9 % (41.0-53.0); Hemoglobin 13.6 g/dL (13.5-17.5); Lymphocytes # (auto) 1.6 10 ^3/uL (0.4-5.4); Lymphocytes % (auto) 11.2 % (10.0-50.0); Mean Corpuscular Hemoglobin 28.5 pg (28.0-32.0); Mean Corpuscular Hgb Conc. 33.3 g/dL (32.0-36.0); Mean Corpuscular Volume 85.6 fL (80.0-100.0); Monocytes % (auto) 7.2 % (0.0-12.0); Neutrophils # (auto) 11.2 10 ^3/uL (1.6-8.6); Neutrophils % (auto) 80.7 % (37.0-80.0); Nucleated Red Blood Cells % 0.1 %; Platelet Count (auto) 218 10^3/uL (140-450); Red Blood Cells 4.78 10^6/uL (4.5-5.90); Red Cell Distribution Width 14.9 % (11.8-14.3); White Blood Cell 13.9 10^3/uL (4.4-10.8)
[2024-02-14 05:24] LABS: Chloride 105 mmol/L (98-107); Potassium 4.2 mmol/L (3.5-5.1); Sodium 141 mmol/L (136-145)
[2024-02-14 05:25] LABS: Anion Gap 3 (5-15); Calcium 9.2 mg/dL (8.7-10.4); Carbon Dioxide 33 mmol/L (20-31)
[2024-02-14 05:30] LABS: BUN/Creatinine Ratio 26.6 (10.0-20.0); Blood Urea Nitrogen 34 mg/dL (9-23); Glucose 108 mg/dL (74-106)
[2024-02-14] MEDS: FUROSEMIDE 20 MG TAB PO SCH (08:30)
--- NOTE | 2024-02-14 13:25 | DVHPN2 ---
Progress Note - Dictate Date Seen: Feb 13, 2014 Has the PT tested + for MRSA If YES, has PT been informed?: No Medical Necessity Reason Pt with a Central, PICC or Fol: No Subjective PT WITH COPD CONTINUED TOBACCO USE NOW WITH LOWER BACK PAIM CTA OF ABD 1. Infrarenal abdominal aortic aneurysm measuring up to 67mm with a large amount of mural thrombus. 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 Vascular surgery evaluation is recommended. 2. Numerous bilateral renal cysts including a very large left renal cyst measuring up to 220mm. 3. Left inguinal hernia containing fat and small bowel. Right femoral hernia containing small bowel. No definite acute obstruction. Some level of chronic obstruction may be present. vital signs Vital Sign Date Time Temp Pulse Resp B/P (MAP) Pulse Ox O2 Delivery O2 Flow Rate FiO2 02/14/24 12:00 98.0 79 21 119/59 (79) 91 98.0 02/14/24 11:34 Nasal Cannula 3.0 02/14/24 11:34 32 Total Intake and Output 02/13/24 02/13/24 02/14/24 15:00 23:00 07:00 Intake Total 290 ml 992 ml 100 ml Output Total 3200 ml 450 ml Balance 290 ml -2208 ml -350 ml medications Current Medications Medications Dose Ordered Sig/Juan David Route Start Time Stop Time Status Last Admin Dose Admin Sodium Chloride 10 ml Q8HR IV 01/30/24 22:00 02/14/24 05:35 10 ML Lorazepam 0.5 mg Q6HP PRN PO 01/30/24 16:30 Acetaminophen 650 mg Q6HP PRN PO 01/30/24 16:30 02/11/24 16:59 650 MG Ondansetron HCl 4 mg Q4HP PRN IV 01/30/24 16:30 02/08/24 19:53 4 MG Nitroglycerin 0.4 mg Q5MINP PRN SL 01/30/24 16:30 Hold Atorvastatin Calcium 40 mg HS PO 01/31/24 22:00 02/13/24 21:12 40 MG Ipratropium [place] 0.5 mg Q6HPRN PRN NEB 01/30/24 22:45 02/14/24 11:34 0.5 MG Levalbuterol HCl 0.625 mg Q6HR NEB 01/31/24 00:00 02/14/24 11:33 0.625 MG Labetalol HCl 5 mg Q2HPRN PRN IV 02/01/24 07:15 Melatonin 5 mg HS PO 02/04/24 22:00 02/13/24 21:12 5 MG Heparin Sodium (Porcine) 5,000 units Q8HR SC 02/05/24 06:00 02/14/24 05:47 5,000 UNITS Famotidine 40 mg DAILY PO 02/08/24 10:00 02/14/24 08:30 40 MG Sildenafil Citrate 20 mg TID@08,14,20 PO 02/09/24 14:00 02/13/24 21:11 20 MG Docusate Sodium 100 mg BIDPRN PRN PO 02/10/24 10:30 02/10/24 15:02 100 MG Ceftriaxone Sodium 50 ml @ 100 mls/hr DAILY@09 IV 02/12/24 09:00 02/14/24 23:59 02/14/24 08:28 100 MLS/HR Prednisone 40 mg DAILY PO 02/12/24 10:00 02/14/24 08:29 40 MG Furosemide 20 mg DAILY PO 02/14/24 10:00 02/14/24 08:30 20 MG laboratory and microbiology Laboratory Tests 02/14/24 04:56 Test 02/14/24 04:56 Range/Units Serum Glucose 108 H 74-106 mg/dL Problem List AAA COPD Assessment/Plan LE ARTERIAL DOPPLER SCHEDULE FOR ANGIOGRAM WITH STENT GRAFT IF PATIENT ANATOMY IS APPROPRIATE FOR STENT GRAFT HYBRID pt RENAL MEASUREMENT conducive to STENT GRAFT BUT RIGHT LEG NEEDS REVASCULARIZATION SCHEDULE FOR RIGHT LEG INTERVENTION 02/02/24 DISCUSSED WITH DAUGHTERS UNABLE TO REVASCULARIZE RIGHT ILIAC / COMMON FEMORAL CALCIFIED OCCLUSION SURGICAL OPTION HYBRID PROCEDURE IS A VIABLE OPTION TRANSFER TO [facility] SINCE WE ARE NOT ABLE TO DO A HYBRID PROCEDURE echo stress cardiolite risk stratification unable to perform cardiolite because severe sob echo ef 55% mod pah START REVATIO DIURESIS WILL RESCHEDULE CARDIOLITE ON MONDAY CARDIOLITE NON ISCHEMIC Dietary Evaluation Review Comments: follow the cardiac 2gNa Lofat LoCholel diet. Monitor PO intake to meet 75% of his needs Expected Outcomes/Goals: Improved health and well being. avoid unwanted weight loss. Plan discussed with: Patient Critical Care Time(min): 35 JUAN DANIEL GARCIA MD Feb 14, 2024 13:25
--- NOTE | 2024-02-14 14:03 | DVHINCON2 ---
Date of service: Feb 14, [address] Diaz Reason for Consultation AE COPD, pre-operative risk stratification and optimization History of Present Illness 78-year-old man history of emphysema, COPD, chronic hypoxic respiratory failure, hypertension who presented with shortness of breath. He was currently in [place]. He has been evaluated by vascular surgery for an EVAR fem-fem bypass possible AAA surgery. Pulmonary consultation is being called for preoperative risk stratification and optimization. Review of systems: 14 point review of systems is negative unless otherwise noted above. Past medical history: Hypertension Past surgical history: None mentioned in prior surgeries. Medications: Reviewed Allergies: No known drug allergies. Family history: No family history of premature CAD. No family history of lung disease. Social history: Ex-smoker. Quit one year ago. No alcohol or illicit drug use. Family History: Patient reports no known family medical history. Allergies: Coded Allergies: NO KNOWN ALLERGIES (Unverified , 02/27/23) Home Meds Reported Medications Rosuvastatin Calcium (Rosuvastatin Calcium) 20 Mg Tab, 1 TAB PO DAILY 02/27/23 Current Medications Current Medications Medications (Trade) Dose Ordered Sig/Juan David Route PRN Reason Start Time Stop Time Status Last Admin Furosemide (Lasix Tablet) 20 mg DAILY PO 02/14/24 10:00 02/14/24 08:30 Vital Signs Vital Signs Date Time Temp Pulse Resp B/P (MAP) Pulse Ox O2 Delivery O2 Flow Rate FiO2 02/14/24 12:00 98.0 79 21 119/59 (79) 91 98.0 02/14/24 11:34 Nasal Cannula 3.0 02/14/24 11:34 32 Physical Exam Gen.: Patient lying in bed in no apparent distress. On supplemental oxygen. Head: Normocephalic, atraumatic Eyes: EOMI/PERRLA. Ears: Normal hearing. Normal anatomy. Neck/trachea: Trachea midline, supple. Nose: Normal external anatomy. Mouth: Moist mucous membranes. Chest: Decreased air entry bilaterally. No wheezing or rhonchi. Cardio vascular: Positive S1, positive S2. Regular rate and rhythm. Abdomen: Positive bowel sounds in all 4 quadrants. Soft, non-tender, non-distended. : Deferred. Rectal: Deferred Skin: Warm, dry. Extremities: 2+ radial pulses bilaterally. No lower extremity edema. Neuro: Awake, alert, oriented x3. No gross motor or sensory deficits. Cranial nerves II through XII intact. Gait not assessed. Labs/Diagnostic Data Labs Test 02/14/24 04:56 02/12/24 10:14 02/10/24 16:17 02/06/24 11:54 Range/Units White Blood Count 13.9 H 4.4-10.8 10^3/uL Red Blood Count 4.78 4.5-5.90 10^6/uL Hemoglobin 13.6 13.5-17.5 g/dL Hematocrit 40.9 L 41.0-53.0 % Mean Corpuscular Volume 85.6 80.0-100.0 fL Mean Corpuscular Hemoglobin 28.5 28.0-32.0 pg Mean Corpuscular Hemoglobin Concent 33.3 32.0-36.0 g/dL Red Cell Distribution Width 14.9 H 11.8-14.3 % Platelet Count 218 140-450 10^3/uL Mean Platelet Volume 8.8 6.9-10.8 fL Neutrophils (%) (Auto) 80.7 H 37.0-80.0 % Lymphocytes (%) (Auto) 11.2 10.0-50.0 % Monocytes (%) (Auto) 7.2 0.0-12.0 % Eosinophils (%) (Auto) 0.8 0.0-7.0 % Basophils (%) (Auto) 0.1 0.0-2.0 % Neutrophils # (Auto) 11.2 H 1.6-8.6 10 ^3/uL Lymphocytes # (Auto) 1.6 0.4-5.4 10 ^3/uL Monocytes # (Auto) 1.0 0-1.3 10 ^3/uL Eosinophils # (Auto) 0.1 0-0.8 10 ^3/uL Basophils # (Auto) 0 0-0.2 10 ^3/uL Nucleated Red Blood Cells 0.1 % Sodium Level 141 136-145 mmol/L Potassium Level 4.2 3.5-5.1 mmol/L Chloride Level 105 98-107 mmol/L Carbon Dioxide Level 33 H 20-31 mmol/L Anion Gap 3 L 5-15 Blood Urea Nitrogen 34 H 9-23 mg/dL Creatinine 1.28 0.700-1.30 mg/dL Glomerular Filtration Rate Calc 57 >90 mL/min BUN/Creatinine Ratio 26.6 H 10.0-20.0 Serum Glucose 108 H 74-106 mg/dL Calcium Level 9.2 8.7-10.4 mg/dL Magnesium Level 2.5 1.6-2.6 mg/dL Influenza Type A Antigen Negative Negative Influenza Type B Antigen Negative Negative D-Dimer, Quantitative 2.30 H 0.0-0.49 mg/L FEU Troponin I High Sensitivity 6 </=54 ng/L Test 02/06/24 04:50 02/05/24 04:44 02/01/24 03:30 01/30/24 22:55 Range/Units Prothrombin Time 11.0 9.3-11.8 sec Prothrombin Time INR 1.04 0.9-1.15 Activated Partial Thromboplast Time 30.2 24.5-34.5 SEC B-Type Natriuretic Peptide 49.28 0-100 pg/mL Total Bilirubin 0.7 0.2-1.0 mg/dL Aspartate Amino Transferase (AST) 25 13-40 U/L Alanine Aminotransferase (ALT) 34 7-40 U/L Alkaline Phosphatase 112 46-116 U/L Total Protein 6.3 5.7-8.2 g/dL Albumin 4.1 3.2-4.8 g/dL Free Thyroxine (T4) Calculated 1.04 0.89-1.76 ng/dL Free Triiodothyronine (T3) pg/mL 2.69 2.3-4.2 pg/mL Hemoglobin A1c 5.2 <5.7 % A1C Vitamin B12 Level 612 211-911 pg/mL Vitamin D 25-Hydroxy 75.7 30.0-100 ng/mL Thyroid Stimulating Hormone (TSH) 17.59 H 0.55-4.78 uIU/mL Test 01/30/24 22:50 01/30/24 22:40 01/30/24 10:11 Range/Units Urine Opiates Screen Neg NEGATIVE Urine Fentanyl Screen Neg NEGATIVE Urine Barbiturates Screen Neg NEGATIVE Urine Phencyclidine Screen Neg NEGATIVE Urine Amphetamines Screen Neg NEGATIVE Urine Benzodiazepines Screen Neg NEGATIVE Urine Cocaine Screen Neg NEGATIVE Urine Cannabinoids Screen Neg NEGATIVE SARS-CoV-2 Antigen (Rapid) Negative NEGATIVE Urine Color Yellow Yellow Urine Clarity Clear Clear Urine pH 5.5 5.0-9.0 Urine Specific [place] 1.014 1.001-1.035 Urine Protein Negative Negative Urine Ketones Negative Negative Urine Blood Negative Negative /uL Urine Nitrite Negative Negative Urine Bilirubin Negative Negative Urine Urobilinogen Normal Negative mg/dL Urine Leukocyte Esterase Negative Negative /uL Urine RBC 1 0 - 3 /hpf Urine WBC <1 0 - 3 /hpf Urine Squamous Epithelial Cells Few <5 /hpf Urine Bacteria None seen None Seen /hpf Urine Mucus Few None Seen Urine Glucose Normal Normal mg/dL Microbiology Date/Time Source Procedure Growth Status 02/12/24 16:06 Voided Urine Urine Culture - Preliminary Resulted 02/12/24 15:03 Blood Blood Culture - Preliminary NO GROWTH AFTER 24 HOURS OF INCUBATION. Resulted 02/01/24 05:45 Nose MRSA Screen - Final Complete Assessment Impression: Acute on chronic hypoxic respiratory failure COPD exacerbation, improving Nicotine abuse Emphysematous changes Obesity with a BMI of 30 Moderate size hiatal hernia Ex-smoker Pulmonary hypertension with a right ventricular systolic pressure of 50 mmHg WHO class three Plan: CT of the chest report and images reviewed. No acute pulmonary embolism. Extensive centrilobular emphysematous changes in the lung. No acute opacities, pleural effusions or pneumothorax. Wheezing has improved. Recommend to discontinue steroids. Patient is at moderate to high risk of pulmonary complications in the perioperative. No absolute contraindications to surgery. Patient is at high risk for respiratory failure including the possibility of requiring mechanical ventilation or difficulty in weaning from mechanical ventilation. Other po tential complications for example are postoperative atelectasis, pneumonia, bronchospasm, pulmonary embolism family adverse Kristy affect his pulmonary function as well. He will require bronchodilators pre, darin and postoperatively. We will recommend early ambulation, DVT prophylaxis and incentive spirometry post operatively. Continue bronchodilators Continue supplemental o2 Keep o2 saturation above 90% IS Pulmonary hypertension management as per Cardiology. DVT prophylaxis. Prognosis: Poor given multiple comorbidities. Rest of plan per hospitalist and other consultants. Thank you Dr. Diaz for allowing me to participate in this patient's care. Further recommendations will depend on patient's clinical course. Please do not hesitate to contact me if you have any questions or concerns. This medical document was created using an electronic medical record system with [email or web address] system. Although this document has been carefully reviewed, there may still be some phonetic and typographical errors. These areas are purely typographical due to imperfections of the software programs, and do not reflect any compromise in the patient's medical care. Plan discussed with: Patient, Daughter, Other (JARED Wilson, RT, MD) CATRINA STEELE MD Feb 14, 2024 14:03
--- NOTE | 2024-02-14 14:43 | DVHPN2 ---
Progress Note Date Seen: Feb 14, 2024 Has the PT tested + for MRSA If YES, has PT been informed?: No Medical Necessity Reason Pt with a Central, PICC or Fol: No Subjective Patient reports: No new complaints Review of Systems: HEENT:Normal, CVS:Normal, RESPIRATORY:Normal, GI:Normal, :Normal, MSK:Normal, NEURO:Normal Objective vital signs Vital Sign Date Time Temp Pulse Resp B/P (MAP) Pulse Ox O2 Delivery O2 Flow Rate FiO2 02/14/24 12:00 98.0 79 21 119/59 (79) 91 98.0 02/14/24 11:34 Nasal Cannula 3.0 02/14/24 11:34 32 Total Intake and Output 02/13/24 02/13/24 02/14/24 15:00 23:00 07:00 Intake Total 290 ml 992 ml 100 ml Output Total 3200 ml 450 ml Balance 290 ml -2208 ml -350 ml medications Current Medications Medications Dose Ordered Sig/Juan David Route Start Time Stop Time Status Last Admin Dose Admin Sodium Chloride 10 ml Q8HR IV 01/30/24 22:00 02/14/24 05:35 10 ML Lorazepam 0.5 mg Q6HP PRN PO 01/30/24 16:30 Acetaminophen 650 mg Q6HP PRN PO 01/30/24 16:30 02/11/24 16:59 650 MG Ondansetron HCl 4 mg Q4HP PRN IV 01/30/24 16:30 02/08/24 19:53 4 MG Nitroglycerin 0.4 mg Q5MINP PRN SL 01/30/24 16:30 Hold Atorvastatin Calcium 40 mg HS PO 01/31/24 22:00 02/13/24 21:12 40 MG Ipratropium [place] 0.5 mg Q6HPRN PRN NEB 01/30/24 22:45 02/14/24 11:34 0.5 MG Levalbuterol HCl 0.625 mg Q6HR NEB 01/31/24 00:00 02/14/24 11:33 0.625 MG Labetalol HCl 5 mg Q2HPRN PRN IV 02/01/24 07:15 Melatonin 5 mg HS PO 02/04/24 22:00 02/13/24 21:12 5 MG Heparin Sodium (Porcine) 5,000 units Q8HR SC 02/05/24 06:00 02/14/24 05:47 5,000 UNITS Famotidine 40 mg DAILY PO 02/08/24 10:00 02/14/24 08:30 40 MG Sildenafil Citrate 20 mg TID@08,14,20 PO 02/09/24 14:00 02/13/24 21:11 20 MG Docusate Sodium 100 mg BIDPRN PRN PO 02/10/24 10:30 02/10/24 15:02 100 MG Ceftriaxone Sodium 50 ml @ 100 mls/hr DAILY@09 IV 02/12/24 09:00 02/14/24 23:59 02/14/24 08:28 100 MLS/HR Furosemide 20 mg DAILY PO 02/14/24 10:00 02/14/24 08:30 20 MG Prednisone 20 mg DAILY PO 02/15/24 10:00 UNV Examination: GENERAL:Normal, HEENT:Normal, NECK:Normal, LUNGS:Normal, CVS:Normal, ABDOMEN:Normal, ABDOMEN:Abnormal (pulsatile abd. mass), MSK:Normal, SKIN:Normal, NEURO:Normal, :Normal laboratory and microbiology Laboratory Tests 02/14/24 04:56 Test 02/14/24 04:56 Range/Units Serum Glucose 108 H 74-106 mg/dL Microbiology Date/Time Source Procedure Growth Status 02/12/24 16:06 Voided Urine Urine Culture - Preliminary Resulted 02/12/24 15:03 Blood Blood Culture - Preliminary NO GROWTH AFTER 24 HOURS OF INCUBATION. Resulted 02/01/24 05:45 Nose MRSA Screen - Final Complete Problem List/Assessment/Plan Problem List/Assessment/Plan AAA with occluded right SAM. Will require EVAR and FEm-fem bypass. Planned 02/18 Needs pulmonary and Cardiac clearance. Check BC x 2, urine culture, cxr Discussed with daughters x2, son and nurse Plan discussed with: Patient, Daughter, Son Dietary Evaluation Review Comments: follow the cardiac 2gNa Lofat LoCholel diet. Monitor PO intake to meet 75% of his needs Expected Outcomes/Goals: Improved health and well being. avoid unwanted weight loss. RUTH RODARTE Jr., MD Feb 14, 2024 14:43
--- NOTE | 2024-02-14 15:11 | DVHPNRES ---
Progress Note Date Seen: Feb 14, 2024 Resident Creating Document: MAYI BINGHAM RESIDENT Has the PT tested + for MRSA If YES, has PT been informed?: No Medical Necessity Reason Pt with a Central, PICC or Fol: No Subjective Review of Systems This is a 78-year-old male patient with PMHx of chronic nicotine dependence, abdominal aortic aneurysm diagnosed February 2023, history of pneumonia and pleural effusion who presented to the ER with the chief complaint of lower back pain starting 01/23/2024. Patient reports worsening lower back pain which is pressure-like in nature, constant and 10/10 in intensity located in the lumbar region, no radiation. The pain worsened yesterday therefore patient decided to come into the ER. He has a history of abdominal aortic aneurysm diagnosed in February [address] scan. A recent CT abdomen pelvis without contrast for abdominal hernia was completed by patient's primary care physician on 01/11/2024 which showed 5.8 cm infrarenal abdominal aortic aneurysm with suspected intramural hematoma or thrombus. Patient also has a history of left-sided inguinal hernia for the past 2 months which is not affecting his daily life activities. Past Medical History: chronic nicotine dependence, abdominal aortic aneurysm diagnosed February 2023, history of pneumonia and pleural effusion, inguinal hernia Past Surgical History: None Family History: None Social history: Smokes 1 pack per day (For the past 50 years, quit 9 months back), drinks alcohol occasionally, denies illicit drug use. Patient lives with and son. 01/30 - Patient seen and examined in the ER bed 17. Reports mild back pain as compared to admission. Saturating 96% on 4 L NC. Family at bedside. 01/31 - patient seen and examined in the ICU bed 266. Reports no back pain. No acute distress. Saturating 94 on 4L Oxymizer. Scheduled for angiogram with a stent. Dr Brito - pt deminsion conducive to STENT GRAFT BUT RIGHT LEG NEEDS REVACULARIZATION. SCHEDULE FOR RIGHT LEG INTERVENTION 02/02/24. Pt NPO starting midnight 02/02/24 - patient underwent right leg revascularization by Dr. Hoff - unable to revascularize right iliac/common femoral due to a calcified occlusion. Heparin discontinued by bag sorter. 02/03/2024-patient reported back pain in the morning. Mcalister and Tylenol administered. Patient feels fine. Right lower extremity examined for tenderness/swelling/bruising-unremarkable. Auscultation at catheter site unremarkable. Continuing cardiac diet. 02/05/2024 - patient reports back pain, lumbar spinous tender on exam. Left inguinal hernia is tender but not erythematous and soft and reducible. Consulted Dr. Anderson. Discussed in details regarding prognosis and the risk of open surgery for the repair of AAA. Advanced directives to be given by patient's daughter Soco Iyer and Tamia Sexton, as per the patient's wishes. 02/06/2024 - Patient feels fine, no active complaint. Dr. Anderson recommended pulmonary evaluation and pulmonary therapy to improve lung status. We will review films further regarding possible EVAR and fem-fem bypass. This would be an elective setting once his pulmonary status has improved if he is a candidate for hybrid surgery. If he is not a candidate for habits surgery would recommend higher level of care for open repair. CT chest without contrast pending. D Dimer elevated. LE dopper negative 02/07/2024 - CT without contrast shows Advanced smoking related lung disease, emphysematous changes in both lungs. There is subpleural reticulaton and septal thickening in the lung bases. There is atelectasis scarring in the lung bases. Started methyprednisolone 80mg IV BID, Incentive spirometry Q1hr. CTA chest pending to rule out PE. 250cc IV NS afterwards. 02/08/2024 - CT Angio chest completed, shows no evidence of a pulmonary arterial filling defect to suggest pulmonary embolism. IV Lasix reduced to 20mg daily, methyprednisolone 40mg IV BID. Patient will require EVAR and FEm-fem bypass per Dr Anderson. Planned 02/13/24 Needs pulmonary and Cardiac clearance. DR. Brito ordered stress echo. Azithromycin IV started for 5 days, starting 02/0702/09/2024 - reports no active complaint. Practiced incentive spirometry with the patient and the nurse. Oiler [employer] Greaser unable to perform Cardiolite stress test because of severe shortness of breath. Moderate PAH, started sildenafil 20 mg PO TID We will reschedule Cardiolite for Monday02/11/2024 - patient reports no acute distress. Holding sildenafil given the low blood pressure. 02/12/2024 - patient is having no acute complaint. Saturating 96 on 5 L Oxymizer, sitting on a chair comfortably. undergoing stress test today. Switched prednisolone IV to 40MG daily p.o. Surgery cancelled given elevated WBC count, and pending stress test, Check BC x 2, urine culture. CXR showing Bibasilar atelectasis vs infiltrates. Transfer to [facility] pending 02/13/2024 - patient feels fine, reports no active complaint. Family at bedside. Switched Lasix 20 mg b.i.d. IV to 20 mg once daily orally. Prelim urinary culture negative. Saturating 95 on 4 L oxygen via Oxymizer. Transfer cancelled as Dr. Anderson is tentatively planning to do the surgery next Monday. Stress test was not done due to shortness of breath 02/14/2024 - patient has no acute complaint, saturating 95 on 3 L nasal cannula. Decreased prednisolone from 40 mg daily to 20 mg daily orally. Consulted Dr. Gallagher for Pulmonary clearance. Dr. Anderson - planning to do EVAR and fem-fem bypass on 02/18. Pulmonary and cardiac clearance pending. Stress echo report pending. Objective vital signs Vital Sign Date Time Temp Pulse Resp B/P (MAP) Pulse Ox O2 Delivery O2 Flow Rate FiO2 02/14/24 12:00 98.0 79 21 119/59 (79) 91 98.0 02/14/24 11:34 Nasal Cannula 3.0 02/14/24 11:34 32 Total Intake and Output 02/13/24 02/13/24 02/14/24 15:00 23:00 07:00 Intake Total 290 ml 992 ml 100 ml Output Total 3200 ml 450 ml Balance 290 ml -2208 ml -350 ml medications Current Medications Medications Dose Ordered Sig/Juan David Route Start Time Stop Time Status Last Admin Dose Admin Sodium Chloride 10 ml Q8HR IV 01/30/24 22:00 02/14/24 05:35 10 ML Lorazepam 0.5 mg Q6HP PRN PO 01/30/24 16:30 Acetaminophen 650 mg Q6HP PRN PO 01/30/24 16:30 02/11/24 16:59 650 MG Ondansetron HCl 4 mg Q4HP PRN IV 01/30/24 16:30 02/08/24 19:53 4 MG Nitroglycerin 0.4 mg Q5MINP PRN SL 01/30/24 16:30 Hold Atorvastatin Calcium 40 mg HS PO 01/31/24 22:00 02/13/24 21:12 40 MG Ipratropium Baldwin 0.5 mg Q6HPRN PRN NEB 01/30/24 22:45 02/14/24 11:34 0.5 MG Levalbuterol HCl 0.625 mg Q6HR NEB 01/31/24 00:00 02/14/24 11:33 0.625 MG Labetalol HCl 5 mg Q2HPRN PRN IV 02/01/24 07:15 Melatonin 5 mg HS PO 02/04/24 22:00 02/13/24 21:12 5 MG Heparin Sodium (Porcine) 5,000 units Q8HR SC 02/05/24 06:00 02/14/24 05:47 5,000 UNITS Famotidine 40 mg DAILY PO 02/08/24 10:00 02/14/24 08:30 40 MG Sildenafil Citrate 20 mg TID@08,14,20 PO 02/09/24 14:00 02/13/24 21:11 20 MG Docusate Sodium 100 mg BIDPRN PRN PO 02/10/24 10:30 02/10/24 15:02 100 MG Ceftriaxone Sodium 50 ml @ 100 mls/hr DAILY@09 IV 02/12/24 09:00 02/14/24 23:59 02/14/24 08:28 100 MLS/HR Furosemide 20 mg DAILY PO 02/14/24 10:00 02/14/24 08:30 20 MG Prednisone 20 mg DAILY PO 02/15/24 10:00 Examination General Appearance: Alert, Oriented X4, Cooperative, No acute distress, Other (Azerbaijani speaking elderly pleasant male patient sitting comfortably in the chair) Respiratory: Clear to auscultation, decreased bilateral air movement, Other (Saturating 95 on 3 L NC) Cardiovascular: Regular rate, Normal S1, Normal S2, No murmurs Abdominal: Normal bowel sounds, Soft, No tenderness, Other (R inguinal dressing removed. Surgical site is clean and intact. Left-sided inguinal hernia seen bulging with cough reflex, manually reducible but comes back, soft, nontender, not extending into the scrotum) Extremities: No edema, pulses are feeble B/L in LE, No tenderness/swelling. No tenderness in the lumbar spine. Neuro: Normal speech, Strength at 5/5 X4 ext, Normal tone, Sensation intact Psych/Mental Status: A/Ox4 laboratory and microbiology Laboratory Tests 02/14/24 04:56 Test 02/14/24 04:56 Range/Units Serum Glucose 108 H 74-106 mg/dL Microbiology Date/Time Source Procedure Growth Status 02/12/24 16:06 Voided Urine Urine Culture - Preliminary Resulted 02/12/24 15:03 Blood Blood Culture - Preliminary NO GROWTH AFTER 24 HOURS OF INCUBATION. Resulted 02/01/24 05:45 Nose MRSA Screen - Final Complete Labs and/or images reviewed: Labs reviewed by me, Image(s) reviewed by me Problem List/Assessment/Plan Problem List/Assessment/Plan Infrarenal AAA with occluded right SAM with intramural thrombus CT angio aortic abdominal completed 01/30/2024 shows 67 mm infrarenal abdominal aortic aneurysm with a large amount of mural thrombus. 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 Was 5.8 cm on 01/11/2024 Echocardiogram completed, shows LVEF 55%, elevated TRV 3.30 M per S, RSV 50. Mildly dilated RA. Normal valves. Dr. Brito - hybrid procedure is a viable option. Unable to revascularize right iliac/common femoral calcified occlusion. Stress test report pending. Dr. Malloy consulted - percutaneous revascularization of right lower extremity not technically feasible, will consider femorofemoral bypass after AAA stenting accomplished Blood pressure control, SBP <120s mmHg. IV labetalol Q2hr PRN for SBP >150mmhg., IV lasix 20mg daily oral. Dr. Anderson - Patient will require EVAR and FEm-fem bypass per Dr Anderson. Planned 02/19/24. Cardiology and pulmonology clearance pending. Severe peripheral artery disease in right lower extremity Duplex ultrasound completed, shows severe PAD in the right lower extremity Patient underwent right leg revascularization by Dr. Hoff - unable to revascularize right iliac/common femoral due to a calcified occlusion. On prophylactic heparin dose Left lower extremities unremarkable for PAD Starting atorvastatin 40 mg p.o. daily Consider aspirin 81 mg after definitive treatment for aneurysm Moderate pulmonary arterial hypertension Continue Sildenafil 20 mg PO TID Community-acquired pneumonia, Gram-positive and negative Started on ceftriaxone starting 02/09, completed azithromycin starting 02/07 to 02/11 Sputum culture with induction pending Influenza and COVID negative MRSA screen is pending Ruled out PE / DVT CT Angio chest completed, shows no evidence of a pulmonary arterial filling defect to suggest pulmonary embolism. LE doppler unremarkable D Dimer elevated at 1.30 CTA chest pending to rule out PE. 250cc IV NS afterwards. COPD - exacerbation on [address] without contrast 02/06 shows Advanced smoking related lung disease, emphysematous changes in both lungs. There is subpleural reticulaton and septal thickening in the lung bases. There is atelectasis scarring in the lung bases. Continue nebulized treatment with levalbuterol and ipratropium q.6 hour Switched methyprednisolone 40mg IV BID starting 02/07/2024 to prednisolone 20 mg p.o. daily Patient completed Azithromycin from 02/07 for 5 days B/L atlectasis in lung bases Incentive spirometry Q1hr Left inguinal hernia-manually reducible, soft, nontender CT abdomen shows left inguinal hernia containing fat and small bowel. Outpatient workup advised History of severe emphysema - controlled Continue nebulized treatment with levalbuterol and ipratropium q.6 p.r.n. Right femoral hernia CT abdomen shows right femoral hernia containing small bowel. No definite acute obstruction Sigmoid diverticulosis without acute diverticulitis Monitor Bilateral renal cysts including 22 cm left cortical renal cyst Outpatient workup advised Monitor History of COVID-19 infection COVID testing pending Chronic nicotine dependence Counseled regarding cessation for more than 20 minutes Diet Cardiac diet DVT ppx Heparin 5000 SC Q8hr GERD ppx Famotidine 40mg daily Plan discussed with patient and daughter at bedside in [place] [facility], all questions have been answered. Goals of care discussed with the patient for more than 22 minutes, full code status. Plan discussed with Dr. Navas. Cardiolite stress test report is pending. Dr. Anderson on the case. EVAR and fem-fem bypass 02/18. NPO starting 02/18 midnight. Pulmonology and cardiac clearance pending. Discussed in details regarding prognosis and the risk of open surgery for the repair of AAA. Advanced directives to be given by patient's daughter Raiza Iyer and Tamia Sexton, as per the patient's wishes. Risks of procedure explained including , and acute renal failure requiring hemodialysis by Dr. Vasquez. Plan discussed with: Patient, Daughter (Daughter at bedside, discussed regarding the case and the plan and prognosis.) My Orders My Orders Orders - MAYI BINGHAM Procedure Category Date Status Time Prednisone Tablet PHA 02/15/24 In Process 10:00 *Consult CONS 02/14/24 Transmitted / 14:22 Dietary Evaluation Review Comments: follow the cardiac 2gNa Lofat LoCholel diet. Monitor PO intake to meet 75% of his needs Expected Outcomes/Goals: Improved health and well being. avoid unwanted weight loss. MAYI BINGHAM RESIDENT Feb 14, 2024 15:11
[2024-02-15] VITALS (32 sets, daily range): BP systolic 83–118; BP diastolic 36–71; PULSE 52–90; RESP 10–24; TEMP 97.6–98.3; O2SAT 83–99
[2024-02-15 04:52] LABS: Hematocrit 45.5 % (41.0-53.0); Hemoglobin 14.6 g/dL (13.5-17.5); Mean Corpuscular Hemoglobin 27.9 pg (28.0-32.0); Mean Corpuscular Hgb Conc. 32.1 g/dL (32.0-36.0); Platelet Count (auto) 246 10^3/uL (140-450); Red Blood Cells 5.23 10^6/uL (4.5-5.90); Red Cell Distribution Width 15.7 % (11.8-14.3); White Blood Cell 20.8 10^3/uL (4.4-10.8)
[2024-02-15 05:15] LABS: Basophils % (manual) 0 (0.0-2.0); Blast Cells 0; Eosinophils % (manual) 0 (0-7); Metamyelocytes % 0; Promyelocytes % 0; Reactive Lymphocytes 0
[2024-02-15 06:39] LABS: Band Neutrophils % (manual) 1; Lymphocytes % (manual) 8 (10.0-50.0); Monocytes % (manual) 5 (0-12); Myelocytes % 1
[2024-02-15 06:40] LABS: Platelet Estimate Adequate
--- NOTE | 2024-02-15 08:51 | DVH ---
CHEST RADIOGRAPH Indication:worsening wbc, copd exa! Technique: Single frontal view of the chest was obtained Comparison: XY CHEST PORTABLE on DOS: 02/12/24, XY CHEST PORTABLE on DOS: 02/10/24, XY CHEST PORTABLE o n DOS: 02/05/24, XY CHEST XRAY 1 VIEW on DOS: 01/30/24 FINDINGS: Lines and Tubes: None Lungs: No focal consolidation. Pleura: No effusion. No pneumothorax. Cardiomediastinal contours: Unremarkable Bones: No acute osseous abnormality. IMPRESSION: No acute cardiopulmonary disease.
[2024-02-15] MEDS: FUROSEMIDE 20 MG TAB PO SCH (09:36)
[2024-02-15] MEDS: PIPERACILLIN-TAZOB 3.375GM 100 ML IV ONE (09:36)
[2024-02-15] MEDS ORDERED: predniSONE 20 MG TAB PO SCH (10:00)
[2024-02-15 10:20] LABS: Urine Bacteria None Seen /hpf (None Seen)
[2024-02-15 10:54] LABS: Urine Blood Negative /uL (Negative); Urine Clarity Clear (Clear); Urine Color Light-Yellow (Yellow); Urine Protein, UAD Negative (Negative); Urine Specific Gravity 1.024 (1.001-1.035); Urine Urobilinogen Normal (Negative); Urine WBC <1 /hpf (0 - 3); Urine pH 6.5 (5.0-9.0)
--- NOTE | 2024-02-15 11:59 | DVHPNRES ---
Progress Note Date Seen: Feb 15, 2024 Resident Creating Document: MAYI BINGHAM RESIDENT Has the PT tested + for MRSA If YES, has PT been informed?: No Medical Necessity Reason Pt with a Central, PICC or Fol: No Subjective Review of Systems This is a 78-year-old male patient with PMHx of chronic nicotine dependence, abdominal aortic aneurysm diagnosed February 2023, history of pneumonia and pleural effusion who presented to the ER with the chief complaint of lower back pain starting 01/23/2024. Patient reports worsening lower back pain which is pressure-like in nature, constant and 10/10 in intensity located in the lumbar region, no radiation. The pain worsened yesterday therefore patient decided to come into the ER. He has a history of abdominal aortic aneurysm diagnosed in February [address] scan. A recent CT abdomen pelvis without contrast for abdominal hernia was completed by patient's primary care physician on 01/11/2024 which showed 5.8 cm infrarenal abdominal aortic aneurysm with suspected intramural hematoma or thrombus. Patient also has a history of left-sided inguinal hernia for the past 2 months which is not affecting his daily life activities. Past Medical History: chronic nicotine dependence, abdominal aortic aneurysm diagnosed February 2023, history of pneumonia and pleural effusion, inguinal hernia Past Surgical History: None Family History: None Social history: Smokes 1 pack per day (For the past 50 years, quit 9 months back), drinks alcohol occasionally, denies illicit drug use. Patient lives with and son. 01/30 - Patient seen and examined in the ER bed 17. Reports mild back pain as compared to admission. Saturating 96% on 4 L NC. Family at bedside. 01/31 - patient seen and examined in the ICU bed 266. Reports no back pain. No acute distress. Saturating 94 on 4L Oxymizer. Scheduled for angiogram with a stent. Dr Brito - pt deminsion conducive to STENT GRAFT BUT RIGHT LEG NEEDS REVACULARIZATION. SCHEDULE FOR RIGHT LEG INTERVENTION 02/02/24. Pt NPO starting midnight 02/02/24 - patient underwent right leg revascularization by Dr. Hoff - unable to revascularize right iliac/common femoral due to a calcified occlusion. Heparin discontinued by tire service technician. 02/03/2024-patient reported back pain in the morning. [place] and Tylenol administered. Patient feels fine. Right lower extremity examined for tenderness/swelling/bruising-unremarkable. Auscultation at catheter site unremarkable. Continuing cardiac diet. 02/05/2024 - patient reports back pain, lumbar spinous tender on exam. Left inguinal hernia is tender but not erythematous and soft and reducible. Consulted Dr. Anderson. Discussed in details regarding prognosis and the risk of open surgery for the repair of AAA. Advanced directives to be given by patient's daughter Soco Iyer and Tamia Sexton, as per the patient's wishes. 02/06/2024 - Patient feels fine, no active complaint. Dr. Anderson recommended pulmonary evaluation and pulmonary therapy to improve lung status. We will review films further regarding possible EVAR and fem-fem bypass. This would be an elective setting once his pulmonary status has improved if he is a candidate for hybrid surgery. If he is not a candidate for habits surgery would recommend higher level of care for open repair. CT chest without contrast pending. D Dimer elevated. LE dopper negative 02/07/2024 - CT without contrast shows Advanced smoking related lung disease, emphysematous changes in both lungs. There is subpleural reticulaton and septal thickening in the lung bases. There is atelectasis scarring in the lung bases. Started methyprednisolone 80mg IV BID, Incentive spirometry Q1hr. CTA chest pending to rule out PE. 250cc IV NS afterwards. 02/08/2024 - CT Angio chest completed, shows no evidence of a pulmonary arterial filling defect to suggest pulmonary embolism. IV Lasix reduced to 20mg daily, methyprednisolone 40mg IV BID. Patient will require EVAR and FEm-fem bypass per Dr Anderson. Planned 02/13/24 Needs pulmonary and Cardiac clearance. DR. Brito ordered stress echo. Azithromycin IV started for 5 days, starting 02/0702/09/2024 - reports no active complaint. Practiced incentive spirometry with the patient and the nurse. Coater Helper unable to perform Cardiolite stress test because of severe shortness of breath. Moderate PAH, started sildenafil 20 mg PO TID We will reschedule Cardiolite for Monday02/11/2024 - patient reports no acute distress. Holding sildenafil given the low blood pressure. 02/12/2024 - patient is having no acute complaint. Saturating 96 on 5 L Oxymizer, sitting on a chair comfortably. undergoing stress test today. Switched prednisolone IV to 40MG daily p.o. Surgery cancelled given elevated WBC count, and pending stress test, Check BC x 2, urine culture. CXR showing Bibasilar atelectasis vs infiltrates. Transfer to [facility] pending 02/13/2024 - patient feels fine, reports no active complaint. Family at bedside. Switched Lasix 20 mg b.i.d. IV to 20 mg once daily orally. Prelim urinary culture negative. Saturating 95 on 4 L oxygen via Oxymizer. Transfer cancelled as Dr. Anderson is tentatively planning to do the surgery next Monday. Stress test was not done due to shortness of breath 02/14/2024 - patient has no acute complaint, saturating 95 on 3 L nasal cannula. Decreased prednisolone from 40 mg daily to 20 mg daily orally. Consulted Dr. Gallagher for Pulmonary clearance. Dr. Anderson - planning to do EVAR and fem-fem bypass on 02/18. Pulmonary and cardiac clearance pending. Stress echo report pending. 02/14 - no complaints. WBC up to 20.8. Started IV Zosyn, UA unremarkable, CXR consistent with previous findings. Objective vital signs Vital Sign Date Time Temp Pulse Resp B/P (MAP) Pulse Ox O2 Delivery O2 Flow Rate FiO2 02/15/24 11:00 79 20 111/57 (75) 99 02/15/24 10:00 Nasal Cannula 5.0 02/15/24 10:00 40 02/15/24 08:00 97.7 97.7 Total Intake and Output 02/14/24 02/14/24 02/15/24 15:00 23:00 07:00 Intake Total 410 ml 1080 ml 100 ml Output Total 200 ml Balance 410 ml 1080 ml -100 ml medications Current Medications Medications Dose Ordered Sig/Juan David Route Start Time Stop Time Status Last Admin Dose Admin Sodium Chloride 10 ml Q8HR IV 01/30/24 22:00 02/15/24 05:29 10 ML Lorazepam 0.5 mg Q6HP PRN PO 01/30/24 16:30 Acetaminophen 650 mg Q6HP PRN PO 01/30/24 16:30 02/11/24 16:59 650 MG Ondansetron HCl 4 mg Q4HP PRN IV 01/30/24 16:30 02/08/24 19:53 4 MG Nitroglycerin 0.4 mg Q5MINP PRN SL 01/30/24 16:30 Hold Atorvastatin Calcium 40 mg HS PO 01/31/24 22:00 02/14/24 21:17 40 MG Ipratropium [place] 0.5 mg Q6HPRN PRN NEB 01/30/24 22:45 02/15/24 11:51 0.5 MG Levalbuterol HCl 0.625 mg Q6HR NEB 01/31/24 00:00 02/15/24 11:51 0.625 MG Labetalol HCl 5 mg Q2HPRN PRN IV 02/01/24 07:15 Melatonin 5 mg HS PO 02/04/24 22:00 02/14/24 21:17 5 MG Heparin Sodium (Porcine) 5,000 units Q8HR SC 02/05/24 06:00 02/15/24 05:29 5,000 UNITS Famotidine 40 mg DAILY PO 02/08/24 10:00 02/15/24 09:37 40 MG Sildenafil Citrate 20 mg TID@08,14,20 PO 02/09/24 14:00 02/15/24 08:12 20 MG Docusate Sodium 100 mg BIDPRN PRN PO 02/10/24 10:30 02/10/24 15:02 100 MG Furosemide 10 mg DAILY PO 02/15/24 10:00 02/15/24 09:36 10 MG Piperacillin Sod/ Tazobactam Sod 100 ml @ 25 mls/hr Q8HR IV 02/15/24 14:00 Examination General Appearance: Alert, Oriented X4, Cooperative, No acute distress, Other (Divehi speaking elderly pleasant male patient sitting comfortably in the chair) Respiratory: Clear to auscultation, decreased bilateral air movement, Other (Saturating 95 on 3 L NC) Cardiovascular: Regular rate, Normal S1, Normal S2, No murmurs Abdominal: Normal bowel sounds, Soft, No tenderness, Other (R inguinal dressing removed. Surgical site is clean and intact. Left-sided inguinal hernia seen bulging with cough reflex, manually reducible but comes back, soft, nontender, not extending into the scrotum) Extremities: No edema, pulses are feeble B/L in LE, No tenderness/swelling. No tenderness in the lumbar spine. Neuro: Normal speech, Strength at 5/5 X4 ext, Normal tone, Sensation intact Psych/Mental Status: A/Ox4 laboratory and microbiology Laboratory Tests 02/15/24 04:32 02/14/24 04:56 Test 02/14/24 04:56 Range/Units Serum Glucose 108 H 74-106 mg/dL Microbiology Date/Time Source Procedure Growth Status 02/12/24 16:06 Voided Urine Urine Culture - Preliminary Resulted 02/12/24 15:03 Blood Blood Culture - Preliminary NO GROWTH AFTER 48 HOURS OF INCUBATION. Resulted 02/01/24 05:45 Nose MRSA Screen - Final Complete Labs and/or images reviewed: Labs reviewed by me, Image(s) reviewed by me Problem List/Assessment/Plan Problem List/Assessment/Plan Infrarenal AAA with occluded right SAM with intramural thrombus CT angio aortic abdominal completed 01/30/2024 shows 67 mm infrarenal abdominal aortic aneurysm with a large amount of mural thrombus. 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 Was 5.8 cm on 01/11/2024 Echocardiogram completed, shows LVEF 55%, elevated TRV 3.30 M per S, RSV 50. Mildly dilated RA. Normal valves. Dr. Brito - hybrid procedure is a viable option. Unable to revascularize right iliac/common femoral calcified occlusion. Stress test report pending. Dr. Malloy consulted - percutaneous revascularization of right lower extremity not technically feasible, will consider femorofemoral bypass after AAA stenting accomplished Blood pressure control, SBP <120s mmHg. IV labetalol Q2hr PRN for SBP >150mmhg., IV lasix 20mg daily oral. Dr. Anderson - Patient will require EVAR and FEm-fem bypass per Dr Anderson. Planned 02/19/24. Cardiology and pulmonology clearance pending. Acute hypoxic respiratory failure COPD - exacerbation on [address] without contrast 02/06 shows Advanced smoking related lung disease, emphysematous changes in both lungs. There is subpleural reticulaton and septal thickening in the lung bases. There is atelectasis scarring in the lung bases. Continue nebulized treatment with levalbuterol and ipratropium q.6 hour DC steriods. Received from methyprednisolone 02/06 to 02/13 Patient completed Azithromycin from 02/07 for 5 days Severe peripheral artery disease in right lower extremity Duplex ultrasound completed, shows severe PAD in the right lower extremity Patient underwent right leg revascularization by Dr. Hoff - unable to revascularize right iliac/common femoral due to a calcified occlusion. On prophylactic heparin dose Left lower extremities unremarkable for PAD Starting atorvastatin 40 mg p.o. daily Consider aspirin 81 mg after definitive treatment for aneurysm Moderate pulmonary arterial hypertension Continue Sildenafil 20 mg PO TID Community-acquired pneumonia, Gram-positive and negative IV Zosyn starting 02/14 Completed ceftriaxone starting 02/09, completed azithromycin starting 02/07 to 02/11 Sputum culture with induction pending Influenza and COVID negative MRSA screen is pending Ruled out PE / DVT CT Angio chest completed, shows no evidence of a pulmonary arterial filling defect to suggest pulmonary embolism. LE doppler unremarkable D Dimer elevated at 1.30 CTA chest pending to rule out PE. 250cc IV NS afterwards. B/L atlectasis in lung bases Incentive spirometry Q1hr Left inguinal hernia-manually reducible, soft, nontender CT abdomen shows left inguinal hernia containing fat and small bowel. Outpatient workup advised History of severe emphysema - controlled Continue nebulized treatment with levalbuterol and ipratropium q.6 p.r.n. Right femoral hernia CT abdomen shows right femoral hernia containing small bowel. No definite acute obstruction Sigmoid diverticulosis without acute diverticulitis Monitor Bilateral renal cysts including 22 cm left cortical renal cyst Outpatient workup advised Monitor History of COVID-19 infection COVID testing pending Chronic nicotine dependence Counseled regarding cessation for more than 20 minutes Diet Cardiac diet DVT ppx Heparin 5000 SC Q8hr GERD ppx Famotidine 40mg daily Plan discussed with patient and daughter at bedside in [place] 266, all questions have been answered. Goals of care discussed with the patient for more than 22 minutes, full code status. Plan discussed with Dr. Navas. IV Zosyn starting 02/14. BHAVNA wilhelm. Dr. Anderson on the case. EVAR and fem-fem bypass 02/18. NPO starting 02/18 midnight. Pulmonology and cardiac clearance pending. Discussed in details regarding prognosis and the risk of open surgery for the repair of AAA. Advanced directives to be given by patient's daughter Raiza Iyer and Tamia Sexton, as per the patient's wishes. Risks of procedure explained including , and acute renal failure requiring hemodialysis by Dr. Vasquez. Plan discussed with: Patient, Daughter (at bedside) My Orders My Orders Orders - MAYI BINGHAM Procedure Category Date Status Time *Consult CONS 02/14/24 Transmitted / 14:22 Chest Xray 1 View XY 02/15/24 Resulted 06:31 Mrsa Screen TARIQ 02/15/24 Logged 09:00 Dietary Evaluation Review Comments: follow the cardiac 2gNa Lofat LoCholel diet. Monitor PO intake to meet 75% of his needs Expected Outcomes/Goals: Improved health and well being. avoid unwanted weight loss. MAYI BINGHAM RESIDENT Feb 15, 2024 11:59
--- NOTE | 2024-02-15 12:27 | DVHPN2 ---
Progress Note - Dictate Date Seen: Feb 15, 2024 Has the PT tested + for MRSA If YES, has PT been informed?: No Medical Necessity Reason Pt with a Central, PICC or Fol: No Subjective PT WITH COPD CONTINUED TOBACCO USE NOW WITH LOWER BACK PAIM CTA OF ABD 1. Infrarenal abdominal aortic aneurysm measuring up to 67mm with a large amount of mural thrombus. 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 Vascular surgery evaluation is recommended. 2. Numerous bilateral renal cysts including a very large left renal cyst measuring up to 220mm. 3. Left inguinal hernia containing fat and small bowel. Right femoral hernia containing small bowel. No definite acute obstruction. Some level of chronic obstruction may be present. vital signs Vital Sign Date Time Temp Pulse Resp B/P (MAP) Pulse Ox O2 Delivery O2 Flow Rate FiO2 02/15/24 12:00 87 02/15/24 11:57 20 95 02/15/24 11:51 Nasal Cannula* 3 32 02/15/24 11:00 111/57 (75) 02/15/24 08:00 97.7 97.7 Total Intake and Output 02/14/24 02/14/24 02/15/24 15:00 23:00 07:00 Intake Total 410 ml 1080 ml 100 ml Output Total 200 ml Balance 410 ml 1080 ml -100 ml medications Current Medications Medications Dose Ordered Sig/Juan David Route Start Time Stop Time Status Last Admin Dose Admin Sodium Chloride 10 ml Q8HR IV 01/30/24 22:00 02/15/24 05:29 10 ML Lorazepam 0.5 mg Q6HP PRN PO 01/30/24 16:30 Acetaminophen 650 mg Q6HP PRN PO 01/30/24 16:30 02/11/24 16:59 650 MG Ondansetron HCl 4 mg Q4HP PRN IV 01/30/24 16:30 02/08/24 19:53 4 MG Nitroglycerin 0.4 mg Q5MINP PRN SL 01/30/24 16:30 Hold Atorvastatin Calcium 40 mg HS PO 01/31/24 22:00 02/14/24 21:17 40 MG Ipratropium [place] 0.5 mg Q6HPRN PRN NEB 01/30/24 22:45 02/15/24 11:51 0.5 MG Levalbuterol HCl 0.625 mg Q6HR NEB 01/31/24 00:00 02/15/24 11:51 0.625 MG Labetalol HCl 5 mg Q2HPRN PRN IV 02/01/24 07:15 Melatonin 5 mg HS PO 02/04/24 22:00 02/14/24 21:17 5 MG Heparin Sodium (Porcine) 5,000 units Q8HR SC 02/05/24 06:00 02/15/24 05:29 5,000 UNITS Famotidine 40 mg DAILY PO 02/08/24 10:00 02/15/24 09:37 40 MG Sildenafil Citrate 20 mg TID@08,14,20 PO 02/09/24 14:00 02/15/24 08:12 20 MG Docusate Sodium 100 mg BIDPRN PRN PO 02/10/24 10:30 02/10/24 15:02 100 MG Furosemide 10 mg DAILY PO 02/15/24 10:00 02/15/24 09:36 10 MG Piperacillin Sod/ Tazobactam Sod 100 ml @ 25 mls/hr Q8HR IV 02/15/24 14:00 laboratory and microbiology Laboratory Tests 02/15/24 04:32 02/14/24 04:56 Test 02/14/24 04:56 Range/Units Serum Glucose 108 H 74-106 mg/dL Problem List AAA COPD Assessment/Plan LE ARTERIAL DOPPLER SCHEDULE FOR ANGIOGRAM WITH STENT GRAFT IF PATIENT ANATOMY IS APPROPRIATE FOR STENT GRAFT HYBRID pt RENAL MEASUREMENT conducive to STENT GRAFT BUT RIGHT LEG NEEDS REVASCULARIZATION SCHEDULE FOR RIGHT LEG INTERVENTION 02/02/24 DISCUSSED WITH DAUGHTERS UNABLE TO REVASCULARIZE RIGHT ILIAC / COMMON FEMORAL CALCIFIED OCCLUSION SURGICAL OPTION HYBRID PROCEDURE IS A VIABLE OPTION TRANSFER TO [facility] SINCE WE ARE NOT ABLE TO DO A HYBRID PROCEDURE echo stress cardiolite risk stratification unable to perform cardiolite because severe sob echo ef 55% mod pah START REVATIO DIURESIS WILL RESCHEDULE CARDIOLITE ON MONDAY CARDIOLITE NON ISCHEMIC Dietary Evaluation Review Comments: follow the cardiac 2gNa Lofat LoCholel diet. Monitor PO intake to meet 75% of his needs Expected Outcomes/Goals: Improved health and well being. avoid unwanted weight loss. Plan discussed with: Patient JUAN DANIEL GARCIA MD Feb 15, 2024 12:27
[2024-02-15] MEDS: PIPERACILLIN-TAZOB 3.375GM 100 ML IV SCH (14:11)
[2024-02-16] VITALS (33 sets, daily range): BP systolic 78–114; BP diastolic 38–70; PULSE 56–80; RESP 12–22; TEMP 97.5–98.7; O2SAT 88–99
[2024-02-16 05:18] LABS: Hemoglobin 13.7 g/dL (13.5-17.5); Mean Corpuscular Hemoglobin 28.1 pg (28.0-32.0); Mean Corpuscular Hgb Conc. 32.7 g/dL (32.0-36.0); Platelet Count (auto) 192 10^3/uL (140-450); Red Blood Cells 4.88 10^6/uL (4.5-5.90); Red Cell Distribution Width 15.3 % (11.8-14.3); White Blood Cell 14.3 10^3/uL (4.4-10.8)
[2024-02-16 05:24] LABS: Band Neutrophils % (manual) 0; Basophils % (manual) 0 (0.0-2.0); Blast Cells 0; Metamyelocytes % 0; Myelocytes % 0; Promyelocytes % 0; Reactive Lymphocytes 0
--- NOTE | 2024-02-16 06:26 | DVHPNRES ---
Progress Note Date Seen: Feb 16, 2024 Resident Creating Document: MAYI BINGHAM RESIDENT Has the PT tested + for MRSA If YES, has PT been informed?: No Medical Necessity Reason Pt with a Central, PICC or Fol: No Subjective Review of Systems This is a 78-year-old male patient with PMHx of chronic nicotine dependence, abdominal aortic aneurysm diagnosed February 2023, history of pneumonia and pleural effusion who presented to the ER with the chief complaint of lower back pain starting 01/23/2024. Patient reports worsening lower back pain which is pressure-like in nature, constant and 10/10 in intensity located in the lumbar region, no radiation. The pain worsened yesterday therefore patient decided to come into the ER. He has a history of abdominal aortic aneurysm diagnosed in February [address] scan. A recent CT abdomen pelvis without contrast for abdominal hernia was completed by patient's primary care physician on 01/11/2024 which showed 5.8 cm infrarenal abdominal aortic aneurysm with suspected intramural hematoma or thrombus. Patient also has a history of left-sided inguinal hernia for the past 2 months which is not affecting his daily life activities. Past Medical History: chronic nicotine dependence, abdominal aortic aneurysm diagnosed February 2023, history of pneumonia and pleural effusion, inguinal hernia Past Surgical History: None Family History: None Social history: Smokes 1 pack per day (For the past 50 years, quit 9 months back), drinks alcohol occasionally, denies illicit drug use. Patient lives with and son. 01/30 - Patient seen and examined in the ER bed 17. Reports mild back pain as compared to admission. Saturating 96% on 4 L NC. Family at bedside. 01/31 - patient seen and examined in the ICU bed 266. Reports no back pain. No acute distress. Saturating 94 on 4L Oxymizer. Scheduled for angiogram with a stent. Dr Brito - pt deminsion conducive to STENT GRAFT BUT RIGHT LEG NEEDS REVACULARIZATION. SCHEDULE FOR RIGHT LEG INTERVENTION 02/02/24. Pt NPO starting midnight 02/02/24 - patient underwent right leg revascularization by Dr. Hoff - unable to revascularize right iliac/common femoral due to a calcified occlusion. Heparin discontinued by flange machine operator. 02/03/2024-patient reported back pain in the morning. [place] and Tylenol administered. Patient feels fine. Right lower extremity examined for tenderness/swelling/bruising-unremarkable. Auscultation at catheter site unremarkable. Continuing cardiac diet. 02/05/2024 - patient reports back pain, lumbar spinous tender on exam. Left inguinal hernia is tender but not erythematous and soft and reducible. Consulted Dr. Anderson. Discussed in details regarding prognosis and the risk of open surgery for the repair of AAA. Advanced directives to be given by patient's daughter Soco Iyer and Tamia Sexton, as per the patient's wishes. 02/06/2024 - Patient feels fine, no active complaint. Dr. Anderson recommended pulmonary evaluation and pulmonary therapy to improve lung status. We will review films further regarding possible EVAR and fem-fem bypass. This would be an elective setting once his pulmonary status has improved if he is a candidate for hybrid surgery. If he is not a candidate for habits surgery would recommend higher level of care for open repair. CT chest without contrast pending. D Dimer elevated. LE dopper negative 02/07/2024 - CT without contrast shows Advanced smoking related lung disease, emphysematous changes in both lungs. There is subpleural reticulaton and septal thickening in the lung bases. There is atelectasis scarring in the lung bases. Started methyprednisolone 80mg IV BID, Incentive spirometry Q1hr. CTA chest pending to rule out PE. 250cc IV NS afterwards. 02/08/2024 - CT Angio chest completed, shows no evidence of a pulmonary arterial filling defect to suggest pulmonary embolism. IV Lasix reduced to 20mg daily, methyprednisolone 40mg IV BID. Patient will require EVAR and FEm-fem bypass per Dr Anderson. Planned 02/13/24 Needs pulmonary and Cardiac clearance. DR. Brito ordered stress echo. Azithromycin IV started for 5 days, starting 02/0702/09/2024 - reports no active complaint. Practiced incentive spirometry with the patient and the nurse. Ordnance Truck Installation Supervisor unable to perform Cardiolite stress test because of severe shortness of breath. Moderate PAH, started sildenafil 20 mg PO TID We will reschedule Cardiolite for Monday02/11/2024 - patient reports no acute distress. Holding sildenafil given the low blood pressure. 02/12/2024 - patient is having no acute complaint. Saturating 96 on 5 L Oxymizer, sitting on a chair comfortably. undergoing stress test today. Switched prednisolone IV to 40MG daily p.o. Surgery cancelled given elevated WBC count, and pending stress test, Check BC x 2, urine culture. CXR showing Bibasilar atelectasis vs infiltrates. Transfer to [facility] pending 02/13/2024 - patient feels fine, reports no active complaint. Family at bedside. Switched Lasix 20 mg b.i.d. IV to 20 mg once daily orally. Prelim urinary culture negative. Saturating 95 on 4 L oxygen via Oxymizer. Transfer cancelled as Dr. Anderson is tentatively planning to do the surgery next Monday. Stress test was not done due to shortness of breath 02/14/2024 - patient has no acute complaint, saturating 95 on 3 L nasal cannula. Decreased prednisolone from 40 mg daily to 20 mg daily orally. Consulted Dr. Glalagher for Pulmonary clearance. Dr. Anderson - planning to do EVAR and fem-fem bypass on 02/18. Pulmonary and cardiac clearance pending. Stress echo report pending. 02/14 - no complaints. WBC up to 20.8. Started IV Zosyn, UA unremarkable, CXR consistent with previous findings. 02/15 - Patient is satting 95 on 4L NC. WBC down to 13. DC Lasix. Urine culture Approximately 50,000 CFU/mL Possible Enterococcus Objective vital signs Vital Sign Date Time Temp Pulse Resp B/P (MAP) Pulse Ox O2 Delivery O2 Flow Rate FiO2 02/16/24 04:02 56 02/16/24 04:00 20 89/47 (61) 98 02/16/24 00:00 98.7 98.7 02/15/24 20:00 Nasal Cannula* 3 32 Total Intake and Output 02/15/24 02/15/24 02/16/24 15:00 23:00 07:00 Intake Total 480 ml 750 ml 50 ml Output Total 400 ml Balance 480 ml 350 ml 50 ml medications Current Medications Medications Dose Ordered Sig/Juan David Route Start Time Stop Time Status Last Admin Dose Admin Sodium Chloride 10 ml Q8HR IV 01/30/24 22:00 02/15/24 22:09 10 ML Lorazepam 0.5 mg Q6HP PRN PO 01/30/24 16:30 Acetaminophen 650 mg Q6HP PRN PO 01/30/24 16:30 02/11/24 16:59 650 MG Ondansetron HCl 4 mg Q4HP PRN IV 01/30/24 16:30 02/08/24 19:53 4 MG Nitroglycerin 0.4 mg Q5MINP PRN SL 01/30/24 16:30 Hold Atorvastatin Calcium 40 mg HS PO 01/31/24 22:00 02/15/24 21:53 40 MG Ipratropium [place] 0.5 mg Q6HPRN PRN NEB 01/30/24 22:45 02/15/24 18:28 0.5 MG Levalbuterol HCl 0.625 mg Q6HR NEB 01/31/24 00:00 02/16/24 00:11 0.625 MG Labetalol HCl 5 mg Q2HPRN PRN IV 02/01/24 07:15 Melatonin 5 mg HS PO 02/04/24 22:00 02/15/24 21:53 5 MG Heparin Sodium (Porcine) 5,000 units Q8HR SC 02/05/24 06:00 02/15/24 21:54 5,000 UNITS Famotidine 40 mg DAILY PO 02/08/24 10:00 02/15/24 09:37 40 MG Sildenafil Citrate 20 mg TID@08,14,20 PO 02/09/24 14:00 02/15/24 21:53 20 MG Docusate Sodium 100 mg BIDPRN PRN PO 02/10/24 10:30 02/10/24 15:02 100 MG Furosemide 10 mg DAILY PO 02/15/24 10:00 02/15/24 09:36 10 MG Piperacillin Sod/ Tazobactam Sod 100 ml @ 25 mls/hr Q8HR IV 02/15/24 14:00 02/15/24 21:53 25 MLS/HR Examination General Appearance: Alert, Oriented X4, Cooperative, No acute distress, Other (Malian speaking elderly pleasant male patient sitting comfortably in the chair) Respiratory: Clear to auscultation, decreased bilateral air movement, Other (Saturating 95 on 4 L NC) Cardiovascular: Regular rate, Normal S1, Normal S2, No murmurs Abdominal: Normal bowel sounds, Soft, No tenderness, Other (R inguinal dressing removed. Surgical site is clean and intact. Left-sided inguinal hernia seen bulging with cough reflex, manually reducible but comes back, soft, nontender, not extending into the scrotum) Extremities: No edema, pulses are feeble B/L in LE, No tenderness/swelling. No tenderness in the lumbar spine. Neuro: Normal speech, Strength at 5/5 X4 ext, Normal tone, Sensation intact Psych/Mental Status: A/Ox4 laboratory and microbiology Laboratory Tests 02/16/24 04:43 02/14/24 04:56 Test 02/14/24 04:56 Range/Units Serum Glucose 108 H 74-106 mg/dL Microbiology Date/Time Source Procedure Growth Status 02/12/24 16:06 Voided Urine Urine Culture - Final Complete 02/12/24 15:03 Blood Blood Culture - Preliminary NO GROWTH AFTER 72 HOURS OF INCUBATION. Resulted 02/01/24 05:45 Nose MRSA Screen - Final Complete Labs and/or images reviewed: Labs reviewed by me, Image(s) reviewed by me Problem List/Assessment/Plan Problem List/Assessment/Plan Infrarenal AAA with occluded right SAM with intramural thrombus CT angio aortic abdominal completed 01/30/2024 shows 67 mm infrarenal abdominal aortic aneurysm with a large amount of mural thrombus. 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 Was 5.8 cm on 01/11/2024 Echocardiogram completed, shows LVEF 55%, elevated TRV 3.30 M per S, RSV 50. Mildly dilated RA. Normal valves. Dr. Brito - hybrid procedure is a viable option. Unable to revascularize right iliac/common femoral calcified occlusion. Stress test report pending. Dr. Malloy consulted - percutaneous revascularization of right lower extremity not technically feasible, will consider femorofemoral bypass after AAA stenting accomplished Blood pressure control, SBP <120s mmHg. IV labetalol Q2hr PRN for SBP >150mmhg., IV lasix 20mg daily oral. Dr. Anderson - Patient will require EVAR and FEm-fem bypass per Dr Anderson. Planned 02/19/24. Cardiology and pulmonology clearance pending. Acute hypoxic respiratory failure COPD - exacerbation on [address] without contrast 02/06 shows Advanced smoking related lung disease, emphysematous changes in both lungs. There is subpleural reticulaton and septal thickening in the lung bases. There is atelectasis scarring in the lung bases. Continue nebulized treatment with levalbuterol and ipratropium q.6 hour DC steriods. Received from methyprednisolone 02/06 to 02/13 Patient completed Azithromycin from 02/07 for 5 days Severe peripheral artery disease in right lower extremity Duplex ultrasound completed, shows severe PAD in the right lower extremity Patient underwent right leg revascularization by Dr. Hoff - unable to revascularize right iliac/common femoral due to a calcified occlusion. On prophylactic heparin dose Left lower extremities unremarkable for PAD Starting atorvastatin 40 mg p.o. daily Consider aspirin 81 mg after definitive treatment for aneurysm Moderate pulmonary arterial hypertension Continue Sildenafil 20 mg PO TID Community-acquired pneumonia, Gram-positive and negative IV Zosyn starting 02/14, WBC 13 Completed ceftriaxone starting 02/09, completed azithromycin starting 02/07 to 02/11 Sputum culture with induction pending Influenza and COVID negative MRSA screen is pending Ruled out PE / DVT CT Angio chest completed, shows no evidence of a pulmonary arterial filling defect to suggest pulmonary embolism. LE doppler unremarkable D Dimer elevated at 1.30 CTA chest pending to rule out PE. 250cc IV NS afterwards. B/L atlectasis in lung bases Incentive spirometry Q1hr Left inguinal hernia-manually reducible, soft, nontender CT abdomen shows left inguinal hernia containing fat and small bowel. Outpatient workup advised History of severe emphysema - controlled Continue nebulized treatment with levalbuterol and ipratropium q.6 p[address]r.n. Right femoral hernia CT abdomen shows right femoral hernia containing small bowel. No definite acute obstruction Sigmoid diverticulosis without acute diverticulitis Monitor Bilateral renal cysts including 22 cm left cortical renal cyst Outpatient workup advised Monitor History of COVID-19 infection COVID testing pending Chronic nicotine dependence Counseled regarding cessation for more than 20 minutes Diet Cardiac diet DVT ppx Heparin 5000 SC Q8hr GERD ppx Famotidine 40mg daily Plan discussed with patient and daughter at bedside in [place] 266, all questions have been answered. Goals of care discussed with the patient for more than 22 minutes, full code status. Plan discussed with Dr. Navas. IV Zosyn starting 02/14. BHAVNA sternicolasa. BHAVNA Acosta. Dr. Anderson on the case. EVAR and fem-fem bypass 02/18. NPO starting 02/18 midnight. Ordnance Truck Installation Supervisor Dr Brito - CARDIOLITE NON ISCHEMIC. ECHO EF >55%. MAY PROCEED WITH SURGERY. Pulmonology clearance pending. Discussed in details regarding prognosis and the risk of open surgery for the repair of AAA. Advanced directives to be given by patient's daughter Raiza Iyer and Tamia Sexton, as per the patient's wishes. Risks of procedure explained including , and acute renal failure requiring hemodialysis by Dr. Vasquez. Plan discussed with: Patient, Daughter (at bedside) My Orders My Orders Orders - MAYI BINGHAM Procedure Category Date Status Time Chest Xray 1 View XY 02/15/24 Resulted 06:31 Mrsa Screen TARIQ 02/15/24 Logged 09:00 Complete Blood Count LAB 02/16/24 In Process 04:00 Manual Differential LAB 02/16/24 In Process 04:43 Dietary Evaluation Review Comments: follow the cardiac 2gNa Lofat LoCholel diet. Monitor PO intake to meet 75% of his needs Expected Outcomes/Goals: Improved health and well being. avoid unwanted weight loss. MAYI BINGHAM Feb 16, 2024 06:25
[2024-02-16 06:43] LABS: Eosinophils % (manual) 5 (0-7); Lymphocytes % (manual) 17 (10.0-50.0); Monocytes % (manual) 10 (0-12); Platelet Estimate Adequate
--- NOTE | 2024-02-16 14:01 | DVHPN2 ---
Progress Note - Dictate Date Seen: Feb 16, 2024 Has the PT tested + for MRSA If YES, has PT been informed?: No Medical Necessity Reason Pt with a Central, PICC or Fol: No Subjective PT WITH COPD CONTINUED TOBACCO USE NOW WITH LOWER BACK PAIM CTA OF ABD 1. Infrarenal abdominal aortic aneurysm measuring up to 67mm with a large amount of mural thrombus. 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 Vascular surgery evaluation is recommended. 2. Numerous bilateral renal cysts including a very large left renal cyst measuring up to 220mm. 3. Left inguinal hernia containing fat and small bowel. Right femoral hernia containing small bowel. No definite acute obstruction. Some level of chronic obstruction may be present. vital signs Vital Sign Date Time Temp Pulse Resp B/P (MAP) Pulse Ox O2 Delivery O2 Flow Rate FiO2 02/16/24 12:14 64 14 98 02/16/24 12:08 Nasal Cannula* 4 36 02/16/24 09:43 91/59 02/16/24 08:00 98.0 98.0 Total Intake and Output 02/15/24 02/15/24 02/16/24 15:00 23:00 07:00 Intake Total 480 ml 750 ml 195 ml Output Total 400 ml 200 ml Balance 480 ml 350 ml -5 ml medications Current Medications Medications Dose Ordered Sig/Juan David Route Start Time Stop Time Status Last Admin Dose Admin Sodium Chloride 10 ml Q8HR IV 01/30/24 22:00 02/16/24 13:26 10 ML Lorazepam 0.5 mg Q6HP PRN PO 01/30/24 16:30 Acetaminophen 650 mg Q6HP PRN PO 01/30/24 16:30 02/11/24 16:59 650 MG Ondansetron HCl 4 mg Q4HP PRN IV 01/30/24 16:30 02/08/24 19:53 4 MG Nitroglycerin 0.4 mg Q5MINP PRN SL 01/30/24 16:30 Hold Atorvastatin Calcium 40 mg HS PO 01/31/24 22:00 02/15/24 21:53 40 MG Ipratropium [place] 0.5 mg Q6HPRN PRN NEB 01/30/24 22:45 02/16/24 12:08 0.5 MG Levalbuterol HCl 0.625 mg Q6HR NEB 01/31/24 00:00 02/16/24 12:08 0.625 MG Labetalol HCl 5 mg Q2HPRN PRN IV 02/01/24 07:15 Melatonin 5 mg HS PO 02/04/24 22:00 02/15/24 21:53 5 MG Heparin Sodium (Porcine) 5,000 units Q8HR SC 02/05/24 06:00 02/16/24 13:49 5,000 UNITS Famotidine 40 mg DAILY PO 02/08/24 10:00 02/16/24 09:43 40 MG Sildenafil Citrate 20 mg TID@08,14,20 PO 02/09/24 14:00 02/16/24 07:59 20 MG Docusate Sodium 100 mg BIDPRN PRN PO 02/10/24 10:30 02/10/24 15:02 100 MG Piperacillin Sod/ Tazobactam Sod 100 ml @ 25 mls/hr Q8HR IV 02/15/24 14:00 02/16/24 13:48 25 MLS/HR laboratory and microbiology Laboratory Tests 02/16/24 04:43 02/14/24 04:56 Test 02/14/24 04:56 Range/Units Serum Glucose 108 H 74-106 mg/dL Problem List AAA COPD Assessment/Plan LE ARTERIAL DOPPLER SCHEDULE FOR ANGIOGRAM WITH STENT GRAFT IF PATIENT ANATOMY IS APPROPRIATE FOR STENT GRAFT HYBRID pt RENAL MEASUREMENT conducive to STENT GRAFT BUT RIGHT LEG NEEDS REVASCULARIZATION SCHEDULE FOR RIGHT LEG INTERVENTION 02/02/24 DISCUSSED WITH DAUGHTERS UNABLE TO REVASCULARIZE RIGHT ILIAC / COMMON FEMORAL CALCIFIED OCCLUSION SURGICAL OPTION HYBRID PROCEDURE IS A VIABLE OPTION TRANSFER TO [facility] SINCE WE ARE NOT ABLE TO DO A HYBRID PROCEDURE echo stress cardiolite risk stratification unable to perform cardiolite because severe sob echo ef 55% mod pah START REVATIO DIURESIS WILL RESCHEDULE CARDIOLITE ON MONDAY CARDIOLITE NON ISCHEMIC ECHO EF >55% MAY PROCEED WITH SURGERY Dietary Evaluation Review Comments: follow the cardiac 2gNa Lofat LoCholel diet. Monitor PO intake to meet 75% of his needs Expected Outcomes/Goals: Improved health and well being. avoid unwanted weight loss. Plan discussed with: Patient JUAN DANIEL GARCIA MD Feb 16, 2024 14:01
--- NOTE | 2024-02-16 20:37 | DVHPN2 ---
Progress Note - Dictate Date Seen: Feb 16, 2024 Has the PT tested + for MRSA If YES, has PT been informed?: No Medical Necessity Reason Pt with a Central, PICC or Fol: No Subjective Patient seen and examined at bedside. Remains on supplemental oxygen Overnight events reviewed. vital signs Vital Sign Date Time Temp Pulse Resp B/P (MAP) Pulse Ox O2 Delivery O2 Flow Rate FiO2 02/16/24 19:18 94 Nasal Cannula* 4 36 02/16/24 18:54 63 14 02/16/24 18:00 108/64 (79) 02/16/24 16:00 97.9 97.9 Total Intake and Output 02/15/24 02/15/24 02/16/24 15:00 23:00 07:00 Intake Total 480 ml 750 ml 195 ml Output Total 400 ml 200 ml Balance 480 ml 350 ml -5 ml medications Current Medications Medications Dose Ordered Sig/Juan David Route Start Time Stop Time Status Last Admin Dose Admin Sodium Chloride 10 ml Q8HR IV 01/30/24 22:00 02/16/24 13:26 10 ML Lorazepam 0.5 mg Q6HP PRN PO 01/30/24 16:30 Acetaminophen 650 mg Q6HP PRN PO 01/30/24 16:30 02/11/24 16:59 650 MG Ondansetron HCl 4 mg Q4HP PRN IV 01/30/24 16:30 02/08/24 19:53 4 MG Nitroglycerin 0.4 mg Q5MINP PRN SL 01/30/24 16:30 Hold Atorvastatin Calcium 40 mg HS PO 01/31/24 22:00 02/15/24 21:53 40 MG Ipratropium [place] 0.5 mg Q6HPRN PRN NEB 01/30/24 22:45 02/16/24 12:08 0.5 MG Levalbuterol HCl 0.625 mg Q6HR NEB 01/31/24 00:00 02/16/24 18:53 0.625 MG Labetalol HCl 5 mg Q2HPRN PRN IV 02/01/24 07:15 Melatonin 5 mg HS PO 02/04/24 22:00 02/15/24 21:53 5 MG Heparin Sodium (Porcine) 5,000 units Q8HR SC 02/05/24 06:00 02/16/24 13:49 5,000 UNITS Famotidine 40 mg DAILY PO 02/08/24 10:00 02/16/24 09:43 40 MG Sildenafil Citrate 20 mg TID@08,14,20 PO 02/09/24 14:00 02/16/24 20:07 20 MG Docusate Sodium 100 mg BIDPRN PRN PO 02/10/24 10:30 02/10/24 15:02 100 MG Piperacillin Sod/ Tazobactam Sod 100 ml @ 25 mls/hr Q8HR IV 02/15/24 14:00 02/16/24 13:48 25 MLS/HR Dexmedetomidine HCl 400 mcg/ Dextrose 100 ml @ 3.605 mls/ hr Q24H IV 02/19/24 06:45 Nicardipine HCl 250 ml @ 50 mls/hr Q5H IV 02/19/24 06:45 objective Gen.: Patient lying in bed in no apparent distress. On supplemental oxygen. Head: Normocephalic, atraumatic. Eyes: EOMI/PERRLA. Ears: Normal hearing. Normal anatomy. Neck/trachea: Trachea midline, supple. Nose: Normal external anatomy. Mouth: Moist mucous membranes. Chest: Decreased air entry bilaterally. No wheezing or rhonchi. Cardiovascular: Positive S1, positive S2. Regular rate and rhythm. Abdomen: Positive bowel sounds in all 4 quadrants. Soft, non-tender, non- distended. : Deferred. Rectal: Deferred. Skin: Warm, dry. Intact. Extremities: 2+ radial pulses bilaterally. No lower extremity edema. Neuro: Awake, alert, oriented x3. No gross motor or sensory deficits. Cranial nerves II through XII intact. Gait not assessed. laboratory and microbiology Laboratory Tests 02/16/24 04:43 02/14/24 04:56 Test 02/14/24 04:56 Range/Units Serum Glucose 108 H 74-106 mg/dL Assessment/Plan Impression: Acute on chronic hypoxic respiratory failure COPD exacerbation, improving Nicotine abuse Emphysematous changes Obesity with a BMI of 30 Moderate size hiatal hernia Ex-smoker Pulmonary hypertension with a right ventricular systolic pressure of 50 mmHg WHO class three Events: On supplemental O2 at 4 LPM NC Taper O2 as tolerated WBC trending down at 14.3 K, down from 20 K Plan for vascular surgery on Monday. Continue antibiotics Updated family at bedside. Labs and imaging reviewed. Rest of plan as noted below. Plan: CT of the chest report and images reviewed. No acute pulmonary embolism. Extensive centrilobular emphysematous changes in the lung. No acute opacities, pleural effusions or pneumothorax. Wheezing has improved. Recommend to discontinue steroids. Patient is at moderate to high risk of pulmonary complications in the perioperative. No absolute contraindications to surgery. Patient is at high risk for respiratory failure including the possibility of requiring mechanical ventilation or difficulty in weaning from mechanical ventilation. Other potential complications for example are postoperative atelectasis, pneumonia, bronchospasm, pulmonary embolism family adverse Kristy affect his pulmonary function as well. He will require bronchodilators pre, darin and postoperatively. We will recommend early ambulation, DVT prophylaxis and incentive spirometry post operatively. Continue bronchodilators Continue supplemental o2 Keep O2 saturation above 90% IS Pulmonary hypertension management as per Cardiology. DVT prophylaxis. Prognosis: Poor given multiple comorbidities. Rest of plan per hospitalist and other consultants. A total of 51 minutes of clinical care time was spent reviewing the patient record, examining the patient, making a diagnostic and therapeutic plan, discussing this plan with the medical personnel, following up on diagnostic studies and following the patient for clinical stability excluding any and all procedures. At least 50% of this time was spent in direct, [id number] contact. Thank you Dr. Diaz for allowing me to participate in this patient's care. Further recommendations will depend on patient's clinical course. Please do not hesitate to contact me if you have any questions or concerns. This medical document was created using an electronic medical record system with [employer] dictation system. Although this document has been carefully reviewed, there may still be some phonetic and typographical errors. These areas are purely typographical due to imperfections of the software programs, and do not reflect any compromise in the patient's medical care. Dietary Evaluation Review Comments: follow the cardiac 2gNa Lofat LoCholel diet. Monitor PO intake to meet 75% of his needs Expected Outcomes/Goals: Improved health and well being. avoid unwanted weight loss. Plan discussed with: Patient, Other (JARED Solitario) CATRINA STEELE MD Feb 16, 2024 20:37
[2024-02-17] VITALS (39 sets, daily range): BP systolic 72–124; BP diastolic 28–80; PULSE 56–83; RESP 14–25; TEMP 97.1–99.5; O2SAT 90–100
[2024-02-17 06:01] LABS: Basophils # (auto) 0 10 ^3/uL (0-0.2); Basophils % (auto) 0.2 % (0.0-2.0); Eosinophils # (auto) 0.6 10 ^3/uL (0-0.8); Eosinophils % (auto) 4.4 % (0.0-7.0); Hematocrit 42.6 % (41.0-53.0); Hemoglobin 13.7 g/dL (13.5-17.5); Lymphocytes # (auto) 1.6 10 ^3/uL (0.4-5.4); Lymphocytes % (auto) 11.3 % (10.0-50.0); Mean Corpuscular Hemoglobin 27.9 pg (28.0-32.0); Mean Corpuscular Hgb Conc. 32.1 g/dL (32.0-36.0); Neutrophils # (auto) 10.8 10 ^3/uL (1.6-8.6); Neutrophils % (auto) 77.1 % (37.0-80.0); Nucleated Red Blood Cells % 0.1 %; Platelet Count (auto) 180 10^3/uL (140-450); Red Blood Cells 4.89 10^6/uL (4.5-5.90); Red Cell Distribution Width 15.4 % (11.8-14.3)
[2024-02-17] MEDS: SODIUM CHLORIDE 0.9% 500 ML IV ONE (12:23)
--- NOTE | 2024-02-17 15:52 | DVHPNRES ---
Progress Note Date Seen: Feb 17, 2024 Resident Creating Document: MAYI BINGHAM RESIDENT Has the PT tested + for MRSA If YES, has PT been informed?: No Medical Necessity Reason Pt with a Central, PICC or Fol: No Subjective Review of Systems This is a 78-year-old male patient with PMHx of chronic nicotine dependence, abdominal aortic aneurysm diagnosed February 2023, history of pneumonia and pleural effusion who presented to the ER with the chief complaint of lower back pain starting 01/23/2024. Patient reports worsening lower back pain which is pressure-like in nature, constant and 10/10 in intensity located in the lumbar region, no radiation. The pain worsened yesterday therefore patient decided to come into the ER. He has a history of abdominal aortic aneurysm diagnosed in February [address] scan. A recent CT abdomen pelvis without contrast for abdominal hernia was completed by patient's primary care physician on 01/11/2024 which showed 5.8 cm infrarenal abdominal aortic aneurysm with suspected intramural hematoma or thrombus. Patient also has a history of left-sided inguinal hernia for the past 2 months which is not affecting his daily life activities. Past Medical History: chronic nicotine dependence, abdominal aortic aneurysm diagnosed February 2023, history of pneumonia and pleural effusion, inguinal hernia Past Surgical History: None Family History: None Social history: Smokes 1 pack per day (For the past 50 years, quit 9 months back), drinks alcohol occasionally, denies illicit drug use. Patient lives with and son. 01/30 - Patient seen and examined in the ER bed 17. Reports mild back pain as compared to admission. Saturating 96% on 4 L NC. Family at bedside. 01/31 - patient seen and examined in the ICU bed 266. Reports no back pain. No acute distress. Saturating 94 on 4L Oxymizer. Scheduled for angiogram with a stent. Dr Brito - pt deminsion conducive to STENT GRAFT BUT RIGHT LEG NEEDS REVACULARIZATION. SCHEDULE FOR RIGHT LEG INTERVENTION 02/02/24. Pt NPO starting midnight 02/02/24 - patient underwent right leg revascularization by Dr. Hoff - unable to revascularize right iliac/common femoral due to a calcified occlusion. Heparin discontinued by manager order. 02/03/2024-patient reported back pain in the morning. [place] and Tylenol administered. Patient feels fine. Right lower extremity examined for tenderness/swelling/bruising-unremarkable. Auscultation at catheter site unremarkable. Continuing cardiac diet. 02/05/2024 - patient reports back pain, lumbar spinous tender on exam. Left inguinal hernia is tender but not erythematous and soft and reducible. Consulted Dr. Anderson. Discussed in details regarding prognosis and the risk of open surgery for the repair of AAA. Advanced directives to be given by patient's daughter Soco Iyer and Tamia Sexton, as per the patient's wishes. 02/06/2024 - Patient feels fine, no active complaint. Dr. Anderson recommended pulmonary evaluation and pulmonary therapy to improve lung status. We will review films further regarding possible EVAR and fem-fem bypass. This would be an elective setting once his pulmonary status has improved if he is a candidate for hybrid surgery. If he is not a candidate for habits surgery would recommend higher level of care for open repair. CT chest without contrast pending. D Dimer elevated. LE dopper negative 02/07/2024 - CT without contrast shows Advanced smoking related lung disease, emphysematous changes in both lungs. There is subpleural reticulaton and septal thickening in the lung bases. There is atelectasis scarring in the lung bases. Started methyprednisolone 80mg IV BID, Incentive spirometry Q1hr. CTA chest pending to rule out PE. 250cc IV NS afterwards. 02/08/2024 - CT Angio chest completed, shows no evidence of a pulmonary arterial filling defect to suggest pulmonary embolism. IV Lasix reduced to 20mg daily, methyprednisolone 40mg IV BID. Patient will require EVAR and FEm-fem bypass per Dr Anderson. Planned 02/13/24 Needs pulmonary and Cardiac clearance. DR. Brito ordered stress echo. Azithromycin IV started for 5 days, starting 02/0702/09/2024 - reports no active complaint. Practiced incentive spirometry with the patient and the nurse. Olericulturist unable to perform Cardiolite stress test because of severe shortness of breath. Moderate PAH, started sildenafil 20 mg PO TID We will reschedule Cardiolite for Monday02/11/2024 - patient reports no acute distress. Holding sildenafil given the low blood pressure. 02/12/2024 - patient is having no acute complaint. Saturating 96 on 5 L Oxymizer, sitting on a chair comfortably. undergoing stress test today. Switched prednisolone IV to 40MG daily p.o. Surgery cancelled given elevated WBC count, and pending stress test, Check BC x 2, urine culture. CXR showing Bibasilar atelectasis vs infiltrates. Transfer to [facility] pending 02/13/2024 - patient feels fine, reports no active complaint. Family at bedside. Switched Lasix 20 mg b.i.d. IV to 20 mg once daily orally. Prelim urinary culture negative. Saturating 95 on 4 L oxygen via Oxymizer. Transfer cancelled as Dr. Anderson is tentatively planning to do the surgery next Monday. Stress test was not done due to shortness of breath 02/14/2024 - patient has no acute complaint, saturating 95 on 3 L nasal cannula. Decreased prednisolone from 40 mg daily to 20 mg daily orally. Consulted Dr. Gallagher for Pulmonary clearance. Dr. Anderson - planning to do EVAR and fem-fem bypass on 02/18. Pulmonary and cardiac clearance pending. Stress echo report pending. 02/14 - no complaints. WBC up to 20.8. Started IV Zosyn, UA unremarkable, CXR consistent with previous findings. 02/15 - Patient is satting 95 on 4L NC. WBC down to 13. DC Lasix. Urine culture Approximately 50,000 CFU/mL Possible Enterococcus 02/16 - no active complaint, saturating 91 on 2 L NC. Final bacterial culture shows Enterococcus faecalis approximately 09139 CFU per mL. Antibiotics switched from Zosyn to Unasyn. Objective vital signs Vital Sign Date Time Temp Pulse Resp B/P (MAP) Pulse Ox O2 Delivery O2 Flow Rate FiO2 02/17/24 13:00 64 17 81/36 (51) 91 02/17/24 12:00 Nasal Cannula* 2 28 02/17/24 12:00 97.8 97.8 Total Intake and Output 02/16/24 02/16/24 02/17/24 15:00 23:00 07:00 Intake Total 125 ml 600 ml 656 ml Output Total 400 ml 300 ml Balance 125 ml 200 ml 356 ml medications Current Medications Medications Dose Ordered Sig/Juan David Route Start Time Stop Time Status Last Admin Dose Admin Sodium Chloride 10 ml Q8HR IV 01/30/24 22:00 02/17/24 14:06 10 ML Lorazepam 0.5 mg Q6HP PRN PO 01/30/24 16:30 Acetaminophen 650 mg Q6HP PRN PO 01/30/24 16:30 02/11/24 16:59 650 MG Ondansetron HCl 4 mg Q4HP PRN IV 01/30/24 16:30 02/08/24 19:53 4 MG Nitroglycerin 0.4 mg Q5MINP PRN SL 01/30/24 16:30 Hold Atorvastatin Calcium 40 mg HS PO 01/31/24 22:00 02/16/24 21:52 40 MG Ipratropium [place] 0.5 mg Q6HPRN PRN NEB 01/30/24 22:45 02/16/24 12:08 0.5 MG Levalbuterol HCl 0.625 mg Q6HR NEB 01/31/24 00:00 02/17/24 11:48 0.625 MG Labetalol HCl 5 mg Q2HPRN PRN IV 02/01/24 07:15 Melatonin 5 mg HS PO 02/04/24 22:00 02/16/24 21:53 5 MG Heparin Sodium (Porcine) 5,000 units Q8HR SC 02/05/24 06:00 02/17/24 14:07 5,000 UNITS Famotidine 40 mg DAILY PO 02/08/24 10:00 02/17/24 10:13 40 MG Docusate Sodium 100 mg BIDPRN PRN PO 02/10/24 10:30 02/16/24 21:53 100 MG Piperacillin Sod/ Tazobactam Sod 100 ml @ 25 mls/hr Q8HR IV 02/15/24 14:00 02/17/24 14:05 25 MLS/HR Dexmedetomidine HCl 400 mcg/ Dextrose 100 ml @ 3.605 mls/ hr Q24H IV 02/19/24 06:45 Nicardipine HCl 250 ml @ 50 mls/hr Q5H IV 02/19/24 06:45 Examination General Appearance: Alert, Oriented X4, Cooperative, No acute distress, Other (Cook Islander speaking elderly pleasant male patient sitting comfortably in the chair) Respiratory: Clear to auscultation, decreased bilateral air movement, Other (Saturating 91 on 2 L NC) Cardiovascular: Regular rate, Normal S1, Normal S2, No murmurs Abdominal: Normal bowel sounds, Soft, No tenderness, Other (R inguinal dressing removed. Surgical site is clean and intact. Left-sided inguinal hernia seen bulging with cough reflex, manually reducible but comes back, soft, nontender, not extending into the scrotum) Extremities: No edema, pulses are feeble B/L in LE, No tenderness/swelling. No tenderness in the lumbar spine. Neuro: Normal speech, Strength at 5/5 X4 ext, Normal tone, Sensation intact Psych/Mental Status: A/Ox4 laboratory and microbiology Laboratory Tests 02/17/24 04:45 02/14/24 04:56 Test 02/14/24 04:56 Range/Units Serum Glucose 108 H 74-106 mg/dL Microbiology Date/Time Source Procedure Growth Status 02/15/24 19:32 Blood Blood Culture - Preliminary NO GROWTH AFTER 24 HOURS OF INCUBATION. Resulted 02/15/24 10:00 Voided Urine Urine Culture - Final Enterococcus faecalis Complete 02/01/24 05:45 Nose MRSA Screen - Final Complete Labs and/or images reviewed: Labs reviewed by me, Image(s) reviewed by me Problem List/Assessment/Plan Problem List/Assessment/Plan Infrarenal AAA with occluded right SAM with intramural thrombus CT angio aortic abdominal completed 01/30/2024 shows 67 mm infrarenal abdominal aortic aneurysm with a large amount of mural thrombus. 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 Was 5.8 cm on 01/11/2024 Echocardiogram completed, shows LVEF 55%, elevated TRV 3.30 M per S, RSV 50. Mildly dilated RA. Normal valves. Dr. Brito - hybrid procedure is a viable option. Unable to revascularize right iliac/common femoral calcified occlusion. Stress test report pending. Dr. Malloy consulted - percutaneous revascularization of right lower extremity not technically feasible, will consider femorofemoral bypass after AAA stenting accomplished Blood pressure control, SBP <120s mmHg. IV labetalol Q2hr PRN for SBP >150mmhg., IV lasix 20mg daily oral. Dr. Anderson - Patient will require EVAR and FEm-fem bypass per Dr Anderson. Planned 02/19/24. Cardiology and pulmonology clearance pending. Acute hypoxic respiratory failure COPD - exacerbation on [address] without contrast 02/06 shows Advanced smoking related lung disease, emphysematous changes in both lungs. There is subpleural reticulaton and septal thickening in the lung bases. There is atelectasis scarring in the lung bases. Continue nebulized treatment with levalbuterol and ipratropium q.6 hour DC steriods. Received from methyprednisolone 02/06 to 02/13 Patient completed Azithromycin from 02/07 for 5 days Severe peripheral artery disease in right lower extremity Duplex ultrasound completed, shows severe PAD in the right lower extremity Patient underwent right leg revascularization by Dr. Hoff - unable to revascularize right iliac/common femoral due to a calcified occlusion. On prophylactic heparin dose Left lower extremities unremarkable for PAD Starting atorvastatin 40 mg p.o. daily Consider aspirin 81 mg after definitive treatment for aneurysm Probable acute cystitis Urine bacterial culture shows 65231 units of Enterococcus faecalis. Started Unasyn 02/17/2024 Moderate pulmonary arterial hypertension Continue Sildenafil 20 mg PO TID Community-acquired pneumonia, Gram-positive and negative IV Zosyn starting 02/14, WBC 13, switched to Unasyn starting 02/16 Completed ceftriaxone starting 02/09, completed azithromycin starting 02/07 to 02/11 Sputum culture with induction pending Influenza and COVID negative MRSA screen is pending Ruled out PE / DVT CT Angio chest completed, shows no evidence of a pulmonary arterial filling defect to suggest pulmonary embolism. LE doppler unremarkable D Dimer elevated at 1.30 CTA chest pending to rule out PE. 250cc IV NS afterwards. B/L atlectasis in lung bases Incentive spirometry Q1hr Left inguinal hernia-manually reducible, soft, nontender CT abdomen shows left inguinal hernia containing fat and small bowel. Outpatient workup advised History of severe emphysema - controlled Continue nebulized treatment with levalbuterol and ipratropium q.6 p.r.n. Right femoral hernia CT abdomen shows right femoral hernia containing small bowel. No definite acute obstruction Sigmoid diverticulosis without acute diverticulitis Monitor Bilateral renal cysts including 22 cm left cortical renal cyst Outpatient workup advised Monitor History of COVID-19 infection COVID testing pending Chronic nicotine dependence Counseled regarding cessation for more than 20 minutes Diet Cardiac diet DVT ppx Heparin 5000 SC Q8hr GERD ppx Famotidine 40mg daily Plan discussed with patient and daughter at bedside in [place] 266, all questions have been answered. Goals of care discussed with the patient for more than 22 minutes, full code status. Plan discussed with Dr. Stinson. IV Unasyn starting 02/16. DC steriods. BHAVNA Acosta. Dr. Anderson on the case. EVAR and fem-fem bypass 02/18. NPO starting 02/[address] Brito - Cardiolite nonischemic, echo EF 55%. May proceed with surgery. Field Marketing Manager - moderate to high risk of pulmonary complications in the perioperative period. Discussed in details regarding prognosis and the risk of open surgery for the repair of AAA. Advanced directives to be given by patient's daughter Raiza Iyer and Tamia Sexton, as per the patient's wishes. Risks of procedure explained including , and acute renal failure requiring hemodialysis by Dr. Vasquez. Plan discussed with: Patient, Daughter (at bedside) Dietary Evaluation Review Comments: follow the cardiac 2gNa Lofat LoCholel diet. Monitor PO intake to meet 75% of his needs Expected Outcomes/Goals: Improved health and well being. avoid unwanted weight loss. Date of Service: Feb 17, 2024 Billing Provider: SHERIF STINSON MD Common Visit Codes: [id number] INP/OBS CARE(HIGH) MAYI BINGHAM RESIDENT Feb 17, 2024 15:52 SHERIF STINSON MD Feb 18, 2024 10:34
[2024-02-17] MEDS: AMPICILLIN & SULBACTAM SODIUM 3 GM in SODIUM CHL 0.9% 100 ML IV SCH (16:41)
--- NOTE | 2024-02-17 19:01 | DVHPN2 ---
Progress Note - Dictate Date Seen: Feb 17, 2024 Has the PT tested + for MRSA If YES, has PT been informed?: No Medical Necessity Reason Pt with a Central, PICC or Fol: No Subjective Patient seen and examined at bedside. Remains on supplemental oxygen Overnight events reviewed. vital signs Vital Sign Date Time Temp Pulse Resp B/P (MAP) Pulse Ox O2 Delivery O2 Flow Rate FiO2 02/17/24 18:00 83 22 109/70 (83) 94 02/17/24 16:00 Nasal Cannula* 2 28 02/17/24 12:00 97.8 97.8 Total Intake and Output 02/16/24 02/16/24 02/17/24 14:59 22:59 06:59 Intake Total 125 ml 600 ml 681 ml Output Total 400 ml 300 ml Balance 125 ml 200 ml 381 ml medications Current Medications Medications Dose Ordered Sig/Juan David Route Start Time Stop Time Status Last Admin Dose Admin Sodium Chloride 10 ml Q8HR IV 01/30/24 22:00 02/17/24 14:06 10 ML Lorazepam 0.5 mg Q6HP PRN PO 01/30/24 16:30 Acetaminophen 650 mg Q6HP PRN PO 01/30/24 16:30 02/11/24 16:59 650 MG Ondansetron HCl 4 mg Q4HP PRN IV 01/30/24 16:30 02/08/24 19:53 4 MG Nitroglycerin 0.4 mg Q5MINP PRN SL 01/30/24 16:30 Hold Atorvastatin Calcium 40 mg HS PO 01/31/24 22:00 02/16/24 21:52 40 MG Ipratropium [place] 0.5 mg Q6HPRN PRN NEB 01/30/24 22:45 02/16/24 12:08 0.5 MG Levalbuterol HCl 0.625 mg Q6HR NEB 01/31/24 00:00 02/17/24 11:48 0.625 MG Labetalol HCl 5 mg Q2HPRN PRN IV 02/01/24 07:15 Melatonin 5 mg HS PO 02/04/24 22:00 02/16/24 21:53 5 MG Heparin Sodium (Porcine) 5,000 units Q8HR SC 02/05/24 06:00 02/17/24 14:07 5,000 UNITS Famotidine 40 mg DAILY PO 02/08/24 10:00 02/17/24 10:13 40 MG Docusate Sodium 100 mg BIDPRN PRN PO 02/10/24 10:30 02/16/24 21:53 100 MG Dexmedetomidine HCl 400 mcg/ Dextrose 100 ml @ 3.605 mls/ hr Q24H IV 02/19/24 06:45 Nicardipine HCl 250 ml @ 50 mls/hr Q5H IV 02/19/24 06:45 Ampicillin Sodium/ Sulbactam Sodium 3 gm/Sodium Chloride 100 ml @ 100 mls/hr Q8H IV 02/17/24 16:00 02/17/24 16:41 100 MLS/HR objective Gen.: Patient lying in bed in no apparent distress. On supplemental oxygen. Head: Normocephalic, atraumatic. Eyes: EOMI/PERRLA. Ears: Normal hearing. Normal anatomy. Neck/trachea: Trachea midline, supple. Nose: Normal external anatomy. Mouth: Moist mucous membranes. Chest: Decreased air entry bilaterally. No wheezing or rhonchi. Cardiovascular: Positive S1, positive S2. Regular rate and rhythm. Abdomen: Positive bowel sounds in all 4 quadrants. Soft, non-tender, non- distended. : Deferred. Rectal: Deferred. Skin: Warm, dry. Intact. Extremities: 2+ radial pulses bilaterally. No lower extremity edema. Neuro: Awake, alert, oriented x3. No gross motor or sensory deficits. Cranial nerves II through XII intact. Gait not assessed. laboratory and microbiology Laboratory Tests 02/17/24 04:45 02/14/24 04:56 Test 02/14/24 04:56 Range/Units Serum Glucose 108 H 74-106 mg/dL Assessment/Plan Impression: Acute on chronic hypoxic respiratory failure COPD exacerbation, improving Nicotine abuse Emphysematous changes Obesity with a BMI of 30 Moderate size hiatal hernia Ex-smoker Pulmonary hypertension with a right ventricular systolic pressure of 50 mmHg WHO class three Events: On supplemental O2 at 4 LPM NC Taper O2 as tolerated Monitor blood pressure. WBC trending down, 14 K Plan for vascular surgery on Monday. Continue antibiotics Labs and imaging reviewed. Rest of plan as noted below. Plan: CT of the chest report and images reviewed. No acute pulmonary embolism. Extensive centrilobular emphysematous changes in the lung. No acute opacities, pleural effusions or pneumothorax. Wheezing has improved. Recommend to discontinue steroids. Patient is at moderate to high risk of pulmonary complications in the perioperative. No absolute contraindications to surgery. Patient is at high risk for respiratory failure including the possibility of requiring mechanical ventilation or difficulty in weaning from mechanical ventilation. Other potential complications for example are postoperative atelectasis, pneumonia, bronchospasm, pulmonary embolism family adverse Kristy affect his pulmonary function as well. He will require bronchodilators pre, darin and postoperatively. We will recommend early ambulation, DVT prophylaxis and incentive spirometry post operatively. Continue bronchodilators Continue supplemental o2 Keep O2 saturation above 90% IS Pulmonary hypertension management as per Cardiology. DVT prophylaxis. Prognosis: Poor given multiple comorbidities. Rest of plan per hospitalist and other consultants. A total of 51 minutes of clinical care time was spent reviewing the patient record, examining the patient, making a diagnostic and therapeutic plan, discussing this plan with the medical personnel, following up on diagnostic studies and following the patient for clinical stability excluding any and all procedures. At least 50% of this time was spent in direct, [id number] contact. Thank you Dr. Diaz for allowing me to participate in this patient's care. Further recommendations will depend on patient's clinical course. Please do not hesitate to contact me if you have any questions or concerns. This medical document was created using an electronic medical record system with [employer] dictation system. Although this document has been carefully reviewed, there may still be some phonetic and typographical errors. These areas are purely typographical due to imperfections of the software programs, and do not reflect any compromise in the patient's medical care. Dietary Evaluation Review Comments: follow the cardiac 2gNa Lofat LoCholel diet. Monitor PO intake to meet 75% of his needs Expected Outcomes/Goals: Improved health and well being. avoid unwanted weight loss. Plan discussed with: Patient, Other (JARED Fitch) CATRINA STEELE MD Feb 17, 2024 19:01
[2024-02-18] VITALS (29 sets, daily range): BP systolic 81–109; BP diastolic 48–67; PULSE 17–82; RESP 14–23; TEMP 97.7–97.9; O2SAT 90–100
[2024-02-18 06:08] LABS: Chloride 108 mmol/L (98-107); Potassium 4.2 mmol/L (3.5-5.1); Sodium 138 mmol/L (136-145)
[2024-02-18 06:09] LABS: Anion Gap 4 (5-15); Calcium 8.5 mg/dL (8.7-10.4); Carbon Dioxide 26 mmol/L (20-31)
[2024-02-18 06:14] LABS: BUN/Creatinine Ratio 18.4 (10.0-20.0); Blood Urea Nitrogen 18 mg/dL (9-23); Glucose 94 mg/dL (74-106)
[2024-02-18 06:27] LABS: Basophils # (auto) 0 10 ^3/uL (0-0.2); Basophils % (auto) 0.2 % (0.0-2.0); Eosinophils # (auto) 0.5 10 ^3/uL (0-0.8); Eosinophils % (auto) 4.1 % (0.0-7.0); Hemoglobin 12.9 g/dL (13.5-17.5); Lymphocytes # (auto) 1.5 10 ^3/uL (0.4-5.4); Lymphocytes % (auto) 13.3 % (10.0-50.0); Mean Corpuscular Hemoglobin 28.7 pg (28.0-32.0); Mean Corpuscular Hgb Conc. 33.1 g/dL (32.0-36.0); Mean Corpuscular Volume 86.6 fL (80.0-100.0); Monocytes # (auto) 0.8 10 ^3/uL (0-1.3); Monocytes % (auto) 6.8 % (0.0-12.0); Neutrophils # (auto) 8.6 10 ^3/uL (1.6-8.6); Neutrophils % (auto) 75.6 % (37.0-80.0); Platelet Count (auto) 162 10^3/uL (140-450); Red Cell Distribution Width 15.3 % (11.8-14.3); White Blood Cell 11.4 10^3/uL (4.4-10.8)
--- NOTE | 2024-02-18 15:17 | DVHPNRES ---
Progress Note Date Seen: Feb 18, 2024 Resident Creating Document: [facility] Has the PT tested + for MRSA If YES, has PT been informed?: No Medical Necessity Reason Pt with a Central, PICC or Fol: No Subjective Review of Systems 78-year-old male patient seen and examined at bedside. Patient is on 2 L of oxygen through nasal cannula, does not have any active complaints. NPO after midnight Possible surgery tomorrow ROS Constitutional: No: Fever, Chills, Sweats, Weakness, Malaise, Other Eyes: No: Pain, Vision change, Conjunctivae inflammation, Eyelid inflammation, Other, Redness ENT: No: Ear pain, Ear discharge, Nose pain, Nose discharge, Nose congestion, Mouth pain, Mouth swelling, Throat pain, Throat swelling, Other Respiratory: No: Cough, Dry, Shortness of breath, SOB with excertion, Wheezing, Hemoptysis, Pleuritic Pain, Sputum, Wheezing, Other Cardiovascular: No: Chest Pain, Palpitations, Orthopnea, Paroxysmal Noc. Dyspnea, Edema, Lt Headedness, Other Gastrointestinal: No: Nausea, Vomiting, Abdominal Pain, Diarrhea, Constipation, Melena, Hematochezia, Other Musculoskeletal: No: other, neck pain, shoulder pain, arm pain, back pain, hand pain, leg pain, foot pain Neurological:; No: Weakness, Numbness, Incoordination, Change in speech, Confusion, Seizures Objective vital signs Vital Sign Date Time Temp Pulse Resp B/P (MAP) Pulse Ox O2 Delivery O2 Flow Rate FiO2 02/18/24 12:24 58 16 02/18/24 12:18 96 02/18/24 12:00 Nasal Cannula* 2 28 02/18/24 08:00 97.9 81/52 (62) 97.9 Total Intake and Output 02/17/24 02/17/24 02/18/24 15:00 23:00 07:00 Intake Total 600 ml 820 ml 50 ml Output Total 460 ml 500 ml Balance 600 ml 360 ml -450 ml medications Current Medications Medications Dose Ordered Sig/Juan David Route Start Time Stop Time Status Last Admin Dose Admin Sodium Chloride 10 ml Q8HR IV 01/30/24 22:00 02/18/24 05:59 10 ML Lorazepam 0.5 mg Q6HP PRN PO 01/30/24 16:30 Acetaminophen 650 mg Q6HP PRN PO 01/30/24 16:30 02/11/24 16:59 650 MG Ondansetron HCl 4 mg Q4HP PRN IV 01/30/24 16:30 02/08/24 19:53 4 MG Atorvastatin Calcium 40 mg HS PO 01/31/24 22:00 02/17/24 21:35 40 MG Ipratropium [place] 0.5 mg Q6HPRN PRN NEB 01/30/24 22:45 02/18/24 12:15 0.5 MG Levalbuterol HCl 0.625 mg Q6HR NEB 01/31/24 00:00 02/18/24 12:15 0.625 MG Labetalol HCl 5 mg Q2HPRN PRN IV 02/01/24 07:15 Melatonin 5 mg HS PO 02/04/24 22:00 02/17/24 21:35 5 MG Heparin Sodium (Porcine) 5,000 units Q8HR SC 02/05/24 06:00 02/18/24 06:01 5,000 UNITS Famotidine 40 mg DAILY PO 02/08/24 10:00 02/18/24 10:17 40 MG Docusate Sodium 100 mg BIDPRN PRN PO 02/10/24 10:30 02/16/24 21:53 100 MG Dexmedetomidine HCl 400 mcg/ Dextrose 100 ml @ 3.605 mls/ hr Q24H IV 02/19/24 06:45 Nicardipine HCl 250 ml @ 50 mls/hr Q5H IV 02/19/24 06:45 Ampicillin Sodium/ Sulbactam Sodium 3 gm/Sodium Chloride 100 ml @ 100 mls/hr Q6H IV 02/18/24 13:00 Examination General Appearance: Alert, Oriented X4, Cooperative, No acute distress, Other Respiratory: Clear to auscultation, decreased bilateral air movement, Other Cardiovascular: Regular rate, Normal S1, Normal S2, No murmurs Abdominal: Normal bowel sounds, Soft, No tenderness, Other (R inguinal dressing removed. Surgical site is clean and intact. Left-sided inguinal hernia seen bulging with cough reflex, manually reducible but comes back, soft, nontender, not extending into the scrotum) Extremities: No edema, pulses are feeble B/L in LE, No tenderness/swelling. No tenderness in the lumbar spine. Neuro: Normal speech, Strength at 5/5 X4 ext, Normal tone, Sensation intact Psych/Mental Status: A/Ox4 laboratory and microbiology Laboratory Tests 02/18/24 04:55 Test 02/18/24 04:55 Range/Units Serum Glucose 94 74-106 mg/dL Microbiology Date/Time Source Procedure Growth Status 02/15/24 19:32 Blood Blood Culture - Preliminary NO GROWTH AFTER 48 HOURS OF INCUBATION. Resulted 02/15/24 10:00 Voided Urine Urine Culture - Final Enterococcus faecalis Complete 02/01/24 05:45 Nose MRSA Screen - Final Complete Labs and/or images reviewed: Labs reviewed by me, Image(s) reviewed by me Problem List/Assessment/Plan Problem List/Assessment/Plan Assessment/plan Neurology Cardiology # infrarenal abdominal aortic aneurysm with intramural thrombus -seen on abdominal aortography shows, 67 mm infrarenal abdominal aortic aneurysm with a large amount of mural thrombus. 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 Echocardiogram Cardiology and surgery on board Patient planned for AAA repair, endovascular repair as per surgeon Heparin drip discontinued by the badger distiller operator per Dr. Chakraborty - Patient will require EVAR and Fem-fem bypass. Planned. Needs pulmonary and Cardiac clearance collision estimator consult ordered cardiology on board, stress test negative Surgery planned for Monday # severe peripheral arterial disease Duplex ultrasound completed, shows severe PID in the right lower extremity Patient underwent peripheral angiogram - unable to revascularize right iliac/common femoral due to a calcified occlusion. Heparin drip discontinued by badger distiller operator. As per surgeon, will consider femorofemoral bypass after AAA stenting continue atorvastatin 40 mg p.o. daily #Moderate pulmonary arterial hypertension Dinkey Operator started sildenafil 20 mg PO TID, held because of low blood pressure #B/L atlectasis in lung bases Incentive spirometry Q1hr Pulmonology #Acute on ?chronic hypoxic Resp failure ?COPD exacerbation , ?pneumonia -currently on 2l O2 through nasal cannula -Nebulization with ipratropium and levalbuterol # severe emphysema ?COPD, questionable exacerbation -severe emphysema seen on imaging Nebulization with ipratropium and levalbuterol -pulmonology consulted #? pneumonia -patient received antibiotics -currently on Unasyn for UTI #Elevated d-dimer Ruled out PE / DVT CT Angio chest completed, shows no evidence of a pulmonary arterial filling defect to suggest pulmonary embolism. LE doppler unremarkable GI # left inguinal hernia -no evidence of strangulation , outpatient follow up # sigmoid diverticulosis Stable #Right femoral hernia CT abdomen shows right femoral hernia containing small bowel. No definite acute obstruction #Constipation -colace prn Nephrology # bilateral renal cyst Seen on imaging Outpatient follow up Urology # UTI -IV Unasyn based on cultures Psychiatry # tobacco use disorder , ex-smoker Counseling for cessation greater than 11 minutes DVT prophylaxis -patient was on heparin drip, discontinued by the badger distiller operator, continue heparin prophylactic dose PUD prophylaxis Lines Drips Nutrition Cardiac diet Goals of care discussed with the patient for greater than 21 minutes, full code Case discussion with Dr Cueto Critical care time excluding procedures: 41 minutes NPO after midnight Possible surgery planned for tomorrow Plan discussed with: Patient, Other My Orders My Orders Orders - [facility] Procedure Category Date Status Time Npo After Midnight DIET 02/18/24 Transmitted Breakfast Communication Order ORDERS 02/18/24 Transmitted 07:54 Dietary Evaluation Review Comments: follow the cardiac 2gNa Lofat LoCholel diet. Monitor PO intake to meet 75% of his needs Expected Outcomes/Goals: Improved health and well being. avoid unwanted weight loss. Date of Service: Feb 18, 2024 Billing Provider: SHERIF CUETO MD Common Visit Codes: [id number] INP/OBS CARE(HIGH) [facility] Feb 18, 2024 15:17 SHERIF CUETO MD Feb 21, 2024 17:55
[2024-02-18] MEDS: AMPICILLIN & SULBACTAM SODIUM 3 GM in SODIUM CHL 0.9% 100 ML IV SCH (15:19)
--- NOTE | 2024-02-18 18:35 | DVHPN2 ---
Progress Note - Dictate Date Seen: Feb 18, 2024 Has the PT tested + for MRSA If YES, has PT been informed?: No Medical Necessity Reason Pt with a Central, PICC or Fol: No Subjective Patient seen and examined at bedside. Remains on supplemental oxygen Overnight events reviewed. vital signs Vital Sign Date Time Temp Pulse Resp B/P (MAP) Pulse Ox O2 Delivery O2 Flow Rate FiO2 02/18/24 18:16 59 16 98 02/18/24 18:09 Nasal Cannula 2.0 02/18/24 18:09 28 02/18/24 08:00 97.9 81/52 (62) 97.9 Total Intake and Output 02/17/24 02/17/24 02/18/24 14:59 22:59 06:59 Intake Total 600 ml 820 ml 50 ml Output Total 460 ml 500 ml Balance 600 ml 360 ml -450 ml medications Current Medications Medications Dose Ordered Sig/Juan David Route Start Time Stop Time Status Last Admin Dose Admin Sodium Chloride 10 ml Q8HR IV 01/30/24 22:00 02/18/24 15:19 10 ML Lorazepam 0.5 mg Q6HP PRN PO 01/30/24 16:30 Acetaminophen 650 mg Q6HP PRN PO 01/30/24 16:30 02/11/24 16:59 650 MG Ondansetron HCl 4 mg Q4HP PRN IV 01/30/24 16:30 02/08/24 19:53 4 MG Atorvastatin Calcium 40 mg HS PO 01/31/24 22:00 02/17/24 21:35 40 MG Ipratropium [place] 0.5 mg Q6HPRN PRN NEB 01/30/24 22:45 02/18/24 18:08 0.5 MG Levalbuterol HCl 0.625 mg Q6HR NEB 01/31/24 00:00 02/18/24 18:08 0.625 MG Labetalol HCl 5 mg Q2HPRN PRN IV 02/01/24 07:15 Melatonin 5 mg HS PO 02/04/24 22:00 02/17/24 21:35 5 MG Heparin Sodium (Porcine) 5,000 units Q8HR SC 02/05/24 06:00 02/18/24 15:19 5,000 UNITS Famotidine 40 mg DAILY PO 02/08/24 10:00 02/18/24 10:17 40 MG Docusate Sodium 100 mg BIDPRN PRN PO 02/10/24 10:30 02/16/24 21:53 100 MG Dexmedetomidine HCl 400 mcg/ Dextrose 100 ml @ 3.605 mls/ hr Q24H IV 02/19/24 06:45 Nicardipine HCl 250 ml @ 50 mls/hr Q5H IV 02/19/24 06:45 Ampicillin Sodium/ Sulbactam Sodium 3 gm/Sodium Chloride 100 ml @ 100 mls/hr Q6H IV 02/18/24 13:00 02/18/24 15:19 100 MLS/HR objective Gen.: Patient lying in bed in no apparent distress. On supplemental oxygen. Head: Normocephalic, atraumatic. Eyes: EOMI/PERRLA. Ears: Normal hearing. Normal anatomy. Neck/trachea: Trachea midline, supple. Nose: Normal external anatomy. Mouth: Moist mucous membranes. Chest: Decreased air entry bilaterally. No wheezing or rhonchi. Cardiovascular: Positive S1, positive S2. Regular rate and rhythm. Abdomen: Positive bowel sounds in all 4 quadrants. Soft, non-tender, non- distended. : Deferred. Rectal: Deferred. Skin: Warm, dry. Intact. Extremities: 2+ radial pulses bilaterally. No lower extremity edema. Neuro: Awake, alert, oriented x3. No gross motor or sensory deficits. Cranial nerves II through XII intact. Gait not assessed. laboratory and microbiology Laboratory Tests 02/18/24 04:55 Test 02/18/24 04:55 Range/Units Serum Glucose 94 74-106 mg/dL Assessment/Plan Impression: Acute on chronic hypoxic respiratory failure COPD exacerbation, improving Nicotine abuse Emphysematous changes Obesity with a BMI of 30 Moderate size hiatal hernia Ex-smoker Pulmonary hypertension with a right ventricular systolic pressure of 50 mmHg WHO class three Events: On supplemental O2 at 2 LPM NC Taper O2 as tolerated Monitor blood pressure. WBC trending down, 11.4 K Vascular surgery in the AM. Continue antibiotics Continue bronchodilators Incentive spirometry Labs and imaging reviewed. Rest of plan as noted below. Plan: CT of the chest report and images reviewed. No acute pulmonary embolism. Extensive centrilobular emphysematous changes in the lung. No acute opacities, pleural effusions or pneumothorax. Wheezing has improved. Recommend to discontinue steroids. Patient is at moderate to high risk of pulmonary complications in the perioperative. No absolute contraindications to surgery. Patient is at high risk for respiratory failure including the possibility of requiring mechanical ventilation or difficulty in weaning from mechanical ventilation. Other potential complications for example are postoperative atelectasis, pneumonia, bronchospasm, pulmonary embolism family adverse Kristy affect his pulmonary function as well. He will require bronchodilators pre, darin and postoperatively. We will recommend early ambulation, DVT prophylaxis and incentive spirometry post operatively. Continue bronchodilators Continue supplemental o2 Keep O2 saturation above 90% IS Pulmonary hypertension management as per Cardiology. DVT prophylaxis. Prognosis: Poor given multiple comorbidities. Rest of plan per hospitalist and other consultants. A total of 51 minutes of clinical care time was spent reviewing the patient record, examining the patient, making a diagnostic and therapeutic plan, discussing this plan with the medical personnel, following up on diagnostic studies and following the patient for clinical stability excluding any and all procedures. At least 50% of this time was spent in direct, [id number] contact. Thank you Dr. Diaz for allowing me to participate in this patient's care. Further recommendations will depend on patient's clinical course. Please do not hesitate to contact me if you have any questions or concerns. This medical document was created using an electronic medical record system with [employer] dictation system. Although this document has been carefully reviewed, there may still be some phonetic and typographical errors. These areas are purely typographical due to imperfections of the software programs, and do not reflect any compromise in the patient's medical care. Dietary Evaluation Review Comments: follow the cardiac 2gNa Lofat LoCholel diet. Monitor PO intake to meet 75% of his needs Expected Outcomes/Goals: Improved health and well being. avoid unwanted weight loss. Plan discussed with: Patient, Other (JARED Murray/Little) CATRINA STEELE MD Feb 18, 2024 18:35
[2024-02-19] VITALS (58 sets, daily range): BP systolic 80–182; BP diastolic 38–91; PULSE 54–84; RESP 9–27; TEMP 95.9–97.7; O2SAT 91–100
[2024-02-19 03:51] LABS: Hematocrit 40.6 % (41.0-53.0); Hemoglobin 13.5 g/dL (13.5-17.5); Mean Corpuscular Hemoglobin 28.6 pg (28.0-32.0); Mean Corpuscular Hgb Conc. 33.4 g/dL (32.0-36.0); Mean Corpuscular Volume 85.7 fL (80.0-100.0); Platelet Count (auto) 237 10^3/uL (140-450); Red Blood Cells 4.73 10^6/uL (4.5-5.90); Red Cell Distribution Width 15.4 % (11.8-14.3)
[2024-02-19 04:07] LABS: Band Neutrophils % (manual) 0; Basophils % (manual) 0 (0.0-2.0); Blast Cells 0; Metamyelocytes % 0; Myelocytes % 0; Promyelocytes % 0; Reactive Lymphocytes 0
[2024-02-19 04:26] LABS: INR 1.04 (0.9-1.15); Partial Thromboplastin Time 27.6 SEC (24.5-34.5)
[2024-02-19 05:44] LABS: Alanine Aminotransferase 42 U/L (7-40); Albumin 3.4 g/dL (3.2-4.8); Alkaline Phosphatase 92 U/L (46-116); Anion Gap 2 (5-15); Aspartate Aminotransferase 16 U/L (13-40); BUN/Creatinine Ratio 15.1 (10.0-20.0); Bilirubin, Total 0.6 mg/dL (0.2-1.0); Blood Urea Nitrogen 16 mg/dL (9-23); Calcium 9.1 mg/dL (8.7-10.4); Carbon Dioxide 29 mmol/L (20-31); Chloride 108 mmol/L (98-107); Glucose 94 mg/dL (74-106); Potassium 4.6 mmol/L (3.5-5.1); Sodium 139 mmol/L (136-145); Total Protein 5.2 g/dL (5.7-8.2)
[2024-02-19 06:57] LABS: Eosinophils % (manual) 3 (0-7); Lymphocytes % (manual) 20 (10.0-50.0); Monocytes % (manual) 10 (0-12)
[2024-02-19 06:58] LABS: Large Platelets FEW; Platelet Estimate Adequate
[2024-02-19] MEDS ORDERED: ONDANSETRON HCL 4 MG/2 ML VIAL ONE (07:13)
[2024-02-19] MEDS ORDERED: LIDOCAINE 1% INJ PF 5ML AMP ONE (07:13)
[2024-02-19] MEDS ORDERED: GLYCOPYRROLATE 0.2 MG/ML 1ML VIAL ONE (07:13)
[2024-02-19] MEDS ORDERED: DexAMETHasone SOD PHOS 10MG/1ML VIAL INJ ONE (07:13)
[2024-02-19] MEDS ORDERED: MIDAZOLAM HCL 2MG/2ML 2ml VIAL (1mg/ml) ONE (07:14)
[2024-02-19] MEDS ORDERED: KETAMINE 50mg/ML 1ml syringe ONE (07:14)
[2024-02-19] MEDS ORDERED: SODIUM CHLORIDE LOCK 10 ML ONE (07:43)
[2024-02-19] MEDS: ceFAZolin 2 GM/D5W100ml 100 ML IV ONE (08:10)
[2024-02-19] MEDS ORDERED: PROPOFOL 10 MG/ML 20 ML IV ONE ×4 (08:19→11:35)
[2024-02-19] MEDS: HEPARIN SODIUM (PORCINE) 5000 UNITS/ML 1ML VIAL ONE (09:15)
[2024-02-19] MEDS: IOHEXOL 300 MG/ML 100ML BOTTLE IJ ONE (09:36)
[2024-02-19] MEDS ORDERED: ceFAZolin 1GM VL ONE (11:38)
[2024-02-19] MEDS: BUPIVACAINE 0.25% INJ 50ML VIAL ONE (12:15)
[2024-02-19] MEDS: LIDOCAINE 1% HCL (LOCAL ANESTH.) INJ 20ML MDV ONE (12:15)
--- NOTE | 2024-02-19 12:24 | POSTOP ---
Post-Operative Note Post-Operative Note Preop Diagnosis AAA, occluded right common iliac artery and Externial iliac artery Postop Diagnosis: Infrarenal AAA with occluded right SAM with intramural thrombus Severe peripheral artery disease in right lower extremity Operation performed EVAR, Right Common femoral endartectomy Left Common Femoral endartectomy Femoral to femoral byass Specimen right and left commn femoral artery plaque Anesthesia: Regional Anesthesiologist: Spinal Blood Loss(fluid mgmt) 600ml Tourniquet Time none Surgeon Homer Chakraborty MD Date 02/19/24 Time 12:20 HOMER CHAKRABORTY Jr., MD Feb 19, 2024 12:24
--- NOTE | 2024-02-19 12:43 | DVHOP2 ---
Operative Report - 2 Report Details Date: 02/19/24 Preop Diagnosis: AAA, occluded right common iliac artery and Externial iliac artery Postop Diagnosis: Infrarenal AAA with occluded right SAM with intramural thrombus Severe peripheral artery disease in right lower extremity Surgeon: Homer Chakraborty MD Anesthesiologist: Spinal Anesthesia: Regional Consent: The patient was informed of the risks and benefits of the procedure. These include but are not limited to complications of anesthesia, postoperative infection, incomplete relief of symptoms, recurrence of symptoms, damage to blood vessels, nerves and tendons, deep venous thrombosis, pulmonary embolism and possible need for repeat surgery in the future. Estimated Blood Loss: 600ml Name of Procedure Performed EVAR, Right Common femoral endartectomy Left Common Femoral endartectomy Femoral to femoral byass Procedure Details Procedure Details: Patient was identified in the preop hold area. He had been consented and preopped by myself was brought back to the operating room placed the operating table in supine position after adequate induction of anesthesia antibiotics and time-out the abdomen and bilateral groins and upper thighs were prepped and draped in normal surgical fashion. Bilateral longitudinal common femoral artery incisions were made. The left common femoral artery was dissected out proximal and distal control was obtained of the common femoral artery with vessel loops there was significant posterior plaque in the artery which would have to be endarterectomized at the end of the procedure. Once adequate exposure of the common femoral artery on the left side was obtained attention was then placed the right common femoral artery this was dissected out this area was significantly more difficult to dissect out due to prior catheterization hematoma and some scar tissue. The right common femoral artery was completely occluded proximally the distal portion was patent with moderate amount of posterior plaque. Proximal and distal control was obtained from the of the vessel loops. At this point in time heparin was given during the procedure total a 1000 units heparin had been given. Initially sheaths were then inserted into the left common femoral artery a 18 Danish sheath was placed on the sheath was brought up to the level of where the renals appeared based on the CT scan. This point in time pigtail catheter was then inserted and an arteriogram was performed an aortogram this demonstrated the lowest renal artery to be the left side at this point in time a 26 by 14.5 cm excluder graft was then introduced through the sheath and was deployed below the lowest renal artery on the left side. Due to the complete occlusion of the right common iliac artery a 2nd 26 x 14.5 graft was placed with the Ferrari being control to each other so it would occlude the gait so preferential flow would be through a union body graft down to the left leg. At this point in time a Coda balloon was then used to angioplasty the seal zones. Completion after this a pigtail catheter was then inserted and a retrograde shot was performed from the sheath demonstrating the level of the left hypogastric artery. A 10 x 18 excluder graft was then deployed to preserve the left common left internal iliac artery. The Coda balloon was then used once again for the seal zones. And then finally a completion aortogram demonstrated patent flow in the renal arteries as well as no significant endoleak noted at all. At this point in time wires and sheaths were removed attention was then placed to do a fem-fem bypass. Prior to doing a fem-fem bypass the left and right common femoral arteries were endartere ctomized. This was performed by using 11 blade to extend the arteriotomy on the left side posterior plaque was removed with free air at the completion of this the the artery was flushed without any difficulty. Backbleeding was noted. Attention was then placed to the right external I am sorry grade common femoral artery which was opened with a 11 blade and was endarterectomized for a complete occlusion proximally. At this point in time a 7 mm Propaten graft was then tunneled from the left to right groin. It was sewn in place with 6 0 Prolene suture in end-to-side fashion on the left and right common femoral arteries. Completion of the anastomosis there was good flow within the graft as well as Doppler signals in the distal common femoral arteries bilaterally. Surgicel was used for hemostasis the wounds were then closed with 3-0 Vicryl sutures for the deep layer followed by 3-0 Monocryl suture for subcuticular closure of the skin followed by Dermabond. Sponge and needle counts were correct patient awoke without any difficulties taken to PACU in stable condition. Specimen: right and left commn femoral artery plaque Condition Stable Disposition Acute Care Facility HOMER CHAKRABORTY Jr., MD Feb 19, 2024 12:43
[2024-02-19] MEDS ORDERED: ONDANSETRON HCL 4 MG/2 ML VIAL IV PRN (12:45)
[2024-02-19] MEDS ORDERED: NALOXONE HCL 0.4 MG/ML VIAL IV PRN (12:45)
[2024-02-19] MEDS ORDERED: HYDROmorphone HCL 2 MG/ML VL/or syr IV PRN (12:45)
[2024-02-19] MEDS ORDERED: hydrALAZINE HCL 20 MG/ML VL IV PRN (12:45)
[2024-02-19] MEDS ORDERED: FLUMAZENIL 0.1 MG/ML INJ 10ML MDV IV PRN (12:45)
[2024-02-19] MEDS ORDERED: fentaNYL CITRATE 100 MCG/2 ML VL IV PRN (12:45)
[2024-02-19] MEDS: ePHEDrine SULFATE 50 MG/ML AMP IV PRN (12:51)
--- NOTE | 2024-02-19 13:30 | DVHPN2 ---
Progress Note - Dictate Date Seen: Feb 19, 2024 Has the PT tested + for MRSA If YES, has PT been informed?: No Medical Necessity Reason Pt with a Central, PICC or Fol: No Subjective PT WITH COPD CONTINUED TOBACCO USE NOW WITH LOWER BACK PAIM CTA OF ABD 1. Infrarenal abdominal aortic aneurysm measuring up to 67mm with a large amount of mural thrombus. 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 Vascular surgery evaluation is recommended. 2. Numerous bilateral renal cysts including a very large left renal cyst measuring up to 220mm. 3. Left inguinal hernia containing fat and small bowel. Right femoral hernia containing small bowel. No definite acute obstruction. Some level of chronic obstruction may be present. vital signs Vital Sign Date Time Temp Pulse Resp B/P (MAP) Pulse Ox O2 Delivery O2 Flow Rate FiO2 02/19/24 06:08 54 18 98 02/19/24 06:00 102/63 (76) 02/19/24 05:57 Nasal Cannula 2.0 02/19/24 05:57 28 02/18/24 20:00 97.8 97.8 Total Intake and Output 02/18/24 02/18/24 02/19/24 15:00 23:00 07:00 Intake Total 500 ml 125 ml Output Total 500 ml 500 ml Balance 0 ml -375 ml medications Current Medications Medications Dose Ordered Sig/Juan David Route Start Time Stop Time Status Last Admin Dose Admin Sodium Chloride 10 ml Q8HR IV 01/30/24 22:00 02/19/24 06:00 10 ML Lorazepam 0.5 mg Q6HP PRN PO 01/30/24 16:30 Acetaminophen 650 mg Q6HP PRN PO 01/30/24 16:30 02/11/24 16:59 650 MG Ondansetron HCl 4 mg Q4HP PRN IV 01/30/24 16:30 02/08/24 19:53 4 MG Atorvastatin Calcium 40 mg HS PO 01/31/24 22:00 02/18/24 21:45 40 MG Ipratropium [place] 0.5 mg Q6HPRN PRN NEB 01/30/24 22:45 02/19/24 05:57 0.5 MG Levalbuterol HCl 0.625 mg Q6HR NEB 01/31/24 00:00 02/19/24 05:57 0.625 MG Labetalol HCl 5 mg Q2HPRN PRN IV 02/01/24 07:15 Melatonin 5 mg HS PO 02/04/24 22:00 02/18/24 21:45 5 MG Heparin Sodium (Porcine) 5,000 units Q8HR SC 02/05/24 06:00 02/18/24 15:19 5,000 UNITS Famotidine 40 mg DAILY PO 02/08/24 10:00 02/18/24 10:17 40 MG Docusate Sodium 100 mg BIDPRN PRN PO 02/10/24 10:30 02/16/24 21:53 100 MG Dexmedetomidine HCl 400 mcg/ Dextrose 100 ml @ 3.605 mls/ hr Q24H IV 02/19/24 06:45 Nicardipine HCl 250 ml @ 50 mls/hr Q5H IV 02/19/24 06:45 Ampicillin Sodium/ Sulbactam Sodium 3 gm/Sodium Chloride 100 ml @ 100 mls/hr Q6H IV 02/18/24 13:00 02/19/24 00:48 100 MLS/HR Ondansetron HCl 4 mg ONCE PRN IV 02/19/24 12:45 02/19/24 12:46 UNV Naloxone HCl 0.4 mg Q10M PRN IV 02/19/24 12:45 02/19/24 13:06 UNV Flumazenil 0.2 mg ONCE PRN IV 02/19/24 12:45 02/19/24 12:46 UNV Hydralazine HCl 5 mg Q10M PRN IV 02/19/24 12:45 02/19/24 13:36 UNV Ephedrine Sulfate 10 mg Q10M PRN IV 02/19/24 12:45 02/19/24 13:26 UNV 02/19/24 12:51 10 MG Fentanyl Citrate 25 mcg Q1HP PRN IV 02/19/24 12:45 02/19/24 12:46 UNV Hydromorphone HCl 0.5 mg Q10M PRN IV 02/19/24 12:45 02/19/24 13:26 UNV laboratory and microbiology Laboratory Tests 02/19/24 04:59 02/19/24 03:40 Test 02/19/24 04:59 Range/Units Serum Glucose 94 74-106 mg/dL Problem List AAA COPD Assessment/Plan LE ARTERIAL DOPPLER SCHEDULE FOR ANGIOGRAM WITH STENT GRAFT IF PATIENT ANATOMY IS APPROPRIATE FOR STENT GRAFT HYBRID pt RENAL MEASUREMENT conducive to STENT GRAFT BUT RIGHT LEG NEEDS REVASCULARIZATION SCHEDULE FOR RIGHT LEG INTERVENTION 02/02/24 DISCUSSED WITH DAUGHTERS UNABLE TO REVASCULARIZE RIGHT ILIAC / COMMON FEMORAL CALCIFIED OCCLUSION SURGICAL OPTION HYBRID PROCEDURE IS A VIABLE OPTION TRANSFER TO [facility] SINCE WE ARE NOT ABLE TO DO A HYBRID PROCEDURE echo stress cardiolite risk stratification unable to perform cardiolite because severe sob echo ef 55% mod pah START REVATIO DIURESIS WILL RESCHEDULE CARDIOLITE ON MONDAY CARDIOLITE NON ISCHEMIC ECHO EF >55% MAY PROCEED WITH SURGERY PT S/P EVAR, Right Common femoral endartectomy Left Common Femoral endartectomy Femoral to femoral byass Dietary Evaluation Review Comments: follow the cardiac 2gNa Lofat LoCholel diet. Monitor PO intake to meet 75% of his needs Expected Outcomes/Goals: Improved health and well being. avoid unwanted weight loss. Plan discussed with: Patient Critical Care Time(min): 35 JUAN DANIEL GARCIA MD Feb 19, 2024 13:30
[2024-02-19] MEDS: NOREPINEPHRINE 8 MG/250ML KIT 250 ML IV ONE (14:12)
[2024-02-19] MEDS: NOREPINEPHRINE 8 MG/250ML KIT 250 ML IV SCH (14:18)
--- NOTE | 2024-02-19 14:43 | DVH ---
CHEST RADIOGRAPH Indication:Dyspnea, post operative Technique: Single frontal view of the chest was obtained COMPARISON: XY CHEST XRAY 1 VIEW on DOS: 02/15/24, XY CHEST PORTABLE on DOS: 02/12/24, XY CHEST PORTABL E on DOS: 02/10/24 FINDINGS: Lines and Tubes: None Lungs: Multifocal airspace disease. Pleura: No effusion. No pneumothorax. Cardiomediastinal contours: Unremarkable Bones: Unremarkable IMPRESSION: Multifocal airspace disease, unchanged.
[2024-02-19] MEDS: FUROSEMIDE 20 MG/2 ML VIAL IV ONE (14:58)
[2024-02-19] MEDS: ALBUTEROL SULF 2.5 MG/0.5ML(0.5%) NEB SOLN NEB ONE (15:02)
[2024-02-19] MEDS: IPRATROPIUM BROM 0.5 MG/2.5ML INH SOL NEB ONE (15:02)
[2024-02-19 15:21] LABS: Base Excess -2.2 mmol/L (-2.0-3.0)
[2024-02-19 15:34] LABS: Basophils # (auto) 0 10 ^3/uL (0-0.2); Basophils % (auto) 0.1 % (0.0-2.0); Eosinophils # (auto) 0 10 ^3/uL (0-0.8); Eosinophils % (auto) 0.1 % (0.0-7.0); Hematocrit 40.2 % (41.0-53.0); Hemoglobin 12.9 g/dL (13.5-17.5); Lymphocytes # (auto) 0.6 10 ^3/uL (0.4-5.4); Lymphocytes % (auto) 2.4 % (10.0-50.0); Mean Corpuscular Hemoglobin 27.8 pg (28.0-32.0); Mean Corpuscular Volume 86.8 fL (80.0-100.0); Monocytes # (auto) 0.3 10 ^3/uL (0-1.3); Monocytes % (auto) 1.3 % (0.0-12.0); Neutrophils # (auto) 24.2 10 ^3/uL (1.6-8.6); Neutrophils % (auto) 96.1 % (37.0-80.0); Platelet Count (auto) 202 10^3/uL (140-450); Red Blood Cells 4.63 10^6/uL (4.5-5.90); Red Cell Distribution Width 15.5 % (11.8-14.3); White Blood Cell 25.2 10^3/uL (4.4-10.8)
[2024-02-19 15:50] LABS: Alanine Aminotransferase 41 U/L (7-40); Alkaline Phosphatase 91 U/L (46-116); Anion Gap 3 (5-15); Aspartate Aminotransferase 16 U/L (13-40); BUN/Creatinine Ratio 17.6 (10.0-20.0); Blood Urea Nitrogen 16 mg/dL (9-23); Calcium 8.6 mg/dL (8.7-10.4); Carbon Dioxide 26 mmol/L (20-31); Chloride 110 mmol/L (98-107); Glucose 179 mg/dL (74-106); Potassium 4.7 mmol/L (3.5-5.1); Sodium 139 mmol/L (136-145)
[2024-02-19 15:51] LABS: Albumin 3.2 g/dL (3.2-4.8); Bilirubin, Total 0.4 mg/dL (0.2-1.0); Total Protein 5.2 g/dL (5.7-8.2)
--- NOTE | 2024-02-19 16:23 | DVHPNRES ---
Progress Note Date Seen: Feb 19, 2024 Resident Creating Document: MAYI BINGHAM RESIDENT Has the PT tested + for MRSA If YES, has PT been informed?: No Medical Necessity Reason Pt with a Central, PICC or Fol: No Subjective Review of Systems This is a 78-year-old male patient with PMHx of chronic nicotine dependence, abdominal aortic aneurysm diagnosed February 2023, history of pneumonia and pleural effusion who presented to the ER with the chief complaint of lower back pain starting 01/23/2024. Patient reports worsening lower back pain which is pressure-like in nature, constant and 10/10 in intensity located in the lumbar region, no radiation. The pain worsened yesterday therefore patient decided to come into the ER. He has a history of abdominal aortic aneurysm diagnosed in February [address] scan. A recent CT abdomen pelvis without contrast for abdominal hernia was completed by patient's primary care physician on 01/11/2024 which showed 5.8 cm infrarenal abdominal aortic aneurysm with suspected intramural hematoma or thrombus. Patient also has a history of left-sided inguinal hernia for the past 2 months which is not affecting his daily life activities. Past Medical History: chronic nicotine dependence, abdominal aortic aneurysm diagnosed February 2023, history of pneumonia and pleural effusion, inguinal hernia Past Surgical History: None Family History: None Social history: Smokes 1 pack per day (For the past 50 years, quit 9 months back), drinks alcohol occasionally, denies illicit drug use. Patient lives with and son. 01/30 - Patient seen and examined in the ER bed 17. Reports mild back pain as compared to admission. Saturating 96% on 4 L NC. Family at bedside. 01/31 - patient seen and examined in the ICU bed 266. Reports no back pain. No acute distress. Saturating 94 on 4L Oxymizer. Scheduled for angiogram with a stent. Dr Brito - pt deminsion conducive to STENT GRAFT BUT RIGHT LEG NEEDS REVACULARIZATION. SCHEDULE FOR RIGHT LEG INTERVENTION 02/02/24. Pt NPO starting midnight 02/02/24 - patient underwent right leg revascularization by Dr. Hoff - unable to revascularize right iliac/common femoral due to a calcified occlusion. Heparin discontinued by precision structural metal fitter. 02/03/2024-patient reported back pain in the morning. [place] and Tylenol administered. Patient feels fine. Right lower extremity examined for tenderness/swelling/bruising-unremarkable. Auscultation at catheter site unremarkable. Continuing cardiac diet. 02/05/2024 - patient reports back pain, lumbar spinous tender on exam. Left inguinal hernia is tender but not erythematous and soft and reducible. Consu lted Dr. Anderson. Discussed in details regarding prognosis and the risk of open surgery for the repair of AAA. Advanced directives to be given by patient's daughter Soco Iyre and Tamia Sexton, as per the patient's wishes. 02/06/2024 - Patient feels fine, no active complaint. Dr. Anderson recommended pulmonary evaluation and pulmonary therapy to improve lung status. We will review films further regarding possible EVAR and fem-fem bypass. This would be an elective setting once his pulmonary status has improved if he is a candidate for hybrid surgery. If he is not a candidate for habits surgery would recommend higher level of care for open repair. CT chest without contrast pending. D Dimer elevated. LE dopper negative 02/07/2024 - CT without contrast shows Advanced smoking related lung disease, emphysematous changes in both lungs. There is subpleural reticulaton and septal thickening in the lung bases. There is atelectasis scarring in the lung bases. Started methyprednisolone 80mg IV BID, Incentive spirometry Q1hr. CTA chest pending to rule out PE. 250cc IV NS afterwards. 02/08/2024 - CT Angio chest completed, shows no evidence of a pulmonary arterial filling defect to suggest pulmonary embolism. IV Lasix reduced to 20mg daily, methyprednisolone 40mg IV BID. Patient will require EVAR and FEm-fem bypass per Dr Anderson. Planned 02/13/24 Needs pulmonary and Cardiac clearance. Dr. Brito ordered stress echo. Azithromycin IV started for 5 days, starting 02/0702/09/2024 - reports no active complaint. Practiced incentive spirometry with the patient and the nurse. Seed Cleaning Machine Operator unable to perform Cardiolite stress test because of severe shortness of breath. Moderate PAH, started sildenafil 20 mg PO TID We will reschedule Cardiolite for Monday02/11/2024 - patient reports no acute distress. Holding sildenafil given the low blood pressure. 02/12/2024 - patient is having no acute complaint. Saturating 96 on 5 L Oxymizer, sitting on a chair comfortably. undergoing stress test today. Switched prednisolone IV to 40MG daily p.o. Surgery cancelled given elevated WBC count, and pending stress test, Check BC x 2, urine culture. CXR showing Bibasilar atelectasis vs infiltrates. Transfer to [facility] pending 02/13/2024 - patient feels fine, reports no active complaint. Family at bedside. Switched Lasix 20 mg b.i.d. IV to 20 mg once daily orally. Prelim urinary culture negative. Saturating 95 on 4 L oxygen via Oxymizer. Transfer cancelled as Dr. Anderson is tentatively planning to do the surgery next Monday. Stress test was not done due to shortness of breath 02/14/2024 - patient has no acute complaint, saturating 95 on 3 L nasal cannula. Decreased prednisolone from 40 mg daily to 20 mg daily orally. Consulted Dr. Gallagher for Pulmonary clearance. Dr. Anderson - planning to do EVAR and fem-fem bypass on 02/18. Pulmonary and cardiac clearance pending. Stress echo report pending. 02/14 - no complaints. WBC up to 20.8. Started IV Zosyn, UA unremarkable, CXR consistent with previous findings. 02/15 - Patient is satting 95 on 4L NC. WBC down to 13. DC Lasix. Urine culture Approximately 50,000 CFU/mL Possible Enterococcus 02/16 - no active complaint, saturating 91 on 2 L NC. Final bacterial culture shows Enterococcus faecalis approximately 42403 CFU per mL. Antibiotics switched from Zosyn to Unasyn. 02/18 - patient underwent EVAR, Right Common femoral endartectomy, Left Common F emoral endartectomy and Femoral to femoral bypass by Dr. Anderson. Estimated Blood Loss: 600ml. WBC postop trended up to 25, likely reactive. Hemoglobin 12.9, hematocrit 40.2. Objective vital signs Vital Sign Date Time Temp Pulse Resp B/P (MAP) Pulse Ox O2 Delivery O2 Flow Rate FiO2 02/19/24 15:09 64 14 100 02/19/24 15:03 Nasal Cannula* 3 32 02/19/24 14:58 105/59 02/19/24 12:26 97.3 97.3 Total Intake and Output 02/18/24 02/18/24 02/19/24 15:00 23:00 07:00 Intake Total 500 ml 125 ml Output Total 500 ml 500 ml Balance 0 ml -375 ml medications Current Medications Medications Dose Ordered Sig/Juan David Route Start Time Stop Time Status Last Admin Dose Admin Sodium Chloride 10 ml Q8HR IV 01/30/24 22:00 02/19/24 14:11 10 ML Lorazepam 0.5 mg Q6HP PRN PO 01/30/24 16:30 Acetaminophen 650 mg Q6HP PRN PO 01/30/24 16:30 02/11/24 16:59 650 MG Ondansetron HCl 4 mg Q4HP PRN IV 01/30/24 16:30 02/08/24 19:53 4 MG Atorvastatin Calcium 40 mg HS PO 01/31/24 22:00 02/18/24 21:45 40 MG Ipratropium [place] 0.5 mg Q6HPRN PRN NEB 01/30/24 22:45 02/19/24 05:57 0.5 MG Levalbuterol HCl 0.625 mg Q6HR NEB 01/31/24 00:00 02/19/24 05:57 0.625 MG Labetalol HCl 5 mg Q2HPRN PRN IV 02/01/24 07:15 Melatonin 5 mg HS PO 02/04/24 22:00 02/18/24 21:45 5 MG Heparin Sodium (Porcine) 5,000 units Q8HR SC 02/05/24 06:00 02/18/24 15:19 5,000 UNITS Famotidine 40 mg DAILY PO 02/08/24 10:00 02/18/24 10:17 40 MG Docusate Sodium 100 mg BIDPRN PRN PO 02/10/24 10:30 02/16/24 21:53 100 MG Dexmedetomidine HCl 400 mcg/ Dextrose 100 ml @ 3.605 mls/ hr Q24H IV 02/19/24 06:45 Nicardipine HCl 250 ml @ 50 mls/hr Q5H IV 02/19/24 06:45 Ampicillin Sodium/ Sulbactam Sodium 3 gm/Sodium Chloride 100 ml @ 100 mls/hr Q6H IV 02/18/24 13:00 02/19/24 14:58 100 MLS/HR Norepinephrine Bitartrate 250 ml @ 3.75 mls/hr Q24H IV 02/19/24 13:15 02/19/24 14:18 3.75 MLS/HR Examination General Appearance: Alert, Oriented X4, Cooperative, No acute distress, Other (Bulgarian speaking elderly pleasant male patient sitting comfortably in the [facility]ary [facility] r) Respiratory: Clear to auscultation, decreased bilateral air movement, Other (Saturating 91 on 2 L NC) Cardiovascular: Regular rate, Normal S1, Normal S2, No murmurs Abdominal: Normal bowel sounds, Soft, No tenderness, Other (right and left inguinal surgical site dressing seen which is clean and intact. Left-sided inguinal hernia seen bulging with cough reflex, manually reducible but comes back, soft, nontender, not extending into the scrotum) Extremities: No edema, pulses are feeble B/L in LE, No tenderness/swelling. No tenderness in the lumbar spine. Neuro: Normal speech, Strength at 5/5 X4 ext, Normal tone, Sensation intact Psych/Mental Status: A/Ox4 laboratory and microbiology Test 02/19/24 15:10 Range/Units Serum Glucose Pending Microbiology Date/Time Source Procedure Growth Status 02/15/24 19:32 Blood Blood Culture - Preliminary NO GROWTH AFTER 72 HOURS OF INCUBATION. Resulted 02/15/24 10:00 Voided Urine Urine Culture - Final Enterococcus faecalis Complete 02/01/24 05:45 Nose MRSA Screen - Final Complete Labs and/or images reviewed: Labs reviewed by me, Image(s) reviewed by me Problem List/Assessment/Plan Problem List/Assessment/Plan Infrarenal AAA with occluded right SAM with intramural thrombus status post EVAR, right and left common femoral endartectomy, and fem-fem bypass 02/18 Postsurgical anesthetic hypotension - on Levophed CT angio aortic abdominal completed 01/30/2024 shows 67 mm infrarenal abdominal aortic aneurysm with a large amount of mural thrombus. 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 Was 5.8 cm on 01/11/2024 Echocardiogram completed, shows LVEF 55%, elevated TRV 3.30 M per S, RSV 50. Mildly dilated RA. Normal valves. Blood pressure control, SBP <120s mmHg. IV labetalol Q2hr PRN for SBP >150mmhg 02/18 - Patient underwent EVAR, Right Common femoral endartectomy, Left Common Femoral endartectomy and Femoral to femoral bypass by Dr. Anderson. Estimated Blood Loss: 600ml. WBC postop trended up to 25, likely reactive. Hemoglobin 12.9, hematocrit 40.2. Acute hypoxic respiratory failure COPD - exacerbation on [address] without contrast 02/06 shows Advanced smoking related lung disease, emphysematous changes in both lungs. There is subpleural reticulaton and septal thickening in the lung bases. There is atelectasis scarring in the lung bases. Continue nebulized treatment with levalbuterol and ipratropium q.6 hour DC steriods. Received from methyprednisolone 02/06 to 02/13 Patient completed Azithromycin from 02/07 for 5 days 02/18 - Postop ABG completed, shows pH 7.3, pCO2 40, PO2 59, HC03 22 Severe peripheral artery disease in right lower extremity status post right and left common femoral endartectomy, and fem-fem bypass 02/18 Duplex ultrasound completed, shows severe PAD in the right lower extremity On prophylactic heparin dose Left lower extremities unremarkable for PAD Starting atorvastatin 40 mg p.o. daily Consider aspirin 81 mg after definitive treatment for aneurysm Probable acute cystitis secondary to Enterococcus Urine bacterial culture shows 37725 units of Enterococcus faecalis. Started Unasyn 02/17/2024 Moderate pulmonary arterial hypertension Continue Sildenafil 20 mg PO TID Community-acquired pneumonia, Gram-positive and negative IV Zosyn starting 02/14, WBC 13, switched to Unasyn starting 02/16 Completed ceftriaxone starting 02/09, completed azithromycin starting 02/07 to 02/11 Sputum culture with induction pending Influenza and COVID negative MRSA screen is pending Ruled out PE / DVT CT Angio chest completed, shows no evidence of a pulmonary arterial filling defect to suggest pulmonary embolism. LE doppler unremarkable D Dimer elevated at 1.30 CTA chest pending to rule out PE. 250cc IV NS afterwards. B/L atlectasis in lung bases Incentive spirometry Q1hr Left inguinal hernia-manually reducible, soft, nontender CT abdomen shows left inguinal hernia containing fat and small bowel. Outpatient workup advised History of severe emphysema - controlled Continue nebulized treatment with levalbuterol and ipratropium q.6 p.r.n. Right femoral hernia CT abdomen shows right femoral hernia containing small bowel. No definite acute obstruction Sigmoid diverticulosis without acute diverticulitis Monitor Bilateral renal cysts including 22 cm left cortical renal cyst Outpatient workup advised Monitor History of COVID-19 infection COVID testing pending Chronic nicotine dependence Counseled regarding cessation for more than 20 minutes Diet Cardiac diet DVT ppx Heparin 5000 SC Q8hr GERD ppx Famotidine 40mg daily Plan discussed with patient and daughter at bedside in [place] 266, all questions have been answered. Goals of care discussed with the patient for more than 22 minutes, full code status. Plan discussed with Dr. Navas. ADRIEL Montaguesysami starting 02/16. DC steriods. DC Lasix. Discussed in details regarding prognosis and the risk of open surgery for the repair of AAA. Advanced directives to be given by patient's daughter Raiza Iyer and Tamia Sexton, as per the patient's wishes. Risks of procedure e xplained including , and acute renal failure requiring hemodialysis by Dr. Vasquez. Plan discussed with: Patient, Daughter My Orders My Orders Orders - MAYI BINGHAM RESIDENT Procedure Category Date Status Time Complete Blood Count LAB 02/19/24 In Process 14:20 Comprehensive LAB 02/19/24 In Process Metabolic Panel 14:20 BIPAP RT 02/19/24 Logged 14:21 Dietary Evaluation Review Comments: follow the cardiac 2gNa Lofat LoCholel diet. Monitor PO intake to meet 75% of his needs Expected Outcomes/Goals: Improved health and well being. avoid unwanted weight loss. MAYI BINGHAM RESIDENT Feb 19, 2024 16:23
[2024-02-20] VITALS (43 sets, daily range): BP systolic 87–126; BP diastolic 41–79; PULSE 62–84; RESP 13–26; TEMP 97.5–98.1; O2SAT 91–99
[2024-02-20 04:56] LABS: Basophils # (auto) 0 10 ^3/uL (0-0.2); Basophils % (auto) 0.1 % (0.0-2.0); Eosinophils # (auto) 0 10 ^3/uL (0-0.8); Hematocrit 34.5 % (41.0-53.0); Hemoglobin 11.2 g/dL (13.5-17.5); Lymphocytes # (auto) 0.6 10 ^3/uL (0.4-5.4); Lymphocytes % (auto) 3.3 % (10.0-50.0); Mean Corpuscular Hemoglobin 28.3 pg (28.0-32.0); Mean Corpuscular Hgb Conc. 32.5 g/dL (32.0-36.0); Mean Corpuscular Volume 87.1 fL (80.0-100.0); Monocytes # (auto) 1.4 10 ^3/uL (0-1.3); Monocytes % (auto) 7.7 % (0.0-12.0); Neutrophils # (auto) 16.6 10 ^3/uL (1.6-8.6); Neutrophils % (auto) 88.9 % (37.0-80.0); Platelet Count (auto) 159 10^3/uL (140-450); Red Blood Cells 3.96 10^6/uL (4.5-5.90); Red Cell Distribution Width 15.3 % (11.8-14.3); White Blood Cell 18.6 10^3/uL (4.4-10.8)
[2024-02-20 05:13] LABS: Alanine Aminotransferase 29 U/L (7-40); Alkaline Phosphatase 78 U/L (46-116); Anion Gap 4 (5-15); Aspartate Aminotransferase 16 U/L (13-40); BUN/Creatinine Ratio 17.6 (10.0-20.0); Bilirubin, Direct 0.1 mg/dL (<0.3); Blood Urea Nitrogen 19 mg/dL (9-23); Calcium 8.3 mg/dL (8.7-10.4); Carbon Dioxide 27 mmol/L (20-31); Chloride 108 mmol/L (98-107); Glucose 136 mg/dL (74-106); Magnesium 1.9 mg/dL (1.6-2.6); Potassium 4.5 mmol/L (3.5-5.1); Sodium 139 mmol/L (136-145)
[2024-02-20 05:14] LABS: Bilirubin, Total 0.4 mg/dL (0.2-1.0); Total Protein 4.8 g/dL (5.7-8.2)
--- NOTE | 2024-02-20 07:49 | DVHPN2 ---
Progress Note Date Seen: Feb 20, 2024 Has the PT tested + for MRSA If YES, has PT been informed?: No Medical Necessity Reason Pt with a Central, PICC or Fol: No The following are medically ne: Santiago Catheter (Bloody) Reason for santiago catheter: Strict I&O Subjective Review of Systems: HEENT:Normal, CVS:Normal, RESPIRATORY:Normal, GI:Normal, :Normal, MSK:Normal, NEURO:Normal Objective vital signs Vital Sign Date Time Temp Pulse Resp B/P (MAP) Pulse Ox O2 Delivery O2 Flow Rate FiO2 02/20/24 06:21 65 20 98 02/20/24 06:14 Nasal Cannula 4.0 02/20/24 06:14 36 02/20/24 05:30 108/58 (75) 02/20/24 04:00 97.9 97.9 Total Intake and Output 02/19/24 02/19/24 02/20/24 15:00 23:00 07:00 Intake Total 203.75 ml 130.00 ml 103.75 ml Output Total 2050 ml 1225 ml Balance -1846.25 ml -1095.00 ml 103.75 ml medications Current Medications Medications Dose Ordered Sig/Juan David Route Start Time Stop Time Status Last Admin Dose Admin Sodium Chloride 10 ml Q8HR IV 01/30/24 22:00 02/20/24 06:50 10 ML Lorazepam 0.5 mg Q6HP PRN PO 01/30/24 16:30 Acetaminophen 650 mg Q6HP PRN PO 01/30/24 16:30 02/20/24 01:06 650 MG Ondansetron HCl 4 mg Q4HP PRN IV 01/30/24 16:30 02/08/24 19:53 4 MG Atorvastatin Calcium 40 mg HS PO 01/31/24 22:00 02/19/24 22:29 40 MG Ipratropium [place] 0.5 mg Q6HPRN PRN NEB 01/30/24 22:45 02/20/24 06:15 0.5 MG Levalbuterol HCl 0.625 mg Q6HR NEB 01/31/24 00:00 02/20/24 06:14 0.625 MG Labetalol HCl 5 mg Q2HPRN PRN IV 02/01/24 07:15 Melatonin 5 mg HS PO 02/04/24 22:00 02/19/24 22:29 5 MG Heparin Sodium (Porcine) 5,000 units Q8HR SC 02/05/24 06:00 02/19/24 22:30 5,000 UNITS Famotidine 40 mg DAILY PO 02/08/24 10:00 02/18/24 10:17 40 MG Docusate Sodium 100 mg BIDPRN PRN PO 02/10/24 10:30 02/16/24 21:53 100 MG Dexmedetomidine HCl 400 mcg/ Dextrose 100 ml @ 3.605 mls/ hr Q24H IV 02/19/24 06:45 Nicardipine HCl 250 ml @ 50 mls/hr Q5H IV 02/19/24 06:45 Ampicillin Sodium/ Sulbactam Sodium 3 gm/Sodium Chloride 100 ml @ 100 mls/hr Q6H IV 02/18/24 13:00 02/20/24 06:49 100 MLS/HR Norepinephrine Bitartrate 250 ml @ 3.75 mls/hr Q24H IV 02/19/24 13:15 02/19/24 14:18 3.75 MLS/HR Acetaminophen/ Hydrocodone Bitart 1 tab Q6HPRN PRN PO 02/20/24 07:15 Examination: GENERAL:Normal, HEENT:Normal, NECK:Normal, LUNGS:Normal, CVS:Normal, ABDOMEN:Normal (Bilateral groins are soft minimal tenderness. Bilateral lower extremities warm well-perfused. Doppler signals noted in DP), MSK:Normal, SKIN:Normal, NEURO:Normal, :Normal, Any Other System: laboratory and microbiology Laboratory Tests 02/20/24 04:39 Test 02/20/24 04:39 Range/Units Serum Glucose 136 H 74-106 mg/dL Microbiology Date/Time Source Procedure Growth Status 02/15/24 19:32 Blood Blood Culture - Preliminary NO GROWTH AFTER 72 HOURS OF INCUBATION. Resulted 02/15/24 10:00 Voided Urine Urine Culture - Final Enterococcus faecalis Complete 02/01/24 05:45 Nose MRSA Screen - Final Complete Problem List/Assessment/Plan Problem List/Assessment/Plan Status post EVAR, bilateral common femoral endarterectomy, fem-fem bypass February 19, 2024 Out of bed today. Advance diet Physical therapy Consider urology consult if bloody urine does not subside. Plan discussed with: Patient, Other (Nurse) My Orders My Orders Orders - RUTH RODARTE Jr., MD Procedure Category Date Status Time Regular Diet DIET 02/19/24 Transmitted Lunch Communication Order ORDERS 02/19/24 Transmitted 17:32 Transfer Orders XFER 02/20/24 Transmitted 00:22 Dietary Evaluation Review Comments: follow the cardiac 2gNa Lofat LoCholel diet. Monitor PO intake to meet 75% of his needs Expected Outcomes/Goals: Improved health and well being. avoid unwanted weight loss. RUTH RODARTE Jr., MD Feb 20, 2024 07:49
[2024-02-20] MEDS: BUPIVACAINE 0.25% INJ 50ML VIAL ONE (08:12)
[2024-02-20] MEDS: HEPARIN SODIUM (PORCINE) 5000 UNITS/ML 1ML VIAL ONE (08:12)
[2024-02-20] MEDS: BUPIVACAINE HCL 50 ML ONE (08:12)
[2024-02-20] MEDS: THROMBIN (BOVINE) 5000 UNIT SOL VIAL ONE (08:13)
[2024-02-20] MEDS: GELATIN 1 SPONGE SIZE 100 TOP ONE (08:13)
[2024-02-20] MEDS: LIDOCAINE 1% (LOCAL ANESTH.) PF 5ml SDV ONE (08:13)
[2024-02-20] MEDS: IODIXANOL 320MG/ML 100ML BTL IV ONE (08:14)
[2024-02-20] MEDS: HEPARIN 1,000 UNITS/ml 1ML VIAL ONE ×2 (08:14)
[2024-02-20] MEDS: ePHEDrine SULFATE 50 MG/ML AMP ONE (08:15)
[2024-02-20] MEDS: HYDROcodone-ACET 5/325MG TAB PO PRN (08:40)
--- NOTE | 2024-02-20 10:19 | DVHPN2 ---
Progress Note - Dictate Date Seen: Feb 20, 2024 Has the PT tested + for MRSA If YES, has PT been informed?: No Medical Necessity Reason Pt with a Central, PICC or Fol: No The following are medically ne: Santiago Catheter (Bloody) Reason for santiago catheter: Strict I&O Subjective PT WITH COPD CONTINUED TOBACCO USE NOW WITH LOWER BACK PAIM CTA OF ABD 1. Infrarenal abdominal aortic aneurysm measuring up to 67mm with a large amount of mural thrombus. 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 Vascular surgery evaluation is recommended. 2. Numerous bilateral renal cysts including a very large left renal cyst measuring up to 220mm. 3. Left inguinal hernia containing fat and small bowel. Right femoral hernia containing small bowel. No definite acute obstruction. Some level of chronic obstruction may be present. vital signs Vital Sign Date Time Temp Pulse Resp B/P (MAP) Pulse Ox O2 Delivery O2 Flow Rate FiO2 02/20/24 08:00 70 23 92 Nasal Cannula* 4 36 02/20/24 08:00 109/56 (73) 02/20/24 04:00 97.9 97.9 Total Intake and Output 02/19/24 02/19/24 02/20/24 14:59 22:59 06:59 Intake Total 100 ml 230.00 ml 307.50 ml Output Total 2050 ml 1225 ml 800 ml Balance -1950 ml -995.00 ml -492.50 ml medications Current Medications Medications Dose Ordered Sig/Juan David Route Start Time Stop Time Status Last Admin Dose Admin Sodium Chloride 10 ml Q8HR IV 01/30/24 22:00 02/20/24 06:50 10 ML Lorazepam 0.5 mg Q6HP PRN PO 01/30/24 16:30 Acetaminophen 650 mg Q6HP PRN PO 01/30/24 16:30 02/20/24 01:06 650 MG Ondansetron HCl 4 mg Q4HP PRN IV 01/30/24 16:30 02/08/24 19:53 4 MG Atorvastatin Calcium 40 mg HS PO 01/31/24 22:00 02/19/24 22:29 40 MG Ipratropium [place] 0.5 mg Q6HPRN PRN NEB 01/30/24 22:45 02/20/24 06:15 0.5 MG Levalbuterol HCl 0.625 mg Q6HR NEB 01/31/24 00:00 02/20/24 06:14 0.625 MG Labetalol HCl 5 mg Q2HPRN PRN IV 02/01/24 07:15 Melatonin 5 mg HS PO 02/04/24 22:00 02/19/24 22:29 5 MG Heparin Sodium (Porcine) 5,000 units Q8HR SC 02/05/24 06:00 02/19/24 22:30 5,000 UNITS Famotidine 40 mg DAILY PO 02/08/24 10:00 02/20/24 10:04 40 MG Docusate Sodium 100 mg BIDPRN PRN PO 02/10/24 10:30 02/16/24 21:53 100 MG Dexmedetomidine HCl 400 mcg/ Dextrose 100 ml @ 3.605 mls/ hr Q24H IV 02/19/24 06:45 Nicardipine HCl 250 ml @ 50 mls/hr Q5H IV 02/19/24 06:45 Ampicillin Sodium/ Sulbactam Sodium 3 gm/Sodium Chloride 100 ml @ 100 mls/hr Q6H IV 02/18/24 13:00 02/20/24 06:49 100 MLS/HR Norepinephrine Bitartrate 250 ml @ 3.75 mls/hr Q24H IV 02/19/24 13:15 02/19/24 14:18 3.75 MLS/HR Acetaminophen/ Hydrocodone Bitart 1 tab Q6HPRN PRN PO 02/20/24 07:15 02/20/24 08:40 1 TAB laboratory and microbiology Laboratory Tests 02/20/24 04:39 Test 02/20/24 04:39 Range/Units Serum Glucose 136 H 74-106 mg/dL Problem List AAA COPD Assessment/Plan LE ARTERIAL DOPPLER SCHEDULE FOR ANGIOGRAM WITH STENT GRAFT IF PATIENT ANATOMY IS APPROPRIATE FOR STENT GRAFT HYBRID pt RENAL MEASUREMENT conducive to STENT GRAFT BUT RIGHT LEG NEEDS REVASCULARIZATION SCHEDULE FOR RIGHT LEG INTERVENTION 02/02/24 DISCUSSED WITH DAUGHTERS UNABLE TO REVASCULARIZE RIGHT ILIAC / COMMON FEMORAL CALCIFIED OCCLUSION SURGICAL OPTION HYBRID PROCEDURE IS A VIABLE OPTION TRANSFER TO [facility] SINCE WE ARE NOT ABLE TO DO A HYBRID PROCEDURE echo stress cardiolite risk stratification unable to perform cardiolite because severe sob echo ef 55% mod pah START REVATIO DIURESIS WILL RESCHEDULE CARDIOLITE ON MONDAY CARDIOLITE NON ISCHEMIC ECHO EF >55% MAY PROCEED WITH SURGERY PT S/P EVAR, Right Common femoral endartectomy Left Common Femoral endartectomy Femoral to femoral byass LEUKOCYTOSIS IMPROVING HCT STABLE NO OVERT BLEEDING Dietary Evaluation Review Comments: follow the cardiac 2gNa Lofat LoCholel diet. Monitor PO intake to meet 75% of his needs Expected Outcomes/Goals: Improved health and well being. avoid unwanted weight loss. Plan discussed with: Patient, Daughter Critical Care Time(min): 35 JUAN DANIEL GARCIA MD Feb 20, 2024 10:19
--- NOTE | 2024-02-20 10:21 | DVH ---
CHEST RADIOGRAPH Indication:pulm edema Technique: Single frontal view of the chest was obtained Comparison: XY CHEST XRAY 1 VIEW on DOS: 02/19/24, XY CHEST XRAY 1 VIEW on DOS: 02/15/24, XY CHEST POR TABLE on DOS: 02/12/24, XY CHEST PORTABLE on DOS: 02/10/24, XY CHEST PORTABLE on DOS: 02/05/24, XY CHES T XRAY 1 VIEW on DOS: 02/19/24 FINDINGS: Lines and Tubes: None Lungs: Multifocal airspace disease. Pleura: No effusion. No pneumothorax. Cardiomediastinal contours: Unremarkable Bones: Unremarkable IMPRESSION: Multifocal airspace disease, unchanged.
[2024-02-20] MEDS: HYDROcodone-ACET 10/325MG TAB PO PRN (12:43)
[2024-02-20] MEDS: IOHEXOL 300 MG/ML 100ML BOTTLE IJ ONE (13:14)
--- NOTE | 2024-02-20 14:11 | DVH ---
Exam: CT PELVIS WITH CONTRAST ONLY History: r/o bleed Comparison Study: None available at time of dictation. Technique: Multidetector CT of the pelvis was performed from iliac crests to pubic symphysis after th e administration of intravenous contrast was administered during this examination. Portal venous imag ing was obtained. Axial, coronal and sagittal multiplanar reformats were performed by the [employer] t on a separate workstation. Radiation Dose : CT Dose: CTDI volume is 12.19 mGy. Dose-length product is 540.48 mGy*cm Omnipaque 300: 100 mL Findings: Visualized bowel: No bowel wall thickening or dilatation. Ascites: Absent Lymphadenopathy: No pelvic or mesenteric lymphadenopathy. Vasculature: Large abdominal aorta aneurysm with stent in place. Measures 13 x 6.4 cm. Right iliac a rtery is occluded. Fem-fem bypass graft is patent. No findings to suggest endoleak. Kidneys: Large bilateral renal cysts. Largest is on the left and although incompletely visualized yessenia sures 20 cm front to back and 13 cm in transverse dimension. Pelvic Organs: No findings to suggest bleed in the bowel visualized in the pelvis. Musculoskeletal: No acute osseous abnormality. Bladder: Parada catheter in the bladder. Soft tissues: Prominent left inguinal hernia containing bowel measuring 5-6 cm in diameter. IMPRESSION: 1. Limited evaluation of the bowel 2. No findings of IV contrast in the bowel 3. Large abdominal aortic aneurysm with stent in place. 4. No endoleak. 5. Obstructed right iliac artery. 6. Fem-fem bypass graft patent 7. 5-6 cm left inguinal hernia containing bowel. 8. Parada catheter in the bladder. All CT scans at this medical facility are performed using dose modulation techniques as appropriate t o a performed exam including the following: Automated exposure control was utilized; adjustment of th e MA and/or KV according to patient size; and use of iterative reconstruction technique.
--- NOTE | 2024-02-20 18:46 | DVHPNRES ---
Progress Note Date Seen: Feb 20, 2024 Resident Creating Document: MAYI BINGHAM RESIDENT Has the PT tested + for MRSA If YES, has PT been informed?: No Medical Necessity Reason Pt with a Central, PICC or Fol: No The following are medically ne: Santiago Catheter (Bloody) Reason for santiago catheter: Strict I&O Subjective Review of Systems This is a 78-year-old male patient with PMHx of chronic nicotine dependence, abdominal aortic aneurysm diagnosed February 2023, history of pneumonia and pleural effusion who presented to the ER with the chief complaint of lower back pain starting 01/23/2024. Patient reports worsening lower back pain which is pressure-like in nature, constant and 10/10 in intensity located in the lumbar region, no radiation. The pain worsened yesterday therefore patient decided to come into the ER. He has a history of abdominal aortic aneurysm diagnosed in February [address] scan. A recent CT abdomen pelvis without contrast for abdominal hernia was completed by patient's primary care physician on 01/11/2024 which showed 5.8 cm infrarenal abdominal aortic aneurysm with suspected intramural hematoma or thrombus. Patient also has a history of left-sided inguinal hernia for the past 2 months which is not affecting his daily life activities. Past Medical History: chronic nicotine dependence, abdominal aortic aneurysm diagnosed February 2023, history of pneumonia and pleural effusion, inguinal hernia Past Surgical History: None Family History: None Social history: Smokes 1 pack per day (For the past 50 years, quit 9 months back), drinks alcohol occasionally, denies illicit drug use. Patient lives with and son. 01/30 - Patient seen and examined in the ER bed 17. Reports mild back pain as compared to admission. Saturating 96% on 4 L NC. Family at bedside. 01/31 - patient seen and examined in the ICU bed 266. Reports no back pain. No acute distress. Saturating 94 on 4L Oxymizer. Scheduled for angiogram with a stent. Dr Brito - pt deminsion conducive to STENT GRAFT BUT RIGHT LEG NEEDS REVACULARIZATION. SCHEDULE FOR RIGHT LEG INTERVENTION 02/02/24. Pt NPO starting midnight 02/02/24 - patient underwent right leg revascularization by Dr. Hoff - unable to revascularize right iliac/common femoral due to a calcified occlusion. 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 02/03/2024-patient reported back pain in the morning. [place] and Tylenol administered. Patient feels fine. Right lower extremity examined for tenderness/swelling/bruising-unremarkable. Auscultation at catheter site unremarkable. Continuing cardiac diet. 02/05/2024 - patient reports back pain, lumbar spinous tender on exam. Left inguinal hernia is tender but not erythematous and soft and reducible. Consulted Dr. Anderson. Discussed in details regarding prognosis and the risk of open surgery for the repair of AAA. Advanced directives to be given by patient's daughter Soco Iyer and Tamia Sexton, as per the patient's wishes. 02/06/2024 - Patient feels fine, no active complaint. Dr. Anderson recommended pulmonary evaluation and pulmonary therapy to improve lung status. We will review films further regarding possible EVAR and fem-fem bypass. This would be an elective setting once his pulmonary status has improved if he is a candidate for hybrid surgery. If he is not a candidate for habits surgery would recommend higher level of care for open repair. CT chest without contrast pending. D Dimer elevated. LE dopper negative 02/07/2024 - CT without contrast shows Advanced smoking related lung disease, emphysematous changes in both lungs. There is subpleural reticulaton and septal thickening in the lung bases. There is atelectasis scarring in the lung bases. Started methyprednisolone 80mg IV BID, Incentive spirometry Q1hr. CTA chest pending to rule out PE. 250cc IV NS afterwards. 02/08/2024 - CT Angio chest completed, shows no evidence of a pulmonary arterial filling defect to suggest pulmonary embolism. IV Lasix reduced to 20mg daily, methyprednisolone 40mg IV BID. Patient will require EVAR and FEm-fem bypass per Dr Anderson. Planned 02/13/24 Needs pulmonary and Cardiac clearance. Dr. Brito ordered stress echo. Azithromycin IV started for 5 days, starting 02/0702/09/2024 - reports no active complaint. Practiced incentive spirometry with the patient and the nurse. Networking Administrator unable to perform Cardiolite stress test because of severe shortness of breath. Moderate PAH, started sildenafil 20 mg PO TID We will reschedule Cardiolite for Monday02/11/2024 - patient reports no acute distress. Holding sildenafil given the low blood pressure. 02/12/2024 - patient is having no acute complaint. Saturating 96 on 5 L Oxymizer, sitting on a chair comfortably. undergoing stress test today. Switched prednisolone IV to 40MG daily p.o. Surgery cancelled given elevated WBC count, and pending stress test, Check BC x 2, urine culture. CXR showing Bibasilar atelectasis vs infiltrates. Transfer to [facility] pending 02/13/2024 - patient feels fine, reports no active complaint. Family at bedside. Switched Lasix 20 mg b.i.d. IV to 20 mg once daily orally. Prelim urinary culture negative. Saturating 95 on 4 L oxygen via Oxymizer. Transfer cancelled as Dr. Anderson is tentatively planning to do the surgery next Monday. Stress test was not done due to shortness of breath 02/14/2024 - patient has no acute complaint, saturating 95 on 3 L nasal cannula. Decreased prednisolone from 40 mg daily to 20 mg daily orally. Consulted Dr. Gallagher for Pulmonary clearance. Dr. Anderson - planning to do EVAR and fem-fem bypass on 02/18. Pulmonary and cardiac clearance pending. Stress echo report pending. 02/14 - no complaints. WBC up to 20.8. Started IV Zosyn, UA unremarkable, CXR consistent with previous findings. 02/15 - Patient is satting 95 on 4L NC. WBC down to 13. DC Lasix. Urine culture Approximately 50,000 CFU/mL Possible Enterococcus 02/16 - no active complaint, saturating 91 on 2 L NC. Final bacterial culture shows Enterococcus faecalis approximately 00065 CFU per mL. Antibiotics switched from Zosyn to Unasyn. 02/18 - patient underwent EVAR, Right Common femoral endartectomy, Left Common Femoral endartectomy and Femoral to femoral bypass by Dr. Anderson. Estimated Blood Loss: 600ml. WBC postop trended up to 25, likely reactive. Hemoglobin 12.9, hematocrit 40.2. 02/19 - overnight, patient reports pain at the left surgical site which also has the left inguinal hernia, hernia is mildly tender, soft and reducible but comes back immediately. Bruise seen on bilateral surgical site. CT scan pelvis with contrast completed, no endoleak. Large abdominal aortic aneurysm with a stent in place. Fem-fem bypass graft patent. Satniago catheter in the bladder. Santiago catheter draining red urine. Nurse reports that the patient moved aggressively and had probable trauma caused by Santiago catheter. Objective vital signs Vital Sign Date Time Temp Pulse Resp B/P (MAP) Pulse Ox O2 Delivery O2 Flow Rate FiO2 02/20/24 17:00 72 23 113/50 (71) 93 02/20/24 16:30 2.0 28 02/20/24 16:00 Nasal Cannula* 02/20/24 09:00 97.5 97.5 Total Intake and Output 02/19/24 02/19/24 02/20/24 15:00 23:00 07:00 Intake Total 203.75 ml 130.00 ml 403.75 ml Output Total 2050 ml 1225 ml 800 ml Balance -1846.25 ml -1095.00 ml -396.25 ml medications Current Medications Medications Dose Ordered Sig/Juan David Route Start Time Stop Time Status Last Admin Dose Admin Sodium Chloride 10 ml Q8HR IV 01/30/24 22:00 02/20/24 14:25 10 ML Lorazepam 0.5 mg Q6HP PRN PO 01/30/24 16:30 Acetaminophen 650 mg Q6HP PRN PO 01/30/24 16:30 02/20/24 01:06 650 MG Ondansetron HCl 4 mg Q4HP PRN IV 01/30/24 16:30 02/08/24 19:53 4 MG Atorvastatin Calcium 40 mg HS PO 01/31/24 22:00 02/19/24 22:29 40 MG Ipratropium [place] 0.5 mg Q6HPRN PRN NEB 01/30/24 22:45 02/20/24 11:38 0.5 MG Levalbuterol HCl 0.625 mg Q6HR NEB 01/31/24 00:00 02/20/24 11:37 0.625 MG Labetalol HCl 5 mg Q2HPRN PRN IV 02/01/24 07:15 Melatonin 5 mg HS PO 02/04/24 22:00 02/19/24 22:29 5 MG Heparin Sodium (Porcine) 5,000 units Q8HR SC 02/05/24 06:00 02/19/24 22:30 5,000 UNITS Famotidine 40 mg DAILY PO 02/08/24 10:00 02/20/24 10:04 40 MG Docusate Sodium 100 mg BIDPRN PRN PO 02/10/24 10:30 02/16/24 21:53 100 MG Dexmedetomidine HCl 400 mcg/ Dextrose 100 ml @ 3.605 mls/ hr Q24H IV 02/19/24 06:45 Nicardipine HCl 250 ml @ 50 mls/hr Q5H IV 02/19/24 06:45 Ampicillin Sodium/ Sulbactam Sodium 3 gm/Sodium Chloride 100 ml @ 100 mls/hr Q6H IV 02/18/24 13:00 02/20/24 12:47 100 MLS/HR Norepinephrine Bitartrate 250 ml @ 3.75 mls/hr Q24H IV 02/19/24 13:15 02/19/24 14:18 3.75 MLS/HR Acetaminophen/ Hydrocodone Bitart 1 tab Q6HPRN PRN PO 02/20/24 07:15 02/20/24 08:40 1 TAB Acetaminophen/ Hydrocodone Bitart 1 tab Q6HPRN PRN PO 02/20/24 12:15 02/20/24 12:43 1 TAB Examination General Appearance: Alert, Oriented X4, Cooperative, No acute distress, Other (Malian speaking elderly pleasant male patient sitting comfortably in the chair) Respiratory: Clear to auscultation, decreased bilateral air movement, Other (Saturating 91 on 2 L NC) Cardiovascular: Regular rate, Normal S1, Normal S2, No murmurs Abdominal: Normal bowel sounds, Soft, No tenderness, Other (right and left inguinal surgical site dressing seen which is clean and intact. Bruising noticed. Left-sided inguinal hernia seen bulging with cough reflex, manually reducible but comes back, soft, nontender, not extending into the scrotum) Extremities: No edema, pulses are feeble B/L in LE, No tenderness/swelling. No tenderness in the lumbar spine. Neuro: Normal speech, Strength at 5/5 X4 ext, Normal tone, Sensation intact Psych/Mental Status: A/Ox4 laboratory and microbiology Laboratory Tests 02/20/24 04:39 Test 02/20/24 04:39 Range/Units Serum Glucose 136 H 74-106 mg/dL Microbiology Date/Time Source Procedure Growth Status 02/15/24 19:32 Blood Blood Culture - Preliminary NO GROWTH AFTER 72 HOURS OF INCUBATION. Resulted 02/15/24 10:00 Voided Urine Urine Culture - Final Enterococcus faecalis Complete 02/01/24 05:45 Nose MRSA Screen - Final Complete Labs and/or images reviewed: Labs reviewed by me, Image(s) reviewed by me Problem List/Assessment/Plan Problem List/Assessment/Plan Infrarenal AAA with occluded right SAM with intramural thrombus status post EVAR, right and left common femoral endartectomy, and fem-fem bypass 02/18 Postsurgical anesthetic hypotension - on Levophed CT angio aortic abdominal completed 01/30/2024 shows 67 mm infrarenal abdominal aortic aneurysm with a large amount of mural thrombus. 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 Was 5.8 cm on 01/11/2024 Echocardiogram completed, shows LVEF 55%, elevated TRV 3.30 M per S, RSV 50. Mildly dilated RA. Normal valves. Blood pressure control, SBP <120s mmHg. IV labetalol Q2hr PRN for SBP >150mmhg 02/18 - Patient underwent EVAR, Right Common femoral endartectomy, Left Common Femoral endartectomy and Femoral to femoral bypass by Dr. Anderson. Estimated Blood Loss: 600ml. WBC postop trended up to 25, likely reactive. Hemoglobin 12.9, hematocrit 40.2. 02/19 - CT pelvics completed with IV contrast, no findings of IV contrast of the bowel. Large abdominal aortic aneurysm with a stent in place. No endoleak obstructed right iliac artery. Fem-fem bypass graft patent. 5-6 cm inguinal hernia containing bowel. Santiago catheter in the bladder. Continue incentive spirometry Q 1 hour Acute hypoxic respiratory failure COPD - exacerbation on [address] without contrast 02/06 shows Advanced smoking related lung disease, emphysematous changes in both lungs. There is subpleural reticulaton and septal thickening in the lung bases. There is atelectasis scarring in the lung bases. Continue nebulized treatment with levalbuterol and ipratropium q.6 hour DC steriods. Received from methyprednisolone 02/06 to 02/13 Patient completed Azithromycin from 02/07 for 5 days 02/18 - Postop ABG completed, shows pH 7.3, pCO2 40, PO2 59, HC03 22 Severe peripheral artery disease in right lower extremity status post right and left common femoral endartectomy, and fem-fem bypass 02/18 Duplex ultrasound completed, shows severe PAD in the right lower extremity Left lower extremities unremarkable for PAD Starting atorvastatin 40 mg p.o. daily Consider aspirin 81 mg after definitive treatment for aneurysm Probable acute cystitis secondary to Enterococcus Urine bacterial culture shows 82825 units of Enterococcus faecalis. Started Unasyn 02/17/2024 Moderate pulmonary arterial hypertension Continue Sildenafil 20 mg PO TID Community-acquired pneumonia, Gram-positive and negative IV Zosyn starting 02/14, WBC 13, switched to Unasyn starting 02/16 Completed ceftriaxone starting 02/09, completed azithromycin starting 02/07 to 02/11 Sputum culture with induction pending Influenza and COVID negative MRSA screen is pending Ruled out PE / DVT CT Angio chest completed, shows no evidence of a pulmonary arterial filling defect to suggest pulmonary embolism. LE doppler unremarkable D Dimer elevated at 1.30 B/L atlectasis in lung bases Incentive spirometry Q1hr Left inguinal hernia-manually reducible, soft, nontender CT abdomen shows left inguinal hernia containing fat and small bowel. Surgeon Dr Malloy - recommended outpatient surgery clinic follow up History of severe emphysema - controlled Continue nebulized treatment with levalbuterol and ipratropium q.6 p.r.n. Right femoral hernia CT abdomen shows right femoral hernia containing small bowel. No definite acute obstruction Sigmoid diverticulosis without acute diverticulitis Monitor Bilateral renal cysts including 22 cm left cortical renal cyst Outpatient workup advised Monitor History of COVID-19 infection COVID testing negative Chronic nicotine dependence Counseled regarding cessation for more than 20 minutes Diet Cardiac diet DVT ppx Holding Heparin 5000 SC Q8hr given the hematuria GERD ppx Famotidine 40mg daily Plan discussed with patient and daughter at bedside in [place] 266, all questions have been answered. Goals of care discussed with the patient for more than 22 minutes, full code status. Plan discussed with Dr. Navas. IV Unasyn starting 02/16. Status post EVAR, right and left common femoral endartectomy, and fem-fem bypass 02/18. Discussed in details regarding prognosis and the risk of open surgery for the repair of AAA. Advanced directives to be given by patient's daughter Raiza Iyer and Tamia Sexton, as per the patient's wishes. Risks of procedure explained including , and acute renal failure requiring hemodialysis by Dr. Vasquez. Plan discussed with: Patient, Daughter (At bedside) My Orders My Orders Orders - MAYI BINGHAM Procedure Category Date Status Time Pelvis With Contrast CT 02/20/24 Resulted Only 12:06 Hydrocodone-Acet PHA 02/20/24 In Process 10/325mg Tab (Katy 12:15 Dietary Evaluation Review Comments: follow the cardiac 2gNa Lofat LoCholel diet. Monitor PO intake to meet 75% of his needs Expected Outcomes/Goals: Improved health and well being. avoid unwanted weight loss. Date of Service: Feb 20, 2024 Billing Provider: ZANE ANDREWS MD Common Visit Codes: [id number] INP/OBS CARE(HIGH) MAYI BINGHAM RESIDENT Feb 20, 2024 18:46 ZANE ANDREWS MD Feb 21, 2024 10:06
--- NOTE | 2024-02-20 19:39 | DVHPN2 ---
Progress Note - Dictate Date Seen: Feb 19, 2024 Has the PT tested + for MRSA If YES, has PT been informed?: No Medical Necessity Reason Pt with a Central, PICC or Fol: No The following are medically ne: Santiago Catheter Reason for santiago catheter: Strict I&O Subjective Patient seen and examined at bedside. Remains on supplemental oxygen Overnight events reviewed. vital signs Vital Sign Date Time Temp Pulse Resp B/P (MAP) Pulse Ox O2 Delivery O2 Flow Rate FiO2 02/20/24 19:10 74 17 98 02/20/24 19:04 Nasal Cannula* 4 36 02/20/24 17:00 113/50 (71) 02/20/24 09:00 97.5 97.5 Total Intake and Output 02/19/24 02/19/24 02/20/24 14:59 22:59 06:59 Intake Total 100 ml 230.00 ml 307.50 ml Output Total 2050 ml 1225 ml 800 ml Balance -1950 ml -995.00 ml -492.50 ml medications Current Medications Medications Dose Ordered Sig/Juan David Route Start Time Stop Time Status Last Admin Dose Admin Sodium Chloride 10 ml Q8HR IV 01/30/24 22:00 02/20/24 14:25 10 ML Lorazepam 0.5 mg Q6HP PRN PO 01/30/24 16:30 Acetaminophen 650 mg Q6HP PRN PO 01/30/24 16:30 02/20/24 01:06 650 MG Ondansetron HCl 4 mg Q4HP PRN IV 01/30/24 16:30 02/20/24 19:27 4 MG Atorvastatin Calcium 40 mg HS PO 01/31/24 22:00 02/19/24 22:29 40 MG Ipratropium [place] 0.5 mg Q6HPRN PRN NEB 01/30/24 22:45 02/20/24 19:04 0.5 MG Levalbuterol HCl 0.625 mg Q6HR NEB 01/31/24 00:00 02/20/24 19:03 0.625 MG Labetalol HCl 5 mg Q2HPRN PRN IV 02/01/24 07:15 Melatonin 5 mg HS PO 02/04/24 22:00 02/19/24 22:29 5 MG Heparin Sodium (Porcine) 5,000 units Q8HR SC 02/05/24 06:00 02/19/24 22:30 5,000 UNITS Famotidine 40 mg DAILY PO 02/08/24 10:00 02/20/24 10:04 40 MG Docusate Sodium 100 mg BIDPRN PRN PO 02/10/24 10:30 02/16/24 21:53 100 MG Dexmedetomidine HCl 400 mcg/ Dextrose 100 ml @ 3.605 mls/ hr Q24H IV 02/19/24 06:45 Nicardipine HCl 250 ml @ 50 mls/hr Q5H IV 02/19/24 06:45 Ampicillin Sodium/ Sulbactam Sodium 3 gm/Sodium Chloride 100 ml @ 100 mls/hr Q6H IV 02/18/24 13:00 02/20/24 18:47 100 MLS/HR Norepinephrine Bitartrate 250 ml @ 3.75 mls/hr Q24H IV 02/19/24 13:15 02/19/24 14:18 3.75 MLS/HR Acetaminophen/ Hydrocodone Bitart 1 tab Q6HPRN PRN PO 02/20/24 07:15 02/20/24 08:40 1 TAB Acetaminophen/ Hydrocodone Bitart 1 tab Q6HPRN PRN PO 02/20/24 12:15 02/20/24 18:46 1 TAB objective Gen.: Patient lying in bed in no apparent distress. On supplemental oxygen. Head: Normocephalic, atraumatic. Eyes: EOMI/PERRLA. Ears: Normal hearing. Normal anatomy. Neck/trachea: Trachea midline, supple. Nose: Normal external anatomy. Mouth: Moist mucous membranes. Chest: Decreased air entry bilaterally. Crackles present. No wheezing or rhonchi. Cardiovascular: Positive S1, positive S2. Regular rate and rhythm. Abdomen: Positive bowel sounds in all 4 quadrants. Soft, non-tender, non- distended. : Deferred. Rectal: Deferred. Skin: Warm, dry. Intact. Extremities: 2+ radial pulses bilaterally. No lower extremity edema. Neuro: Awake, alert, oriented x3. No gross motor or sensory deficits. Cranial nerves II through XII intact. Gait not assessed. laboratory and microbiology Laboratory Tests 02/20/24 04:39 Test 02/20/24 04:39 Range/Units Serum Glucose 136 H 74-106 mg/dL Assessment/Plan Impression: Acute on chronic hypoxic respiratory failure COPD exacerbation, improving Nicotine abuse Emphysematous changes Obesity with a BMI of 30 Moderate size hiatal hernia Ex-smoker Pulmonary hypertension with a right ventricular systolic pressure of 50 mmHg WHO class three Events: On supplemental O2 at 2-3 LPM NC Taper O2 as tolerated Patient is postop from vascular surgery. Obtain STAT CXR and ABG. CXR notable for pulmonary vascular congestion. Diurese w/ Lasix 20 mg IVP BiPAP PRN. Vascular Surgery recs appreciated. Monitor blood pressure. Leukocytosis - WBC at 25.2 K Continue antibiotics Continue bronchodilators Incentive spirometry Labs and imaging reviewed. Rest of plan as noted below. Plan: CT of the chest report and images reviewed. No acute pulmonary embolism. Extensive centrilobular emphysematous changes in the lung. No acute opacities, pleural effusions or pneumothorax. Wheezing has improved. Recommend to discontinue steroids. Patient is at moderate to high risk of pulmonary complications in the perioperative period. No absolute contraindications to surgery. Patient is at high risk for respiratory failure including the possibility of requiring mechanical ventilation or difficulty in weaning from mechanical ventilation. Other potential complications for example are postoperative atelectasis, pneumonia, bronchospasm, pulmonary embolism family adverse Kristy affect his pulmonary function as well. He will require bronchodilators pre, darin and postoperatively. We will recommend early ambulation, DVT prophylaxis and incentive spirometry post operatively. Continue bronchodilators Continue supplemental o2 Keep O2 saturation above 90% IS Pulmonary hypertension management as per Cardiology. DVT prophylaxis. Prognosis: Poor given multiple comorbidities. Rest of plan per hospitalist and other consultants. A total of 51 minutes of clinical care time was spent reviewing the patient record, examining the patient, making a diagnostic and therapeutic plan, discussing this plan with the medical personnel, following up on diagnostic studies and following the patient for clinical stability excluding any and all procedures. At least 50% of this time was spent in direct, [id number] contact. Thank you Dr. Diaz for allowing me to participate in this patient's care. Further recommendations will depend on patient's clinical course. Please do not hesitate to contact me if you have any questions or concerns. This medical document was created using an electronic medical record system with [employer] system. Although this document has been carefully reviewed, there may still be some phonetic and typographical errors. These areas are purely typographical due to imperfections of the software programs, and do not reflect any compromise in the patient's medical care. Dietary Evaluation Review Comments: follow the cardiac 2gNa Lofat LoCholel diet. Monitor PO intake to meet 75% of his needs Expected Outcomes/Goals: Improved health and well being. avoid unwanted weight loss. Plan discussed with: Patient, Other (JARED Escamilla) CATRINA STEELE MD Feb 20, 2024 19:39
--- NOTE | 2024-02-20 20:04 | DVHPN2 ---
Progress Note - Dictate Date Seen: Feb 20, 2024 Has the PT tested + for MRSA If YES, has PT been informed?: No Medical Necessity Reason Pt with a Central, PICC or Fol: No The following are medically ne: Santiago Catheter Reason for santiago catheter: Strict I&O Subjective Patient seen and examined at bedside. Remains on supplemental oxygen Overnight events reviewed. vital signs Vital Sign Date Time Temp Pulse Resp B/P (MAP) Pulse Ox O2 Delivery O2 Flow Rate FiO2 02/20/24 19:10 74 17 98 02/20/24 19:04 Nasal Cannula* 4 36 02/20/24 17:00 113/50 (71) 02/20/24 09:00 97.5 97.5 Total Intake and Output 02/19/24 02/19/24 02/20/24 15:00 23:00 07:00 Intake Total 203.75 ml 130.00 ml 403.75 ml Output Total 2050 ml 1225 ml 800 ml Balance -1846.25 ml -1095.00 ml -396.25 ml medications Current Medications Medications Dose Ordered Sig/Juan David Route Start Time Stop Time Status Last Admin Dose Admin Sodium Chloride 10 ml Q8HR IV 01/30/24 22:00 02/20/24 14:25 10 ML Lorazepam 0.5 mg Q6HP PRN PO 01/30/24 16:30 Acetaminophen 650 mg Q6HP PRN PO 01/30/24 16:30 02/20/24 01:06 650 MG Ondansetron HCl 4 mg Q4HP PRN IV 01/30/24 16:30 02/20/24 19:27 4 MG Atorvastatin Calcium 40 mg HS PO 01/31/24 22:00 02/19/24 22:29 40 MG Ipratropium [place] 0.5 mg Q6HPRN PRN NEB 01/30/24 22:45 02/20/24 19:04 0.5 MG Levalbuterol HCl 0.625 mg Q6HR NEB 01/31/24 00:00 02/20/24 19:03 0.625 MG Labetalol HCl 5 mg Q2HPRN PRN IV 02/01/24 07:15 Melatonin 5 mg HS PO 02/04/24 22:00 02/19/24 22:29 5 MG Heparin Sodium (Porcine) 5,000 units Q8HR SC 02/05/24 06:00 02/19/24 22:30 5,000 UNITS Famotidine 40 mg DAILY PO 02/08/24 10:00 02/20/24 10:04 40 MG Docusate Sodium 100 mg BIDPRN PRN PO 02/10/24 10:30 02/16/24 21:53 100 MG Dexmedetomidine HCl 400 mcg/ Dextrose 100 ml @ 3.605 mls/ hr Q24H IV 02/19/24 06:45 Nicardipine HCl 250 ml @ 50 mls/hr Q5H IV 02/19/24 06:45 Ampicillin Sodium/ Sulbactam Sodium 3 gm/Sodium Chloride 100 ml @ 100 mls/hr Q6H IV 02/18/24 13:00 02/20/24 18:47 100 MLS/HR Norepinephrine Bitartrate 250 ml @ 3.75 mls/hr Q24H IV 02/19/24 13:15 02/19/24 14:18 3.75 MLS/HR Acetaminophen/ Hydrocodone Bitart 1 tab Q6HPRN PRN PO 02/20/24 07:15 02/20/24 08:40 1 TAB Acetaminophen/ Hydrocodone Bitart 1 tab Q6HPRN PRN PO 02/20/24 12:15 02/20/24 18:46 1 TAB objective Gen.: Patient lying in bed in no apparent distress. On supplemental oxygen. Head: Normocephalic, atraumatic. Eyes: EOMI/PERRLA. Ears: Normal hearing. Normal anatomy. Neck/trachea: Trachea midline, supple. Nose: Normal external anatomy. Mouth: Moist mucous membranes. Chest: Decreased air entry bilaterally. Crackles present. No wheezing or rhonchi. Cardiovascular: Positive S1, positive S2. Regular rate and rhythm. Abdomen: Positive bowel sounds in all 4 quadrants. Soft, non-tender, non- distended. : Deferred. Rectal: Deferred. Skin: Warm, dry. Intact. Extremities: 2+ radial pulses bilaterally. No lower extremity edema. Neuro: Awake, alert, oriented x3. No gross motor or sensory deficits. Cranial nerves II through XII intact. Gait not assessed. laboratory and microbiology Laboratory Tests 02/20/24 04:39 Test 02/20/24 04:39 Range/Units Serum Glucose 136 H 74-106 mg/dL Assessment/Plan Impression: Acute on chronic hypoxic respiratory failure COPD exacerbation, improving Nicotine abuse Emphysematous changes Obesity with a BMI of 30 Moderate size hiatal hernia Ex-smoker Pulmonary hypertension with a right ventricular systolic pressure of 50 mmHg WHO class three Events: On supplemental O2 at 4 LPM NC Taper O2 as tolerated Patient did not tolerate BiPAP. OK to discontinue BiPAP. CXR demonstrates multifocal airspace disease, stable. No pleural effusion or pneumothorax. Vascular Surgery recs appreciated. WBC trending down to 18.6 K Continue antibiotics Continue bronchodilators Incentive spirometry Patient is stable from the pulmonary standpoint. Signing off care - please reconsult as necessary. Labs and imaging reviewed. Rest of plan as noted below. Plan: CT of the chest report and images reviewed. No acute pulmonary embolism. Extensive centrilobular emphysematous changes in the lung. No acute opacities, pleural effusions or pneumothorax. Wheezing has improved. Recommend to discontinue steroids. Patient is at moderate to high risk of pulmonary complications in the perioperative period. No absolute contraindications to surgery. Patient is at high risk for respiratory failure including the possibility of requiring mechanical ventilation or difficulty in weaning from mechanical ventilation. Other potential complications for example are postoperative atelectasis, pneumonia, bronchospasm, pulmonary embolism family adverse Kristy affect his pulmonary function as well. He will require bronchodilators pre, darin and postoperatively. We will recommend early ambulation, DVT prophylaxis and incentive spirometry post operatively. Continue bronchodilators Continue supplemental o2 Keep O2 saturation above 90% IS Pulmonary hypertension management as per Cardiology. DVT prophylaxis. Prognosis: Poor given multiple comorbidities. Rest of plan per hospitalist and other consultants. A total of 51 minutes of clinical care time was spent reviewing the patient record, examining the patient, making a diagnostic and therapeutic plan, discussing this plan with the medical personnel, following up on diagnostic studies and following the patient for clinical stability excluding any and all procedures. At least 50% of this time was spent in direct, [id number] contact. Thank you Dr. Diaz for allowing me to participate in this patient's care. Further recommendations will depend on patient's clinical course. Please do not hesitate to contact me if you have any questions or concerns. This medical document was created using an electronic medical record system with [employer] system. Although this document has been carefully reviewed, there may still be some phonetic and typographical errors. These areas are purely typographical due to imperfections of the software programs, and do not reflect any compromise in the patient's medical care. Dietary Evaluation Review Comments: follow the cardiac 2gNa Lofat LoCholel diet. Monitor PO intake to meet 75% of his needs Expected Outcomes/Goals: Improved health and well being. avoid unwanted weight loss. Plan discussed with: Patient, Other (JARED Naranjo) CATRINA STEELE MD Feb 20, 2024 20:04
[2024-02-20] MEDS: LORazepam 0.5 MG TAB PO PRN (21:33)
[2024-02-21] VITALS (28 sets, daily range): BP systolic 91–125; BP diastolic 40–73; PULSE 67–96; RESP 13–27; TEMP 97.5–98.1; O2SAT 87–99
[2024-02-21 05:21] LABS: Basophils # (auto) 0 10 ^3/uL (0-0.2); Basophils % (auto) 0.2 % (0.0-2.0); Eosinophils # (auto) 0.1 10 ^3/uL (0-0.8); Eosinophils % (auto) 0.4 % (0.0-7.0); Hematocrit 32.2 % (41.0-53.0); Hemoglobin 10.6 g/dL (13.5-17.5); Lymphocytes # (auto) 0.9 10 ^3/uL (0.4-5.4); Lymphocytes % (auto) 5.7 % (10.0-50.0); Mean Corpuscular Hemoglobin 28.8 pg (28.0-32.0); Mean Corpuscular Hgb Conc. 32.9 g/dL (32.0-36.0); Mean Corpuscular Volume 87.5 fL (80.0-100.0); Monocytes # (auto) 1.5 10 ^3/uL (0-1.3); Monocytes % (auto) 9.5 % (0.0-12.0); Neutrophils # (auto) 13.4 10 ^3/uL (1.6-8.6); Neutrophils % (auto) 84.2 % (37.0-80.0); Platelet Count (auto) 140 10^3/uL (140-450); Red Blood Cells 3.68 10^6/uL (4.5-5.90); Red Cell Distribution Width 15.7 % (11.8-14.3); White Blood Cell 15.9 10^3/uL (4.4-10.8)
[2024-02-21 05:31] LABS: Chloride 109 mmol/L (98-107); Potassium 4.4 mmol/L (3.5-5.1); Sodium 139 mmol/L (136-145)
[2024-02-21 05:32] LABS: Anion Gap 5 (5-15); Calcium 8.7 mg/dL (8.7-10.4); Carbon Dioxide 25 mmol/L (20-31)
[2024-02-21 05:37] LABS: BUN/Creatinine Ratio 15.2 (10.0-20.0); Blood Urea Nitrogen 15 mg/dL (9-23); Glucose 100 mg/dL (74-106)
--- NOTE | 2024-02-21 09:10 | DVHPN2 ---
Progress Note Date Seen: Feb 21, 2024 Has the PT tested + for MRSA If YES, has PT been informed?: No Medical Necessity Reason Pt with a Central, PICC or Fol: No Subjective Review of Systems: HEENT:Normal, CVS:Normal, RESPIRATORY:Normal, GI:Normal, :Normal, MSK:Normal, NEURO:Normal Objective vital signs Vital Sign Date Time Temp Pulse Resp B/P (MAP) Pulse Ox O2 Delivery O2 Flow Rate FiO2 02/21/24 07:01 74 17 98 02/21/24 06:45 Nasal Cannula* 3 32 02/21/24 04:00 97.5 97.5 Total Intake and Output 02/20/24 02/20/24 02/21/24 15:00 23:00 07:00 Intake Total 100 ml 580 ml 550 ml Output Total 480 ml 500 ml Balance 100 ml 100 ml 50 ml medications Current Medications Medications Dose Ordered Sig/Juan David Route Start Time Stop Time Status Last Admin Dose Admin Sodium Chloride 10 ml Q8HR IV 01/30/24 22:00 02/21/24 06:27 10 ML Lorazepam 0.5 mg Q6HP PRN PO 01/30/24 16:30 02/20/24 21:33 0.5 MG Acetaminophen 650 mg Q6HP PRN PO 01/30/24 16:30 02/20/24 01:06 650 MG Ondansetron HCl 4 mg Q4HP PRN IV 01/30/24 16:30 02/20/24 19:27 4 MG Atorvastatin Calcium 40 mg HS PO 01/31/24 22:00 02/20/24 21:33 40 MG Ipratropium [place] 0.5 mg Q6HPRN PRN NEB 01/30/24 22:45 02/21/24 06:30 0.5 MG Levalbuterol HCl 0.625 mg Q6HR NEB 01/31/24 00:00 02/21/24 06:31 0.625 MG Labetalol HCl 5 mg Q2HPRN PRN IV 02/01/24 07:15 Melatonin 5 mg HS PO 02/04/24 22:00 02/20/24 21:33 5 MG Heparin Sodium (Porcine) 5,000 units Q8HR SC 02/05/24 06:00 02/19/24 22:30 5,000 UNITS Famotidine 40 mg DAILY PO 02/08/24 10:00 02/20/24 10:04 40 MG Docusate Sodium 100 mg BIDPRN PRN PO 02/10/24 10:30 02/16/24 21:53 100 MG Dexmedetomidine HCl 400 mcg/ Dextrose 100 ml @ 3.605 mls/ hr Q24H IV 02/19/24 06:45 Nicardipine HCl 250 ml @ 50 mls/hr Q5H IV 02/19/24 06:45 Ampicillin Sodium/ Sulbactam Sodium 3 gm/Sodium Chloride 100 ml @ 100 mls/hr Q6H IV 02/18/24 13:00 02/21/24 06:27 100 MLS/HR Norepinephrine Bitartrate 250 ml @ 3.75 mls/hr Q24H IV 02/19/24 13:15 02/19/24 14:18 3.75 MLS/HR Acetaminophen/ Hydrocodone Bitart 1 tab Q6HPRN PRN PO 02/20/24 07:15 02/21/24 04:51 1 TAB Acetaminophen/ Hydrocodone Bitart 1 tab Q6HPRN PRN PO 02/20/24 12:15 02/20/24 18:46 1 TAB Examination: GENERAL:Normal, HEENT:Normal, NECK:Normal, LUNGS:Normal, CVS:Normal, ABDOMEN:Normal, ABDOMEN:Abnormal (Appropriate postoperative swelling of the right left groin and pubic area.), MSK:Normal, SKIN:Normal, NEURO:Normal, :Normal laboratory and microbiology Laboratory Tests 02/21/24 04:53 Test 02/21/24 04:53 Range/Units Serum Glucose 100 74-106 mg/dL Microbiology Date/Time Source Procedure Growth Status 02/15/24 19:32 Blood Blood Culture - Final NO GROWTH AFTER 5 DAYS OF INCUBATION. Complete 02/15/24 10:00 Voided Urine Urine Culture - Final Enterococcus faecalis Complete 02/01/24 05:45 Nose MRSA Screen - Final Complete Labs and/or images reviewed: Labs reviewed by me Problem List/Assessment/Plan Problem List/Assessment/Plan Status post EVAR, bilateral common femoral endarterectomy, fem-fem bypass February 19, 2024 Out of bed today. Advance diet Physical therapy Follow up in the office in 2 weeks. Plan discussed with: Patient, Daughter Dietary Evaluation Review Comments: follow the cardiac 2gNa Lofat LoCholel diet. Monitor PO intake to meet 75% of his needs Expected Outcomes/Goals: Improved health and well being. avoid unwanted weight loss. RUTH RODARTE Jr., MD Feb 21, 2024 09:10
--- NOTE | 2024-02-21 12:43 | DVHPN2 ---
Progress Note - Dictate Date Seen: Feb 21, 2024 Has the PT tested + for MRSA If YES, has PT been informed?: No Medical Necessity Reason Pt with a Central, PICC or Fol: No Subjective PT WITH COPD CONTINUED TOBACCO USE NOW WITH LOWER BACK PAIM CTA OF ABD 1. Infrarenal abdominal aortic aneurysm measuring up to 67mm with a large amount of mural thrombus. 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 Vascular surgery evaluation is recommended. 2. Numerous bilateral renal cysts including a very large left renal cyst measuring up to 220mm. 3. Left inguinal hernia containing fat and small bowel. Right femoral hernia containing small bowel. No definite acute obstruction. Some level of chronic obstruction may be present. vital signs Vital Sign Date Time Temp Pulse Resp B/P (MAP) Pulse Ox O2 Delivery O2 Flow Rate FiO2 02/21/24 10:00 86 02/21/24 10:00 97 Nasal Cannula* 2 28 02/21/24 10:00 19 104/62 (76) 02/21/24 08:00 97.8 97.8 Total Intake and Output 02/20/24 02/20/24 02/21/24 15:00 23:00 07:00 Intake Total 100 ml 580 ml 550 ml Output Total 480 ml 500 ml Balance 100 ml 100 ml 50 ml medications Current Medications Medications Dose Ordered Sig/Juan David Route Start Time Stop Time Status Last Admin Dose Admin Sodium Chloride 10 ml Q8HR IV 01/30/24 22:00 02/21/24 06:27 10 ML Lorazepam 0.5 mg Q6HP PRN PO 01/30/24 16:30 02/20/24 21:33 0.5 MG Acetaminophen 650 mg Q6HP PRN PO 01/30/24 16:30 02/20/24 01:06 650 MG Ondansetron HCl 4 mg Q4HP PRN IV 01/30/24 16:30 02/20/24 19:27 4 MG Atorvastatin Calcium 40 mg HS PO 01/31/24 22:00 02/20/24 21:33 40 MG Ipratropium [place] 0.5 mg Q6HPRN PRN NEB 01/30/24 22:45 02/21/24 06:30 0.5 MG Levalbuterol HCl 0.625 mg Q6HR NEB 01/31/24 00:00 02/21/24 06:31 0.625 MG Labetalol HCl 5 mg Q2HPRN PRN IV 02/01/24 07:15 Melatonin 5 mg HS PO 02/04/24 22:00 02/20/24 21:33 5 MG Heparin Sodium (Porcine) 5,000 units Q8HR SC 02/05/24 06:00 02/19/24 22:30 5,000 UNITS Famotidine 40 mg DAILY PO 02/08/24 10:00 02/21/24 10:07 40 MG Docusate Sodium 100 mg BIDPRN PRN PO 02/10/24 10:30 02/16/24 21:53 100 MG Dexmedetomidine HCl 400 mcg/ Dextrose 100 ml @ 3.605 mls/ hr Q24H IV 02/19/24 06:45 Nicardipine HCl 250 ml @ 50 mls/hr Q5H IV 02/19/24 06:45 Ampicillin Sodium/ Sulbactam Sodium 3 gm/Sodium Chloride 100 ml @ 100 mls/hr Q6H IV 02/18/24 13:00 02/21/24 06:27 100 MLS/HR Norepinephrine Bitartrate 250 ml @ 3.75 mls/hr Q24H IV 02/19/24 13:15 02/19/24 14:18 3.75 MLS/HR Acetaminophen/ Hydrocodone Bitart 1 tab Q6HPRN PRN PO 02/20/24 07:15 02/21/24 04:51 1 TAB Acetaminophen/ Hydrocodone Bitart 1 tab Q6HPRN PRN PO 02/20/24 12:15 02/20/24 18:46 1 TAB laboratory and microbiology Laboratory Tests 02/21/24 04:53 Test 02/21/24 04:53 Range/Units Serum Glucose 100 74-106 mg/dL Problem List AAA COPD Assessment/Plan LE ARTERIAL DOPPLER SCHEDULE FOR ANGIOGRAM WITH STENT GRAFT IF PATIENT ANATOMY IS APPROPRIATE FOR STENT GRAFT HYBRID pt RENAL MEASUREMENT conducive to STENT GRAFT BUT RIGHT LEG NEEDS REVASCULARIZATION SCHEDULE FOR RIGHT LEG INTERVENTION 02/02/24 DISCUSSED WITH DAUGHTERS UNABLE TO REVASCULARIZE RIGHT ILIAC / COMMON FEMORAL CALCIFIED OCCLUSION SURGICAL OPTION HYBRID PROCEDURE IS A VIABLE OPTION TRANSFER TO [facility] SINCE WE ARE NOT ABLE TO DO A HYBRID PROCEDURE echo stress cardiolite risk stratification unable to perform cardiolite because severe sob echo ef 55% mod pah START REVATIO DIURESIS WILL RESCHEDULE CARDIOLITE ON MONDAY CARDIOLITE NON ISCHEMIC ECHO EF >55% MAY PROCEED WITH SURGERY PT S/P EVAR, Right Common femoral endartectomy Left Common Femoral endartectomy Femoral to femoral byass LEUKOCYTOSIS IMPROVING HCT STABLE NO OVERT BLEEDING Dietary Evaluation Review Comments: follow the cardiac 2gNa Lofat LoCholel diet. Monitor PO intake to meet 75% of his needs Expected Outcomes/Goals: Improved health and well being. avoid unwanted weight loss. Plan discussed with: Patient Critical Care Time(min): 35 JUAN DANIEL GARCIA MD Feb 21, 2024 12:43
--- NOTE | 2024-02-21 17:11 | DVHPN2 ---
Subjective Seen and examined at bedside. Feeling better, evaluated for home oxygen. Possible DC in AM Changes from previous H/P or p: No Changes Objective Vitals Vital Signs Date Time Temp Pulse Resp B/P (MAP) Pulse Ox O2 Delivery O2 Flow Rate FiO2 02/21/24 14:00 88 20 92 02/21/24 13:45 Nasal Cannula* 2 28 02/21/24 13:00 98.0 108/73 (85) 98.0 Intake/Output Intake and Output 02/21/24 07:00 Intake Total 1230 ml Output Total 980 ml Balance 250 ml Intake Oral 830 ml IV Total 400 ml Output Urine Total 980 ml # Voids 4 # Bowel Movements 1 Exam Gen: in bed NAD Cvs: N S1/S2, RRR Resp: Diminished Abd: Soft, NT Disability Insurance Hearing Officer: AAO x 3 Medications Current Medications Medications Dose Ordered Sig/Juan David Route Start Time Stop Time Status Last Admin Dose Admin Sodium Chloride 10 ml Q8HR IV 01/30/24 22:00 02/21/24 14:45 10 ML Lorazepam 0.5 mg Q6HP PRN PO 01/30/24 16:30 02/20/24 21:33 0.5 MG Acetaminophen 650 mg Q6HP PRN PO 01/30/24 16:30 02/20/24 01:06 650 MG Ondansetron HCl 4 mg Q4HP PRN IV 01/30/24 16:30 02/20/24 19:27 4 MG Atorvastatin Calcium 40 mg HS PO 01/31/24 22:00 02/20/24 21:33 40 MG Ipratropium [place] 0.5 mg Q6HPRN PRN NEB 01/30/24 22:45 02/21/24 12:54 0.5 MG Levalbuterol HCl 0.625 mg Q6HR NEB 01/31/24 00:00 02/21/24 12:54 0.625 MG Labetalol HCl 5 mg Q2HPRN PRN IV 02/01/24 07:15 Melatonin 5 mg HS PO 02/04/24 22:00 02/20/24 21:33 5 MG Heparin Sodium (Porcine) 5,000 units Q8HR SC 02/05/24 06:00 02/19/24 22:30 5,000 UNITS Famotidine 40 mg DAILY PO 02/08/24 10:00 02/21/24 10:07 40 MG Docusate Sodium 100 mg BIDPRN PRN PO 02/10/24 10:30 02/16/24 21:53 100 MG Dexmedetomidine HCl 400 mcg/ Dextrose 100 ml @ 3.605 mls/ hr Q24H IV 02/19/24 06:45 Nicardipine HCl 250 ml @ 50 mls/hr Q5H IV 02/19/24 06:45 Ampicillin Sodium/ Sulbactam Sodium 3 gm/Sodium Chloride 100 ml @ 100 mls/hr Q6H IV 02/18/24 13:00 02/21/24 13:05 100 MLS/HR Norepinephrine Bitartrate 250 ml @ 3.75 mls/hr Q24H IV 02/19/24 13:15 02/19/24 14:18 3.75 MLS/HR Acetaminophen/ Hydrocodone Bitart 1 tab Q6HPRN PRN PO 02/20/24 07:15 02/21/24 14:45 1 TAB Acetaminophen/ Hydrocodone Bitart 1 tab Q6HPRN PRN PO 02/20/24 12:15 02/20/24 18:46 1 TAB Laboratory Results Laboratory Tests 02/21/24 04:53 Chemistry Test 02/20/24 19:35 02/21/24 04:53 Magnesium Level 2.0 mg/dL (1.6-2.6) Calcium Level 8.7 mg/dL (8.7-10.4) Urinalysis Test 01/30/24 10:11 02/15/24 10:00 Urine Mucus Few (None Seen) Urine Color Light-yellow (Yellow) Urine Clarity Clear (Clear) Urine pH 6.5 (5.0-9.0) Urine Specific [place] 1.024 (1.001-1.035) Urine Protein Negative (Negative) Urine Ketones Negative (Negative) Urine Blood Negative /uL (Negative) Urine Nitrite Negative (Negative) Urine Bilirubin Negative (Negative) Urine Urobilinogen Normal mg/dL (Negative) Urine Leukocyte Esterase Negative /uL (Negative) Urine RBC 12 /hpf (0 - 3) Urine WBC <1 /hpf (0 - 3) Urine Squamous Epithelial Cells None seen /hpf (<5) Urine Bacteria None seen /hpf (None Seen) Urine Glucose Normal mg/dL (Normal) Blood Gas Results Test 02/21/24 11:48 Arterial Blood pH 7.398 (7.350-7.450) FiO2 % 21.0 Microbiology Microbiology Date/Time Source Procedure Growth Status 02/15/24 19:32 Blood Blood Culture - Final NO GROWTH AFTER 5 DAYS OF INCUBATION. Complete 02/15/24 10:00 Voided Urine Urine Culture - Final Enterococcus faecalis Complete 02/01/24 05:45 Nose MRSA Screen - Final Complete Assessment/Plan Assessment/Plan # Aortic Aneurysm Status post EVAR, right and left common femoral endartectomy, and fem-fem bypass 02/18. # Inguinal Hernia - Outpatient eval # Chronic Resp Failure - Will need home oxygen 2-3L oxygen # UTI - Unasyn Plan discussed with: Patient My Orders Orders - GENNA SAWANT MD Procedure Category Date Status Time Discontinue Parada ANNA 02/20/24 In Process Catheter 19:31 Transfer Orders XFER 02/21/24 Transmitted 05:00 * Air Brake Mechanic CONS 02/21/24 Transmitted Consult Abg W/ Co-Ox RT 02/21/24 Logged 11:15 Chest Two Views XY 02/21/24 Transmitted Routine 17:08 Complete Blood Count LAB 02/22/24 Verified 04:00 Basic Metabolic Panel LAB 02/22/24 Verified 04:00 Date of Service: Feb 21, 2024 Billing Provider: GENNA SAWANT MD Common Visit Codes: [id number] INP/OBS CARE(HIGH) GENNA SAWANT MD Feb 21, 2024 17:11
--- NOTE | 2024-02-21 18:08 | DVH ---
EXAM: XR Chest, 2 Views CLINICAL INDICATION: SOB TECHNIQUE: Frontal and lateral views of the chest. COMPARISON: XY CHEST TWO VIEWS ROUTINE on DOS: 02/27/23, XR Chest dated 02/20/2024 FINDINGS: LUNGS AND PLEURAL SPACES: Probable pulmonary edema and/or multifocal pneumonia. No pneumothorax. HEART: Unremarkable. No cardiomegaly. MEDIASTINUM: Unremarkable. Normal mediastinal contour. BONES/JOINTS: Unremarkable. No acute fracture. OTHER FINDINGS: . . IMPRESSION: Probable pulmonary edema and/or multifocal pneumonia. HS:Y
[2024-02-22] VITALS (14 sets, daily range): BP systolic 97–107; BP diastolic 43–66; PULSE 69–90; RESP 16–20; TEMP 97.5–98.1; O2SAT 92–98
[2024-02-22 06:08] LABS: Basophils # (auto) 0 10 ^3/uL (0-0.2); Basophils % (auto) 0.3 % (0.0-2.0); Eosinophils # (auto) 0.1 10 ^3/uL (0-0.8); Eosinophils % (auto) 0.7 % (0.0-7.0); Hematocrit 31.1 % (41.0-53.0); Lymphocytes # (auto) 0.9 10 ^3/uL (0.4-5.4); Lymphocytes % (auto) 6.4 % (10.0-50.0); Mean Corpuscular Hemoglobin 28.2 pg (28.0-32.0); Mean Corpuscular Hgb Conc. 32.3 g/dL (32.0-36.0); Mean Corpuscular Volume 87.4 fL (80.0-100.0); Monocytes # (auto) 1.2 10 ^3/uL (0-1.3); Monocytes % (auto) 8.6 % (0.0-12.0); Neutrophils # (auto) 11.6 10 ^3/uL (1.6-8.6); Nucleated Red Blood Cells % 0.1 %; Platelet Count (auto) 129 10^3/uL (140-450); Red Blood Cells 3.56 10^6/uL (4.5-5.90); Red Cell Distribution Width 15.7 % (11.8-14.3); White Blood Cell 13.8 10^3/uL (4.4-10.8)
[2024-02-22 06:21] LABS: Anion Gap 7 (5-15); Calcium 8.7 mg/dL (8.7-10.4); Carbon Dioxide 28 mmol/L (20-31); Chloride 105 mmol/L (98-107); Potassium 4.3 mmol/L (3.5-5.1); Sodium 140 mmol/L (136-145)
[2024-02-22 06:27] LABS: BUN/Creatinine Ratio 13.8 (10.0-20.0); Blood Urea Nitrogen 13 mg/dL (9-23); Glucose 88 mg/dL (74-106)
[2024-02-22] MEDS: FUROSEMIDE 20 MG/2 ML VIAL IV ONE (13:00)
[2024-02-22] MEDS ORDERED: AUG875T PO (13:19)
[2024-02-22] MEDS ORDERED: POTA-211 PO (13:19)
[2024-02-22] MEDS ORDERED: FURO1TAB33 PO (13:19)
--- NOTE | 2024-02-22 13:23 | DVHDS2 ---
Discharge Summary Date of Admission Jan 30, 2024 at 16:25 Date of Discharge: Feb 22, 2024 (Discharge was planned for February 12, 2024; did not happen as explained below) Labs/Diagnostic Data: Laboratory Results Test 02/22/24 05:40 02/21/24 11:48 02/20/24 19:35 02/20/24 04:39 White Blood Count 13.8 10^3/uL (4.4-10.8) Red Blood Count 3.56 10^6/uL (4.5-5.90) Hemoglobin 10.0 g/dL (13.5-17.5) Hematocrit 31.1 % (41.0-53.0) Mean Corpuscular Volume 87.4 fL (80.0-100.0) Mean Corpuscular Hemoglobin 28.2 pg (28.0-32.0) Mean Corpuscular Hemoglobin Concent 32.3 g/dL (32.0-36.0) Red Cell Distribution Width 15.7 % (11.8-14.3) Platelet Count 129 10^3/uL (140-450) Mean Platelet Volume 8.8 fL (6.9-10.8) Neutrophils (%) (Auto) 84.0 % (37.0-80.0) Lymphocytes (%) (Auto) 6.4 % (10.0-50.0) Monocytes (%) (Auto) 8.6 % (0.0-12.0) Eosinophils (%) (Auto) 0.7 % (0.0-7.0) Basophils (%) (Auto) 0.3 % (0.0-2.0) Neutrophils # (Auto) 11.6 10 ^3/uL (1.6-8.6) Lymphocytes # (Auto) 0.9 10 ^3/uL (0.4-5.4) Monocytes # (Auto) 1.2 10 ^3/uL (0-1.3) Eosinophils # (Auto) 0.1 10 ^3/uL (0-0.8) Basophils # (Auto) 0 10 ^3/uL (0-0.2) Nucleated Red Blood Cells 0.1 % Sodium Level 140 mmol/L (136-145) Potassium Level 4.3 mmol/L (3.5-5.1) Chloride Level 105 mmol/L (98-107) Carbon Dioxide Level 28 mmol/L (20-31) Anion Gap 7 (5-15) Blood Urea Nitrogen 13 mg/dL (9-23) Creatinine 0.94 mg/dL (0.700-1.30) Glomerular Filtration Rate Calc 82 mL/min (>90) BUN/Creatinine Ratio 13.8 (10.0-20.0) Serum Glucose 88 mg/dL (74-106) Calcium Level 8.7 mg/dL (8.7-10.4) Blood Gas Specimen Type Arterial Blood Gas Sample Site Left radial Blood Gas Patient Temperature 37.0 Arterial Blood Date Drawn [id number] Arterial Blood pH 7.398 (7.350-7.450) Arterial Blood Partial Pressure CO2 45.2 mmHg (35.0-48.0) Arterial Blood Partial Pressure O2 42.9 mmHg (83.0-108.0) Arterial Blood HCO3 27.2 mmol/L (21.0-28.0) Arterial Blood Oxygen Saturation 80.0 % (94.0-98.0) Arterial Blood Base Excess 2.0 mmol/L (-2.0-3.0) Arterial Blood Oxyhemoglobin 78.7 % (94.0-98.0) Arterial Blood Carboxyhemoglobin 1.2 % (0.5-1.5) Arterial Blood Methemoglobin 0.4 % (0.0-1.5) Dez Test Yes Blood Gas Total Hemoglobin 11.80 g/dL (13.5-17.5) Blood Gas Modality Room air FiO2 % 21.0 Blood Gas Critical Value Read Back Yes Blood Gas Notified Whom Dr. sakina garcia Blood Gas Notified Time [id number] Blood Gas Notified By Mica Spreader perico hand Magnesium Level 2.0 mg/dL (1.6-2.6) Total Bilirubin 0.4 mg/dL (0.2-1.0) Direct Bilirubin 0.1 mg/dL (<0.3) Aspartate Amino Transferase (AST) 16 U/L (13-40) Alanine Aminotransferase (ALT) 29 U/L (7-40) Alkaline Phosphatase 78 U/L (46-116) Total Protein 4.8 g/dL (5.7-8.2) Albumin 3.0 g/dL (3.2-4.8) Test 02/19/24 03:40 02/15/24 10:00 02/10/24 16:17 02/06/24 11:54 Differential Total Cells Counted 100.0 (100) Neutrophils % (Manual) 67 (37.0-80.0) Band Neutrophils % (Manual) 0 Lymphocytes % (Manual) 20 (10.0-50.0) Monocytes % (Manual) 10 (0-12) Eosinophils % (Manual) 3 (0-7) Basophils % (Manual) 0 (0.0-2.0) Metamyelocytes % (manual) 0 Myelocytes % (Manual) 0 Promyelocytes % (Manual) 0 Blast Cells % (Manual) 0 Reactive Lymphocytes 0 Platelet Estimate Adequate Large Platelets Few Prothrombin Time 11.0 sec (9.3-11.8) Prothrombin Time INR 1.04 (0.9-1.15) Activated Partial Thromboplast Time 27.6 SEC (24.5-34.5) Urine Color Light-yellow (Yellow) Urine Clarity Clear (Clear) Urine pH 6.5 (5.0-9.0) Urine Specific [place] 1.024 (1.001-1.035) Urine Protein Negative (Negative) Urine Ketones Negative (Negative) Urine Blood Negative /uL (Negative) Urine Nitrite Negative (Negative) Urine Bilirubin Negative (Negative) Urine Urobilinogen Normal mg/dL (Negative) Urine Leukocyte Esterase Negative /uL (Negative) Urine RBC 12 /hpf (0 - 3) Urine WBC <1 /hpf (0 - 3) Urine Squamous Epithelial Cells None seen /hpf (<5) Urine Bacteria None seen /hpf (None Seen) Urine Glucose Normal mg/dL (Normal) Influenza Type A Antigen Negative (Negative) Influenza Type B Antigen Negative (Negative) D-Dimer, Quantitative 2.30 mg/L FEU (0.0-0.49) Troponin I High Sensitivity 6 ng/L (</=54) Test 02/06/24 04:50 02/01/24 03:30 01/30/24 22:55 01/30/24 22:50 B-Type Natriuretic Peptide 49.28 pg/mL (0-100) Free Thyroxine (T4) Calculated 1.04 ng/dL (0.89-1.76) Free Triiodothyronine (T3) pg/mL 2.69 pg/mL (2.3-4.2) Hemoglobin A1c 5.2 % A1C (<5.7) Vitamin B12 Level 612 pg/mL (211-911) Vitamin D 25-Hydroxy 75.7 ng/mL (30.0-100) Thyroid Stimulating Hormone (TSH) 17.59 uIU/mL (0.55-4.78) Urine Opiates Screen Neg (NEGATIVE) Urine Fentanyl Screen Neg (NEGATIVE) Urine Barbiturates Screen Neg (NEGATIVE) Urine Phencyclidine Screen Neg (NEGATIVE) Urine Amphetamines Screen Neg (NEGATIVE) Urine Benzodiazepines Screen Neg (NEGATIVE) Urine Cocaine Screen Neg (NEGATIVE) Urine Cannabinoids Screen Neg (NEGATIVE) Test 01/30/24 22:40 01/30/24 10:11 SARS-CoV-2 Antigen (Rapid) Negative (NEGATIVE) Urine Mucus Few (None Seen) Other Laboratory Tests 02/22/24 05:40 Brief Hx & Hospital Course: This is a 78-year-old male patient with PMHx of chronic nicotine dependence, abdominal aortic aneurysm diagnosed February 2023, history of pneumonia and pleural effusion who presented to the ER with the chief complaint of lower back pain starting 01/23/2024. Patient reports worsening lower back pain which is pressure-like in nature, constant and 10/10 in intensity located in the lumbar region, no radiation. The pain worsened yesterday therefore patient decided to come into the ER. He has a history of abdominal aortic aneurysm diagnosed in February [address] scan. A recent CT abdomen pelvis without contrast for abdominal hernia was completed by patient's primary care physician on 01/11/2024 which showed 5.8 cm infrarenal abdominal aortic aneurysm with suspected intramural hematoma or thrombus. Patient also has a history of left-sided inguinal hernia for the past 2 months which is not affecting his daily life activities. Recent admission as patient has aneurysm measures 6.7 cm. He also has a very large renal cyst on the left side. Patient was recently being transferred for higher level of care for vascular surgery. However patient developed possible pneumonia and was unstable for transfer. Patient's oxygen requirements came down, patient had vascular surgery by Dr. Chakraborty see operative report below. Patient is currently on 2 L oxygen, patient will be discharged home with Augmentin, Lasix, potassium. Patient needs to see primary care doctor next week and vascular surgeon Dr. Chakraborty. Operations or Procedures 02/19/24 Preop Diagnosis: AAA, occluded right common iliac artery and Externial iliac artery Postop Diagnosis: Infrarenal AAA with occluded right SAM with intramural thrombus Severe peripheral artery disease in right lower extremity Surgeon: Homer Chakraborty MD Anesthesiologist: Spinal Anesthesia: Regional Consent: The patient was informed of the risks and benefits of the procedure. These include but are not limited to complications of anesthesia, postoperative infection, incomplete relief of symptoms, recurrence of symptoms, damage to blood vessels, nerves and tendons, deep venous thrombosis, pulmonary embolism and possible need for repeat surgery in the future. Estimated Blood Loss: 600ml Name of Procedure Performed EVAR, Right Common femoral endartectomy Left Common Femoral endartectomy Femoral to femoral byass Condition at Discharge: Poor Final Diagnosis/Problems List Infrarenal AAA with occluded right SAM with intramural thrombus Severe peripheral artery disease in right lower extremity Chronic Resp Failure Discharge Disposition: Home Discharge Instruct/Medications Diet: Cardiac 2g Na,low cholest Activity: Light activity Follow Up/Referral: Dr. Palmer Gallagher PCP Medications: Per EMR Discharge Statement: "Patient was advised to return to the ER or call 911 if any headaches, dizziness, shortness of breath, chest pain, abdominal pain, bleeding, fevers, or worsening of medical condition. Patient was counseled about treatment plan, medications, possible side effects, patientverbalized understanding. All questions were answered to the best of my ability. This discharge took greater then 30 minutes in planning, reviewing documentation, counseling the patient, and discussing with other team members." ASSESSMENT ASSESSMENT Assessment Infrarenal AAA with occluded right SAM with intramural thrombus Severe peripheral artery disease in right lower extremity Date of Service: Feb 22, 2024 Billing Provider: GENNA GARCIA MD Common Visit Codes: [id number] DISCH DAY >30min GENNA GARCIA MD Feb 22, 2024 13:23
[2024-02-22] MEDS: ALBUMIN 25% 100 ML IV ONE (13:27)
--- NOTE | 2024-03-01 11:41 | ECG ---
[facility] Test Date: 2024-02-22 Test Time: 06:56:46 Pat Name: RHONDA MALDONADONCIA Department: Room: 0288T B Gender: M Parts Specialist: ANTHONY : 1945 Requested By: ROOSEVELT WEST Order Number: [id number] Reading MD: Jeet Melvin Measurements Intervals [place] Rate: 81 P: 57 MI: 107 QRS: 75 QRSD: 98 T: 41 QT: 394 QTc: 458 Interpretive Statements Sinus rhythm Short MI interval Low voltage, extremity leads Electronically Signed On 03-02-2024 0:50:36 PST by Jeet Melvin Please click the below link to view image of tracing.
--- NOTE | 2024-03-01 14:41 | ECG ---
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
--- NOTE | 2024-03-03 22:47 | CODING ---
Date of Service: Feb 16, 2024 Billing Provider: ZANE ANDREWS MD Common Visit Codes: [id number] INP/OBS CARE(HIGH) ZANE ANDREWS MD Mar 03, 2024 22:47
--- NOTE | 2024-03-03 22:47 | CODING ---
Date of Service: Feb 15, 2024 Billing Provider: ZANE ANDREWS MD Common Visit Codes: [id number] INP/OBS CARE(HIGH) ZANE ANDREWS MD Mar 03, 2024 22:47
--- NOTE | 2024-03-03 22:47 | CODING ---
Date of Service: Feb 14, 2024 Billing Provider: ZANE ANDREWS MD Common Visit Codes: [id number] INP/OBS CARE(HIGH) ZANE ANDREWS MD Mar 03, 2024 22:47
--- NOTE | 2024-03-03 22:48 | CODING ---
Date of Service: Feb 19, 2024 Billing Provider: ZANE ANDREWS MD Common Visit Codes: [id number] INP/OBS CARE(HIGH) ZANE ANDREWS MD Mar 03, 2024 22:48
== END 2024-02-22 18:41 | disposition home or self-care (01) | DRG 270 ==
LOC: ER 08:55 → TELE 16:25 → DOU IN ICU 02-01 03:40 → ICU CENTRL 02-20 01:25 → DOU IN ICU 02-21 06:38 → WEST WING 02-21 13:33 → TELE-WESTW 02-22 08:22
PROVIDERS: ADMIT Student in an Organized Health Care Education/Training Program; ATTEND Internal Medicine
PROC: B41F1ZZ Fluoroscopy of Right Lower Extremity Arteries using Low Osmolar Contrast (ICD-10-PCS; 2024-02-02)
PROC: 041L3JQ Bypass Left Femoral Artery to Lower Extremity Artery with Synthetic Substitute, Percutaneous Approach (ICD-10-PCS; 2024-02-19)
PROC: 5A09357 Assistance with Respiratory Ventilation, Less than 24 Consecutive Hours, Continuous Positive Airway Pressure (ICD-10-PCS; 2024-02-19)
PROC: 04CL3ZZ Extirpation of Matter from Left Femoral Artery, Percutaneous Approach (ICD-10-PCS; principal; 2024-02-19 07:45)
PROC: 04CK3ZZ Extirpation of Matter from Right Femoral Artery, Percutaneous Approach (ICD-10-PCS; 2024-02-19 07:45)
DX: I71.43 Infrarenal abdominal aortic aneurysm, without rupture (principal); A41.50 Gram-negative sepsis, unspecified; J15.69 Pneumonia due to other Gram-negative bacteria; J15.9 Unspecified bacterial pneumonia; J96.01 Acute respiratory failure with hypoxia; I74.09 Other arterial embolism and thrombosis of abdominal aorta; I74.5 Embolism and thrombosis of iliac artery; J44.0 Chronic obstructive pulmonary disease with (acute) lower respiratory infection; J98.11 Atelectasis; J44.1 Chronic obstructive pulmonary disease with (acute) exacerbation; N39.0 Urinary tract infection, site not specified; Z20.822 Contact with and (suspected) exposure to COVID-19; N28.1 Cyst of kidney, acquired; K57.30 Diverticulosis of large intestine without perforation or abscess without bleeding; K40.90 Unilateral inguinal hernia, without obstruction or gangrene, not specified as recurrent; K41.90 Unilateral femoral hernia, without obstruction or gangrene, not specified as recurrent; I73.9 Peripheral vascular disease, unspecified; I07.1 Rheumatic tricuspid insufficiency; J43.9 Emphysema, unspecified; E66.9 Obesity, unspecified; I27.21 Secondary pulmonary arterial hypertension; K59.00 Constipation, unspecified; K44.9 Diaphragmatic hernia without obstruction or gangrene; Z87.891 Personal history of nicotine dependence; Z68.29 Body mass index [BMI] 29.0-29.9, adult
CPT/HCPCS: 36415; 36600; 71045; 71046; 71250; 71275; 72193; 74175; 75710; 80048; 80053; 80076; 80307; 81001; 82306; 82607; 82805; 83036; 83735; 83880; 84439; 84443; 84481; 84484; 85007; 85025; 85027; 85048; 85379; 85610; 85730; 86850; 86900; 86901; 87040; 87081; 87086; 87088; 87186; 87426; 87804; 93005; 93017; 93306; 93925; 93970; 94060; 94640; 94660; 97110; 97116; 97163; 97530; 99152; C1894; G0378; J0690; J1100; J2003; J2250; J2405; J2543; J2704; J3490; J7060; P9047; Q9967

== ENCOUNTER 2024-03-02 16:49 | Emergency (ER) | payer MEDICARE, OTHER ==
[~2024-03-02] VITALS: Ht 167.6 cm; Wt 69.2 kg
[~2024-03-02 16:49] MED LIST changes: +AUG875T PO; +FURO1TAB33 PO; +POTA-211 PO
[2024-03-02] MEDS ORDERED: CLIN1CAP70 PO (18:19)
[2024-03-02] MEDS ORDERED: MUPI2CRE17 EX (18:20)
[2024-03-02 18:21] VITALS: BP 110/65; PULSE 79; RESP 28; TEMP 98; O2SAT 98
--- NOTE | 2024-03-02 18:33 | ED.PDOC ---
History of Present Illness HPI Comments 78 year Old male who came to ER for wound check. Patient was discharged here last February 21 was diagnosed to have, 1. Infrarenal AAA with occluded right SAM with intramural thrombus, 2. Severe peripheral artery disease in right lower extremity, 3. Chronic Resp Failure. For the past 2 days, noted the incision wound at the left inguinal area appears inflamed, swollen, red, with discharge oozing. No fever noted. Chief Complaint: Wound Check Time Seen by MD: 18:33 Primary Care Provider: UNKNOWN Reviewed Notes: Nurses Notes Allergies: Coded Allergies: NO KNOWN ALLERGIES (Unverified , 02/27/23) Home Meds Active Scripts Mupirocin Calcium (Topical) (MUPIROCIN) 2 % Cre, 2 % EX BID for 10 Days, #30 CRE Prov:JOSEPH CASTILLO MD 03/02/24 Clindamycin Hcl (Clindamycin Hcl) 300 Mg Cap, 1 CAP PO BID for 7 Days, #14 CAP Prov:JOSEPH CASTILLO MD 03/02/24 Potassium Chloride (Klor-Con 10) 10 Meq Tab, 10 MEQ PO QAM for 10 Days, #10 TAB Prov:GENNA SAWANT MD 02/22/24 Furosemide (Lasix) 20 Mg Tb, 1 TAB PO DAILY, #10 TAB 0 Refills Prov:GENNA SAWANT MD 02/22/24 Amoxicillin & Pot Clavulanate (AUGMENTIN TABLET) 875 Mg Tb, 875 MG PO BID for 5 Days, #10 TAB Prov:GENNA SAWANT MD 02/22/24 Reported Medications Rosuvastatin Calcium (Rosuvastatin Calcium) 20 Mg Tab, 1 TAB PO DAILY 02/27/23 Information Source: Patient Mode of Arrival: Ambulatory Severity: Moderate Timing: Days Duration: Since onset Prehospital treatment: None Medication Refill: For: Other Past Medical History PAST MEDICAL HISTORY: High Lipids Past Medical History (Other): Peripheral artery disease, AAA Surgical History: Denies all surgeries Surgical History (Other): Infrarenal AAA with occluded right SAM with intramural thrombus Family History Family History: Reviewed,noncontributory to illness Social History Smoker: Non-Smoker Alcohol: Denies ETOH Use Drugs: Denies Drug Use Lives In: Home Constitutional: denies: chills, diaphoresis, fatigue, fever, malaise, sweats, weakness, others EENTM: denies: blurred vision, double vision, ear bleeding, ear discharge, ear drainage, ear pain, ear ringing, eye pain, eye redness, hearing loss, mouth pain, mouth swelling, nasal discharge, nose bleeding, nose congestion, nose pain, photophobia, tearing, throat pain, throat swelling, voice changes, others Respiratory: denies: cough, hemoptysis, orthopnea, SOB at rest, shortness of breath, SOB with excertion, stridor, wheezing, others Cardiovascular: denies: chest pain, dizzy spells, diaphoresis, Dyspnea on exertion, edema, irregular heart beat, left arm pain, lightheadedness, palpitations, PND, syncope, others Gastrointestinal: denies: abdomen distended, abdominal pain, blood streaked bowels, constipated, diarrhea, dysphagia, difficulty swallowing, hematemesis, melena, nausea, poor appetite, poor fluid intake, rectal bleeding, rectal pain, vomiting, others Genitourinary: denies: burning, dysuria, flank pain, frequency, hematuria, incontinence, penile discharge, penile sore, pain, testicle pain, testicle swelling, urgency, others Neurological: denies: dizziness, fainting, headache, left sided numbness, left sided weakness, numbness, paresthesia, pre-existing deficit, right sided numbness, right sided weakness, seizure, speech problems, tingling, tremors, weakness, others Musculoskeletal: denies: back pain, gout, joint pain, joint swelling, muscle pain, muscle stiffness, neck pain, others Integumetry: reports: wounds (Infected incision wound left inguinal area); denies: bruises, change in color, change in hair/nails, dryness, laceration, lesions, lumps, rash, others Allergic/Immunocompromised: denies: Difficulty Healing, Frequent Infections, Hives, Itching, others Hematologic/Lymphatic: denies: anemia, blood clots, easy bleeding, easy bruising, swollen glands, others Endocrine: denies: excessive hunger, excessive sweating, excessive thirst, excessive urination, flushing, intolerance to cold, intolerance to heat, unexplained weight gain, unexplained weight loss, others Psychiatric: denies: anxiety, bipolar disorder, depression, hopeless, panic disorder, schizophrenia, sleepless, suicidal, others Physical Exam General Appearance: No Apparent Distress, Normal HEENT: Normal ENT Inspection, Pharynx Normal, TMs Normal Neck: Full Range of Motion, Non-Tender, Normal, Normal Inspection Respiratory: Chest Non-Tender, Lungs Clear, No Accessory Muscle Use, No Respiratory Distress, Normal Breath Sounds Cardiovascular: No Edema, No JVD, No Murmur, No Gallop, Normal Peripheral Pulse s, Regular Rate/Rhythm Breast Exam: Deferred Gastrointestinal: No Organomegaly, Non Tender, No Pulsatile Mass, Normal Bowel Sounds, Soft Genitalia: Deferred Pelvic: Deferred Rectal: Deferred Extremities: No calf tenderness, Normal capillary refill, Normal inspection, Normal range of motion, Non-tender, No pedal edema Musculoskeletal : Apperance: Normal Neurologic: Alert, worm farmer II-XII nml as Tested, No Motor Deficits, Normal Affect, Normal Mood, No Sensory Deficits Cerebellar Function: Normal Reflexes: Normal Skin: Dry, Normal Color, Warm Lymphatic: No Adenopathy Was a procedure done? Was a procedure done?: No Differential Dx Considerations may include: Cellulitis, abscess, post up complication X-Ray, Labs, Meds, VS Vital Signs Date Time Temp Pulse Resp B/P (MAP) Pulse Ox O2 Delivery O2 Flow Rate FiO2 03/02/24 18:04 98.8 86 18 120/71 (87) 95 Time of 1ST Reevaluation: 18:20 Reevaluation 1ST: Unchanged Time of 2ND Reevaluation: 18:35 Reevaluation 2ND: Unchanged Patient Education/Counseling: Diagnosis, Treatment Family Education/Counseling: Diagnosis, Treatment Departure 1 Departure Time of Disposition: 18:30 Impression: Primary Impression: Infected surgical wound Disposition: HOME / SELF CARE / HOMELESS Condition: Stable e-Prescriptions Mupirocin Calcium (Topical) (MUPIROCIN) 2 % Cre 2 % EX BID for 10 Days, #30 CRE Prov: JOSEPH CASTILLO MD 03/02/24 Clindamycin Hcl (Clindamycin Hcl) 300 Mg Cap 1 CAP PO BID for 7 Days, #14 CAP Prov: JOSEPH CASTILLO MD 03/02/24 Discharged With: Self, Relative Critical Care Note Critical Care Time?: No Stability Stability form required: No Heart Score Heart Score: Heart Score Response (Comments) Value History N/A 0 EKG N/A 0 Age N/A 0 Risk Factors N/A 0 Troponin N/A 0 Total 0 I personally scribed for JOSEPH CASTILLO MD ([email or web address]) on 03/02/24 at 18:33. Electronically submitted by Axel Mckeon ([email or web address]). JOSEPH CASTILLO MD Mar 02, 2024 18:33
[2024-03-02] MEDS: CLINDAMYCIN HCL 150 MG CAP PO ONE (19:15)
== END 2024-03-02 20:17 | disposition home or self-care (01) ==
LOC: ER 16:49
DX: T81.49XD Infection following a procedure, other surgical site, subsequent encounter (principal); E78.5 Hyperlipidemia, unspecified; Z79.899 Other long term (current) drug therapy; Z98.890 Other specified postprocedural states

== ENCOUNTER → 2024-07-29 | Outpatient (CLI) | payer OTHER ==
[~2024-07-29] MED LIST changes: +CLIN1CAP70 PO; +MUPI2CRE17 EX
[2024-07-29 09:21] LABS: Urine Bacteria None Seen /hpf (None Seen)
[2024-07-29 09:43] LABS: Basophils # (auto) 0 10 ^3/uL (0-0.2); Basophils % (auto) 0.4 % (0.0-2.0); Eosinophils # (auto) 0.3 10 ^3/uL (0-0.8); Eosinophils % (auto) 4.4 % (0.0-7.0); Hematocrit 43.1 % (41.0-53.0); Hemoglobin 14.5 g/dL (13.5-17.5); Lymphocytes # (auto) 1.2 10 ^3/uL (0.4-5.4); Lymphocytes % (auto) 20.9 % (10.0-50.0); Mean Corpuscular Hemoglobin 27.7 pg (28.0-32.0); Mean Corpuscular Hgb Conc. 33.6 g/dL (32.0-36.0); Mean Corpuscular Volume 82.5 fL (80.0-100.0); Monocytes # (auto) 0.4 10 ^3/uL (0-1.3); Monocytes % (auto) 7.3 % (0.0-12.0); Neutrophils # (auto) 3.8 10 ^3/uL (1.6-8.6); Nucleated Red Blood Cells % 0.2 %; Platelet Count (auto) 114 10^3/uL (140-450); Red Blood Cells 5.23 10^6/uL (4.5-5.90); Red Cell Distribution Width 15.5 % (11.8-14.3); White Blood Cell 5.7 10^3/uL (4.4-10.8)
[2024-07-29 10:02] LABS: Alanine Aminotransferase 11 U/L (7-40); Albumin 4.6 g/dL (3.2-4.8); Alkaline Phosphatase 62 U/L (46-116); Anion Gap 5 (5-15); BUN/Creatinine Ratio 9.9 (10.0-20.0); Bilirubin, Total 0.6 mg/dL (0.2-1.0); Blood Urea Nitrogen 12 mg/dL (9-23); Chloride 105 mmol/L (98-107); Cholesterol 162 mg/dL (< 200); Glucose 96 mg/dL (74-106); HDL Cholesterol 51 mg/dL (40-59); LDL Cholesterol 90 mg/dL (< 100); Potassium 4.6 mmol/L (3.5-5.1); Sodium 142 mmol/L (136-145); Total Protein 6.8 g/dL (5.7-8.2); Triglycerides 112 mg/dL (< 150)
[2024-07-29 10:04] LABS: Urine Blood TRACE /uL (Negative); Urine Clarity Clear (Clear); Urine Color Light-Yellow (Yellow); Urine Mucus FEW (None Seen); Urine Protein, UAD Negative (Negative); Urine Specific Gravity 1.017 (1.001-1.035); Urine Squamous Epithelial Cell FEW /hpf (<5); Urine Urobilinogen Normal (Negative); Urine WBC 1 /HPF (0-3); Urine pH 5.5 (5.0-9.0)
[2024-07-29 10:10] LABS: Aspartate Aminotransferase 13 U/L (13-40); Calcium 10.5 mg/dL (8.7-10.4); Carbon Dioxide 32 mmol/L (20-31)
[2024-07-29 10:27] LABS: Folate (Folic Acid) 15.08 ng/mL (>5.38)
== END | disposition home or self-care (01) ==
LOC: LAB 08:55
PROVIDERS: ATTEND Nurse Practitioner Family
DX: E78.2 Mixed hyperlipidemia (principal); J44.9 Chronic obstructive pulmonary disease, unspecified; I71.9 Aortic aneurysm of unspecified site, without rupture; R73.09 Other abnormal glucose
CPT/HCPCS: 36415; 80053; 80061; 81001; 82306; 82607; 82746; 83036; 84443; 85025; 87086

== ENCOUNTER 2024-11-28 10:12 | Outpatient (CLI) | payer OTHER | END 2024-11-28 17:00 | disposition home or self-care (01) | LOC: LAB 10:12 | PROVIDERS: ATTEND Internal Medicine | DX: E78.49 Other hyperlipidemia (principal); E61.2 Magnesium deficiency; E79.0 Hyperuricemia without signs of inflammatory arthritis and tophaceous disease; E55.9 Vitamin D deficiency, unspecified; D51.9 Vitamin B12 deficiency anemia, unspecified; R82.79 Other abnormal findings on microbiological examination of urine; R82.90 Unspecified abnormal findings in urine; R82.998 Other abnormal findings in urine; R94.6 Abnormal results of thyroid function studies; R68.89 Other general symptoms and signs; R73.09 Other abnormal glucose | CPT/HCPCS: 82306; 87086 ==

== ENCOUNTER → 2024-12-27 | Outpatient (CLI) | payer OTHER ==
[2024-12-27 08:42] LABS: Hematocrit 45.1 % (41.0-53.0); Hemoglobin 14.9 g/dL (13.5-17.5); Mean Corpuscular Hemoglobin 27.6 pg (28.0-32.0); Mean Corpuscular Volume 83.8 fL (80.0-100.0); Nucleated Red Blood Cells % 0.1 %
[2024-12-27 08:51] LABS: Urine Protein, UAD Negative (Negative)
[2024-12-27 09:07] LABS: Alanine Aminotransferase 11 U/L (7-40); Alkaline Phosphatase 62 U/L (46-116); Anion Gap 9 (5-15); BUN/Creatinine Ratio 8.4 (10.0-20.0); Blood Urea Nitrogen 11 mg/dL (9-23); Calcium 9.4 mg/dL (8.7-10.4); Carbon Dioxide 31 mmol/L (20-31); Chloride 102 mmol/L (98-107); Glucose 101 mg/dL (74-106); Magnesium 2.2 mg/dL (1.6-2.6); Potassium 4.4 mmol/L (3.5-5.1); Sodium 142 mmol/L (136-145); Total Protein 7.0 g/dL (5.7-8.2); Triglycerides 127 mg/dL (< 150)
[2024-12-27 09:08] LABS: Albumin 4.6 g/dL (3.2-4.8); Bilirubin, Total 0.7 mg/dL (0.2-1.0); Cholesterol 147 mg/dL (< 200); HDL Cholesterol 49 mg/dL (40-59)
[2024-12-27 09:49] LABS: Uric Acid 7.2 mg/dL (3.7-9.2)
== END | disposition home or self-care (01) ==
LOC: LAB 08:05
PROVIDERS: ATTEND Internal Medicine
DX: E11.9 Type 2 diabetes mellitus without complications (principal); E78.49 Other hyperlipidemia; E61.2 Magnesium deficiency; R68.89 Other general symptoms and signs; E79.0 Hyperuricemia without signs of inflammatory arthritis and tophaceous disease; E55.9 Vitamin D deficiency, unspecified; D51.9 Vitamin B12 deficiency anemia, unspecified; R82.79 Other abnormal findings on microbiological examination of urine; R82.90 Unspecified abnormal findings in urine; R82.998 Other abnormal findings in urine; R94.6 Abnormal results of thyroid function studies
CPT/HCPCS: 36415; 80053; 80061; 81001; 82306; 82607; 82746; 83036; 83735; 84443; 84480; 84550; 85025; 87086

== ENCOUNTER 2025-01-28 08:54 | Outpatient (CLI) | payer OTHER ==
[~2025-01-28] VITALS: Ht 167.6 cm; Wt 77.1 kg
[2025-01-28] MEDS: REGADENOSON 0.4 MG/5 ML SYRG IV ONE ×2 (10:41→10:47)
--- NOTE | 2025-01-28 17:10 | DVHSR ---
APPROVED REPORT Exam: Nuclear Stress Test BMI: 0 Stress Test Details HR Max Heart Rate (APMHR): 139.229671 bpm Target HR (85% APMHR): 118.481637 bpm BP ECG Stress ECG Conclusion lvef 62% minor inferior wall fixed defect NM EXAM: Myocardial Perfusion REST/STRESS Imaging Protocol: Rest Tc-99m/Stress Tc-99m 1 day Resting Data Rest SPECT myocardial perfusion imaging was performed in supine position 60 minutes following the int ravenous injection of 10.5 mCi of Tc-99m Sestamibi. Time of rest injection: 09:40 Date: 01/28/2025 Time of rest imagin:40 Date: 01/28/2025 Pharmacologic Stress Pharmacologic stress test was performed by injecting Regadenoson 0.4 mg IV push followed by the intra venous injection of 30.9 mCi of Tc-99m Sestamibi. Time of stress injection: 10:45 Date: 01/28/2025 Time of stress imagin:45 Date: 01/28/2025 Administration Route: IV Administration Site: Right Hand Gated Stress SPECT was performed 60 minutes after stress injection. The images were gated to evaluate regional wall motion and calculate left ventricular ejection fracti on. Stress only was performed in the Supine position. Nuclear Conclusion Nuclear Findings: negative for ischemia lvef 62% minor inferior wall fixed defect
== END 2025-01-28 17:00 | disposition home or self-care (01) ==
LOC: XYW 08:54
PROVIDERS: ATTEND Internal Medicine
DX: I11.0 Hypertensive heart disease with heart failure (principal); I50.9 Heart failure, unspecified; I71.43 Infrarenal abdominal aortic aneurysm, without rupture
CPT/HCPCS: 78452; 93017; A9500; J2785

== ENCOUNTER 2025-01-28 13:09 | Outpatient (CLI) | payer OTHER ==
[2025-01-28 14:33] LABS: Alanine Aminotransferase 13 U/L (7-40); Albumin 4.7 g/dL (3.2-4.8); Alkaline Phosphatase 61 U/L (46-116); Anion Gap 9 (5-15); BUN/Creatinine Ratio 13.7 (10.0-20.0); Bilirubin, Total 0.7 mg/dL (0.2-1.0); Blood Urea Nitrogen 16 mg/dL (9-23); Calcium 9.7 mg/dL (8.7-10.4); Chloride 104 mmol/L (98-107); Glucose 90 mg/dL (74-106); Potassium 4.8 mmol/L (3.5-5.1); Total Protein 7.2 g/dL (5.7-8.2)
[2025-01-28 14:36] LABS: Carbon Dioxide 32 mmol/L (20-31); Sodium 145 mmol/L (136-145)
== END 2025-01-28 17:00 | disposition home or self-care (01) ==
LOC: LAB 13:09
PROVIDERS: ATTEND Internal Medicine
DX: I10 Essential (primary) hypertension (principal)
CPT/HCPCS: 36415; 80053

== ENCOUNTER 2025-03-25 08:57 | Outpatient (CLI) | payer OTHER ==
[2025-03-25 10:16] LABS: Hematocrit 44.7 % (41.0-53.0); Hemoglobin 14.3 g/dL (13.5-17.5); Mean Corpuscular Hemoglobin 27.2 pg (28.0-32.0); Mean Corpuscular Volume 84.8 fL (80.0-100.0); Nucleated Red Blood Cells % 0.1 %
[2025-03-25 10:27] LABS: Urine Protein, UAD Negative (Negative)
[2025-03-25 10:42] LABS: Alanine Aminotransferase 11 U/L (7-40); Alkaline Phosphatase 68 U/L (46-116); Anion Gap 11 (5-15); BUN/Creatinine Ratio 10.5 (10.0-20.0); Blood Urea Nitrogen 14 mg/dL (9-23); Calcium 10.0 mg/dL (8.7-10.4); Chloride 104 mmol/L (98-107); Glucose 95 mg/dL (74-106); Magnesium 2.3 mg/dL (1.6-2.6); Potassium 4.6 mmol/L (3.5-5.1); Total Protein 7.1 g/dL (5.7-8.2)
[2025-03-25 10:43] LABS: Albumin 4.4 g/dL (3.2-4.8); Bilirubin, Total 0.5 mg/dL (0.2-1.0); Cholesterol 152 mg/dL (< 200); HDL Cholesterol 45 mg/dL (40-59)
[2025-03-25 10:47] LABS: Carbon Dioxide 32 mmol/L (20-31); Sodium 147 mmol/L (136-145)
[2025-03-25 10:59] LABS: Triglycerides 155 mg/dL (< 150)
== END 2025-03-25 17:00 | disposition home or self-care (01) ==
LOC: LAB 08:57
PROVIDERS: ATTEND Internal Medicine
DX: E78.49 Other hyperlipidemia (principal); E61.2 Magnesium deficiency; E55.9 Vitamin D deficiency, unspecified; E79.0 Hyperuricemia without signs of inflammatory arthritis and tophaceous disease; D51.9 Vitamin B12 deficiency anemia, unspecified; R82.79 Other abnormal findings on microbiological examination of urine; R82.90 Unspecified abnormal findings in urine; R82.998 Other abnormal findings in urine; R94.6 Abnormal results of thyroid function studies; R68.89 Other general symptoms and signs; R73.09 Other abnormal glucose
CPT/HCPCS: 36415; 80053; 80061; 81001; 82306; 82607; 82746; 83036; 83735; 84443; 85025; 87086